=== PATIENT | male | born 1945 | race Caucasian/White ===

== ENCOUNTER 2023-03-27 09:05 | Outpatient (RCR) | payer MEDICARE, OTHER, SELFPAY | END 2023-03-27 23:59 | disposition home or self-care (01) | LOC: RPT 09:05 | PROVIDERS: ATTENDING PHYSICIAN Internal Medicine Geriatric Medicine | DX: R26.89 Other abnormalities of gait and mobility (principal); Z73.6 Limitation of activities due to disability; R26.2 Difficulty in walking, not elsewhere classified; C61 Malignant neoplasm of prostate; M62.81 Muscle weakness (generalized) | CPT/HCPCS: 97163 ==

== ENCOUNTER → 2023-04-06 15:56 | Outpatient (REF) | payer MEDICARE, OTHER, SELFPAY ==
[2023-04-07 14:40] LABS: NT-proBNP 839 pg/ml
== END ==
LOC: RAD 15:56
PROVIDERS: ATTENDING PHYSICIAN Internal Medicine Hematology & Oncology; FAMILY PHYSICIAN Internal Medicine Geriatric Medicine
DX: C61 Malignant neoplasm of prostate (principal)
CPT/HCPCS: 36415; 71046; 83880

== ENCOUNTER → 2023-04-07 10:18 | Outpatient (REF) | payer MEDICARE, OTHER, SELFPAY ==
[2023-04-07 10:47] LABS: % Basophils 0.3 % (0-2); % Eosinophils 0.1 % (0-6); % Immature Granulocytes 1.5 % (0-0.5); % Lymphocytes 5.7 % (20.5-51.1); % Monocytes 4.3 % (1.7-9.3); % Neutrophils 88.1 % (42.2-75.2); Absolute Basophils 0.1 10^3/uL (0-0.2); Absolute Immature Granulocytes 0.5 10^3/uL (0-0.05); Absolute Lymphocytes 1.7 10^3/uL (1.2-3.4); Absolute Monocytes 1.3 10^3/uL (0.1-0.6); Absolute Neutrophils 26.7 10^3/uL (1.4-6.5); Hematocrit 39.7 % (39.0-52.0); Mean Corp Hgb Conc. 32.7 g/dL (33.0-37.0); Mean Corpuscular Hgb 29.4 pg (27.0-31.0); Mean Corpuscular Volume 89.8 fL (80.0-94.0); Mean Platelet Volume 10.3 fL (7.4-10.4); Nucleated Red Blood Cells % 0 % (-); Platelet Count 123 10^3/uL (130-400); Red Blood Cell Count 4.42 10^6/uL (4.70-6.10); Red Cell Dist. Width 15.2 % (11.5-14.5); White Blood Cell Count 30.3 10^3/uL (4.8-10.8)
[2023-04-07 11:11] LABS: ALT (SGPT) 26 U/L (0-50); AST (SGOT) 24 U/L (17-59); Albumin 3.1 g/dl (3.5-5.0); Alkaline Phosphatase 140 U/L (38-126); Blood Urea Nitrogen 18 mg/dl (9-20); Calcium 8.6 mg/dl (8.4-10.2); Carbon Dioxide 29 mmol/L (22-30); Chloride 100 mmol/L (98-107); Direct Bilirubin 0.4 mg/dl (0.0-0.4); Glucose 172 mg/dl (70-99); Potassium 3.8 mmol/L (3.5-5.1); Sodium 138 mmol/L (135-145); Total Protein 5.8 g/dl (6.3-8.2); eGFR > 60.00
[2023-04-07 11:41] LABS: PSA, Total - Diagnostic 2.65 ng/ml (0.0-4.0)
== END ==
LOC: REG 10:18
PROVIDERS: ATTENDING PHYSICIAN Internal Medicine Hematology & Oncology
DX: C61 Malignant neoplasm of prostate (principal)
CPT/HCPCS: 36415; 80053; 82248; 84153; 85025

== ENCOUNTER 2023-04-08 22:05 | Inpatient (IN) | payer MEDICARE, OTHER, SELFPAY ==
[2023-04-08] VITALS (9 sets, daily range): BP systolic 105–129; BP diastolic 58–66; BMI 26.5
--- NOTE | 2023-04-08 16:55 | ED.GENMED ---
History of Present Illness
<Jessica Robertson NP - Last Filed: 04/08/23 22:40>
General
Chief Complaint: Breathing Problem
Source: patient
Exam Limitations: none
Time Seen by Provider: 04/08/23 16:45
Nursing documentation reviewed up to this point in time: agreed with
Travel History
Have you had any contact with someone who has COVID-19?: No
Do you have any symptoms of coronavirus? Fever > 100 degrees, chills, cough, shortness of breath, sore throat, loss of taste or smell, muscle aches, or headache?: Yes
Symptoms:: cough,SOB
History of Present Illness
History of Present Illness:
Patient to ED with complaint of suddent onset of SOB. Lasted approx 15 minutes. Denies any CP/pressure. He was seen by provider on . 13lb weight gain noted. He reported increased swelling to his legs and feet. He was ordered Lasix but
has not picked it from pharmacy yet. States he had outpatient labwork and CXR without any concerning findings. Brought to ED by spouse for eval. Denies fever/chills, recent illness. +nonproductive cough. Last CHemo and lupron injection Mar 23
Past History
<Jessica Robertson NP - Last Filed: 04/08/23 22:40>
Past History
ED Past Medical History: Cancer (prostate), HTN, Hypercholesterolemia and NIDDM
ED Past Surgical History: Appendectomy, Cardiac (TAVR, loop recorder.), Orthopedic (Left total knee replacement 02/16), Tonsilectomy and Other (Left-sided CEA)
Social History
Alcohol: None
Drug: None
Personal:
Living: with family
Review of Systems
<Jessica Robertson NP - Last Filed: 04/08/23 22:40>
Review of Systems
Allergies reviewed?: Yes
All Other Systems: ROS reviewed and negative except as documented in HPI and ROS
Constitutional: Reports no symptoms
EENT: Reports no symptoms
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
Cardiac: Reports no symptoms
ABD/GI: Reports no symptoms
: Reports no symptoms
Musculoskeletal: Reports edema (+3BLE)
Skin: Reports no symptoms
Neurological: Reports no symptoms
Psychiatric: Reports no symptoms
Phy Exam
<Jessica Robertson FABRICATION SUPERVISOR - Last Filed: 04/08/23 22:40>
General Physical Exam
General Presentation: mild distress
General age: appears stated age
General Skin: warm and dry
General Habitus: normal
General Mental: alert
General Hydration: appears well hydrated
Cardiovascular Exam
Cardiovascular Exam: regular rate/rhythm
Pulmonary Exam
Pulmonary Exam: chest non tender
Cough: non productive cough
Breath Sounds: Crackles: left lower and right lower
Gastrointestinal Exam
Gastrointestinal Exam: normal bowel sounds and non tender
Musculoskeletal Exam
Musculoskeletal Exam: full ROM, edema (+3 edema BLE) and neuro vasc intact
Skin Exam
Skin Exam: normal color, warm/dry and no rash
Psychiatric Exam
Psychiatric Exam: normal mood/affect
Scores
<Jessica Robertson FABRICATION SUPERVISOR - Last Filed: 04/08/23 22:40>
Heart Failure Risk
Heart Failure Risk Score: Yes
History of Stroke or TIA: No
History of intubation for respiratory distress: No
Heart rate on ED arrival >/= 110: No
SaO2 <90% on arrival on room air: No
HR >/=110 during 3min walk test (or too ill to perform test): Yes
ECG has acute ischemic changes: No
Urea >/=12mmol/L (BUN 33.6mg/dL): No
Serum CO2>/=35mmol/L: No
Troponin I or T elevated to UT Level (0.4mg/dL): Yes
NT-proBNP >/=5,000ng/L (5,000pg/ml): No
HF Risk Score: 4
Admission Status: HIGH RISK 26.1% Consider SNF treatment or admission to hospital
Course
<Jessica Robertson NP - Last Filed: 04/08/23 22:40>
Orders/Labs/Results
Orders:
Orders
04/08/23 16:56
Electrocardiogram (*1) Urgent
Reason for Study: Shortness of Breath
EKG- Treatment ONCE
04/08/23 17:03
Complete Blood Count/With Diff Urgent
Comprehensive Metabolic Panel Urgent
NT-proBNP Urgent
Troponin I Urgent
04/08/23 17:07
CR Chest - 2 Views Urgent
Comment:
Reason For Exam: SOB, cough
04/08/23 17:45
Furosemide [Lasix] 60 mg IV NOW STA
04/08/23 17:46
CT Chest Pe Study Urgent
Comment:
Reason For Exam: SOB
Nitroglycerin Ointment [Nitro-Bid] 1 inch TOPICAL NOW STA
04/08/23 19:02
Urinalysis Reflex To Culture Urgent
Date Specimen was Collected: 04/08/23
Time Specimen was Collected: 19:01
04/08/23 21:48
Admit/Transfer Patient As Directed
Co-Sign Provider:
Level of Care: Inpatient admission
Assign to:: Telemetry
Physician / Group: Luke/Hospitalist
Diagnosis: Acute CHF exacerbation, SOB, hypoxia
Reason for Telemetry: Acute Heart Failure
Date to Stop Telemetry: 04/11/23
Time to Stop Telemetry: 11:00
Reason for Hospitalization: CHF, SOB, hypoxia
Expected length of stay greater than two midnights?: Yes
ELOS- Estimated Length of Stay in days: 3
I certify the patient meets the requirements for IP care: Yes
04/08/23 21:51
Code Status As Directed
Resuscitation Status: Full Code
04/08/23 22:00
Flush (0.9% Sodium Chloride) [Flush (Nss)] See Dose Instructions IV PER PROTOCOL
04/08/23 22:20
COVID-19 Antigen Stat
Source: Nasal Swab
04/11/23 11:00
DC Protocol for Telemetry ONCE
Abnormal Lab Results
04/08/23
17:03
WBC 31.4 H 10^3/uL
(4.8-10.8)
RBC 4.20 L 10^6/uL
(4.70-6.10)
Hgb 12.5 L g/dL
(13.0-18.0)
Hct 38.1 L %
(39.0-52.0)
MCHC 32.8 L g/dL
(33.0-37.0)
RDW 15.1 H %
(11.5-14.5)
Abs Immat Gran (auto) 0.2 H 10^3/uL
(0-0.05)
Absolute Neuts (auto) 27.9 H 10^3/uL
(1.4-6.5)
Absolute Monos (auto) 1.2 H 10^3/uL
(0.1-0.6)
Immature Gran % 0.7 H %
(0-0.5)
Neutrophils % 88.9 H %
(42.2-75.2)
Lymphocytes % 5.9 L %
(20.5-51.1)
Sodium 134 L mmol/L
(135-145)
BUN 21 H mg/dl
(9-20)
Glucose 139 H mg/dl
(70-99)
Calcium 7.9 L mg/dl
(8.4-10.2)
Alkaline Phosphatase 133 H U/L
(38-126)
Troponin I 0.218 H* ng/ml
Total Protein 6.1 L g/dl
(6.3-8.2)
Albumin 3.3 L g/dl
(3.5-5.0)
04/08/23 17:03
04/08/23 17:03
Vital Signs
Initial and Last Documented VS:
Initial Vital Signs
Temp Pulse Resp BP Pulse Ox
98.3 F 71 18 121/62 92
04/08/23 16:34 04/08/23 16:34 04/08/23 16:34 04/08/23 16:34 04/08/23 16:34
Last Documented Vital Signs
Temp Pulse Resp BP Pulse Ox
98.3 F 94 22 110/59 90
04/08/23 16:34 04/08/23 21:00 04/08/23 21:00 04/08/23 21:00 04/08/23 21:00
Mattlt;Jesus Soto, DO - Last Filed: 04/08/23 17:39>
Orders/Labs/Results
Orders:
Orders
04/08/23 16:56
Electrocardiogram (*1) Urgent
Reason for Study: Shortness of Breath
EKG- Treatment ONCE
04/08/23 17:03
Complete Blood Count/With Diff Urgent
Comprehensive Metabolic Panel Urgent
NT-proBNP Urgent
Troponin I Urgent
04/08/23 17:07
CR Chest - 2 Views Urgent
Comment:
Reason For Exam: SOB, cough
04/08/23 17:45
Furosemide [Lasix] 60 mg IV NOW STA
04/08/23 17:46
CT Chest Pe Study Urgent
Comment:
Reason For Exam: SOB
Nitroglycerin Ointment [Nitro-Bid] 1 inch TOPICAL NOW STA
04/08/23 19:02
Urinalysis Reflex To Culture Urgent
Date Specimen was Collected: 04/08/23
Time Specimen was Collected: 19:01
04/08/23 21:48
Admit/Transfer Patient As Directed
Co-Sign Provider:
Level of Care: Inpatient admission
Assign to:: Telemetry
Physician / Group: Luke/Hospitalist
Diagnosis: Acute CHF exacerbation, SOB, hypoxia
Reason for Telemetry: Acute Heart Failure
Date to Stop Telemetry: 04/11/23
Time to Stop Telemetry: 11:00
Reason for Hospitalization: CHF, SOB, hypoxia
Expected length of stay greater than two midnights?: Yes
ELOS- Estimated Length of Stay in days: 3
I certify the patient meets the requirements for IP care: Yes
04/08/23 21:51
Code Status As Directed
Resuscitation Status: Full Code
04/08/23 22:00
Flush (0.9% Sodium Chloride) [Flush (Nss)] See Dose Instructions IV PER PROTOCOL
04/08/23 22:20
COVID-19 Antigen Stat
Source: Nasal Swab
04/11/23 11:00
DC Protocol for Telemetry ONCE
Abnormal Lab Results
04/08/23
17:03
WBC 31.4 H 10^3/uL
(4.8-10.8)
RBC 4.20 L 10^6/uL
(4.70-6.10)
Hgb 12.5 L g/dL
(13.0-18.0)
Hct 38.1 L %
(39.0-52.0)
MCHC 32.8 L g/dL
(33.0-37.0)
RDW 15.1 H %
(11.5-14.5)
Abs Immat Gran (auto) 0.2 H 10^3/uL
(0-0.05)
Absolute Neuts (auto) 27.9 H 10^3/uL
(1.4-6.5)
Absolute Monos (auto) 1.2 H 10^3/uL
(0.1-0.6)
Immature Gran % 0.7 H %
(0-0.5)
Neutrophils % 88.9 H %
(42.2-75.2)
Lymphocytes % 5.9 L %
(20.5-51.1)
Sodium 134 L mmol/L
(135-145)
BUN 21 H mg/dl
(9-20)
Glucose 139 H mg/dl
(70-99)
Calcium 7.9 L mg/dl
(8.4-10.2)
Alkaline Phosphatase 133 H U/L
(38-126)
Troponin I 0.218 H* ng/ml
Total Protein 6.1 L g/dl
(6.3-8.2)
Albumin 3.3 L g/dl
(3.5-5.0)
04/08/23 17:03
04/08/23 17:03
Vital Signs
Initial and Last Documented VS:
Initial Vital Signs
Temp Pulse Resp BP Pulse Ox
98.3 F 71 18 121/62 92
04/08/23 16:34 04/08/23 16:34 04/08/23 16:34 04/08/23 16:34 04/08/23 16:34
Last Documented Vital Signs
Temp Pulse Resp BP Pulse Ox
98.3 F 94 22 110/59 90
04/08/23 16:34 04/08/23 21:00 04/08/23 21:00 04/08/23 21:00 04/08/23 21:00
<Jessica Robertson NP - Last Filed: 04/08/23 22:40>
*Radiology
Radiology exam reviewed: radiology read reviewed
*Pulse Oximetry
Patient hypoxic: yes
*Critical Care Note
Total Time (30-74mins, 75-104mins- exclusive of procedures): Not Applicable
ED Attending Note
<Jessica Robertson NP - Last Filed: 04/08/23 22:40>
-
Portions of this chart may have been created with voice recognition software.� Occasional wrong word or��sound alike� substitutions may have occurred due to the inherent limitations of voice recognition software.
<Jesus Soto DO - Last Filed: 04/08/23 17:39>
ED Attending Note
Patient seen and examined by attending physician: Yes
I performed the substantive portion of visit, reviewed & personally made and approve the management plan that is documented in note by myself or GENNY.: Yes
ED Attending Note:
Patient is a 77-year-old male undergoing chemotherapy for prostate cancer and receives Neupogen shots who presents with increasing lower extremity edema, exertional dyspnea and unknown orthopnea that is progressing over the past week or so. Patient
denies any chest pain, fever or chills. Patient is feeling somewhat weaker. Patient did have chest x-ray and BMP done earlier in the week which were unremarkable. However the patient's weight has gone up and continues to have difficulty
breathing. On physical exam patient appears pale but not in any acute distress. There is mild neck vein distention. Patient's heart is regular with questionable S4. Lungs have Rales at least usp up. Abdomen soft nontender. Patient has
pitting edema from the knees distally bilaterally. Patient's chest x-ray does appear to be pulmonary edema now as opposed to the 1 to 2 days ago. Patient will be given IV Lasix. Anticipate the BNP being higher. Patient will be admitted for CHF.
Patient's white count is expected to be high given the Neupogen shot.
Discharge Plan
Departure
Patient Disposition: Admit
Date of Disposition: 04/08/23
Time of Disposition: 19:12
Presentation/result/management discussed w/ accepting MD/DO: Hospitalist
Patient with high blood pressure during this ER visit?: No
Condition: Fair
Covid-19: Not Applicable
Discharge Problem:
CHF (congestive heart failure)
Interventions
Interventions:
*Risk Screen - Suicide Last Done: 04/08/23 16:34
*General Assessment Last Done: 04/08/23 16:34
*Neglect/Abuse Screening Last Done: 04/08/23 16:34
ED- Cardiac Assessment Last Done: 04/08/23 17:19
ED- Pulmonary Assessment Last Done: 04/08/23 17:19
[2023-04-08 17:17] LABS: % Basophils 0.8 % (0-2); % Immature Granulocytes 0.7 % (0-0.5); % Lymphocytes 5.9 % (20.5-51.1); % Monocytes 3.7 % (1.7-9.3); % Neutrophils 88.9 % (42.2-75.2); Absolute Basophils 0.2 10^3/uL (0-0.2); Absolute Immature Granulocytes 0.2 10^3/uL (0-0.05); Absolute Lymphocytes 1.8 10^3/uL (1.2-3.4); Absolute Monocytes 1.2 10^3/uL (0.1-0.6); Absolute Neutrophils 27.9 10^3/uL (1.4-6.5); Hematocrit 38.1 % (39.0-52.0); Hemoglobin 12.5 g/dL (13.0-18.0); Mean Corp Hgb Conc. 32.8 g/dL (33.0-37.0); Mean Corpuscular Hgb 29.8 pg (27.0-31.0); Mean Corpuscular Volume 90.7 fL (80.0-94.0); Mean Platelet Volume 10.1 fL (7.4-10.4); Nucleated Red Blood Cells % 0 % (-); Platelet Count 139 10^3/uL (130-400); Red Cell Dist. Width 15.1 % (11.5-14.5); White Blood Cell Count 31.4 10^3/uL (4.8-10.8)
[2023-04-08 17:31] LABS: ALT (SGPT) 25 U/L (0-50); AST (SGOT) 26 U/L (17-59); Albumin 3.3 g/dl (3.5-5.0); Alkaline Phosphatase 133 U/L (38-126); Blood Urea Nitrogen 21 mg/dl (9-20); Calcium 7.9 mg/dl (8.4-10.2); Carbon Dioxide 27 mmol/L (22-30); Chloride 104 mmol/L (98-107); Estimated Creatinine Clearance 112 ml/min; Glucose 139 mg/dl (70-99); Potassium 3.7 mmol/L (3.5-5.1); Sodium 134 mmol/L (135-145); Total Bilirubin 0.8 mg/dl (0.2-1.3); Total Protein 6.1 g/dl (6.3-8.2); eGFR > 60.00
[2023-04-08 17:37] LABS: NT-proBNP 3260 pg/ml; Troponin I 0.218 ng/ml
[2023-04-08] MEDS: LASIX 60 MG IV (18:35)
[2023-04-08] MEDS: NITRO-BID 1 INCH TOPICAL (18:35)
[2023-04-08 19:10] LABS: Urine Albumin Trace (Neg - Trace); Urine Bilirubin Negative (Negative); Urine Character Clear (Clear); Urine Color Straw; Urine Glucose Negative (Negative); Urine Ketone Negative (Negative); Urine Leukocyte Negative (Negative); Urine Nitrite Negative (Negative); Urine Occult Blood Negative (Negative); Urine Urobilinogen Negative (Neg - 1+)
--- NOTE | 2023-04-08 20:02 | HPS.HSE ---
Family Physician
-
Family Physician: Neville Gómez
Chief Complaint
-
sudden onset SOB
History of Present Illness
The patient is a 77 yo male with PMH significant for prostate cancer, HTN, HLD, NIDDM, ILD, aortic stenosis s/p TAVR, presenting to the ED due to sudden onset SOB lasting 15 minutes, not associated with CP. He's had 13 lb weight gain and swelling of
legs and feet. Seen by doctor and ordered Lasix and took first dose of Lasix yesterday and today (40 mg daily). At that time, per pt, outpatient CXR and lab work was unrevealing. He has non-productive cough. Of note, last chemotherapy and
Lupron injection Mar 23. he has had significant b/l LE edema/swelling over the past 2 days. He sleeps upright due to SOB, congestion, and back pain. No CP, no palpitation, no n/v/d, no fevers, no chills, no dysuria, no abdominal pain.
Medical History
Past Medical History
Past Medical History: Reports Cancer (prostate s/p Lupron and chemo Mar 23, mets to ), HTN, Hypercholesterolemia, NIDDM and Other (cerebrovascular disease, TIA, YOUSIF)
Past Surgical History: Reports Appendectomy, Cardiac (TAVR, loop recorder), Orthopedic (left total knee replacement 02/16), Tonsilectomy and Other (left-sided CEA 11/24/22)
Social History
Tobacco: Former Smoker
Alcohol: Daily
Drug: None
Personal:
Living: With Family
Family History
Family History: Not pertinent (reviewed)
Allergies / Home Medications
Allergies reflects when Allergies were last updated in [employer].
Home Medications with original date entered in [employer]
Allergy/Medication List:
Allergies
Allergy/AdvReac Type Severity Reaction Status Date / Time
Penicillins Allergy Rash Verified 04/08/23 16:34
pollen extracts Allergy watery Verified 04/08/23 16:34
eyes,
nasal
congestion
Home Medications
coenzyme Q10 100 mg capsule (Co Q-10) 100 mg PO DAILY Supplement 02/22/19
empagliflozin 10 mg tablet (Jardiance) 10 mg PO DAILY Diabetes 02/22/19
simvastatin 20 mg tablet 20 mg PO HS High cholesterol 02/22/19
vit C 250 mg-vit E 90 mg-zinc 40 mg-copper 1 [id number] capsule (PreserVision AREDS-2) 1 ea PO BID Supplement 02/22/19
cholecalciferol (vitamin D3) 25 mcg (1,000 unit) capsule (Vitamin D3) 50 mcg PO DAILY Supplement 01/25/22
ipratropium bromide 42 mcg (0.06 %) nasal spray 2 spray intranasal DAILY Congestion 01/25/22
metoprolol succinate 25 mg tablet,extended release 24 hr 12.5 mg PO HS Blood pressure 01/25/22
tamsulosin 0.4 mg capsule 0.4 mg PO HS Urinary Issue 11/18/22
metformin 1,000 mg tablet 1,000 mg PO BID Diabetes 11/24/22
clopidogrel 75 mg tablet (Plavix) 75 mg PO QPM 02/24/23
escitalopram oxalate 5 mg tablet 5 mg PO DAILY 04/08/23
furosemide 40 mg tablet 40 mg PO DAILY 04/08/23
gabapentin 100 mg capsule 300 mg PO HS 04/08/23
prednisone 5 mg tablet 5 mg PO BID 04/08/23
Review of Systems
-
A 12 point ROS was completed and negative except as noted: Yes
Physical Exam
Vital Signs
Vital Signs
Temp Pulse Resp BP Pulse Ox
98.3 F 83 18 125/58 93
04/08/23 16:34 04/08/23 19:00 04/08/23 18:30 04/08/23 19:00 04/08/23 18:30
Physical Exam
General: No Apparent Distress, Comfortable, Conversant and Appears Chronically Ill
HEENT: NormoCephalic, Anicteric and Moist mucous membranes
Respiratory: Crackles (bibasilar)
Cardiac: S1/S2 and Regular Rhythm
GI: Soft, Non Tender and Non Distended
Musculoskeletal: Edema, Left Lower Extremity (3+) and Edema, Right Lower Extremity (3+)
Skin: Warm and Dry
Neuro: AO x 3, No Motor Deficits and Nonfocal/grossly intact
Psych: Calm
Laboratory Results
-
04/08/23 17:03
04/08/23 17:03
Laboratory Results
Total Bilirubin 0.8 mg/dl (0.2-1.3) 04/08/23 17:
AST 26 U/L (17-59) 04/08/23 17:03
ALT 25 U/L (0-50) 04/08/23 17:03
Alkaline Phosphatase 133 U/L (38-126) H 04/08/23 17:03
Troponin I 0.218 ng/ml H* 04/08/23 17:03
Data Reviewed
-
CT Scan: Report Reviewed by me (CT chest no PE, small b/l effusions, chronic ILD)
Medical Tests (Nuc Med, Echo, EKG etc): Report Reviewed by me (Sinus rhythm 1st degree AV block premature supraventricular complexes, CO interval increased from comparison 11/26/22 )
Impression/Plan
-
IMPRESSION:The patient is a 77 yo male with PMH significant for prostate cancer, HTN, HLD, NIDDM, ILD, aortic stenosis s/p TAVR, presenting to the ED due to sudden onset SOB lasting 15 minutes, not associated with CP. He's had 13 lb weight gain and
swelling of legs and feet. Seen by doctor and ordered Lasix and took first dose of Lasix yesterday and today (40 mg daily). At that time, per pt, outpatient CXR and lab work was unrevealing. He has non-productive cough. Of note, last
chemotherapy and Lupron injection Dario 18th. he has had significant b/l LE edema/swelling over the past 2 days. He sleeps upright due to SOB, congestion, and back pain. No CP, no palpitation, no n/v/d, no fevers, no chills, no dysuria, no abdominal
pain.
ED txt: IV Lasix 40 mg
#SOB, concern is for acute CHF exacerbation versus multifactorial related to CHF, ILD, ACS, and status post recent chemotherapy for metastatic prostate cancer. CT chest negative for PE
-admit to tele
-Cards consulted
-IV Lasix 40 BID, monitor lytes, intake and output, daily weight
-check COVID antigen
#s/p TAVR, performed at [facility]
Findings on recent Echocardiogram 03/30/23:
Normal left ventricular size, wall thickness and systolic function. No regional wall motion abnormalities are seen. LV ejection fraction is 55-60% Normal diastolic function. Upper normal right ventricular size. Normal right ventricular systolic
function.�S/P TAVR Normally functioning [place] #29mm bioprosthetic valve. Peak/mean gradients across the aortic valve are 16mmHg and 10mmHg.�Trace tricuspid regurgitation. Estimated pulmonary artery pressure of 25-30
mmHg. Assuming a right atrial pressure of 3 mmHg. �Mild mitral regurgitation.�Compared to previous echo 02/06/2019, a transcatheter aortic valve is now in place and functioning well.
-discuss with Cardiology
#Prostate cancer s/p chemo and Lupron, Neupogen (per patient) Mar 23
-leukocytosis-monitor, repeat in am
#HTN
-stable, monitor
-metoprolol
#HLD
#NIDDM
-Jardiance
-SSI
-hold metformin
#s/p CEA
�-cont Plavix
DVT proph-Lovenox
Full Code confirmed
[2023-04-08 22:47] LABS: COVID-19 Antigen Negative (Negative)
[2023-04-09] VITALS (8 sets, daily range): BP systolic 100–119; BP diastolic 49–63; PULSE 72; O2SAT 92; BMI 25.5; BMI 25.4
[2023-04-09] MEDS: NEURONTIN 300 MG PO ×2 (01:13→21:00)
[2023-04-09] MEDS: FLOMAX 0.400000000000000022 MG PO ×2 (01:13→21:00)
[2023-04-09] MEDS: TOPROL XL 12.5 MG PO ×2 (01:13→21:00)
[2023-04-09] MEDS: LIPITOR 10 MG PO ×2 (01:13→21:00)
[2023-04-09 01:24] LABS: Troponin I 0.124 ng/ml
[2023-04-09 07:21] LABS: Hematocrit 31.9 % (39.0-52.0); Hemoglobin 10.4 g/dL (13.0-18.0); Mean Corp Hgb Conc. 32.6 g/dL (33.0-37.0); Mean Corpuscular Hgb 29.6 pg (27.0-31.0); Mean Corpuscular Volume 90.9 fL (80.0-94.0); Mean Platelet Volume 10.3 fL (7.4-10.4); Platelet Count 135 10^3/uL (130-400); Red Blood Cell Count 3.51 10^6/uL (4.70-6.10); Red Cell Dist. Width 14.9 % (11.5-14.5); White Blood Cell Count 25.9 10^3/uL (4.8-10.8)
[2023-04-09 07:22] LABS: INR 1.15; PT 14.5 Sec (11.4-14.6)
[2023-04-09 07:37] LABS: Troponin I 0.091 ng/ml
[2023-04-09 07:58] LABS: Blood Urea Nitrogen 24 mg/dl (9-20); Calcium 8.1 mg/dl (8.4-10.2); Carbon Dioxide 29 mmol/L (22-30); Chloride 99 mmol/L (98-107); Estimated Creatinine Clearance > 125 ml/min; Glucose 134 mg/dl (70-99); HDL Cholesterol 40 mg/dl; LDL Cholesterol, Calculated 52 mg/dl; Magnesium 2.2 mg/dl (1.6-2.3); Potassium 3.3 mmol/L (3.5-5.1); Sodium 134 mmol/L (135-145); Total Cholesterol 107 mg/dl (50-199); Triglyceride 76 mg/dl (10-149); Very Low Density Lipoprotein 15 mg/dl (0-30); eGFR > 60.00
[2023-04-09 08:14] LABS: Glucose - Point of Care 130 mg/dl (70-99)
[2023-04-09] MEDS: DELTASONE 5 MG PO ×2 (08:20→20:55)
[2023-04-09] MEDS: LASIX 40 MG IV ×2 (08:20→16:01)
[2023-04-09] MEDS: JARDIANCE 10 MG PO (08:20)
[2023-04-09] MEDS: LEXAPRO 5 MG PO (08:21)
[2023-04-09] MEDS: OCUVITE SOFTGEL 1 CAP PO ×2 (08:21→20:55)
[2023-04-09] MEDS: VITAMIN D3 (cholecalciferol) 50 MCG PO (08:21)
[2023-04-09 08:25] LABS: TSH Reflex To Free T4 1.79 uIU/ml (0.47-4.68)
--- NOTE | 2023-04-09 08:29 | CON.CAR ---
Consultation
Consultation Request
Date/Time Consultation Requested: April 08, 2023
Date/Time Consultation Performed: April 09, 2023
Requesting Provider: Hospitalist
Performing Provider: Lana
Reason for Consultation: Congestive heart failure
Medical History
-
Chief Complaint: Congestive heart failure
History of Present Illness:
77-year-old male who gets his daytime cardiology care at [facility] and presents to [facility] last evening with symptoms and signs of congestive heart failure with dyspnea on exertion and mild orthopnea. He has recently been
undergoing care for prostate cancer and is due for his third round of chemotherapy in the coming weeks. He just received Neupogen as evidenced by his elevated white count. He did diurese overnight and is feeling better this morning. He follows
with Dr. Mitch Mcfadden at length and all although has presented here in after hours back in November and this weekend at [place] as he lives locally.
Primary Caul Dresser: Dr. Mitch Mcfadden of [facility]
Past medical history:
Prostate cancer
Recent Neupogen use
Leukocytosis
Elevated troponin
L carotid stenosis s/p L CEA 11/24/22
Post operative bradycardia
severe s/p TAVR at [facility]
s/p Medtronic loop recorder for 'tachycardia'
HTN
HLD
DM2
History of knee surgery
Past Medical History
Past Medical History: Cancer and Valvular Disease
Past Surgical History: Cardiac
Social History
Tobacco: Non-Smoker
Alcohol: None
Drug: None
Personal: Other
Living: With Family
Employment: Retired
Family History
Family History: Reviewed & Not Pertinent
Allergies / Home Medications
Allergy/AdvReac Type Severity Reaction Status Date / Time
Penicillins Allergy Rash Verified 04/08/23 16:34
pollen extracts Allergy watery Verified 04/08/23 16:34
eyes,
nasal
congestion
Medication Instructions Recorded Confirmed Type
coenzyme Q10 100 mg capsule (Co 100 mg PO DAILY Supplement 02/22/19 04/08/23 History
Q-10)
empagliflozin 10 mg tablet 10 mg PO DAILY Diabetes 02/22/19 04/08/23 History
(Jardiance)
simvastatin 20 mg tablet 20 mg PO HS High cholesterol 02/22/19 04/08/23 History
vit C 250 mg-vit E 90 mg-zinc 40 1 ea PO BID Supplement 02/22/19 04/08/23 History
mg-copper 1 [id number]
capsule (PreserVision AREDS-2)
cholecalciferol (vitamin D3) 25 50 mcg PO DAILY Supplement 01/25/22 04/08/23 History
mcg (1,000 unit) capsule (Vitamin
D3)
ipratropium bromide 42 mcg (0.06 2 spray intranasal DAILY Congestion 01/25/22 04/08/23 History
%) nasal spray
metoprolol succinate 25 mg 12.5 mg PO HS Blood pressure 01/25/22 04/08/23 History
tablet,extended release 24 hr
tamsulosin 0.4 mg capsule 0.4 mg PO HS Urinary Issue 11/18/22 04/08/23 History
metformin 1,000 mg tablet 1,000 mg PO BID Diabetes 11/24/22 04/08/23 History
clopidogrel 75 mg tablet (Plavix) 75 mg PO QPM 02/24/23 04/08/23 History
escitalopram oxalate 5 mg tablet 5 mg PO DAILY 04/08/23 04/08/23 History
furosemide 40 mg tablet 40 mg PO DAILY 04/08/23 04/08/23 History
gabapentin 100 mg capsule 300 mg PO HS 04/08/23 04/08/23 History
prednisone 5 mg tablet 5 mg PO BID 04/08/23 04/08/23 History
Review of Systems
-
All other systems: Negative unless noted
Respiratory: Trouble Breathing
Cardiac: No Symptoms
Physical Exam
Vital Signs
Temp Pulse Resp BP Pulse Ox
98.3 F 83 20 119/56 93
04/09/23 07:00 04/09/23 07:00 04/09/23 07:00 04/09/23 07:00 04/09/23 07:00
Lab Results
04/09/23 05:57
04/09/23 05:57
Troponin I 0.091 ng/ml H* D 04/09/23 05:57
Hli-F-Iipgackxvfk Pept 3260 pg/ml 04/08/23 17:03
Physical Exam
General: Well Developed and Well Nourished
HEENT: Normocephalic
Respiratory: Clear
Cardiac: S1/S2 and Regular Rhythm
Breast: Deferred by me
GI: Soft, Non Tender and Non Distended
Rectal: Deferred by Provider
Musculoskeletal: No Clubbing and No Cyanosis
Skin: Warm and Dry
Neuro: Awake, Alert and Oriented
Hematologic/Lymphatic: No Lymphadenopathy
Psych: Calm
Impression / Plan
-
Primary Caul Dresser: Dr. Mitch Mcfadden of [facility]
Assessment:
Acute congestive heart failure likely diastolic
Recent echocardiogram at [facility]
Prostate cancer
Recent Neupogen use
Mildly elevated troponin
L carotid stenosis s/p L CEA 11/24/22
Post operative bradycardia
severe s/p TAVR at [facility]
s/p Medtronic loop recorder for 'tachycardia'
HTN
HLD
DM2
History of knee surgery
Recommendations:
IV diuresis and potentially could switch to p.o. Lasix on April 11Monday
Can obtain his outpatient primary monorail charger operator echocardiogram which happened in the last few weeks for details of his aortic valve and LV function
Trend troponin although medical management of CHF is planned
He is on Plavix
Obtain records from his primary monorail charger operator and communication with primary monorail charger operator Yoshi
We will follow with you
Data Reviewed
-
EKG: Tracing Personally Visualized and interpreted
Radiology: Image Personally Visualized and interpreted
Medical Tests (Nuc Med, Echo etc): Image Personally Visualized and interpreted
Labs: Labs Reviewed by me
Old Records: Requested and Reviewed
--- NOTE | 2023-04-09 08:49 | W.PN.HOSP.TC ---
Today's Communication/Plan
-
Continue IV diuresis
Updated patient's
Possible discharge tomorrow
Assessment / Plan
Assessment / Plan
Physical Exam
General: No Apparent Distress
HEENT: Normocephalic, Anicteric and Moist mucous membranes
Respiratory: Faint Crackles (bibasilar)
Cardiac: S1/S2 and Regular Rhythm
GI: Soft, Non Tender and Non Distended
Musculoskeletal: Edema, Left Lower Extremity (3+) and Edema, Right Lower Extremity (3+)
Skin: Warm and Dry
Neuro: AO x 3, No Motor Deficits and Nonfocal/grossly intact
Psych: Calm

Assessment/Plan
IMPRESSION: The patient is a 77 yo male with past medical history significant for prostate cancer, HTN, HLD, NIDDM, ILD, aortic stenosis s/p TAVR, presented to the ED due to sudden onset SOB lasting 15 minutes, not associated with CP. He's had 13 lb
weight gain and swelling of legs and feet. He was seen by doctor 2 days prior to presentation - Lasix was ordered and he took his first dose of Lasix the day before presentation as well as on the day of presentation (40 mg daily). At that time, per
patient, outpatient chest x-ray and lab work was unrevealing. He had non-productive cough. Of note, last chemotherapy and Lupron injection was on Mar 23 2023. he has had significant b/l LE edema/swelling over the 2 days prior to presentation. He
sleeps upright due to SOB, congestion, and back pain. No CP, no palpitation, no n/v/d, no fevers, no chills, no dysuria, no abdominal pain.
ED txt: IV Lasix 40 mg
#SOB, concern is for acute CHF exacerbation versus multifactorial related to CHF, ILD, ACS, and status post recent chemotherapy for metastatic prostate cancer. CT chest negative for PE
#Suspected Exacerbation of Heart Failure with Preserved Ejection Fraction
-Continue telemetry monitoring
-Cards consulted, recommendations appreciated
-IV Lasix 40 BID, monitor lytes, intake and output, daily weight
-COVID test negative
#Small left and trace right pleural effusions on Chest CT imaging.
#Findings suggesting chronic interstitial lung disease changes such as usual interstitial pneumonitis on Chest CT imaging
-Follow-up outpatient
#Severe Aortic Stenosis s/p TAVR, performed at [facility]
Findings on recent Echocardiogram 03/30/23:
Normal left ventricular size, wall thickness and systolic function. No regional wall motion abnormalities are seen. LV ejection fraction is 55-60% Normal diastolic function. Upper normal right ventricular size. Normal right ventricular systolic
function.�S/P TAVR Normally functioning Saravia #29mm bioprosthetic valve. Peak/mean gradients across the aortic valve are 16mmHg and 10mmHg.�Trace tricuspid regurgitation. Estimated pulmonary artery pressure of 25-30
mmHg. Assuming a right atrial pressure of 3 mmHg. �Mild mitral regurgitation.�Compared to previous echo 02/06/2019, a transcatheter aortic valve is now in place and functioning well.
-Cardiology consulted, recommendations appreciated
#Hypokalemia
-Replaced
-Magnesium is normal
-Recheck in the morning
#Hyponatremia
-Suspected secondary hypervolemic due to CHF
#Prostate cancer s/p chemo and Lupron, Neupogen (per patient) Mar 23, 2023
-leukocytosis-monitor, repeat in am
#HTN
-stable, monitor
-metoprolol
#HLD
-Continue home Simvastatin or appropriate equivalent while hospitalized
#NIDDM
-Jardiance
-SSI
-hold metformin
#s/p CEA
�-cont Plavix
Mildly elevated troponin
L carotid stenosis s/p L CEA 11/24/22
History of Post operative bradycardia
s/p Medtronic loop recorder for 'tachycardia'
History of knee surgery
DVT Prophylaxis: Lovenox
Full Code confirmed
I spoke to patient's Petar over the phone today; all questions and concerns were answered to satisfaction.
Total time spent today on reviewing patient's chart, seeing and examining patient, documentation, review of orders, and speaking with patient's over the phone was 55 minutes.
Anticipated Discharge: 24 - 48 hours
Subjective/Interval History
-
Date of Service: April 09, 2023
Patient was seen and examined. He reported feeling okay, he denied any active significant chest pain or shortness of breath.
Objective Data
-
Labs:
Laboratory Results
04/09/23
05:57
WBC 25.9 H
Hgb 10.4 L
Hct 31.9 L
Plt Count 135
PT 14.5
INR 1.15
Sodium 134 L
Potassium 3.3 L
Chloride 99
Carbon Dioxide 29
BUN 24 H
Creatinine 0.6 L
Glucose 134 H
Calcium 8.1 L
Vital Signs:
Vital Signs
Temp Pulse Resp BP Pulse Ox
98.3 F 83 20 119/56 93
04/09/23 07:00 04/09/23 07:00 04/09/23 07:00 04/09/23 07:00 04/09/23 07:00
I&O
04/08/23 04/09/23 04/10/23
06:59 06:59 06:59
Intake Total 480 / 480
Output Total 1850 / 1850
Balance -1370 / -1370
[2023-04-09] MEDS: KCL 40 MEQ PO (10:07)
[2023-04-09 13:00] LABS: Troponin I 0.061 ng/ml
--- NOTE | 2023-04-09 16:23 | CM ---
Chart reviewed. Spoke with pt and family members at bedside
Pt lives with his in a 2 story home
Independent, drives
No DME. Denies past snf/HH
Will have ride at d/c
PCP - Dr Dawson Gómez
Pharm - [facility]
Plan - d/c to home - no needs
[2023-04-09] MEDS: PLAVIX 75 MG PO (18:19)
[2023-04-09] MEDS: LOVENOX 40 MG SC (18:19)
[2023-04-10] VITALS (7 sets, daily range): BP systolic 99–122; BP diastolic 54–68; PULSE 86; O2SAT 93; BMI 24.6
[2023-04-10 05:31] LABS: Hematocrit 35.5 % (39.0-52.0); Hemoglobin 12.1 g/dL (13.0-18.0); Mean Corp Hgb Conc. 34.1 g/dL (33.0-37.0); Mean Corpuscular Hgb 29.9 pg (27.0-31.0); Mean Corpuscular Volume 87.7 fL (80.0-94.0); Mean Platelet Volume 9.5 fL (7.4-10.4); Platelet Count 193 10^3/uL (130-400); Red Blood Cell Count 4.05 10^6/uL (4.70-6.10); Red Cell Dist. Width 14.8 % (11.5-14.5); White Blood Cell Count 25.9 10^3/uL (4.8-10.8)
[2023-04-10 05:49] LABS: INR 1.12; PT 14.3 Sec (11.4-14.6)
[2023-04-10 05:56] LABS: Blood Urea Nitrogen 23 mg/dl (9-20); Calcium 8.4 mg/dl (8.4-10.2); Carbon Dioxide 30 mmol/L (22-30); Chloride 101 mmol/L (98-107); Estimated Creatinine Clearance 112 ml/min; Glucose 152 mg/dl (70-99); Potassium 4.1 mmol/L (3.5-5.1); Sodium 135 mmol/L (135-145); eGFR > 60.00
[2023-04-10] MEDS: DELTASONE 5 MG PO ×2 (08:20→20:38)
[2023-04-10] MEDS: JARDIANCE 10 MG PO (08:20)
[2023-04-10] MEDS: OCUVITE SOFTGEL 1 CAP PO ×2 (08:20→20:38)
[2023-04-10] MEDS: LASIX 40 MG IV ×2 (08:20→16:22)
[2023-04-10] MEDS: VITAMIN D3 (cholecalciferol) 50 MCG PO (08:20)
[2023-04-10] MEDS: LEXAPRO 5 MG PO (08:20)
--- NOTE | 2023-04-10 10:00 | W.PN.CARDCBS ---
Addendum entered and electronically signed by Denise Shaver DO 04/10/23 12:19:
I saw and examined the patient.
The General Manager [employer]'s note was reviewed and I agree with the note.
Comment: Seen and examined. Feels better today and reprots imporved SOB and edema. Still with right LE edema.
GEN: NNAD, AAOx3
HEENT: mmm
LUNGS: CTA, no wheezes/rales
CV: Reg, S1/S2, no murmur
ABD: soft, BS+, NT/ND
EXT: +1 RLE edema. Trace LLE edema
Echo 03/30/2023: EF 55 to 60%. Mild MR.� Status post TAVR Saravia number 29 mm valve.� Peak/mean gradient 16/10 mmHg.� PAP 25 to 30 mmHg
Recommendations:
Presented� 04/08/2023 with SOB, weight gain, edema
Acute heart failure with preserved ejection fraction, proBNP 3260
-Weight is down at least 8 pounds if not greater since admission. Notes improvement of symptoms.
-Switch to p.o. Lasix 40 mg daily, likely tomorrow. Of note pt was not on Lasix as outpt (it was ordered but he never started it)
-Renal function stable, creatinine 0.7
-Stable electrolytes potassium 4.1
-BMP as outp in 1 week
-Continue Toprol, Jardiance
-Blood pressure well-controlled on current regimen.
Aortic stenosis status post TAVR at [facility].
-Recent echocardiogram from 03/30/2023 with preserved ejection fraction and well-seated TAVR with stable gradients and no paravalvular leak
Elevated troponin, peaked 0.218
-suspect non-ischemic myocardial injury from acute HF
-Patient denies chest pain.� EKG sinus rhythm without ischemic changes
-Prior catheterization requested from primary campus ambassador.� Patient denies history of CAD
-Continue Plavix for L carotid stenosis s/p L CEA 11/24/22]
-s/p Medtronic loop recorder- will try to interrogate.
Prostate cancer on chemo
-Recent Neupogen use
Called and requested records from his primary campus ambassador
Original Note:
Today's Communication / Plan
-
Continue IV diuresis today and transition to oral Lasix in a.m.
Discharge on Lasix 20 mg daily as patient denies taking Lasix prior to this admission
Outpatient BMP in 1 week
Will arrange follow-up with outpatient campus ambassador Dr. Mcfadden
Impression / Plan
-
Primary Aircraft Fueler: Dr. Mitch Mcfadden of [facility]
Assessment:
Presented 04/08/2023 with SOB, weight gain, edema
Acute heart failure preserved EF, proBNP 3260
Elevated troponin, suspect non-ischemic myocardial injury from acute HF
Recent echocardiogram at [facility]
Prostate cancer
Recent Neupogen use
L carotid stenosis s/p L CEA 11/24/22
Post operative bradycardia
severe s/p TAVR at [facility] 2019
s/p Medtronic loop recorder for 'tachycardia'
HTN
HLD
DM2
History of knee surgery
Echo 03/30/2023: EF 55 to 60%. Mild MR. Status post TAVR Saravia number 29 mm valve. Peak/mean gradient 16/10 mmHg. PAP 25 to 30 mmHg
Recommendations:
Presented 04/08/2023 with SOB, weight gain, edema
Acute heart failure with preserved ejection fraction, proBNP 3260
-Weight is down at least 8 pounds if not greater since admission. Notes improvement of symptoms.
-Switch to p.o. Lasix 20 mg upon d/c. Of note pt was not on Lasix as outpt (it was ordered but he never started it)
-Renal function stable, creatinine 0.7
-Stable electrolytes potassium 4.1
-BMP as outp in 1 week
-Continue Toprol, Jardiance
-Blood pressure well-controlled on current regimen.
Aortic stenosis status post TAVR at [facility].
-Recent echocardiogram from 03/30/2023 with preserved ejection fraction and well-seated TAVR with stable gradients and no paravalvular leak
Elevated troponin, peaked 0.218
-suspect non-ischemic myocardial injury from acute HF
-Patient denies chest pain. EKG sinus rhythm without ischemic changes
-Prior catheterization requested from primary campus ambassador. Patient denies history of CAD
-Continue Plavix
Called and requested records from his primary campus ambassador
Progress Note - Aircraft Fueler
Subjective
Date of Service: April 10, 2023
Patient seen and examined. Patient reports that he is feeling considerably better. He has made good urination since admission.
He reports he was prescribed Lasix prior to admission but never started it.
Objective
Labs:
04/10/23 05:11
04/10/23 05:11
Labs
Hgb 12.1 g/dL (13.0-18.0) L 04/10/23 05:11
Hct 35.5 % (39.0-52.0) L 04/10/23 05:11
Plt Count 193 10^3/uL (130-400) D 04/10/23 05:11
PT 14.3 Sec (11.4-14.6) 04/10/23 05:11
INR 1.12 04/10/23 05:11
Sodium 135 mmol/L (135-145) 04/10/23 05:11
Potassium 4.1 mmol/L (3.5-5.1) 04/10/23 05:11
BUN 23 mg/dl (9-20) H 04/10/23 05:11
Creatinine 0.7 mg/dL (0.7-1.3) 04/10/23 05:11
Glucose 152 mg/dl (70-99) H 04/10/23 05:11
Troponins
04/08/23 04/09/23 04/09/23
17:03 00:53 05:57
Troponin I 0.218 H* 0.124 H* D 0.091 H* D
04/09/23
12:12
Troponin I 0.061 H* D
Vital Signs and I&O:
Vital Signs
Temp Pulse Resp BP Pulse Ox
98.1 F 81 18 115/68 92
04/10/23 07:00 04/10/23 07:00 04/10/23 07:00 04/10/23 07:00 04/10/23 07:00
Vital Signs
Temp Pulse Resp BP Pulse Ox
98.1 F 81 18 115/68 92
04/10/23 07:00 04/10/23 07:00 04/10/23 07:00 04/10/23 07:00 04/10/23 07:00
Intake & Output
04/08/23 04/09/23 04/10/23 04/11/23
06:59 06:59 06:59 06:59
Intake Total 480 / 480 2040 / 2040
Output Total 1850 / 1850 2600 / 2600
Balance -1370 / -1370 -560 / -560
Physical Exam
Physical Exam
GEN: No distress, awake, Ox3
HEENT: supple, anicteric, mmm
LUNGS: CTA, no wheezes/rales
CV: Reg, S1/S2, no murmur, rub or gallop
ABD: soft, BS+, NT/ND
EXT: No edema, clubbing or cyanosis
NEURO: Gross non-focal
SKIN: No rash, warm, dry, pink
--- NOTE | 2023-04-10 11:52 | CON.ONC ---
Documented by User: Reinaldo Brown MD, Resident 04/10/23 12:16
Impression
Impression
* Suspected Exacerbation of Heart Failure with Preserved Ejection Fraction
* Leukocytosis
Plan
Plan
Suspected Exacerbation of Heart Failure with Preserved Ejection Fraction
- He has noted significant weight gain over the past few weeks, along with peripheral edema.
- He was prescribed Lasix last week.
- Presented to the emergency soon after with dyspnea and orthopnea.
- Acute congestive heart failure likely diastolic was suspected and he was received IV diuresis.
- Dyspnea and other symptoms improved, and he is feeling better overall.
- Acute CHF exacerbation vs. multifactorial from CHF, ILD, ACS and recent chemotherapy for metastatic prostate cancer.
- Recommended to get a scale at home for regular monitoring.
- Plans for discharge on Lasix 20 mg daily, and outpatient cardiology follow-up.
- Has chemo scheduled for next week, and he is okay to proceed for that.
* Leukocytosis
- Likely from Neupogen.
- Stable, and does not require further intervention/investigations.
Patient History
History of Present Illness
Junior Crocker, 77 year old male, came to the emergency on 04-08-23 with dyspnea on exertion and mild orthopnea, and diagnosed with acute congestive heart failure exacerbation. He is on chemotherapy for his known prostate cancer, and his last
infusion was on 03-29-23. He also receives Neupogen, likely responsible for the current leukocytosis. He was noted to have significant weight gain and peripheral edema; he was prescribed Lasix last week. Outpatient CXR and lab work was unrevealing.
Past-Medical/Surgical History
PMH: prostate s/p Lupron and last chemo Mar 23,, HTN, Hypercholesterolemia, NIDDM, cerebrovascular disease, TIA, YOUSIF
PSH: Appendectomy, Cardiac (TAVR, loop recorder), Orthopedic (left total knee replacement 02/16), Tonsilectomy and Other (left-sided CEA 11/24/22)
SH: former smoker; EtOH daily
Patient Medication
Medication Instructions Recorded Confirmed Last Taken Type
coenzyme Q10 100 mg capsule (Co 100 mg PO DAILY Supplement 02/22/19 04/08/23 04/08/23 History
Q-10)
empagliflozin 10 mg tablet 10 mg PO DAILY Diabetes 02/22/19 04/08/23 04/08/23 History
(Jardiance)
simvastatin 20 mg tablet 20 mg PO HS High cholesterol 02/22/19 04/08/23 04/07/23 History
vit C 250 mg-vit E 90 mg-zinc 40 1 ea PO BID Supplement 02/22/19 04/08/23 04/08/23 History
mg-copper 1 [id number]
capsule (PreserVision AREDS-2)
cholecalciferol (vitamin D3) 25 50 mcg PO DAILY Supplement 01/25/22 04/08/23 04/08/23 History
mcg (1,000 unit) capsule (Vitamin
D3)
ipratropium bromide 42 mcg (0.06 2 spray intranasal DAILY Congestion 01/25/22 04/08/23 04/08/23 History
%) nasal spray
metoprolol succinate 25 mg 12.5 mg PO HS Blood pressure 01/25/22 04/08/23 04/07/23 History
tablet,extended release 24 hr
tamsulosin 0.4 mg capsule 0.4 mg PO HS Urinary Issue 11/18/22 04/08/23 04/07/23 History
metformin 1,000 mg tablet 1,000 mg PO BID Diabetes 11/24/22 04/08/23 04/08/23 History
clopidogrel 75 mg tablet (Plavix) 75 mg PO QPM Blood Clot 02/24/23 04/08/23 04/07/23 History
Prevention/Tx
escitalopram oxalate 5 mg tablet 5 mg PO DAILY Mental Health/Anxiety 04/08/23 04/08/23 04/08/23 History
furosemide 40 mg tablet 40 mg PO DAILY Fluid 04/08/23 04/08/23 04/08/23 History
Retention/Swelling
gabapentin 100 mg capsule 300 mg PO HS Pain 04/08/23 04/08/23 04/07/23 History
prednisone 5 mg tablet 5 mg PO BID Anti-Inflammatory 04/08/23 04/08/23 04/08/23 History
Active Medications
Generic Name Dose Route Start Last Admin
Trade Name Octavio PRN Reason Stop Dose Admin
Atorvastatin Calcium 10 mg 04/09/23 00:16 04/09/23 21:00
Atorvastatin (Lipitor) 10 Mg Tablet PO 05/07/23 00:15 10 mg
HS APOLLO Administration
Cholecalciferol 50 mcg 04/09/23 08:00 04/10/23 08:20
Cholecalciferol (Vitamin D3) 50 Mcg Tablet (2,000 Units) PO 05/07/23 07:59 50 mcg
DAILY APOLLO Administration
Clopidogrel Bisulfate 75 mg 04/09/23 18:00 04/09/23 18:19
Clopidogrel 75 Mg Tablet PO 05/07/23 17:59 75 mg
QPM APOLLO Administration
Empagliflozin 10 mg 04/09/23 08:00 04/10/23 08:20
Empagliflozin (Jardiance) 10 Mg Tablet PO 05/07/23 07:59 10 mg
DAILY APOLLO Administration
Enoxaparin Sodium 40 mg 04/09/23 18:00 04/09/23 18:19
Enoxaparin Sodium 40 Mg/0.4 Ml Syringe SC 05/07/23 17:59 40 mg
QPM APOLLO Administration
Escitalopram Oxalate 5 mg 04/09/23 08:00 04/10/23 08:20
Escitalopram 5 Mg Tablet PO 05/07/23 07:59 5 mg
DAILY APOLLO Administration
Furosemide 40 mg 04/09/23 08:00 04/10/23 08:20
Furosemide 40 Mg (10 Mg/Ml) 4 Ml Vial IV 05/07/23 07:59 40 mg
BID AT 0800,1600 APOLLO Administration
Gabapentin 300 mg 04/09/23 00:16 04/09/23 21:00
Gabapentin 300 Mg Capsule PO 05/07/23 00:15 300 mg
HS APOLLO Administration
Metoprolol Succinate 12.5 mg 04/09/23 00:16 04/09/23 21:00
Metoprolol 12.5 Mg Extended Release Dose (1/2 Of 25 Mg Xl Tablet) PO 05/07/23 00:15 12.5 mg
HS APOLLO Administration
Prednisone 5 mg 04/09/23 08:00 04/10/23 08:20
Prednisone 5 Mg Tablet PO 05/07/23 07:59 5 mg
BID APOLLO Administration
Sodium Chloride 0 flush 04/08/23 22:00
Sodium Chloride 0.9% (Flush) Syringe IV 05/06/23 21:59
PER PROTOCOL APOLLO
Tamsulosin HCl 0.4 mg 04/09/23 00:16 04/09/23 21:00
Tamsulosin 0.4 Mg Capsule PO 05/07/23 00:15 0.4 mg
HS APOLLO Administration
Vitamin C/Vitamin E 1 cap 04/09/23 08:00 04/10/23 08:20
Vit C/Vit E/Lutein/Min/[place]-3 (Ocuvite) Capsule PO 05/07/23 07:59 1 cap
BID APOLLO Administration
Review of Systems
-
History Source: Patient, Physician and Records
Constitutional: Reports No Symptoms
Respiratory: Reports No Symptoms
Cardiac: Reports No Symptoms
GI: Reports No Symptoms
Skin: Reports No Symptoms
Neuro: Reports No Symptoms
Endocrine: Reports No Symptoms
Hematologic/Lymphatic: Reports No Symptoms
Allergy / Immunology: Reports No Symptoms
Psych: Reports No Symptoms
Physical Exam
-
General: No Apparent Distress and Comfortable
HEENT: Moist Mucous Membranes
Cardiology: Normal Sinus Rhythm, S1, S2 and No Murmur
Pulmonary: Clear
GI: Soft and Normal Bowel Sounds
Musculoskeletal: No Clubbing, No Cyanosis and No Edema
Neurology: Non Focal
Skin: IV Access / Catheter Site and No Ecchymosis
Hematologic / Lymphatic: No Lymphadenopathy
Psych: Calm
Labs
Lab Results
WBC 25.9 10^3/uL (4.8-10.8) H 04/10/23 05:11
RBC 4.05 10^6/uL (4.70-6.10) L 04/10/23 05:11
Hgb 12.1 g/dL (13.0-18.0) L 04/10/23 05:11
Hct 35.5 % (39.0-52.0) L 04/10/23 05:11
MCV 87.7 fL (80.0-94.0) 04/10/23 05:11
MCH 29.9 pg (27.0-31.0) 04/10/23 05:11
MCHC 34.1 g/dL (33.0-37.0) 04/10/23 05:11
RDW 14.8 % (11.5-14.5) H 04/10/23 05:11
Plt Count 193 10^3/uL (130-400) D 04/10/23 05:11
MPV 9.5 fL (7.4-10.4) 04/10/23 05:11
Abs Immat Gran (auto) 0.2 10^3/uL (0-0.05) H 04/08/23 17:03
Absolute Neuts (auto) 27.9 10^3/uL (1.4-6.5) H 04/08/23 17:03
Absolute Lymphs (auto) 1.8 10^3/uL (1.2-3.4) 04/08/23 17:03
Absolute Monos (auto) 1.2 10^3/uL (0.1-0.6) H 04/08/23 17:03
Absolute Eos (auto) 0.0 10^3/uL (0-0.7) 04/08/23 17:03
Absolute Basos (auto) 0.2 10^3/uL (0-0.2) 04/08/23 17:03
Immature Gran % 0.7 % (0-0.5) H 04/08/23 17:03
Neutrophils % 88.9 % (42.2-75.2) H 04/08/23 17:03
Lymphocytes % 5.9 % (20.5-51.1) L 04/08/23 17:03
Monocytes % 3.7 % (1.7-9.3) 04/08/23 17:03
Eosinophils % 0.0 % (0-6) 04/08/23 17:03
Basophils % 0.8 % (0-2) 04/08/23 17:03
Creatinine 0.7 mg/dL (0.7-1.3) 04/10/23 05:11
Vital Signs
Vital Signs
Temp Pulse Resp BP Pulse Ox
97.6 F 85 18 122/60 92
04/10/23 11:00 04/10/23 11:00 04/10/23 11:00 04/10/23 11:00 04/10/23 11:00

Documented by User: Yamila Correa MD 04/10/23 12:55
Impression
Impression
* Suspected Exacerbation of Heart Failure with Preserved Ejection Fraction
* Leukocytosis
* Prostate cancer met to r/p nodes
* Hx aortic stenosis s/p TAVR
* Cerebrovascular disease c/b stroke, now s/p CEA
* Type 2 DM
* Chronic interstitial lung disease
Plan
Plan
Attending supplement:
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
He has been undergoing treatment with Taxotere/prednisone, most recently 03/22/2023, followed by long-acting G-CSF on 118. Patient tolerating treatment well with improving PSA.
Seen in the office on 04/06 at which time weight gain was noted along with complaint of cough and shortness of breath differential diagnosis for the symptoms with CHF, versus taxane lung toxicity. versus infection. Outpatient chest x-ray and pro NT
BNP were performed with checks her x-ray showing only chronic interstitial changes and BNP modestly elevated at 893.
Patient came to ED when SOB worsened.
Clinical presentation is not consistent with taxane lung toxicity or infection. He has improved markedly on diuretics.
Patient is cleared for discharge from the hematology/oncology standpoint.
He will come in for treatment on 04/12 as scheduled.
Thank you for consult!
Resident A/P:
Suspected Exacerbation of Heart Failure with Preserved Ejection Fraction
- He has noted significant weight gain over the past few weeks, along with peripheral edema.
- He was prescribed Lasix last week.
- Presented to the emergency soon after with dyspnea and orthopnea.
- Acute congestive heart failure likely diastolic was suspected and he was received IV diuresis.
- Dyspnea and other symptoms improved, and he is feeling better overall.
- Acute CHF exacerbation vs. multifactorial from CHF, ILD, ACS and recent chemotherapy for metastatic prostate cancer.
- Recommended to get a scale at home for regular monitoring.
- Plans for discharge on Lasix 20 mg daily, and outpatient cardiology follow-up.
- Has chemo scheduled for next week, and he is okay to proceed for that.
* Leukocytosis
- Likely from Neupogen.
- Stable, and does not require further intervention/investigations.
SEE BELOW FOR ATTENDING A/P
Patient History
History of Present Illness
Junior Crocker, 77 year old male, came to the emergency on 04-08-23 with dyspnea on exertion and mild orthopnea, and diagnosed with acute congestive heart failure exacerbation. He is on chemotherapy for his known prostate cancer, and his last
infusion was on 03-29-23. He also receives Neupogen, likely responsible for the current leukocytosis. He was noted to have significant weight gain and peripheral edema; he was prescribed Lasix last week. Outpatient CXR and lab work was unrevealing.
He came to the ED when SOB worsened.
--- NOTE | 2023-04-10 13:05 | W.PN.HOSP.TC ---
Today's Communication/Plan
-
potential dc tomorrow once cleared by Cardio
Assessment / Plan
Assessment / Plan

Assessment/Plan
IMPRESSION: The patient is a 77 yo male with past medical history significant for prostate cancer, HTN, HLD, NIDDM, ILD, aortic stenosis s/p TAVR, presented to the ED due to sudden onset SOB lasting 15 minutes, not associated with CP. He's had 13 lb
weight gain and swelling of legs and feet. He was seen by doctor 2 days prior to presentation - Lasix was ordered and he took his first dose of Lasix the day before presentation as well as on the day of presentation (40 mg daily). At that time, per
patient, outpatient chest x-ray and lab work was unrevealing. He had non-productive cough. Of note, last chemotherapy and Lupron injection was on Mar 23 2023. he has had significant b/l LE edema/swelling over the 2 days prior to presentation. He
sleeps upright due to SOB, congestion, and back pain. No CP, no palpitation, no n/v/d, no fevers, no chills, no dysuria, no abdominal pain.
remains on IV Lasix 40 mg, with cardiology plan to convert to oral tomorrow
recorded wt:104-->100-->96.5 kg
#SOB, concern is for acute CHF exacerbation versus multifactorial related to CHF, ILD, ACS, and status post recent chemotherapy for metastatic prostate cancer.
CT chest: 1. No evidence of pulmonary embolism.
2. Small left and trace right pleural effusions.
3. Findings suggesting chronic interstitial lung disease changes such as usual interstitial pneumonitis.
#Suspected Exacerbation of Heart Failure with Preserved Ejection Fraction
-Continue telemetry monitoring
-Cards consulted, recommendations appreciated
-IV Lasix 40 BID, monitor lytes, intake and output, daily weight
-COVID test negative
Leukocytosis:
WBC 25.9
pt does get neupogen, appreciate Heme opinion, discussed
no fever, pt does not appear infected, no further investigation felt necessary as per Heme
#Small left and trace right pleural effusions on Chest CT imaging.
#Findings suggesting chronic interstitial lung disease changes such as usual interstitial pneumonitis on Chest CT imaging
-Follow-up outpatient
#Severe Aortic Stenosis s/p TAVR, performed at [facility]
Findings on recent Echocardiogram 03/30/23:
Normal left ventricular size, wall thickness and systolic function. No regional wall motion abnormalities are seen. LV ejection fraction is 55-60% Normal diastolic function. Upper normal right ventricular size. Normal right ventricular systolic
function.�S/P TAVR Normally functioning Saravia #29mm bioprosthetic valve. Peak/mean gradients across the aortic valve are 16mmHg and 10mmHg.�Trace tricuspid regurgitation. Estimated pulmonary artery pressure of 25-30
mmHg. Assuming a right atrial pressure of 3 mmHg. �Mild mitral regurgitation.�Compared to previous echo 02/06/2019, a transcatheter aortic valve is now in place and functioning well.
-Cardiology consulted, recommendations appreciated
#Hypokalemia
resolved 3.5-->4.1
-Replaced
-Magnesium is normal
-Recheck in the morning
#Hyponatremia
better 135
-Suspected secondary hypervolemic due to CHF
#Prostate cancer s/p chemo and Lupron, Neupogen (per patient) Mar 23, 2023
-leukocytosis-monitor, repeat in am
#HTN
-stable, monitor
-metoprolol
#HLD
-Continue home Simvastatin or appropriate equivalent while hospitalized
#NIDDM
-Jardiance
-SSI
-hold metformin
#s/p CEA
�-cont Plavix
Mildly elevated troponin
L carotid stenosis s/p L CEA 11/24/22
History of Post operative bradycardia
s/p Medtronic loop recorder for 'tachycardia'
History of knee surgery
DVT Prophylaxis: Lovenox
Full Code
Anticipated Discharge: 24 - 48 hours
Subjective/Interval History
-
Date of Service: April 10, 2023
Definitely feels better
Objective Data
-
Labs:
Laboratory Results
04/10/23
05:11
WBC 25.9 H
Hgb 12.1 L
Hct 35.5 L
Plt Count 193 D
PT 14.3
INR 1.12
Sodium 135
Potassium 4.1
Chloride 101
Carbon Dioxide 30
BUN 23 H
Creatinine 0.7
Glucose 152 H
Calcium 8.4
Vital Signs:
Vital Signs
Temp Pulse Resp BP Pulse Ox
97.6 F 85 18 122/60 92
04/10/23 11:00 04/10/23 11:00 04/10/23 11:00 04/10/23 11:00 04/10/23 11:00
I&O
04/09/23 04/10/23 04/11/23
06:59 06:59 06:59
Intake Total 480 / 480 2039 / 2039
Output Total 1850 / 1850 2600 / 2600
Balance -1370 / -1370 -560 / -560
Review of Systems
-
History Source: Patient and Coordinated Provider
Constitutional: Denies Fever
EENT: Reports No Symptoms Reported
Respiratory: Reports No Symptoms; Denies Trouble Breathing
Cardiac: Reports No Symptoms; Denies Chest Pain
Abdomen/GI: Reports No Symptoms
Musculoskeletal: Reports No Symptoms
Skin: Reports No Symptoms
Physical Exam
-
General: Well Developed, Well Nourished and No Apparent Distress
HEENT: Normocephalic, Atraumatic and Moist Mucous Membranes
Respiratory: Clear to Auscultation; Negative Wheezes, Rales or Rhonchi
Cardiac: Regular Rhythm and S1/S2; Negative Murmur
GI: Soft, Nontender and Nondistended
Musculoskeletal: No Clubbing, No Cyanosis, Edema, Right Lower Extrem (1+) and Edema, Left Lower Extrem (trace)
Neuro: Awake, Alert and Oriented
[2023-04-10] MEDS: LOVENOX 40 MG SC (17:06)
[2023-04-10] MEDS: PLAVIX 75 MG PO (17:07)
[2023-04-10] MEDS: NEURONTIN 300 MG PO (20:37)
[2023-04-10] MEDS: LIPITOR 10 MG PO (20:38)
[2023-04-10] MEDS: FLOMAX 0.400000000000000022 MG PO (20:38)
[2023-04-10] MEDS: TOPROL XL 12.5 MG PO (20:38)
[2023-04-11 05:30] LABS: Hematocrit 35.2 % (39.0-52.0); Hemoglobin 11.9 g/dL (13.0-18.0); Mean Corp Hgb Conc. 33.8 g/dL (33.0-37.0); Mean Corpuscular Hgb 30.1 pg (27.0-31.0); Mean Corpuscular Volume 88.9 fL (80.0-94.0); Mean Platelet Volume 9.8 fL (7.4-10.4); Platelet Count 217 10^3/uL (130-400); Red Blood Cell Count 3.96 10^6/uL (4.70-6.10); Red Cell Dist. Width 14.6 % (11.5-14.5); White Blood Cell Count 21.6 10^3/uL (4.8-10.8)
[2023-04-11 05:39] VITALS: BMI 24.0
[2023-04-11 05:53] LABS: Blood Urea Nitrogen 26 mg/dl (9-20); Calcium 8.3 mg/dl (8.4-10.2); Carbon Dioxide 34 mmol/L (22-30); Chloride 101 mmol/L (98-107); Estimated Creatinine Clearance 112 ml/min; Glucose 151 mg/dl (70-99); Sodium 133 mmol/L (135-145); eGFR > 60.00
[2023-04-11 08:08] VITALS: BP 109/57
[2023-04-11] MEDS: LASIX 40 MG IV (08:19)
[2023-04-11] MEDS: JARDIANCE 10 MG PO (08:19)
[2023-04-11] MEDS: DELTASONE 5 MG PO (08:19)
[2023-04-11] MEDS: LEXAPRO 5 MG PO (08:20)
[2023-04-11] MEDS: VITAMIN D3 (cholecalciferol) 50 MCG PO (08:21)
[2023-04-11] MEDS: OCUVITE SOFTGEL 1 CAP PO (08:21)
--- NOTE | 2023-04-11 08:52 | W.PN.HOSP.TC ---
Addendum entered and electronically signed by Jesus Agustin MD 04/11/23 09:14:
Pt is HFpEF
elevated Troponin is felt to be non-ischemic myocardial injury from acute HF as per cardio
Original Note:
Today's Communication/Plan
-
dc to home
reviewed with Dr. Felipe
Assessment / Plan
Assessment / Plan

Assessment/Plan
IMPRESSION: The patient is a 77 yo male with past medical history significant for prostate cancer, HTN, HLD, NIDDM, ILD, aortic stenosis s/p TAVR, presented to the ED due to sudden onset SOB lasting 15 minutes, not associated with CP. He's had 13 lb
weight gain and swelling of legs and feet. He was seen by doctor 2 days prior to presentation - Lasix was ordered and he took his first dose of Lasix the day before presentation as well as on the day of presentation (40 mg daily). At that time, per
patient, outpatient chest x-ray and lab work was unrevealing. He had non-productive cough. Of note, last chemotherapy and Lupron injection was on Mar 23 2023. he has had significant b/l LE edema/swelling over the 2 days prior to presentation. He
sleeps upright due to SOB, congestion, and back pain. No CP, no palpitation, no n/v/d, no fevers, no chills, no dysuria, no abdominal pain.
remains on IV Lasix 40 mg, with cardiology plan to convert to oral tomorrow
recorded wt:104-->100-->96.5-->94.1 kg
#SOB, concern is for acute CHF exacerbation versus multifactorial related to CHF, ILD, ACS, and status post recent chemotherapy for metastatic prostate cancer.
CT chest: 1. No evidence of pulmonary embolism.
2. Small left and trace right pleural effusions.
3. Findings suggesting chronic interstitial lung disease changes such as usual interstitial pneumonitis.
#Suspected Exacerbation of Heart Failure with Preserved Ejection Fraction
-Continue telemetry monitoring
-Cards consulted, recommendations appreciated
-IV Lasix 40 BID, monitor lytes, intake and output, daily weight
-COVID test negative
Leukocytosis:
WBC 25.9-->21.6
pt does get neupogen, appreciate Heme opinion, discussed
no fever, pt does not appear infected, no further investigation felt necessary as per Heme
#Small left and trace right pleural effusions on Chest CT imaging.
#Findings suggesting chronic interstitial lung disease changes such as usual interstitial pneumonitis on Chest CT imaging
-Follow-up outpatient
#Severe Aortic Stenosis s/p TAVR, performed at [facility]
Findings on recent Echocardiogram 03/30/23:
Normal left ventricular size, wall thickness and systolic function. No regional wall motion abnormalities are seen. LV ejection fraction is 55-60% Normal diastolic function. Upper normal right ventricular size. Normal right ventricular systolic
function.�S/P TAVR Normally functioning Saravia #29mm bioprosthetic valve. Peak/mean gradients across the aortic valve are 16mmHg and 10mmHg.�Trace tricuspid regurgitation. Estimated pulmonary artery pressure of 25-30
mmHg. Assuming a right atrial pressure of 3 mmHg. �Mild mitral regurgitation.�Compared to previous echo 02/06/2019, a transcatheter aortic valve is now in place and functioning well.
-Cardiology consulted, recommendations appreciated
#Hypokalemia
resolved 3.5-->4.1
-Replaced
-Magnesium is normal
-Recheck in the morning
#Hyponatremia
better 135
-Suspected secondary hypervolemic due to CHF
#Prostate cancer s/p chemo and Lupron, Neupogen (per patient) Mar 23, 2023
-leukocytosis-monitor, repeat in am
#HTN
-stable, monitor
-metoprolol
#HLD
-Continue home Simvastatin or appropriate equivalent while hospitalized
#NIDDM
-Jardiance
-resume preadmit meds
#s/p CEA
�-cont Plavix
Mildly elevated troponin
L carotid stenosis s/p L CEA 11/24/22
History of Post operative bradycardia
s/p Medtronic loop recorder for 'tachycardia'
History of knee surgery
DVT Prophylaxis: Lovenox
Full Code
More than 30 minutes spent in discharge including
Final examination of the patient
Summarizing hospital stay
Instructions for continuing care to all relevant caregivers
Preparation of discharge records, prescriptions, and referral forms
Total time spent (in minutes): 45
Anticipated Discharge: Today
Subjective/Interval History
-
Date of Service: April 11, 2023
Feels well and would live to be discharged, has appt with Oncology tomorrow
Objective Data
-
Labs:
Laboratory Results
04/11/23
05:09
WBC 21.6 H
Hgb 11.9 L
Hct 35.2 L
Plt Count 217
Sodium 133 L
Potassium 4.0
Chloride 101
Carbon Dioxide 34 H
BUN 26 H
Creatinine 0.7
Glucose 151 H
Calcium 8.3 L
Vital Signs:
Vital Signs
Temp Pulse Resp BP Pulse Ox
97.7 F 76 18 109/57 91
04/11/23 08:08 04/11/23 08:19 04/11/23 08:08 04/11/23 08:19 04/11/23 08:08
I&O
04/10/23 04/11/23 04/12/23
06:59 06:59 06:59
Intake Total 2040 / 2040 480 / 480
Output Total 2600 / 2600 1550 / 1550
Balance -560 / -560 -1070 / -1070
Review of Systems
-
History Source: Patient and Coordinated Provider
Constitutional: Denies Fever
EENT: Reports No Symptoms Reported
Respiratory: Reports No Symptoms; Denies Trouble Breathing
Cardiac: Reports No Symptoms; Denies Chest Pain
Abdomen/GI: Reports No Symptoms
Musculoskeletal: Reports No Symptoms
Skin: Reports No Symptoms
Physical Exam
-
General: Well Developed, Well Nourished and No Apparent Distress
HEENT: Normocephalic, Atraumatic and Moist Mucous Membranes
Respiratory: Clear to Auscultation; Negative Wheezes, Rales or Rhonchi
Cardiac: Regular Rhythm and S1/S2; Negative Murmur
GI: Soft, Nontender and Nondistended
Musculoskeletal: No Clubbing, No Cyanosis and No Edema
Neuro: Awake, Alert and Oriented
--- NOTE | 2023-04-11 09:56 | W.PN.CARDCBS ---
Today's Communication / Plan
-
Switch to PO lasix 40mg daily
Stable for discharge from cardiac perspective
Planned to follow up with his primary six sigma black trainer at [facility]
Impression / Plan
-
Primary Soap Drier Tender: Dr. Mitch Mcfadden of [facility]
Assessment:
Presented 04/08/2023 with SOB, weight gain, edema
Acute heart failure preserved EF, proBNP 3260
Elevated troponin, suspect non-ischemic myocardial injury from acute HF
Recent echocardiogram at [facility]
Prostate cancer
Recent Neupogen use
L carotid stenosis s/p L CEA 11/24/22
Post operative bradycardia
severe s/p TAVR at [facility] 2019
s/p Medtronic loop recorder for 'tachycardia'
HTN
HLD
DM2
History of knee surgery
Echo 03/30/2023: EF 55 to 60%. Mild MR. Status post TAVR Saravia number 29 mm valve. Peak/mean gradient 16/10 mmHg. PAP 25 to 30 mmHg
Recommendations:
Presented 04/08/2023 with SOB, weight gain, edema - Acute heart failure with preserved ejection fraction, proBNP 3260
Weight is down and improvement of symptoms with IV diuresis
Plan to switch to PO lasix 40mg daily
Continue Jardiance
Aortic stenosis status post TAVR at [facility].
-Recent echocardiogram from 03/30/2023 with preserved ejection fraction and well-seated TAVR with stable gradients and no paravalvular leak
Elevated troponin, peaked 0.218
-suspect non-ischemic myocardial injury from acute HF
-Patient denies chest pain. EKG sinus rhythm without ischemic changes
-Prior catheterization requested from primary six sigma black trainer. Patient denies history of CAD
-Continue Plavix
Stable for discharge from cardiac perspective
Planned to follow up with his primary six sigma black trainer at [facility]
Progress Note - Soap Drier Tender
Subjective
Date of Service: April 11, 2023
NAOE. Feels well this AM. Tells me edema has resolved and breathing is comfortable.
Objective
Labs:
04/11/23 05:09
04/11/23 05:09
Labs
Hgb 11.9 g/dL (13.0-18.0) L 04/11/23 05:09
Hct 35.2 % (39.0-52.0) L 04/11/23 05:09
Plt Count 217 10^3/uL (130-400) 04/11/23 05:09
PT 14.3 Sec (11.4-14.6) 04/10/23 05:11
INR 1.12 04/10/23 05:11
Sodium 133 mmol/L (135-145) L 04/11/23 05:09
Potassium 4.0 mmol/L (3.5-5.1) 04/11/23 05:09
BUN 26 mg/dl (9-20) H 04/11/23 05:09
Creatinine 0.7 mg/dL (0.7-1.3) 04/11/23 05:09
Glucose 151 mg/dl (70-99) H 04/11/23 05:09
Troponins
04/08/23 04/09/23 04/09/23
17:03 00:53 05:57
Troponin I 0.218 H* 0.124 H* D 0.091 H* D
04/09/23
12:12
Troponin I 0.061 H* D
Vital Signs and I&O:
Vital Signs
Temp Pulse Resp BP Pulse Ox
97.7 F 76 18 109/57 91
04/11/23 08:08 04/11/23 08:19 04/11/23 08:08 04/11/23 08:19 04/11/23 08:08
Vital Signs
Temp Pulse Resp BP Pulse Ox
97.7 F 76 18 109/57 91
04/11/23 08:08 04/11/23 08:19 04/11/23 08:08 04/11/23 08:19 04/11/23 08:08
Intake & Output
04/09/23 04/10/23 04/11/23 04/12/23
06:59 06:59 06:59 06:59
Intake Total 480 / 480 2040 / 2040 480 / 480
Output Total 1850 / 1850 2600 / 2600 1550 / 1550
Balance -1370 / -1370 -560 / -560 -1070 / -1070
Physical Exam
Physical Exam
Gen: NAD, AAOx3
HEENT: NC/AT, sclera anicteric
Neck: No JVD
CV: RRR, NL s1/s2, no M/R/G
Lungs: CTAB
Abd: S/ND
Ext: No LE edema
Skin: Warm, dry
Neuro: Non-focal
--- NOTE | 2023-04-11 11:05 | W.PN.ONC ---
Today's Communication / Plan
-
d/c planning
leukocytosis is from GCSF, trending down -
f/u for next chemo on 04/13/23, t/c holding GCSF with next chemo in light of persistent leukocytosis
Impression
Impression
* Suspected Exacerbation of Heart Failure with Preserved Ejection Fraction
* Leukocytosis for GCSF
* Prostate cancer met to r/p nodes
* Hx aortic stenosis s/p TAVR
* Cerebrovascular disease c/b stroke, now s/p CEA
* Type 2 DM
* Chronic interstitial lung disease
Plan
Plan
d/c planning
leukocytosis is from GCSF, trending down -
f/u for next chemo on 04/13/23, t/c holding GCSF with next chemo in light of persistent leukocytosis
Subjective/Objective
Subjective/Objective
feeling well, eager to go home
Vital Signs:
Vital Signs
Temp Pulse Resp BP Pulse Ox
97.7 F 76 18 109/57 91
04/11/23 08:08 04/11/23 08:19 04/11/23 08:08 04/11/23 08:19 04/11/23 08:08
Lab Results:
Laboratory Data
WBC 21.6 10^3/uL (4.8-10.8) H 04/11/23 05:09
Hgb 11.9 g/dL (13.0-18.0) L 04/11/23 05:09
Plt Count 217 10^3/uL (130-400) 04/11/23 05:09
PT 14.3 Sec (11.4-14.6) 04/10/23 05:11
INR 1.12 04/10/23 05:11
eGFR > 60.00 04/11/23 05:09
--- NOTE | 2023-04-11 11:24 | CM ---
Consulted for d/c planning/VN
Spoke with pt regarding VN - requested [facility]
TT sent to Liaison for home needs
IMM discussed with pt
Plan - discharge to home with [facility]
[2023-04-11 11:29] VITALS: BP 110/63
--- NOTE | 2023-04-11 12:35 | VNURNOTE ---
Home Health Liaison met with patient at 1145 to discuss [facility] nurse/therapy, visits, schedule and homebound status. Patient is agreeable and understands that visits at home will be 2-3 x per week to assess and teach medical management. Patient stated
that he has ordered a scale and will be able to log a daily weight.
[facility] brochure provided with contact information. Patient is aware that [facility] will contact him for start of care in 1-2 days after discharge from .
[facility] referral completed in [facility].
--- NOTE | 2023-04-11 16:49 | W.DS.TRANS ---
DC Summary - Getter Operator
-
Discharge Instructions:
Discharge Diagnosis/Procedures acute HFpEF
Diet No added salt
Activity No strenuous activity
Driving Restrictions As prior to admission
Bathing Restrictions None
Blood Work CBC, BMP, Mag in 1 week
Other Services VN
Instructions:
Stand-Alone Forms:
Changes to Home Medications: Yes
Discharge Medications:
DC Medications w/original date entered in [employer]
coenzyme Q10 100 mg capsule (Co Q-10) 100 mg PO DAILY Supplement 02/22/19
empagliflozin 10 mg tablet (Jardiance) 10 mg PO DAILY Diabetes 02/22/19
simvastatin 20 mg tablet 20 mg PO HS High cholesterol 02/22/19
vit C 250 mg-vit E 90 mg-zinc 40 mg-copper 1 ti-[id number] capsule (PreserVision AREDS-2) 1 ea PO BID Supplement 02/22/19
cholecalciferol (vitamin D3) 25 mcg (1,000 unit) capsule (Vitamin D3) 50 mcg PO DAILY Supplement 01/25/22
ipratropium bromide 42 mcg (0.06 %) nasal spray 2 spray intranasal DAILY Congestion 01/25/22
metoprolol succinate 25 mg tablet,extended release 24 hr 12.5 mg PO HS Blood pressure 01/25/22
tamsulosin 0.4 mg capsule 0.4 mg PO HS Urinary Issue 11/18/22
metformin 1,000 mg tablet 1,000 mg PO BID Diabetes 11/24/22
clopidogrel 75 mg tablet (Plavix) 75 mg PO QPM Blood Clot Prevention/Tx 02/24/23
escitalopram oxalate 5 mg tablet 5 mg PO DAILY Mental Health/Anxiety 04/08/23
furosemide 40 mg tablet 40 mg PO DAILY Fluid Retention/Swelling 04/08/23
gabapentin 100 mg capsule 300 mg PO HS Pain 04/08/23
prednisone 5 mg tablet 5 mg PO BID Anti-Inflammatory 04/08/23
Home Medication Changes
Pt will need to take Lasix 40 mg regularly
Pending Results: No
== END 2023-04-11 13:48 | disposition home health service (06) | DRG 291 ==
LOC: 3 WEST ACU 22:05
PROVIDERS: Hospitalist; Nurse Practitioner; ADMITTING PHYSICIAN Internal Medicine; ATTENDING PHYSICIAN Internal Medicine; CONSULT PHYSICIAN Internal Medicine Cardiovascular Disease; CONSULT PHYSICIAN Internal Medicine Hematology & Oncology; EMERGENCY PHYSICIAN Emergency Medicine; FAMILY PHYSICIAN Internal Medicine Geriatric Medicine
DX: I11.0 Hypertensive heart disease with heart failure (principal); I50.33 Acute on chronic diastolic (congestive) heart failure; J84.9 Interstitial pulmonary disease, unspecified; E78.00 Pure hypercholesterolemia, unspecified; E11.9 Type 2 diabetes mellitus without complications; Z95.2 Presence of prosthetic heart valve; Z87.891 Personal history of nicotine dependence; R63.5 Abnormal weight gain; C61 Malignant neoplasm of prostate; Z92.21 Personal history of antineoplastic chemotherapy; D72.829 Elevated white blood cell count, unspecified; I5A Non-ischemic myocardial injury (non-traumatic); I35.0 Nonrheumatic aortic (valve) stenosis
CPT/HCPCS: 36415; 71046; 71275; 80048; 80053; 80061; 81003; 82248; 82962; 83735; 83880; 84153; 84443; 84484; 85025; 85027; 85610; 87811; 93005; 96374; 97116; 97162; 99285; Q9967

== ENCOUNTER → 2023-04-12 15:28 | Outpatient (REF) | payer MEDICARE, OTHER, SELFPAY ==
[2023-04-12 16:17] LABS: % Basophils 0.5 % (0-2); % Immature Granulocytes 0.8 % (0-0.5); % Lymphocytes 4.8 % (20.5-51.1); % Monocytes 3.8 % (1.7-9.3); % Neutrophils 90.1 % (42.2-75.2); Absolute Basophils 0.2 10^3/uL (0-0.2); Absolute Immature Granulocytes 0.2 10^3/uL (0-0.05); Absolute Lymphocytes 1.5 10^3/uL (1.2-3.4); Absolute Monocytes 1.2 10^3/uL (0.1-0.6); Absolute Neutrophils 27.2 10^3/uL (1.4-6.5); Hematocrit 42.2 % (39.0-52.0); Hemoglobin 13.6 g/dL (13.0-18.0); Mean Corp Hgb Conc. 32.2 g/dL (33.0-37.0); Mean Corpuscular Hgb 29.7 pg (27.0-31.0); Mean Corpuscular Volume 92.1 fL (80.0-94.0); Mean Platelet Volume 9.9 fL (7.4-10.4); Nucleated Red Blood Cells % 0 % (-); Platelet Count 338 10^3/uL (130-400); Red Blood Cell Count 4.58 10^6/uL (4.70-6.10); Red Cell Dist. Width 14.8 % (11.5-14.5); White Blood Cell Count 30.2 10^3/uL (4.8-10.8)
[2023-04-12 16:40] LABS: Albumin 3.7 g/dl (3.5-5.0); Blood Urea Nitrogen 40 mg/dl (9-20); Calcium 9.3 mg/dl (8.4-10.2); Carbon Dioxide 29 mmol/L (22-30); Chloride 93 mmol/L (98-107); Glucose 325 mg/dl (70-99); NT-proBNP 371 pg/ml; Phosphorus 4.9 mg/dl (2.5-4.5); Potassium 4.6 mmol/L (3.5-5.1); Sodium 136 mmol/L (135-145); eGFR > 60.00
--- NOTE | 2023-04-26 16:17 | OIDSOC ---
SW received a call from patient's Petar Hopkins [phone] re: support services. She has previously worked with Renaldo You of [facility] to get financial support from [facility]. She is looking for counseling resources for herself. She has
Medicare insurance. SW provided referrals to local therapists who provide counseling (she wants female therapist, very local or ability to do telehealth, must take Medicare). Referrals provided - Charity Velasquez [phone] and Nalini Galindo
[phone] and REJI kahn [phone]. DAWSON also discussed support services of the [facility]. She has accessed assistance from it solutions architect [employer] [place]. Pt. currently has [facility] coming into the home. DAWSON contact information
provided and encouraged her to call with questions or concerns.
== END ==
LOC: REG 15:28
PROVIDERS: ATTENDING PHYSICIAN Internal Medicine Geriatric Medicine
DX: Z09 Encounter for follow-up examination after completed treatment for conditions other than malignant neoplasm (principal); E11.9 Type 2 diabetes mellitus without complications; I10 Essential (primary) hypertension; E78.2 Mixed hyperlipidemia; G47.30 Sleep apnea, unspecified; E03.8 Other specified hypothyroidism; R97.20 Elevated prostate specific antigen [PSA]; M17.0 Bilateral primary osteoarthritis of knee; I11.9 Hypertensive heart disease without heart failure; Q80.9 Congenital ichthyosis, unspecified; J84.9 Interstitial pulmonary disease, unspecified; C61 Malignant neoplasm of prostate; G45.9 Transient cerebral ischemic attack, unspecified
CPT/HCPCS: 36415; 80069; 83880; 85025

== ENCOUNTER → 2023-04-19 12:12 | Outpatient (REF) | payer MEDICARE, OTHER, SELFPAY ==
[2023-04-19 13:17] LABS: Hematocrit 36.7 % (39.0-52.0); Hemoglobin 11.9 g/dL (13.0-18.0); Mean Corp Hgb Conc. 32.4 g/dL (33.0-37.0); Mean Corpuscular Hgb 29.8 pg (27.0-31.0); Mean Corpuscular Volume 91.8 fL (80.0-94.0); Nucleated Red Blood Cells % 0 % (-); White Blood Cell Count 10.7 10^3/uL (4.8-10.8)
[2023-04-19 13:56] LABS: Mean Platelet Volume 10.3 fL (7.4-10.4); Platelet Count 205 10^3/uL (130-400)
[2023-04-19 13:57] LABS: Absolute Neutrophils -Man Diff 8.5 10^3/uL (1.4-6.5); Band Neutrophils 6 % (0-3); Lymphocytes 11 % (20-51); Metamyelocytes 8 % (-); Monocytes 1 % (2-9); Platelets Checked Yes; Segmented Neutrophils 74 % (42-75)
[2023-04-19 13:59] LABS: Normal RBC Morphology Yes
[2023-04-19 14:00] LABS: ALT (SGPT) 27 U/L (0-50); AST (SGOT) 27 U/L (17-59); Albumin 3.8 g/dl (3.5-5.0); Alkaline Phosphatase 133 U/L (38-126); Blood Urea Nitrogen 31 mg/dl (9-20); Calcium 9.3 mg/dl (8.4-10.2); Carbon Dioxide 28 mmol/L (22-30); Chloride 102 mmol/L (98-107); Glucose 168 mg/dl (70-99); Potassium 4.4 mmol/L (3.5-5.1); Sodium 136 mmol/L (135-145); Total Bilirubin 0.8 mg/dl (0.2-1.3); Total Cells Counted 100; Total Protein 6.5 g/dl (6.3-8.2); eGFR > 60.00
== END ==
LOC: REG 12:12
PROVIDERS: ATTENDING PHYSICIAN Internal Medicine Geriatric Medicine
DX: E11.9 Type 2 diabetes mellitus without complications (principal); I10 Essential (primary) hypertension; E78.2 Mixed hyperlipidemia; G47.30 Sleep apnea, unspecified; E03.8 Other specified hypothyroidism; R97.20 Elevated prostate specific antigen [PSA]; M17.0 Bilateral primary osteoarthritis of knee; I11.9 Hypertensive heart disease without heart failure; Q80.9 Congenital ichthyosis, unspecified; J84.9 Interstitial pulmonary disease, unspecified; Z13.89 Encounter for screening for other disorder; C61 Malignant neoplasm of prostate; G45.9 Transient cerebral ischemic attack, unspecified
CPT/HCPCS: 36415; 80053; 83036; 85025

== ENCOUNTER → 2023-05-01 10:27 | Outpatient (REF) | payer MEDICARE, OTHER, SELFPAY ==
[2023-05-01 12:18] LABS: % Basophils 0.6 % (0-2); % Immature Granulocytes 1.1 % (0-0.5); % Lymphocytes 4.4 % (20.5-51.1); % Monocytes 4.8 % (1.7-9.3); % Neutrophils 89.1 % (42.2-75.2); Absolute Basophils 0.2 10^3/uL (0-0.2); Absolute Immature Granulocytes 0.4 10^3/uL (0-0.05); Absolute Lymphocytes 1.4 10^3/uL (1.2-3.4); Absolute Monocytes 1.5 10^3/uL (0.1-0.6); Absolute Neutrophils 27.8 10^3/uL (1.4-6.5); Hematocrit 41.7 % (39.0-52.0); Hemoglobin 13.3 g/dL (13.0-18.0); Mean Corp Hgb Conc. 31.9 g/dL (33.0-37.0); Mean Corpuscular Hgb 29.1 pg (27.0-31.0); Mean Corpuscular Volume 91.2 fL (80.0-94.0); Mean Platelet Volume 10.3 fL (7.4-10.4); Nucleated Red Blood Cells % 0 % (-); Platelet Count 145 10^3/uL (130-400); Red Blood Cell Count 4.57 10^6/uL (4.70-6.10); Red Cell Dist. Width 17.1 % (11.5-14.5); White Blood Cell Count 31.2 10^3/uL (4.8-10.8)
[2023-05-01 12:44] LABS: ALT (SGPT) 19 U/L (0-50); AST (SGOT) 23 U/L (17-59); Alkaline Phosphatase 155 U/L (38-126); Blood Urea Nitrogen 38 mg/dl (9-20); Calcium 8.9 mg/dl (8.4-10.2); Carbon Dioxide 34 mmol/L (22-30); Chloride 99 mmol/L (98-107); Glucose 152 mg/dl (70-99); Magnesium 2.7 mg/dl (1.6-2.3); Potassium 4.4 mmol/L (3.5-5.1); Sodium 137 mmol/L (135-145); Total Bilirubin 0.6 mg/dl (0.2-1.3); Total Protein 6.9 g/dl (6.3-8.2); eGFR > 60.00
[2023-05-01 12:48] LABS: NT-proBNP 214 pg/ml
[2023-05-01 13:10] LABS: PSA, Total - Diagnostic 1.42 ng/ml (0.0-4.0)
== END ==
LOC: REG 10:27
PROVIDERS: ATTENDING PHYSICIAN Internal Medicine Interventional Cardiology; FAMILY PHYSICIAN Internal Medicine Geriatric Medicine; REFERRING PHYSICIAN Internal Medicine Hematology & Oncology
DX: I10 Essential (primary) hypertension (principal); Z95.2 Presence of prosthetic heart valve; I50.32 Chronic diastolic (congestive) heart failure; C61 Malignant neoplasm of prostate
CPT/HCPCS: 36415; 80053; 83735; 83880; 84153; 85025

== ENCOUNTER → 2023-05-18 11:51 | Outpatient (REF) | payer MEDICARE, OTHER, SELFPAY ==
[2023-05-18 11:44] LABS: % Basophils 0.2 % (0-2); % Immature Granulocytes 0.6 % (0-0.5); % Lymphocytes 4.4 % (20.5-51.1); % Monocytes 3.4 % (1.7-9.3); % Neutrophils 91.4 % (42.2-75.2); Absolute Basophils 0.1 10^3/uL (0-0.2); Absolute Immature Granulocytes 0.2 10^3/uL (0-0.05); Absolute Lymphocytes 1.5 10^3/uL (1.2-3.4); Absolute Monocytes 1.1 10^3/uL (0.1-0.6); Absolute Neutrophils 30.3 10^3/uL (1.4-6.5); Hematocrit 38.3 % (39.0-52.0); Hemoglobin 12.4 g/dL (13.0-18.0); Mean Corp Hgb Conc. 32.4 g/dL (33.0-37.0); Mean Corpuscular Hgb 29.8 pg (27.0-31.0); Mean Corpuscular Volume 92.1 fL (80.0-94.0); Mean Platelet Volume 9.6 fL (7.4-10.4); Platelet Count 142 10^3/uL (130-400); Red Blood Cell Count 4.16 10^6/uL (4.70-6.10); Red Cell Dist. Width 16.9 % (11.5-14.5); White Blood Cell Count 33.2 10^3/uL (4.8-10.8)
[2023-05-18 13:04] LABS: Iron 91 ug/dl (49-181)
[2023-05-18 13:13] LABS: Percent Saturation 38 % (20-50); Total Iron Binding Capacity 234 ug/dl (261-462)
== END ==
LOC: OIDL 11:51
PROVIDERS: ATTENDING PHYSICIAN Internal Medicine Hematology & Oncology
DX: C61 Malignant neoplasm of prostate (principal)
CPT/HCPCS: 82728; 83540; 83550; 85025

== ENCOUNTER → 2023-05-22 10:17 | Outpatient (REF) | payer MEDICARE, OTHER, SELFPAY ==
[2023-05-22 11:30] LABS: % Basophils 0.4 % (0-2); % Immature Granulocytes 0.7 % (0-0.5); % Lymphocytes 9.3 % (20.5-51.1); % Monocytes 4.6 % (1.7-9.3); Absolute Basophils 0.1 10^3/uL (0-0.2); Absolute Immature Granulocytes 0.2 10^3/uL (0-0.05); Absolute Lymphocytes 2.1 10^3/uL (1.2-3.4); Absolute Monocytes 1.1 10^3/uL (0.1-0.6); Absolute Neutrophils 19.4 10^3/uL (1.4-6.5); Hematocrit 39.3 % (39.0-52.0); Hemoglobin 12.9 g/dL (13.0-18.0); Mean Corp Hgb Conc. 32.8 g/dL (33.0-37.0); Mean Corpuscular Hgb 29.8 pg (27.0-31.0); Mean Corpuscular Volume 90.8 fL (80.0-94.0); Mean Platelet Volume 9.3 fL (7.4-10.4); Nucleated Red Blood Cells % 0 % (-); Platelet Count 141 10^3/uL (130-400); Red Blood Cell Count 4.33 10^6/uL (4.70-6.10); Red Cell Dist. Width 17.6 % (11.5-14.5); White Blood Cell Count 22.8 10^3/uL (4.8-10.8)
[2023-05-22 13:27] LABS: ALT (SGPT) 17 U/L (0-50); AST (SGOT) 20 U/L (17-59); Albumin 3.8 g/dl (3.5-5.0); Alkaline Phosphatase 128 U/L (38-126); Blood Urea Nitrogen 31 mg/dl (9-20); Calcium 9.3 mg/dl (8.4-10.2); Carbon Dioxide 32 mmol/L (22-30); Chloride 98 mmol/L (98-107); Glucose 139 mg/dl (70-99); Potassium 3.9 mmol/L (3.5-5.1); Sodium 138 mmol/L (135-145); Total Bilirubin 0.5 mg/dl (0.2-1.3); Total Protein 6.6 g/dl (6.3-8.2); eGFR > 60.00
[2023-05-22 13:52] LABS: PSA, Total - Diagnostic 0.76 ng/ml (0.0-4.0)
== END ==
LOC: REG 10:17
PROVIDERS: ATTENDING PHYSICIAN Internal Medicine Hematology & Oncology; FAMILY PHYSICIAN Internal Medicine Geriatric Medicine
DX: C61 Malignant neoplasm of prostate (principal)
CPT/HCPCS: 36415; 80053; 84153; 85025

== ENCOUNTER 2023-06-02 11:40 | Emergency (ER) | payer MEDICARE, OTHER, SELFPAY ==
[2023-06-02 11:40] VITALS: BMI 23.4
[2023-06-02 11:44] VITALS: BP 99/56
[2023-06-02 12:12] LABS: Hematocrit 37.9 % (39.0-52.0); Hemoglobin 12.2 g/dL (13.0-18.0); Mean Corp Hgb Conc. 32.2 g/dL (33.0-37.0); Mean Corpuscular Hgb 30.2 pg (27.0-31.0); Mean Corpuscular Volume 93.8 fL (80.0-94.0); Platelet Count 147 10^3/uL (130-400); Red Blood Cell Count 4.04 10^6/uL (4.70-6.10); Red Cell Dist. Width 17.1 % (11.5-14.5); White Blood Cell Count 13.8 10^3/uL (4.8-10.8)
[2023-06-02 12:25] LABS: ALT (SGPT) 16 U/L (0-50); AST (SGOT) 21 U/L (17-59); Albumin 3.8 g/dl (3.5-5.0); Alkaline Phosphatase 95 U/L (38-126); Blood Urea Nitrogen 30 mg/dl (9-20); Calcium 9.2 mg/dl (8.4-10.2); Carbon Dioxide 32 mmol/L (22-30); Chloride 98 mmol/L (98-107); Glucose 178 mg/dl (70-99); Potassium 3.5 mmol/L (3.5-5.1); Sodium 134 mmol/L (135-145); Total Bilirubin 0.6 mg/dl (0.2-1.3); Total Protein 6.6 g/dl (6.3-8.2); eGFR > 60.00
[2023-06-02 12:36] LABS: Troponin I < 0.012 ng/ml
[2023-06-02 12:53] LABS: Absolute Neutrophils -Man Diff 10.3 10^3/uL (1.4-6.5); Atypical Lymphocytes 2 %; Band Neutrophils 17 % (0-3); Lymphocytes 16 % (20-51); Metamyelocytes 2 % (-); Monocytes 5 % (2-9); Normal RBC Morphology Yes; Platelets Checked Yes; Segmented Neutrophils 58 % (42-75); Total Cells Counted 100
--- NOTE | 2023-06-02 13:06 | ED.GENMED ---
History of Present Illness
General
Chief Complaint: Breathing Problem
Time Seen by Provider: 06/02/23 12:53
Travel History
Have you had any contact with someone who has COVID-19?: No
Do you have any symptoms of coronavirus? Fever > 100 degrees, chills, cough, shortness of breath, sore throat, loss of taste or smell, muscle aches, or headache?: No
History of Present Illness
History of Present Illness:
77-year-old male with history of metastatic prostate cancer, undergoing chemotherapy, pulmonary fibrosis, CHF, hypertension, hyperlipidemia, and aortic stenosis status post TAVR presents to the emergency department for evaluation of shortness of
breath ongoing for the past 3 to 4 days. He notes that his Lasix dose was increased recently, currently on 40 mg twice daily. He states he has been losing weight and feels as though he is making good urine. Shortness of breath developed 3 to 4
days ago. He notes that this current round of chemotherapy has been particularly 'harsh' on him. No vomiting or diarrhea. No fevers, night sweats, or chills. No hemoptysis
Past History
Past History
ED Past Medical History: Cancer (prostate), HTN, Hypercholesterolemia and NIDDM
ED Past Surgical History: Appendectomy, Cardiac (TAVR, loop recorder.), Orthopedic (Left total knee replacement 02/16), Tonsilectomy and Other (Left-sided CEA)
Social History
Alcohol: None
Drug: None
Personal:
Living: with family
Review of Systems
Review of Systems
Allergies reviewed?: Yes
All Other Systems: ROS reviewed and negative except as documented in HPI and ROS
Phy Exam
Physical Exam
Physical Exam:
GEN: Well appearing, NAD, WDWN
Eyes: PERRLA, EOMs intact, no scleral icterus
HENT: NCAT, oral mucosa moist, no JVD
Lungs: Dry bibasilar interstitial crackles, no wheezes or rales, normal respiratory effort
Cardiac: RRR, no M/R/G, no peripheral edema. Radial pulses 2+ bilat
Neuro: AO x 3
MSK: No gross deformity or ecchymosis. No edema. No digital clubbing
Skin: No rashes, petechiae. Normal color, no pallor or jaundice.
Psych: Calm, cooperative, proper hygiene
Scores
Heart Failure Risk
Heart Failure Risk Score: Not Applicable
Course
Orders/Labs/Results
Orders:
Orders
06/02/23 11:48
Electrocardiogram (*1) Urgent
Reason for Study: Shortness of Breath
EKG- Treatment ONCE
06/02/23 11:59
CMP [Comprehensive Metabolic Panel] Urgent
Complete Blood Count/With Diff Urgent
Manual Differential Urgent
Pro-BNP [NT-proBNP] Urgent
Troponin I Urgent
06/02/23 13:06
CR Chest - 2 Views Urgent
Comment:
Reason For Exam: SOB
06/02/23 14:21
CT Chest Pe Study Urgent
Comment:
Reason For Exam: SOB, active chemo
Abnormal Lab Results
06/02/23
11:59
WBC 13.8 H 10^3/uL
(4.8-10.8)
RBC 4.04 L 10^6/uL
(4.70-6.10)
Hgb 12.2 L g/dL
(13.0-18.0)
Hct 37.9 L %
(39.0-52.0)
MCHC 32.2 L g/dL
(33.0-37.0)
RDW 17.1 H %
(11.5-14.5)
Abs Neuts (Manual) 10.3 H 10^3/uL
(1.4-6.5)
Band Neutrophils 17 H %
(0-3)
Lymphocytes (Manual) 16 L %
(20-51)
Sodium 134 L mmol/L
(135-145)
Carbon Dioxide 32 H mmol/L
(22-30)
BUN 30 H mg/dl
(9-20)
Glucose 178 H mg/dl
(70-99)
06/02/23 11:59
06/02/23 11:59
Vital Signs
Initial and Last Documented VS:
Initial Vital Signs
Temp Pulse Resp BP Pulse Ox
98.2 F 87 16 99/56 95
06/02/23 11:44 06/02/23 11:44 06/02/23 11:44 06/02/23 11:44 06/02/23 11:44
Last Documented Vital Signs
Temp Pulse Resp BP Pulse Ox
98.2 F 68 18 107/61 95
06/02/23 11:44 06/02/23 16:00 06/02/23 16:00 06/02/23 16:00 06/02/23 13:30
MDM/Problems Addressed
MDM/Problems Addressed:
Pt appears stable with lung sounds compatible with chronic fibrosis. Recommended CTA chest to r/o PE, however pt was not willing to wait in the ED for the time needed to obtain this test. Advised him that a missed PE could result in cardiac arrest
or . Pt's spouse informs me that they have 'a prior engagement' and will 'come back this weekend for the ct scan'.
Comment
Comment:
EKG independently interpreted by me shows normal sinus rhythm at a rate of [address] changes, QTc of 425
*Critical Care Note
Total Time (30-74mins, 75-104mins- exclusive of procedures): Not Applicable
ED Attending Note
-
Portions of this chart may have been created with voice recognition software.� Occasional wrong word or��sound alike� substitutions may have occurred due to the inherent limitations of voice recognition software.
Discharge Plan
Departure
Patient Disposition: Against Medical Advice
Date of Disposition: 06/02/23
Time of Disposition: 16:07
Discharge Problem:
Shortness of breath
Instructions: Shortness of Breath (Dyspnea) (DC)
Prescriptions:
No Action
coenzyme Q10 [Co Q-10] 100 MG capsule
100 mg PO DAILY
Hold Instructions: Resume on 02/23/22.
PreserVision AREDS-2 1 EACH capsule
1 ea PO BID
Jardiance 10 MG tablet
10 mg PO DAILY
simvastatin 20 MG tablet
20 mg PO HS
metoprolol succinate 25 mg Tablet Extended Release 24 Hr
12.5 mg PO HS
cholecalciferol (vitamin D3) [Vitamin D3] 25 mcg (1,000 unit) Capsule
50 mcg PO DAILY
ipratropium bromide 42 mcg (0.06 %) [place],Non-Aerosol
2 spray INTRANASAL DAILY
tamsulosin 0.4 mg Capsule
0.4 mg PO HS
metformin 1,000 MG tablet
1,000 mg PO BID
clopidogrel [Plavix] 75 mg Tablet
75 mg PO QPM
furosemide 40 mg tablet
40 mg PO DAILY
prednisone 5 mg tablet
5 mg PO BID
gabapentin 100 mg capsule
300 mg PO HS
escitalopram oxalate 5 mg tablet
5 mg PO DAILY
Referrals:
Neville Gómez MD [Family Provider] -
Activity Restrictions/Additional Instructions:
We recommended a CT scan of the chest to rule out a blood clot in the lung, however you declined and opted to sign out of the ER. Please advise that an undiagnosed blood clot would result in worsening lung function, heart failure, cardiac arrest, or
I recommend you decrease your lasix to 40mg in the AM and 20mg in the PM as recommended by your herb counselor
Do not hesitate to return if symptoms worsen
Interventions
Interventions:
*Risk Screen - Suicide Last Done: 06/02/23 13:21
*General Assessment Last Done: 06/02/23 13:14
*Neglect/Abuse Screening Last Done: 06/02/23 13:21
ED- Fall Risk Assessment Last Done: 06/02/23 13:19
*ED COVID-19 Vaccine History Last Done: 06/02/23 11:44
*Nursing Disposition Last Done: 06/02/23 16:13
ED- Cardiac Assessment Last Done: 06/02/23 13:18
ED- Pulmonary Assessment Last Done: 06/02/23 13:18
Discharge Date and Time
Print Language: BURUNDIAN
[2023-06-02 13:19] LABS: NT-proBNP 307 pg/ml
[2023-06-02 13:24] VITALS: BP 119/65
[2023-06-02 14:28] VITALS: BP 110/56
[2023-06-02 15:00] VITALS: BP 112/68
[2023-06-02 16:00] VITALS: BP 107/61
== END 2023-06-02 16:55 | disposition left against medical advice (07) ==
LOC: EMR 11:40
PROVIDERS: Emergency Medicine; EMERGENCY PHYSICIAN Emergency Medicine; FAMILY PHYSICIAN Internal Medicine Geriatric Medicine
DX: R06.02 Shortness of breath (principal); Z53.29 Procedure and treatment not carried out because of patient's decision for other reasons; I11.0 Hypertensive heart disease with heart failure; I50.9 Heart failure, unspecified; E78.00 Pure hypercholesterolemia, unspecified; I35.0 Nonrheumatic aortic (valve) stenosis; Z95.2 Presence of prosthetic heart valve
CPT/HCPCS: 99285; 71046; 80053; 83880; 84484; 85025; 93005

== ENCOUNTER → 2023-06-08 10:51 | Outpatient (REF) | payer MEDICARE, OTHER, SELFPAY ==
[2023-06-08 11:23] LABS: % Basophils 0.1 % (0-2); % Eosinophils 0.1 % (0-6); % Immature Granulocytes 2.2 % (0-0.5); % Lymphocytes 3.4 % (20.5-51.1); % Monocytes 2.8 % (1.7-9.3); % Neutrophils 91.4 % (42.2-75.2); Absolute Immature Granulocytes 0.9 10^3/uL (0-0.05); Absolute Lymphocytes 1.4 10^3/uL (1.2-3.4); Absolute Monocytes 1.2 10^3/uL (0.1-0.6); Hematocrit 39.4 % (39.0-52.0); Hemoglobin 12.8 g/dL (13.0-18.0); Mean Corp Hgb Conc. 32.5 g/dL (33.0-37.0); Mean Corpuscular Hgb 30.5 pg (27.0-31.0); Mean Platelet Volume 9.7 fL (7.4-10.4); Nucleated Red Blood Cells % 0 % (-); Platelet Count 143 10^3/uL (130-400); Red Blood Cell Count 4.19 10^6/uL (4.70-6.10); Red Cell Dist. Width 17.6 % (11.5-14.5); White Blood Cell Count 41.5 10^3/uL (4.8-10.8)
[2023-06-08 12:13] LABS: ALT (SGPT) 17 U/L (0-50); AST (SGOT) 20 U/L (17-59); Albumin 4.1 g/dl (3.5-5.0); Alkaline Phosphatase 152 U/L (38-126); Blood Urea Nitrogen 21 mg/dl (9-20); Calcium 9.4 mg/dl (8.4-10.2); Carbon Dioxide 32 mmol/L (22-30); Chloride 97 mmol/L (98-107); Glucose 142 mg/dl (70-99); Potassium 4.2 mmol/L (3.5-5.1); Sodium 139 mmol/L (135-145); Total Bilirubin 0.5 mg/dl (0.2-1.3); Total Protein 6.8 g/dl (6.3-8.2); eGFR > 60.00
== END ==
LOC: REG 10:51
PROVIDERS: ATTENDING PHYSICIAN Nurse Practitioner Family; FAMILY PHYSICIAN Internal Medicine Geriatric Medicine
DX: R06.02 Shortness of breath (principal); I10 Essential (primary) hypertension
CPT/HCPCS: 36415; 80053; 85025

== ENCOUNTER → 2023-06-14 16:36 | Outpatient (REF) | payer MEDICARE, OTHER, SELFPAY ==
[2023-06-14 11:54] LABS: % Basophils 0.2 % (0-2); % Immature Granulocytes 0.3 % (0-0.5); % Lymphocytes 4.3 % (20.5-51.1); % Monocytes 5.2 % (1.7-9.3); Absolute Basophils 0.1 10^3/uL (0-0.2); Absolute Immature Granulocytes 0.1 10^3/uL (0-0.05); Absolute Lymphocytes 1.1 10^3/uL (1.2-3.4); Absolute Monocytes 1.4 10^3/uL (0.1-0.6); Absolute Neutrophils 23.6 10^3/uL (1.4-6.5); Hematocrit 38.9 % (39.0-52.0); Hemoglobin 12.6 g/dL (13.0-18.0); Mean Corp Hgb Conc. 32.4 g/dL (33.0-37.0); Mean Corpuscular Hgb 30.4 pg (27.0-31.0); Platelet Count 166 10^3/uL (130-400); Red Blood Cell Count 4.14 10^6/uL (4.70-6.10); Red Cell Dist. Width 17.1 % (11.5-14.5); White Blood Cell Count 26.3 10^3/uL (4.8-10.8)
[2023-06-14 12:46] LABS: ALT (SGPT) 16 U/L (0-50); AST (SGOT) 17 U/L (17-59); Albumin 3.8 g/dl (3.5-5.0); Alkaline Phosphatase 121 U/L (38-126); Blood Urea Nitrogen 20 mg/dl (9-20); Carbon Dioxide 28 mmol/L (22-30); Chloride 101 mmol/L (98-107); Glucose 163 mg/dl (70-99); Potassium 3.8 mmol/L (3.5-5.1); Sodium 135 mmol/L (135-145); Total Bilirubin 0.4 mg/dl (0.2-1.3); Total Protein 6.5 g/dl (6.3-8.2); eGFR > 60.00
[2023-06-14 13:12] LABS: PSA, Total - Diagnostic 0.54 ng/ml (0.0-4.0)
== END ==
LOC: OIDL 16:36
PROVIDERS: ATTENDING PHYSICIAN Internal Medicine Hematology & Oncology
DX: C61 Malignant neoplasm of prostate (principal)
CPT/HCPCS: 80053; 84153; 85025

== ENCOUNTER 2023-06-21 13:49 | Emergency (ER) | payer MEDICARE, OTHER, SELFPAY ==
[2023-06-21 13:54] VITALS: BP 110/61
[2023-06-21 14:28] LABS: Hematocrit 37.5 % (39.0-52.0); Mean Corpuscular Hgb 30.4 pg (27.0-31.0); Mean Corpuscular Volume 94.9 fL (80.0-94.0); Mean Platelet Volume 10.5 fL (7.4-10.4); Nucleated Red Blood Cells % 0 % (-); Platelet Count 101 10^3/uL (130-400); Red Blood Cell Count 3.95 10^6/uL (4.70-6.10); Red Cell Dist. Width 16.6 % (11.5-14.5); White Blood Cell Count 5.1 10^3/uL (4.8-10.8)
[2023-06-21 14:41] LABS: ALT (SGPT) 15 U/L (0-50); AST (SGOT) 20 U/L (17-59); Albumin 3.8 g/dl (3.5-5.0); Alkaline Phosphatase 112 U/L (38-126); Blood Urea Nitrogen 18 mg/dl (9-20); Calcium 9.3 mg/dl (8.4-10.2); Carbon Dioxide 28 mmol/L (22-30); Chloride 100 mmol/L (98-107); Glucose 170 mg/dl (70-99); Sodium 137 mmol/L (135-145); Total Bilirubin 0.8 mg/dl (0.2-1.3); Total Protein 6.4 g/dl (6.3-8.2); eGFR > 60.00
[2023-06-21 14:52] LABS: NT-proBNP 404 pg/ml; Troponin I < 0.012 ng/ml
[2023-06-21 15:00] VITALS: BP 109/74
--- NOTE | 2023-06-21 15:11 | ED.GENMED ---
History of Present Illness
General
Chief Complaint: Breathing Problem
Source: patient and significant other
Exam Limitations: none
Time Seen by Provider: 06/21/23 14:29
Travel History
Have you had any contact with someone who has COVID-19?: No
Do you have any symptoms of coronavirus? Fever > 100 degrees, chills, cough, shortness of breath, sore throat, loss of taste or smell, muscle aches, or headache?: No
History of Present Illness
History of Present Illness:
Patient presents to the emergency department with shortness of breath and cough. Symptoms have been ongoing intermittently for the past few months. He was seen in the emergency department 3 weeks ago for this but left prior to CTA to rule out a
PE. 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 He has pulmonary fibrosis and has some chronic dyspnea from this.
However he states his dyspnea on exertion is becoming more severe. Has no chest pain. No fevers. Does note mild cough.
Past History
Past History
ED Past Medical History: Cancer (prostate), HTN, Hypercholesterolemia and NIDDM
ED Past Surgical History: Appendectomy, Cardiac (TAVR, loop recorder.), Orthopedic (Left total knee replacement 02/16), Tonsilectomy and Other (Left-sided CEA)
Social History
Alcohol: None
Drug: None
Personal:
Living: with family
Phy Exam
Physical Exam
Physical Exam:
GENERAL APPEARANCE: NAD, well developed/ well nourished, thin elderly man
EYES lids/conjunctiva normal
EARS/NOSE/THROAT Mucous membranes moist, uvula midline without oral pharyngeal erythema, exudate or swelling
HEAD/NECK normocephalic atraumatic, neck is supple.
RESPIRATORY respiratory effort normal, speaks in full sentences, no accessory muscle use. fine crackles worse in R base
CARDIAC Regular rate and rhythm, trace edema to bilateral lower extremities
ABDOMINAL Soft, ND/NT. No pulsatile masses on exam, rebound tenderness, Carrera sign or pain over Mcburney's point.
MUSCLES/EXTREMITIES No abnormal range of motion, no swelling.
SKIN Warm, pink and dry. No rashes
NEUROLOGICAL Speech is clear and appropriate. Normal level of consciousness. 5/5 strength in all extremities.
PSYCH Normal mood and affect. Judgement/competence is appropriate
Scores
Heart Failure Risk
Heart Failure Risk Score: Not Applicable
Course
Orders/Labs/Results
Orders:
Orders
06/21/23 13:57
Electrocardiogram (*1) Urgent
Reason for Study: Other
Other Reason for Exam: Respiratory Distress
EKG- Treatment ONCE
06/21/23 14:04
Complete Blood Count/With Diff Urgent
Comprehensive Metabolic Panel Urgent
Manual Differential Urgent
NT-proBNP Urgent
Troponin I Urgent
06/21/23 15:37
D-Dimer Urgent
06/21/23 15:52
CR Chest - 2 Views Urgent
Comment:
Reason For Exam: dyspnea
06/21/23 16:11
CT Chest Pe Study Urgent
Comment:
Reason For Exam: positive ddimer
Abnormal Lab Results
06/21/23 06/21/23
14:04 15:37
RBC 3.95 L 10^6/uL
(4.70-6.10)
Hgb 12.0 L g/dL
(13.0-18.0)
Hct 37.5 L %
(39.0-52.0)
MCV 94.9 H fL
(80.0-94.0)
MCHC 32.0 L g/dL
(33.0-37.0)
RDW 16.6 H %
(11.5-14.5)
Plt Count 101 L 10^3/uL
(130-400)
MPV 10.5 H fL
(7.4-10.4)
Band Neutrophils 21 H %
(0-3)
Lymphocytes (Manual) 12 L %
(20-51)
D-Dimer 1.70 H ug/mlFEU
(0.00-0.50)
Creatinine 0.5 L mg/dL
(0.7-1.3)
Glucose 170 H mg/dl
(70-99)
06/21/23 14:04
06/21/23 14:04
Vital Signs
Initial and Last Documented VS:
Initial Vital Signs
Temp Pulse Resp BP Pulse Ox
97.5 F 96 20 110/61 97
06/21/23 13:54 06/21/23 13:54 06/21/23 13:54 06/21/23 13:54 06/21/23 13:54
Last Documented Vital Signs
Temp Pulse Resp BP Pulse Ox
97.5 F 79 29 107/57 96
06/21/23 13:54 06/21/23 20:00 06/21/23 20:00 06/21/23 20:00 06/21/23 19:30
*Critical Care Note
Total Time (30-74mins, 75-104mins- exclusive of procedures): Not Applicable
ED Attending Note
ED Attending Note
ED Attending Note:
Patient workup notable for chronic interstitial lung disease without any change from imaging 2 months ago. Patient is saturating well on room air and is in no respiratory distress. CTA without PE. Patient resting comfortably. felt to be stable at
this time for close outpatient follow up
-
Portions of this chart may have been created with voice recognition software.� Occasional wrong word or��sound alike� substitutions may have occurred due to the inherent limitations of voice recognition software.
Discharge Plan
Departure
Patient Disposition: Home (Routine Discharge)
Date of Disposition: 06/21/23
Time of Disposition: 19:08
Patient with high blood pressure during this ER visit?: No
Condition: Good
Discharge Problem:
Interstitial lung disease
Instructions: Shortness of Breath (Dyspnea) (DC)
Prescriptions:
No Action
coenzyme Q10 [Co Q-10] 100 MG capsule
100 mg PO DAILY
Hold Instructions: Resume on 02/23/22.
PreserVision AREDS-2 1 EACH capsule
1 ea PO BID
Jardiance 10 MG tablet
10 mg PO DAILY
simvastatin 20 MG tablet
20 mg PO HS
metoprolol succinate 25 mg Tablet Extended Release 24 Hr
12.5 mg PO HS
cholecalciferol (vitamin D3) [Vitamin D3] 25 mcg (1,000 unit) Capsule
50 mcg PO DAILY
ipratropium bromide 42 mcg (0.06 %) [place],Non-Aerosol
2 spray INTRANASAL DAILY
tamsulosin 0.4 mg Capsule
0.4 mg PO HS
metformin 1,000 MG tablet
1,000 mg PO BID
clopidogrel [Plavix] 75 mg Tablet
75 mg PO QPM
furosemide 40 mg tablet
40 mg PO DAILY
prednisone 5 mg tablet
5 mg PO BID
gabapentin 100 mg capsule
300 mg PO HS
escitalopram oxalate 5 mg tablet
5 mg PO DAILY
Referrals:
Neville Gómez MD [Family Provider] -
Activity Restrictions/Additional Instructions:
please follow up closely with your lung doctor in the next few days
return to ER if worse
Interventions
Interventions:
*Risk Screen - Suicide Last Done: 06/21/23 18:20
*General Assessment Last Done: 06/21/23 18:20
*Neglect/Abuse Screening Last Done: 06/21/23 18:20
*ED COVID-19 Vaccine History Last Done: 06/21/23 13:54
*Nursing Disposition Last Done: 06/21/23 20:22
ED- Cardiac Assessment Last Done: 06/21/23 18:20
ED- Pulmonary Assessment Last Done: 06/21/23 18:20
Discharge Date and Time
Discharge Date/Time: 06/21/23 20:22
Print Language: JAPANESE
[2023-06-21 15:27] LABS: Absolute Neutrophils -Man Diff 3.7 10^3/uL (1.4-6.5); Band Neutrophils 21 % (0-3); Eosinophils 1 % (0-6); Lymphocytes 12 % (20-51); Metamyelocytes 3 % (-); Monocytes 8 % (2-9); Myelocytes 1 % (-); Segmented Neutrophils 52 % (42-75)
[2023-06-21 15:28] LABS: Platelets Checked YES
[2023-06-21 15:29] LABS: Anisocytosis Slight; Hypochromasia Slight; Macrocytosis FEW; Normal RBC Morphology No
[2023-06-21 15:30] LABS: Ovalocytes FEW; Tear Drop Red Blood Cells FEW; Total Cells Counted 100
[2023-06-21 17:45] VITALS: BP 100/64
[2023-06-21 18:10] VITALS: BP 115/64
[2023-06-21 19:00] VITALS: BP 114/54
[2023-06-21 20:00] VITALS: BP 107/57
== END 2023-06-21 20:22 | disposition home or self-care (01) ==
LOC: EMR 13:49
PROVIDERS: Emergency Medicine; EMERGENCY PHYSICIAN Emergency Medicine; FAMILY PHYSICIAN Internal Medicine Geriatric Medicine
DX: J84.10 Pulmonary fibrosis, unspecified (principal); I11.9 Hypertensive heart disease without heart failure; E78.00 Pure hypercholesterolemia, unspecified; E11.9 Type 2 diabetes mellitus without complications; Z90.49 Acquired absence of other specified parts of digestive tract; Z92.21 Personal history of antineoplastic chemotherapy; Z95.2 Presence of prosthetic heart valve; C61 Malignant neoplasm of prostate
CPT/HCPCS: 99284; 71046; 71275; 80053; 83880; 84484; 85025; 85379; 93005; Q9967

== ENCOUNTER → 2023-06-22 11:31 | Outpatient (REF) | payer MEDICARE, OTHER, SELFPAY ==
[2023-06-22 12:54] LABS: Hematocrit 38.2 % (39.0-52.0); Hemoglobin 12.2 g/dL (13.0-18.0); Mean Corp Hgb Conc. 31.9 g/dL (33.0-37.0); Mean Corpuscular Hgb 30.6 pg (27.0-31.0); Mean Corpuscular Volume 95.7 fL (80.0-94.0); Mean Platelet Volume 10.9 fL (7.4-10.4); Nucleated Red Blood Cells % 0 % (-); Platelet Count 121 10^3/uL (130-400); Red Blood Cell Count 3.99 10^6/uL (4.70-6.10); Red Cell Dist. Width 16.4 % (11.5-14.5); White Blood Cell Count 6.1 10^3/uL (4.8-10.8)
[2023-06-22 13:17] LABS: NT-proBNP 439 pg/ml
[2023-06-22 13:36] LABS: Urine Albumin Trace (Neg - Trace); Urine Bilirubin Negative (Negative); Urine Character Clear (Clear); Urine Color Yellow; Urine Glucose 3+ (Negative); Urine Ketone Trace (Negative); Urine Leukocyte Negative (Negative); Urine Nitrite Negative (Negative); Urine Occult Blood Negative (Negative); Urine Urobilinogen Negative (Neg - 1+)
[2023-06-22 14:00] LABS: Absolute Neutrophils -Man Diff 3.9 10^3/uL (1.4-6.5); Band Neutrophils 14 % (0-3); Eosinophils 1 % (0-6); Lymphocytes 27 % (20-51); Monocytes 8 % (2-9); Segmented Neutrophils 50 % (42-75)
[2023-06-22 14:01] LABS: ALT (SGPT) 18 U/L (0-50); AST (SGOT) 19 U/L (17-59); Albumin 3.8 g/dl (3.5-5.0); Alkaline Phosphatase 115 U/L (38-126); Blood Urea Nitrogen 18 mg/dl (9-20); Calcium 9.3 mg/dl (8.4-10.2); Carbon Dioxide 29 mmol/L (22-30); Chloride 104 mmol/L (98-107); Glucose 125 mg/dl (70-99); Normal RBC Morphology Yes; Platelets Checked Yes; Potassium 3.8 mmol/L (3.5-5.1); Sodium 137 mmol/L (135-145); Total Bilirubin 0.6 mg/dl (0.2-1.3); Total Cells Counted 100; Total Protein 6.5 g/dl (6.3-8.2); eGFR > 60.00
[2023-06-22 14:47] LABS: PSA, Total - Diagnostic 0.39 ng/ml (0.0-4.0)
[2023-06-22 15:15] LABS: Protein/creatinine Ratio 0.8; Urine Protein 55 mg/dl
== END ==
LOC: REG 11:31
PROVIDERS: ATTENDING PHYSICIAN Internal Medicine Geriatric Medicine
DX: E78.2 Mixed hyperlipidemia (principal); E11.9 Type 2 diabetes mellitus without complications; I10 Essential (primary) hypertension; G57.30 Lesion of lateral popliteal nerve, unspecified lower limb; E03.8 Other specified hypothyroidism; I49.2 Junctional premature depolarization; R97.20 Elevated prostate specific antigen [PSA]; M17.0 Bilateral primary osteoarthritis of knee; I11.9 Hypertensive heart disease without heart failure; Q80.9 Congenital ichthyosis, unspecified; J84.9 Interstitial pulmonary disease, unspecified; Z13.89 Encounter for screening for other disorder; C61 Malignant neoplasm of prostate; G54.9 Nerve root and plexus disorder, unspecified; R53.1 Weakness; Z91.81 History of falling; Z85.46 Personal history of malignant neoplasm of prostate
CPT/HCPCS: 36415; 80053; 81003; 82570; 83880; 84153; 84156; 85025

== ENCOUNTER → 2023-07-05 10:07 | Outpatient (REF) | payer MEDICARE, OTHER, SELFPAY | LOC: RAD 10:07 | PROVIDERS: ATTENDING PHYSICIAN Surgery Vascular Surgery; FAMILY PHYSICIAN Internal Medicine Geriatric Medicine | DX: I65.23 Occlusion and stenosis of bilateral carotid arteries (principal) | CPT/HCPCS: 93880 ==

== ENCOUNTER → 2023-07-05 17:05 | Outpatient (REF) | payer MEDICARE, OTHER, SELFPAY ==
[2023-07-05 17:45] LABS: % Basophils 0.6 % (0-2); % Immature Granulocytes 0.5 % (0-0.5); % Lymphocytes 7.7 % (20.5-51.1); % Monocytes 6.2 % (1.7-9.3); Absolute Basophils 0.1 10^3/uL (0-0.2); Absolute Immature Granulocytes 0.1 10^3/uL (0-0.05); Absolute Lymphocytes 1.6 10^3/uL (1.2-3.4); Absolute Monocytes 1.3 10^3/uL (0.1-0.6); Absolute Neutrophils 17.1 10^3/uL (1.4-6.5); Hematocrit 38.9 % (39.0-52.0); Hemoglobin 12.8 g/dL (13.0-18.0); Mean Corp Hgb Conc. 32.9 g/dL (33.0-37.0); Mean Corpuscular Hgb 30.5 pg (27.0-31.0); Mean Corpuscular Volume 92.8 fL (80.0-94.0); Mean Platelet Volume 9.8 fL (7.4-10.4); Nucleated Red Blood Cells % 0 % (-); Platelet Count 187 10^3/uL (130-400); Red Blood Cell Count 4.19 10^6/uL (4.70-6.10); Red Cell Dist. Width 16.5 % (11.5-14.5); White Blood Cell Count 20.2 10^3/uL (4.8-10.8)
[2023-07-05 18:12] LABS: Albumin 3.7 g/dl (3.5-5.0); Blood Urea Nitrogen 15 mg/dl (9-20); Calcium 8.9 mg/dl (8.4-10.2); Carbon Dioxide 32 mmol/L (22-30); Chloride 99 mmol/L (98-107); Glucose 123 mg/dl (70-99); Phosphorus 3.9 mg/dl (2.5-4.5); Sodium 135 mmol/L (135-145); eGFR > 60.00
[2023-07-05 18:21] LABS: NT-proBNP 351 pg/ml
== END ==
LOC: REG 17:05
PROVIDERS: ATTENDING PHYSICIAN Internal Medicine Geriatric Medicine
DX: E78.2 Mixed hyperlipidemia (principal); E11.9 Type 2 diabetes mellitus without complications; I10 Essential (primary) hypertension; G47.30 Sleep apnea, unspecified; E03.8 Other specified hypothyroidism; I49.2 Junctional premature depolarization; R97.20 Elevated prostate specific antigen [PSA]; M17.0 Bilateral primary osteoarthritis of knee; I11.9 Hypertensive heart disease without heart failure; Q80.9 Congenital ichthyosis, unspecified; J84.9 Interstitial pulmonary disease, unspecified; Z13.89 Encounter for screening for other disorder; C61 Malignant neoplasm of prostate; G45.9 Transient cerebral ischemic attack, unspecified; R53.1 Weakness; Z91.81 History of falling; Z85.46 Personal history of malignant neoplasm of prostate
CPT/HCPCS: 36415; 80069; 83880; 85025

== ENCOUNTER → 2023-07-10 16:36 | Outpatient (REF) | payer MEDICARE, OTHER, SELFPAY ==
[2023-07-10 18:51] LABS: Protein/creatinine Ratio 0.5; Urine Protein 31 mg/dl
== END ==
LOC: REG 16:36
PROVIDERS: ATTENDING PHYSICIAN Internal Medicine Geriatric Medicine
DX: E11.9 Type 2 diabetes mellitus without complications (principal)
CPT/HCPCS: 82570; 84156

== ENCOUNTER → 2023-07-13 16:57 | Outpatient (REF) | payer MEDICARE, OTHER, SELFPAY ==
[2023-07-13 18:05] LABS: % Basophils 0.6 % (0-2); % Eosinophils 2.6 % (0-6); % Immature Granulocytes 0.3 % (0-0.5); % Lymphocytes 9.7 % (20.5-51.1); % Monocytes 4.7 % (1.7-9.3); % Neutrophils 82.1 % (42.2-75.2); Absolute Basophils 0.1 10^3/uL (0-0.2); Absolute Eosinophils 0.4 10^3/uL (0-0.7); Absolute Lymphocytes 1.5 10^3/uL (1.2-3.4); Absolute Monocytes 0.7 10^3/uL (0.1-0.6); Absolute Neutrophils 12.6 10^3/uL (1.4-6.5); Hematocrit 36.5 % (39.0-52.0); Hemoglobin 12.3 g/dL (13.0-18.0); Mean Corp Hgb Conc. 33.7 g/dL (33.0-37.0); Mean Corpuscular Hgb 30.4 pg (27.0-31.0); Mean Corpuscular Volume 90.1 fL (80.0-94.0); Mean Platelet Volume 9.6 fL (7.4-10.4); Nucleated Red Blood Cells % 0 % (-); Platelet Count 232 10^3/uL (130-400); Red Blood Cell Count 4.05 10^6/uL (4.70-6.10); Red Cell Dist. Width 15.7 % (11.5-14.5); White Blood Cell Count 15.4 10^3/uL (4.8-10.8)
[2023-07-13 18:15] LABS: ALT (SGPT) < 10 U/L (0-50); AST (SGOT) 17 U/L (17-59); Albumin 3.7 g/dl (3.5-5.0); Alkaline Phosphatase 86 U/L (38-126); Blood Urea Nitrogen 17 mg/dl (9-20); Calcium 9.2 mg/dl (8.4-10.2); Carbon Dioxide 34 mmol/L (22-30); Chloride 99 mmol/L (98-107); Glucose 140 mg/dl (70-99); Potassium 3.9 mmol/L (3.5-5.1); Sodium 135 mmol/L (135-145); Total Bilirubin 0.2 mg/dl (0.2-1.3); Total Protein 6.6 g/dl (6.3-8.2); eGFR > 60.00
[2023-07-13 18:46] LABS: PSA, Total - Diagnostic 0.44 ng/ml (0.0-4.0)
== END ==
LOC: REG 16:57
PROVIDERS: ATTENDING PHYSICIAN Internal Medicine Hematology & Oncology; FAMILY PHYSICIAN Internal Medicine Geriatric Medicine
DX: C61 Malignant neoplasm of prostate (principal)
CPT/HCPCS: 36415; 80053; 84153; 85025

== ENCOUNTER → 2023-07-20 11:51 | Outpatient (REF) | payer MEDICARE, OTHER, SELFPAY | LOC: DHCBC/DCA 11:51 | PROVIDERS: ATTENDING PHYSICIAN Internal Medicine Interventional Cardiology; FAMILY PHYSICIAN Internal Medicine Geriatric Medicine | DX: R06.09 Other forms of dyspnea (principal) | CPT/HCPCS: 78452; 93017; A9500; J2785 ==

== ENCOUNTER → 2023-07-22 07:11 | Outpatient (REF) | payer MEDICARE, OTHER, SELFPAY | LOC: RCS 07:11 | PROVIDERS: ATTENDING PHYSICIAN Internal Medicine Interventional Cardiology; FAMILY PHYSICIAN Internal Medicine Geriatric Medicine; REFERRING PHYSICIAN Internal Medicine Interventional Cardiology | DX: R06.09 Other forms of dyspnea (principal); Z95.2 Presence of prosthetic heart valve | CPT/HCPCS: 93306; 93356 ==

== ENCOUNTER 2023-07-28 06:34 | Day surgery (SDC) | payer MEDICARE, OTHER, SELFPAY ==
[2023-07-28] VITALS (7 sets, daily range): BP systolic 125–134; BP diastolic 54–67; BMI 24.1
[2023-07-28 07:12] LABS: Glucose - Point of Care 120 mg/dl (70-99)
[2023-07-28] MEDS: LOW STRENGTH ASPIRIN 324 MG PO (07:22)
[2023-07-28] MEDS: NSS 276 ML IV (07:25)
--- NOTE | 2023-07-28 08:29 | ITS.CL.CATH ---
Airport Operations Duty Manager - Catheterization
Cardiac Catheterization
Procedure Report:
RIGHT HEART CATHETERIZATION
Date of Procedure: July 28, 2023
Referring: Loyda Diehl MD, FACSonny, [facility]
INDICATION: Assess invasive hemodynamics in the setting of progressive dyspnea on exertion
Hemodynamics (mmHg):
RA (m) : 6
RV (s/d,m) : 47/3, 11
PA (s/d, m) : 48/, 25
PCWP (m) : 12
PA saturation: 67.7% on room air
AO saturation: 97% noninvasively by pulse ox on room air
RA saturation: 70.6% on room air
Heart rate: 50 bpm
Blood pressure is 142/65, mean of 93
Cardiac Output : 5.29 L/min
Cardiac Index : 2.35 L/min/m-2
Systemic vascular resistance: 1316 dsc^(-5)
Pulmonary vascular resistance: 2.46 magana unit
RADIATION SUMMARY: Fluoro Time (min): 2, Dose (mGy): 20.4, DAP (Gy.cm2) : 2.8
CONCLUSION:
1. Normal left and right-sided filling pressures with pulmonary hypertension noted and normal cardiac output.
Loyda Diehl MD, FACC, [facility]
== END 2023-07-28 10:40 | disposition home or self-care (01) ==
LOC: CATH 06:34
PROVIDERS: ATTENDING PHYSICIAN Internal Medicine Interventional Cardiology; FAMILY PHYSICIAN Internal Medicine Geriatric Medicine
DX: R06.09 Other forms of dyspnea (principal); I27.20 Pulmonary hypertension, unspecified; I47.10 Supraventricular tachycardia, unspecified; Z95.2 Presence of prosthetic heart valve; I11.0 Hypertensive heart disease with heart failure; I50.9 Heart failure, unspecified; E78.5 Hyperlipidemia, unspecified; E11.9 Type 2 diabetes mellitus without complications; Z85.828 Personal history of other malignant neoplasm of skin; Z85.46 Personal history of malignant neoplasm of prostate; Z79.84 Long term (current) use of oral hypoglycemic drugs
CPT/HCPCS: 82962; 93451; C1894

== ENCOUNTER → 2023-08-01 06:22 | Day surgery (SDC) | payer MEDICARE, OTHER, SELFPAY ==
[2023-08-01 07:25] LABS: Glucose - Point of Care 110 mg/dl (70-99)
== END ==
LOC: GI 06:22
PROVIDERS: ATTENDING PHYSICIAN Specialist
DX: Z12.11 Encounter for screening for malignant neoplasm of colon (principal); D12.3 Benign neoplasm of transverse colon; K57.30 Diverticulosis of large intestine without perforation or abscess without bleeding; Z86.010 Personal history of colon polyps
CPT/HCPCS: 45385; 88305; 82962

== ENCOUNTER → 2023-08-07 13:15 | Outpatient (REF) | payer MEDICARE, OTHER, SELFPAY ==
[2023-08-07 14:44] LABS: % Basophils 0.4 % (0-2); % Eosinophils 2.3 % (0-6); % Immature Granulocytes 0.1 % (0-0.5); % Lymphocytes 31.3 % (20.5-51.1); % Monocytes 5.6 % (1.7-9.3); % Neutrophils 60.3 % (42.2-75.2); Absolute Eosinophils 0.2 10^3/uL (0-0.7); Absolute Lymphocytes 2.5 10^3/uL (1.2-3.4); Absolute Monocytes 0.5 10^3/uL (0.1-0.6); Absolute Neutrophils 4.8 10^3/uL (1.4-6.5); Hematocrit 44.1 % (39.0-52.0); Hemoglobin 13.4 g/dL (13.0-18.0); Mean Corp Hgb Conc. 30.4 g/dL (33.0-37.0); Mean Corpuscular Hgb 28.3 pg (27.0-31.0); Mean Platelet Volume 9.6 fL (7.4-10.4); Nucleated Red Blood Cells % 0 % (-); Platelet Count 148 10^3/uL (130-400); Red Blood Cell Count 4.74 10^6/uL (4.70-6.10); Red Cell Dist. Width 15.2 % (11.5-14.5)
[2023-08-07 14:57] LABS: ALT (SGPT) 17 U/L (0-50); AST (SGOT) 18 U/L (17-59); Albumin 3.8 g/dl (3.5-5.0); Alkaline Phosphatase 60 U/L (38-126); Blood Urea Nitrogen 27 mg/dl (9-20); Calcium 9.6 mg/dl (8.4-10.2); Carbon Dioxide 34 mmol/L (22-30); Chloride 99 mmol/L (98-107); Glucose 136 mg/dl (70-99); Potassium 4.1 mmol/L (3.5-5.1); Sodium 140 mmol/L (135-145); Total Bilirubin 0.7 mg/dl (0.2-1.3); Total Protein 6.7 g/dl (6.3-8.2); eGFR > 60.00
[2023-08-07 15:26] LABS: PSA, Total - Diagnostic 0.46 ng/ml (0.0-4.0)
== END ==
LOC: REG 13:15
PROVIDERS: ATTENDING PHYSICIAN Internal Medicine Hematology & Oncology; FAMILY PHYSICIAN Internal Medicine Geriatric Medicine
DX: C61 Malignant neoplasm of prostate (principal)
CPT/HCPCS: 36415; 80053; 84153; 85025

== ENCOUNTER → 2023-09-05 09:00 | Outpatient (REF) | payer MEDICARE, OTHER, SELFPAY | LOC: DHSLP 09:00 | PROVIDERS: ATTENDING PHYSICIAN Internal Medicine Critical Care Medicine; FAMILY PHYSICIAN Internal Medicine Geriatric Medicine | DX: G47.33 Obstructive sleep apnea (adult) (pediatric) (principal) | CPT/HCPCS: 95800 ==

== ENCOUNTER → 2023-09-05 10:03 | Outpatient (REF) | payer MEDICARE, OTHER, SELFPAY ==
[2023-09-05 11:06] LABS: % Basophils 0.2 % (0-2); % Eosinophils 2.3 % (0-6); % Immature Granulocytes 0.2 % (0-0.5); % Lymphocytes 19.5 % (20.5-51.1); % Monocytes 5.9 % (1.7-9.3); % Neutrophils 71.9 % (42.2-75.2); Absolute Eosinophils 0.2 10^3/uL (0-0.7); Absolute Lymphocytes 1.3 10^3/uL (1.2-3.4); Absolute Monocytes 0.4 10^3/uL (0.1-0.6); Absolute Neutrophils 4.7 10^3/uL (1.4-6.5); Hematocrit 42.6 % (39.0-52.0); Hemoglobin 13.5 g/dL (13.0-18.0); Mean Corp Hgb Conc. 31.7 g/dL (33.0-37.0); Mean Corpuscular Hgb 28.5 pg (27.0-31.0); Mean Corpuscular Volume 89.9 fL (80.0-94.0); Mean Platelet Volume 9.1 fL (7.4-10.4); Nucleated Red Blood Cells % 0 % (-); Platelet Count 142 10^3/uL (130-400); Red Blood Cell Count 4.74 10^6/uL (4.70-6.10); Red Cell Dist. Width 15.1 % (11.5-14.5); White Blood Cell Count 6.5 10^3/uL (4.8-10.8)
[2023-09-05 12:24] LABS: PSA, Total - Diagnostic 0.46 ng/ml (0.0-4.0)
[2023-09-05 13:56] LABS: ALT (SGPT) 12 U/L (0-50); AST (SGOT) 17 U/L (17-59); Albumin 3.5 g/dl (3.5-5.0); Alkaline Phosphatase 66 U/L (38-126); Blood Urea Nitrogen 16 mg/dl (9-20); Calcium 9.1 mg/dl (8.4-10.2); Carbon Dioxide 33 mmol/L (22-30); Chloride 101 mmol/L (98-107); Glucose 146 mg/dl (70-99); HDL Cholesterol 77 mg/dl; LDL Cholesterol, Calculated 64 mg/dl; Potassium 4.6 mmol/L (3.5-5.1); Sodium 137 mmol/L (135-145); Total Bilirubin 0.7 mg/dl (0.2-1.3); Total Cholesterol 160 mg/dl (50-199); Total Protein 6.1 g/dl (6.3-8.2); Triglyceride 96 mg/dl (10-149); Very Low Density Lipoprotein 19 mg/dl (0-30); eGFR > 60.00
== END ==
LOC: REG 10:03
PROVIDERS: ATTENDING PHYSICIAN Internal Medicine Hematology & Oncology; FAMILY PHYSICIAN Internal Medicine Geriatric Medicine
DX: C61 Malignant neoplasm of prostate (principal); J84.9 Interstitial pulmonary disease, unspecified; E11.9 Type 2 diabetes mellitus without complications; E78.2 Mixed hyperlipidemia; I10 Essential (primary) hypertension; G47.30 Sleep apnea, unspecified; E03.8 Other specified hypothyroidism; I49.2 Junctional premature depolarization; R97.20 Elevated prostate specific antigen [PSA]; M17.0 Bilateral primary osteoarthritis of knee; I11.9 Hypertensive heart disease without heart failure; Q80.9 Congenital ichthyosis, unspecified; Z13.89 Encounter for screening for other disorder; G45.9 Transient cerebral ischemic attack, unspecified; R53.1 Weakness; Z91.81 History of falling
CPT/HCPCS: 36415; 80053; 80061; 84153; 85025

== ENCOUNTER → 2023-10-12 14:30 | Outpatient (REF) | payer MEDICARE, OTHER, SELFPAY ==
[2023-10-12 14:48] LABS: % Basophils 0.7 % (0-2); % Eosinophils 4.9 % (0-6); % Immature Granulocytes 0.1 % (0-0.5); % Lymphocytes 21.2 % (20.5-51.1); % Neutrophils 67.1 % (42.2-75.2); Absolute Basophils 0.1 10^3/uL (0-0.2); Absolute Eosinophils 0.4 10^3/uL (0-0.7); Absolute Lymphocytes 1.5 10^3/uL (1.2-3.4); Absolute Monocytes 0.4 10^3/uL (0.1-0.6); Absolute Neutrophils 4.8 10^3/uL (1.4-6.5); Hematocrit 41.1 % (39.0-52.0); Hemoglobin 13.3 g/dL (13.0-18.0); Mean Corp Hgb Conc. 32.4 g/dL (33.0-37.0); Mean Corpuscular Hgb 27.9 pg (27.0-31.0); Mean Corpuscular Volume 86.2 fL (80.0-94.0); Mean Platelet Volume 9.4 fL (7.4-10.4); Platelet Count 165 10^3/uL (130-400); Red Blood Cell Count 4.77 10^6/uL (4.70-6.10); Red Cell Dist. Width 14.7 % (11.5-14.5); White Blood Cell Count 7.1 10^3/uL (4.8-10.8)
[2023-10-12 16:14] LABS: ALT (SGPT) 10 U/L (0-50); AST (SGOT) 20 U/L (17-59); Albumin 3.7 g/dl (3.5-5.0); Alkaline Phosphatase 77 U/L (38-126); Blood Urea Nitrogen 15 mg/dl (9-20); Calcium 9.5 mg/dl (8.4-10.2); Carbon Dioxide 30 mmol/L (22-30); Chloride 101 mmol/L (98-107); Glucose 200 mg/dl (70-99); Potassium 3.9 mmol/L (3.5-5.1); Sodium 136 mmol/L (135-145); Total Bilirubin 0.7 mg/dl (0.2-1.3); Total Protein 6.5 g/dl (6.3-8.2); eGFR > 60.00
[2023-10-12 16:43] LABS: PSA, Total - Diagnostic 0.38 ng/ml (0.0-4.0)
== END ==
LOC: OIDL 14:30
PROVIDERS: ATTENDING PHYSICIAN Internal Medicine Hematology & Oncology
DX: C61 Malignant neoplasm of prostate (principal)
CPT/HCPCS: 80053; 84153; 85025

== ENCOUNTER 2023-10-13 06:25 | Day surgery (SDC) | payer MEDICARE, OTHER, SELFPAY ==
[2023-10-13] VITALS (8 sets, daily range): BP systolic 115–142; BP diastolic 55–63; BMI 23.2
[2023-10-13 11:55] LABS: Glucose - Point of Care 126 mg/dl (70-99)
[2023-10-13] MEDS: NORMOSOL-R/PLASMALYTE-A 1000 IV (12:05)
[2023-10-13] MEDS: DETROL LA 4 MG PO (16:13)
[2023-10-13] MEDS: Pyridium 200 MG PO (16:13)
== END 2023-10-13 16:20 | disposition home or self-care (01) ==
LOC: SDS 06:25
PROVIDERS: ATTENDING PHYSICIAN Surgery
DX: N40.1 Benign prostatic hyperplasia with lower urinary tract symptoms (principal); N32.0 Bladder-neck obstruction; C61 Malignant neoplasm of prostate
CPT/HCPCS: C9740; 82962; J1610; L8699

== ENCOUNTER 2023-11-03 22:58 | Inpatient (IN) | payer MEDICARE, OTHER, SELFPAY ==
[2023-11-03 17:16] VITALS: BP 118/51
[2023-11-03 17:40] LABS: % Basophils 0.7 % (0-2); % Eosinophils 2.6 % (0-6); % Immature Granulocytes 0.1 % (0-0.5); % Lymphocytes 25.1 % (20.5-51.1); % Monocytes 7.1 % (1.7-9.3); % Neutrophils 64.4 % (42.2-75.2); Absolute Basophils 0.1 10^3/uL (0-0.2); Absolute Eosinophils 0.2 10^3/uL (0-0.7); Absolute Lymphocytes 1.8 10^3/uL (1.2-3.4); Absolute Monocytes 0.5 10^3/uL (0.1-0.6); Absolute Neutrophils 4.6 10^3/uL (1.4-6.5); Hematocrit 41.3 % (39.0-52.0); Hemoglobin 13.4 g/dL (13.0-18.0); Mean Corp Hgb Conc. 32.4 g/dL (33.0-37.0); Mean Corpuscular Hgb 27.9 pg (27.0-31.0); Mean Corpuscular Volume 85.9 fL (80.0-94.0); Mean Platelet Volume 9.5 fL (7.4-10.4); Nucleated Red Blood Cells % 0 % (-); Platelet Count 155 10^3/uL (130-400); Red Blood Cell Count 4.81 10^6/uL (4.70-6.10); Red Cell Dist. Width 15.3 % (11.5-14.5); White Blood Cell Count 7.2 10^3/uL (4.8-10.8)
[2023-11-03 17:46] LABS: ALT (SGPT) 10 U/L (0-50); AST (SGOT) 21 U/L (17-59); Alkaline Phosphatase 62 U/L (38-126); Blood Urea Nitrogen 18 mg/dl (9-20); Calcium 9.5 mg/dl (8.4-10.2); Carbon Dioxide 33 mmol/L (22-30); Chloride 98 mmol/L (98-107); Glucose 214 mg/dl (70-99); Potassium 4.3 mmol/L (3.5-5.1); Sodium 140 mmol/L (135-145); Total Bilirubin 0.6 mg/dl (0.2-1.3); Total Protein 6.9 g/dl (6.3-8.2); eGFR > 60.00
[2023-11-03 20:05] VITALS: BP 107/49
--- NOTE | 2023-11-03 20:23 | ED.GENMED ---
History of Present Illness
General
Chief Complaint: Breathing Problem
Source: patient
Exam Limitations: none
Time Seen by Provider: 11/03/23 20:11
History of Present Illness
History of Present Illness:
See MDM
Past History
Past History
ED Past Medical History: Cancer (prostate), HTN, Hypercholesterolemia and NIDDM
ED Past Surgical History: Appendectomy, Cardiac (TAVR, loop recorder.), Orthopedic (Left total knee replacement 02/16), Tonsilectomy and Other (Left-sided CEA)
Social History
Alcohol: None
Drug: None
Personal:
Living: with family
Phy Exam
Physical Exam
Physical Exam:
See MDM
Scores
Heart Failure Risk
Heart Failure Risk Score: Not Applicable
Course
Orders/Labs/Results
Orders:
Orders
11/03/23 17:19
Electrocardiogram (*1) Urgent
Reason for Study: Shortness of Breath
EKG- Treatment ONCE
Chest [CR Chest - 2 Views ] Urgent
Comment:
Reason For Exam: sob
11/03/23 17:24
Complete Blood Count/With Diff Urgent
Comprehensive Metabolic Panel Urgent
11/03/23 20:23
Dexamethasone Sod Phosphate [Decadron] 10 mg IV NOW STA
Abnormal Lab Results
11/03/23
17:24
MCHC 32.4 L g/dL
(33.0-37.0)
RDW 15.3 H %
(11.5-14.5)
Carbon Dioxide 33 H mmol/L
(22-30)
Glucose 214 H mg/dl
(70-99)
11/03/23 17:24
11/03/23 17:24
Vital Signs
Initial and Last Documented VS:
Initial Vital Signs
Temp Pulse Resp BP Pulse Ox
98.6 F 95 20 118/51 98
11/03/23 17:16 11/03/23 17:16 11/03/23 17:16 11/03/23 17:16 11/03/23 17:16
Last Documented Vital Signs
Temp Pulse Resp BP Pulse Ox
98.6 F 95 20 118/51 98
11/03/23 17:16 11/03/23 17:16 11/03/23 17:16 11/03/23 17:16 11/03/23 17:16
MDM/Problems Addressed
Differential Diagnosis Includes:
HPI and MDM Narrative:
78-year-old male presenting with worsening shortness of breath. This has been ongoing for the past several months. Patient was seen in the emergency department 4 months ago with similar complaints. He was sent home with a negative workup. He was
told he has a history of pulmonary fibrosis. Patient follow-up with his primary care doctor who referred him to his machinist helper. Patient states his machinist helper indicated that his pulmonary fibrosis is stable prior oxygen. He was then referred
to cardiology where he had a cardiac which was clear. Patient states he is starting get frustrated because he continues to hear from other specialist that he is 'okay'.
On exam, patient appears somewhat short of breath with conversation. He states he becomes short of breath with walking only a few feet at home. His blood work shows no clinical abnormalities to explain his shortness of breath but chest x-ray shows
what appears to be worsening pulmonary fibrosis. Will ambulate to assess for hypoxia and will start steroids
Physical exam
General: mild sob with conversation
HEENT: protecting airway
Neck: appears supple
CV: No evidence of cyanosis
Resp: No accessory muscle use. Scattered rhonchi throughout
Abd: Non-distended
Extremities: No deformities. No leg pitting edema
Neuro: alert
Psych: Normal affect
Skin: Intact
Problems Addressed including Acute and Chronic Conditions affecting care:
1. Dyspnea secondary to pulmonary fibrosis
Acuity: acute on chronic
Prognosis: unstable
Details: Given dyspnea with minimal exertion, will start steroids
Updates
We attempted to ambulate the patient. His oxygen went down to 90% but his respiratory rate went up to 45. Patient indicating he is significantly short of breath. Will place on 2 L nasal cannula and admit for further workup
Differential Diagnosis (but not limited to): Pulmonary edema, pulmonary fibrosis, coronary artery disease
Testing considered: Troponin but patient had a recent cardiac catheterization showing no significant stenosis
Drug therapy (if applicable): OTC meds, please see d/c instruction regarding Rx drugs
Amount and/or Complexity of Data Reviewed
Clinical info obtained from: Patient
External data reviewed: N/A
Labs I independently reviewed (but not limited to): White blood cell count normal
Radiology: X-ray independently reviewed: Significant pulmonary fibrosis
Pulse Ox: hypoxic
EKG independently reviewed: Sinus rhythm and bigeminy, normal axis, no STEMI
Endband Cutter Hand: Sinus rhythm with frequent PVCs
Critical Care: N/A
Risk of Complication:
Social Determinants of health: Good social support
Discussed with other providers: Hospitalist
Escalation of Care includes Admit/Obs: Given the significant shortness of breath with exertion, will start oxygen and steroids and admit
Occasional wrong word or 'sound a like' substitutions may have occurred due to the inherent limitations of voice recognition software. Read the chart carefully and recognize, using context, where substitutions have occurred.
*Critical Care Note
Total Time (30-74mins, 75-104mins- exclusive of procedures): Not Applicable
ED Attending Note
-
Portions of this chart may have been created with voice recognition software.� Occasional wrong word or��sound alike� substitutions may have occurred due to the inherent limitations of voice recognition software.
Discharge Plan
Departure
Patient Disposition: Admit
Date of Disposition: 11/03/23
Time of Disposition: 20:39
Admit to: Med/Surg
Presentation/result/management discussed w/ accepting MD/DO: Hospitalist
Discharge Problem:
MENENDEZ (dyspnea on exertion), Pulmonary fibrosis
Prescriptions:
No Action
coenzyme Q10 [Co Q-10] 100 MG capsule
100 mg PO DAILY
PreserVision AREDS-2 1 EACH capsule
1 ea PO BID
Jardiance 10 MG tablet
10 mg PO DAILY
simvastatin 20 MG tablet
20 mg PO HS
metoprolol succinate 25 mg Tablet Extended Release 24 Hr
12.5 mg PO HS
cholecalciferol (vitamin D3) [Vitamin D3] 25 mcg (1,000 unit) Capsule
100 mcg PO DAILY
ipratropium bromide 42 mcg (0.06 %) [place],Non-Aerosol
2 spray INTRANASAL DAILY
tamsulosin 0.4 mg Capsule
0.4 mg PO HS
metformin 1,000 MG tablet
1,000 mg PO BID
furosemide 40 mg tablet
40 mg PO .EVERY OTHER DAY
escitalopram oxalate 5 mg tablet
10 mg PO DAILY
cetirizine [Zyrtec] 10 mg Tablet
10 mg PO HS
midodrine 2.5 mg Tablet
2.5 mg PO BID
fluticasone propionate 50 mcg/actuation [place],Suspension
1 spray INTRANASAL DAILY
furosemide 20 mg Tablet
20 mg PO .EVERY OTHER DAY
Eliquis 5 mg Tablet
5 mg PO BID
aspirin 81 mg Capsule
81 mg PO DAILY
Referrals:
NONE,* [Active] -
Interventions
Interventions:
*Risk Screen - Suicide Last Done: 11/03/23 17:16
*General Assessment Last Done: 11/03/23 17:16
*Neglect/Abuse Screening Last Done: 11/03/23 17:16
ED- Fall Risk Assessment Last Done: 11/03/23 20:35
*ED COVID-19 Vaccine History Last Done: 11/03/23 17:16
ED- Cardiac Assessment Last Done: 11/03/23 20:35
ED- Pulmonary Assessment Last Done: 11/03/23 20:39
Discharge Date and Time
Print Language: PORTUGUESE
[2023-11-03 20:35] VITALS: BMI 22.9
--- NOTE | 2023-11-03 20:39 | EDRN ---
ANN Peraza ambulated patient, his o2 sats dropped some and increased work of breathing, Dr. Mcrae aware
[2023-11-03] MEDS: DECADRON 10 MG IV (20:59)
[2023-11-03 21:00] VITALS: BP 119/55
--- NOTE | 2023-11-03 21:01 | VATNOTE ---
VAT paged to access patient's right port. Upon access this VAT RN noticed red skin a few inches above port that patient reports is chronic and has a expeller worker appointment scheduled. No redness around port access area. Dressing placed below red
area to avoid skin irritation. Will continue to monitor.
[2023-11-03 22:00] VITALS: BP 117/58
--- NOTE | 2023-11-03 22:01 | HPS.HSE ---
Addendum entered and electronically signed by Prasad Irwin MD 11/03/23 23:35:
Correction:
HPI-:
78M <del>Home</del> <del>O2</del> <del>dependent</del> Chronic interstitial lung disease, no longer on home O2 per patient
Original Note:
Family Physician
-
Family Physician: Neville Gómez
Chief Complaint
-
worsening sob
History of Present Illness
78M Home O2 depedent Chronic interstitial lung disease/ pulm fibrosis on home Neb Albuterol . HX chr HFpEF
T2DM seen at ER for worsening Luna requiring increased O2 supplelemtn. Not helped nu Home Albuterol Nebs
POx 90 5 with exertion but RR went up to 40s
Known to Pul here.
Recent neg cardiac cath
Medical History
Past Medical History
Past Medical History: Reports Cancer (prostate s/p Lupron and chemo Mar 23, mets to ), HTN, Hypercholesterolemia, NIDDM and Other (cerebrovascular disease, TIA, YOUSIF)
Past Surgical History: Reports Appendectomy, Cardiac (TAVR, loop recorder), Orthopedic (left total knee replacement 02/16), Tonsilectomy and Other (left-sided CEA 11/24/22)
Social History
Tobacco: Former Smoker
Alcohol: Daily
Drug: None
Personal:
Living: With Family
Family History
Family History: Not pertinent (reviewed)
Allergies / Home Medications
Allergies reflects when Allergies were last updated in [facility].
Home Medications with original date entered in [facility]
Allergy/Medication List:
Allergies
Allergy/AdvReac Type Severity Reaction Status Date / Time
Penicillins Allergy Rash Verified 04/08/23 16:34
pollen extracts Allergy watery Verified 04/08/23 16:34
eyes,
nasal
congestion
Home Medications
coenzyme Q10 100 mg capsule (Co Q-10) 100 mg PO DAILY Supplement 02/22/19
empagliflozin 10 mg tablet (Jardiance) 10 mg PO DAILY Diabetes 02/22/19
simvastatin 20 mg tablet 20 mg PO HS High cholesterol 02/22/19
vit C 250 mg-vit E 90 mg-zinc 40 mg-copper 1 mu-[id number] capsule (PreserVision AREDS-2) 1 ea PO BID Supplement 02/22/19
cholecalciferol (vitamin D3) 25 mcg (1,000 unit) capsule (Vitamin D3) 50 mcg PO DAILY Supplement 01/25/22
ipratropium bromide 42 mcg (0.06 %) nasal spray 2 spray intranasal DAILY Congestion 01/25/22
metoprolol succinate 25 mg tablet,extended release 24 hr 12.5 mg PO HS Blood pressure 01/25/22
tamsulosin 0.4 mg capsule 0.4 mg PO HS Urinary Issue 11/18/22
metformin 1,000 mg tablet 1,000 mg PO BID Diabetes 11/24/22
clopidogrel 75 mg tablet (Plavix) 75 mg PO QPM 02/24/23
escitalopram oxalate 5 mg tablet 5 mg PO DAILY 04/08/23
furosemide 40 mg tablet 40 mg PO DAILY 04/08/23
gabapentin 100 mg capsule 300 mg PO HS 04/08/23
prednisone 5 mg tablet 5 mg PO BID 04/08/23
Review of Systems
-
A 12 point ROS was completed and negative except as noted: Yes
Constitutional: Reports No Symptoms
EENT: Reports No Symptoms
Respiratory: Reports See HPI
Cardiac: Reports No Symptoms
Abdomen/GI: Reports No Symptoms
: Reports No Symptoms
Musculoskeletal: Reports No Symptoms
Skin: Reports No Symptoms
Neurological: Reports No Symptoms
Endocrine: Reports No Symptoms
Hematologic/Lymphatic: Reports No Symptoms
Psych: Reports No Symptoms
Physical Exam
Vital Signs
Vital Signs
Temp Pulse Resp BP Pulse Ox
98.6 F 102 37 107/49 96
11/03/23 17:16 11/03/23 20:30 11/03/23 20:30 11/03/23 20:05 11/03/23 20:41
Physical Exam
General: No Apparent Distress, Comfortable, Conversant and Appears Chronically Ill
HEENT: NormoCephalic, Anicteric and Moist mucous membranes
Respiratory: Crackles (bibasilar)
Cardiac: S1/S2 and Regular Rhythm
GI: Soft, Non Tender and Non Distended
Musculoskeletal: No No Edema
Skin: Warm and Dry
Neuro: AO x 3, No Motor Deficits and Nonfocal/grossly intact
Psych: Calm
Laboratory Results
-
11/03/23 17:24
11/03/23 17:24
Laboratory Results
Total Bilirubin 0.6 mg/dl (0.2-1.3) 11/03/23 17:24
AST 21 U/L (17-59) 11/03/23 17:24
ALT 10 U/L (0-50) 11/03/23 17:24
Alkaline Phosphatase 62 U/L (38-126) 11/03/23 17:24
Data Reviewed
-
Diagnostic Radiology: Discussed with Physician
Medical Tests (Nuc Med, Echo, EKG etc): Report Reviewed by me
Lab Data: Labs Reviewed by me
Old Records: Reviewed
Impression/Plan
-
Vital Signs
Temp Pulse Resp BP Pulse Ox
98.6 F 102 37 107/49 96
11/03/23 17:16 11/03/23 20:30 11/03/23 20:30 11/03/23 20:05 11/03/23 20:41
Data
Unremarkable CBC
Unremarkable CMP
Pending proBNP (Prior pro BNP 351 on 07/05/23)
Pending Covid
11/03/23 CXR: pending final report
06/21/23 CXR
1. 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
2. Previous TAVR.
3. Right IJ chemotherapy Mediport in place.
04/08/23 CT Chest PE Study
1. No evidence of pulmonary embolism.
2. Small left and trace right pleural effusions.
3. Findings suggesting chronic interstitial lung disease changes such as usual interstitial pneumonitis.
03/30/23 TTE
Normal left ventricular size, wall thickness and systolic function. No regional wall motion abnormalities are seen.
LV ejection fraction is 55-60%
Normal diastolic function. Upper normal right ventricular size.
Normal right ventricular systolic function.
S/P TAVR Normally functioning Saravia #29mm bioprosthetic valve. Peak/mean gradients across the aortic valve are 16mmHg and 10mmHg. Trace tricuspid regurgitation.
Estimated pulmonary artery pressure of 25-30 mmHg. Assuming a right atrial pressure of 3 mmHg.
Mild mitral regurgitation.
Compared to previous echo 02/06/2019, a transcatheter aortic valve is now in place and functioning well.
Last hospitalist admission:
04/08/2023 - 04/11/2023 FINAL DIAGNOSES:
1. Acute on chronic heart failure with preserved ejection fraction.
2. Elevated troponin due to nonischemic myocardial injury from
acute heart failure.
3. Metastatic prostate cancer.
4. History of aortic stenosis status post transcatheter aortic
valve replacement.
5. History of cerebral vascular disease status post carotid
endarterectomy.
6. Type 2 non-insulin dependent diabetes mellitus.
7. Chronic interstitial lung disease.
ASSESSMENT & PLAN
Progressive Dyspnea on exertion with minimal exertion / Class III Dyspnea
DDX: Falre up of severe chr interstila lung dz , acute on chr HFpEF
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
HX metastatic prostate cancer.
- f/u final CXR read
- check pro BNP, Covid Ag
- agree with empiric IV Decadron
- Nebs qid and PRN
- Pul consult
- DCA acrd consult
S/p TAVR, performed at [facility] for HX Severe Aortic Stenosis
Findings on recent Echocardiogram 03/30/23 as above
HX Prostate cancer s/p chemo and Lupron, Neupogen (per patient) Mar 23, 2023
Benign HTN
-stable
- on metoprolol
HLD
- Continue home Simvastatin
NIDDM
- on Jardiance
- add ISS low
HX CVA or TIA on Eliquis per patient
HX S/p CEA for L carotid stenosis 11/24/22
HX s/p Medtronic loop recorder for 'tachycardia'
- cont Eliquis
HX Post operative bradycardia
HX knee surgery
DVT Px: on Eliquis
Code: Full
IP TLM
--- NOTE | 2023-11-03 22:17 | EDRN ---
Dr. Irwin at bedside working on admission
[2023-11-03 22:54] LABS: COVID-19 Antigen Negative (Negative)
[2023-11-03 23:00] VITALS: BP 118/57
[2023-11-03 23:00] LABS: NT-proBNP 1310 pg/ml
--- NOTE | 2023-11-03 23:12 | EDRN ---
No delay sent to the floor
[2023-11-04] VITALS (8 sets, daily range): BP systolic 114–136; BP diastolic 57–69; BMI 22.6
--- NOTE | 2023-11-04 00:35 | PTCARENOTE ---
Patient received from the ED via stretcher. Patient ambulated into the room. AAOx3, VSS. Afebrile. Patient O2 sat of 97% on 2L O2. Shortness of breath on exertion. No complaints of pain. Patient oriented to the room. Call mathews is within reach.
[2023-11-04] MEDS: TYLENOL PO ×2 (00:53→01:11)
[2023-11-04 07:23] LABS: Glucose - Point of Care 177 mg/dl (70-99)
[2023-11-04] MEDS: XOPENEX 0.63 MG INHALANT SOLUTION INH ×3 (08:12→20:15)
[2023-11-04 08:40] LABS: Hematocrit 39.3 % (39.0-52.0); Hemoglobin 12.7 g/dL (13.0-18.0); Mean Corp Hgb Conc. 32.3 g/dL (33.0-37.0); Mean Corpuscular Hgb 27.4 pg (27.0-31.0); Mean Corpuscular Volume 84.9 fL (80.0-94.0); Mean Platelet Volume 9.7 fL (7.4-10.4); Platelet Count 160 10^3/uL (130-400); Red Blood Cell Count 4.63 10^6/uL (4.70-6.10); Red Cell Dist. Width 15.2 % (11.5-14.5); White Blood Cell Count 2.2 10^3/uL (4.8-10.8)
[2023-11-04] MEDS: DECADRON 6 MG IV (08:53)
[2023-11-04] MEDS: ProAmatine 2.5 MG PO ×2 (08:55→20:04)
[2023-11-04] MEDS: ELIQUIS 5 MG PO ×2 (08:55→20:04)
[2023-11-04] MEDS: ASPIR LOW (ENTERIC COATED) 81 MG PO (08:55)
[2023-11-04] MEDS: JARDIANCE 10 MG PO (08:56)
[2023-11-04] MEDS: LASIX 40 MG IV (08:56)
[2023-11-04] MEDS: LEXAPRO 10 MG PO (08:57)
[2023-11-04] MEDS: NOVOLOG FLEXPEN-LOW RESISTANCE 1 UNITS SC ×3 (08:58→16:57)
[2023-11-04] MEDS: TYLENOL 650 MG PO (08:59)
--- NOTE | 2023-11-04 10:41 | W.PN.HOSP.TC ---
Today's Communication/Plan
-
can cont steroids for now
iv diuretics today, transition to PO soon
wean o2
Pulm, Cards consulted
Assessment / Plan
Assessment / Plan
Physical Exam
General: No Apparent Distress, Comfortable, Conversant and Appears Chronically Ill
HEENT: NormoCephalic, Anicteric and Moist mucous membranes
Respiratory: Crackles (bibasilar)
Cardiac: S1/S2 and Regular Rhythm
GI: Soft, Non Tender and Non Distended
Musculoskeletal: No No Edema
Skin: Warm and Dry
Neuro: AO x 3, No Motor Deficits and Nonfocal/grossly intact
Psych: Calm
#Progressive Dyspnea on exertion with minimal exertion
#ILD ?flare +/- acute on chronic HFpEF
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
#Hypoxia
-not on home o2
-can cont decadron for now
-IV lasix today, and possibly tomorrow prior to switching back to PO regimen
-wean o2
-duonebs
-incentive leslie
-Pulm and Cards consulted
#S/p TAVR, performed at [facility] for HX Severe Aortic Stenosis
ECHO in 07/2023 - EF 50-55%; HFpEF
-on BB, Jardiance, Diuretics
-IV lasix for today and possibly tomorrow, then back to PO regimen
HX Prostate cancer s/p chemo and Lupron, Neupogen (per patient) Mar 23, 2023
#Hypotension
-on midodrine
HLD
- Continue home Simvastatin
NIDDM
- on Jardiance
- add ISS low
HX CVA or TIA on Eliquis per patient
HX S/p CEA for L carotid stenosis 11/24/22
HX s/p Medtronic loop recorder for 'tachycardia'
- cont Eliquis
DVT Px: on Eliquis
Anticipated Discharge: 24 - 48 hours
Subjective/Interval History
-
Date of Service: November 04, 2023
Objective Data
-
Labs:
Laboratory Results
11/04/23
06:33
WBC 2.2 L*
Hgb 12.7 L
Hct 39.3
Plt Count 160
Sodium Pending
Potassium Pending
Chloride Pending
Carbon Dioxide Pending
BUN Pending
Creatinine Pending
Glucose Pending
Calcium Pending
Vital Signs:
Vital Signs
Temp Pulse Resp BP Pulse Ox
98.2 F 51 16 136/61 97
11/04/23 07:00 11/04/23 08:16 11/04/23 08:16 11/04/23 07:00 11/04/23 08:16
I&O
11/03/23 11/04/23 11/05/23
06:59 06:59 06:59
Output Total 600 / 600
Balance -600 / -600
Review of Systems
-
History Source: Patient
All other systems: Not reviewed unless documented
Data Reviewed
-
Diagnostic Radiology: Image personally visualized and interpreted and Report Reviewed by me
Labs: Labs Reviewed by me
--- NOTE | 2023-11-04 11:17 | CON.CAR ---
Addendum entered and electronically signed by Lillie Henderson MD 11/04/23 13:25:
He is a patient of mine with multiple medical problems. He is undergoing cancer treatment with continued Lupron. He has history of TAVR, heart failure with preserved ejection fraction, coronary artery disease, paroxysmal atrial fibrillation and
interstitial lung disease. It appears by imaging interstitial lung disease is severe and has been worsening. He presented with weakness, fatigue and worsening shortness of breath which has been progressive. Prior stress testing (07/20/2023)
without significant ischemia. Recent echo 07/2023 with normal LV function, RV function and stable TAVR. proBNP suggest he may be mildly volume overloaded given it is more elevated than his usual baseline. EKG sinus rhythm with PVCs. No atrial
fibrillation seen on telemetry which was a relatively new diagnosis. White blood count is decreased and being reassessed.
Plan at this time:
-Pulmonary consult for which appears to be worsening interstitial lung disease. Will defer to pulmonary/primary service may benefit for repeat CT scan.
-Will gently diurese. Of note his weight is lower than prior baseline.
-Consider repeat echocardiogram if patient remains in the hospital until 11/07/23, ordered. Most recent echo 07/2023 stable.
-Recent RHC 07/28/2023 noted with PCW 12 and PA pressure 48/12 mean of 25 mmHg and PVR 2.46 Wood units consistent with underlying lung disease.
-Follow telemetry. ECG without acute ischemic changes. PVCs in bigeminy and a couplet/triplet. Follow.
-Patient has a Linq in place and he had 5 hours of Afib on 09/01/23. No atrial arrhythmia seen this admission.
-Patient is chronically on Eliquis 5 mg BID for relatively new A-fib. Follow. Continue anticoagulation
-WBC count on admission was normal at 7.2, but is down to 2.2 on 11/04/23. Added differential to labs. Patient has previously been on Neupogen. Defer to primary service.
Original Note:
Consultation
Consultation Request
Date/Time Consultation Requested: 11/04/23
Date/Time Consultation Performed: 11/04/23
Requesting Provider: Dr. De Leon
Performing Provider: Dr. Lillie Henderson
Reason for Consultation: Acute HF, s/p TAVR, ventricular bigeminy
Medical History
-
Chief Complaint: Congestive heart failure
History of Present Illness:
Patient came to [facility] last night with acute on chronic SOB and MENENDEZ and was admitted with hypoxia and cardiology has been consulted for acute HF. Patient has been feeling more SOB for months prompting echo and RHC 07/2023. Right heart cath 07/28/2023
showed PCWP 12 and normal cardiac output. His echo as noted above showed preserved EF and normal TAVR function. He also had a Lexiscan nuclear stress test 07/20/23. At last office visit 09/26/2023 his usual dose of Lasix 40 mg every other day was
continued along with PRN dosing guidelines. Patient reports he also saw his external grinder tender in that time and was started on Xopenex PRN without much improvement. His CT was felt to be stable with known ILD that is rated severe. He also has severe YOUSIF
and he started PAP therapy also without much improvement. He was recommended pulmonary rehab, but was finishing PT before he could advance. Patient feels that SOB is getting worse and worse and he was frustrated that outpatient testing has been
unrevealing so he came to the ER last evening.
PMH:
ILD
Chronic HFpEF
Paroxysmal Afib
5 hours of Afib on Linq 09/01/23
h/o prostate cancer
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
h/o left lacunar infarct by MRI 12/2022
s/p TAVR for severe at [facility] 2019
s/p Medtronic loop recorder for 'tachycardia'
HTN
HLD
DM2
History of knee surgery
Past Medical History
Past Medical History: Other (in HPI)
Past Surgical History: Appendectomy, Cardiac (TAVR 2019), Orthopedic, Tonsilectomy and Other (EA)
Social History
Tobacco: Non-Smoker
Alcohol: None
Drug: None
Personal: Other
Living: With Family
Employment: Retired
Family History
Family History: CAD
Allergies / Home Medications
Allergy/AdvReac Type Severity Reaction Status Date / Time
Penicillins Allergy Rash Verified 10/13/23 11:45
pollen extracts Allergy watery Verified 10/13/23 11:45
eyes,
nasal
congestion
�Medication �Instructions �Recorded �Confirmed �Type
coenzyme Q10 100 mg capsule (Co 100 mg PO DAILY Supplement 02/22/19 11/03/23 History
Q-10)
empagliflozin 10 mg tablet 10 mg PO DAILY Diabetes 02/22/19 11/03/23 History
(Jardiance)
simvastatin 20 mg tablet 20 mg PO HS High cholesterol 02/22/19 11/03/23 History
vit C 250 mg-vit E 90 mg-zinc 40 1 ea PO BID Supplement 02/22/19 11/03/23 History
mg-copper 1 cm-[id number]-rjohov
capsule (PreserVision AREDS-2)
cholecalciferol (vitamin D3) 25 100 mcg PO DAILY Supplement 01/25/22 11/03/23 History
mcg (1,000 unit) capsule (Vitamin
D3)
ipratropium bromide 42 mcg (0.06 2 spray intranasal DAILY Congestion 01/25/22 11/03/23 History
%) nasal spray
metoprolol succinate 25 mg 12.5 mg PO HS Blood pressure 01/25/22 11/03/23 History
tablet,extended release 24 hr
tamsulosin 0.4 mg capsule 0.4 mg PO HS Urinary Issue 11/18/22 11/03/23 History
metformin 1,000 mg tablet 1,000 mg PO BID Diabetes 11/24/22 11/03/23 History
escitalopram oxalate 5 mg tablet 10 mg PO DAILY Mental 04/08/23 11/03/23 History
Health/Anxiety
furosemide 40 mg tablet 40 mg PO Q48H Fluid 04/08/23 11/03/23 History
Retention/Swelling
cetirizine 10 mg tablet (Zyrtec) 10 mg PO HS 07/28/23 11/03/23 History
fluticasone propionate 50 1 spray intranasal DAILY 07/28/23 11/03/23 History
mcg/actuation nasal
spray,suspension
midodrine 2.5 mg tablet 2.5 mg PO BID 07/28/23 11/03/23 History
apixaban 5 mg tablet (Eliquis) 5 mg PO BID 09/14/23 11/03/23 History
aspirin 81 mg capsule 81 mg PO DAILY 09/14/23 11/03/23 History
furosemide 20 mg tablet 20 mg PO Q48H 09/14/23 11/03/23 History
Review of Systems
-
History Source: Patient
All other systems: Negative unless noted
Physical Exam
Vital Signs
Temp Pulse Resp BP Pulse Ox
98.2 F 51 16 136/61 97
11/04/23 07:00 11/04/23 08:16 11/04/23 08:16 11/04/23 07:00 11/04/23 08:16
GEN: NAD. AAOx3
HEENT: EOMI, MMM, wearing glasses
LUNGS: Wearing oxygen at 1 L NC. B/L rales without wheeze
CV: Reg with ectopy, S1/S2, no murmur
ABD: soft, BS+, NT, ND
EXT: No clubbing, cyanosis, lesions or edema B/L
NEURO: Gross non-focal
SKIN: Warm, dry and pink. No rash
Lab Results
11/04/23 06:33
Dbk-D-Jamwazejkdr Pept 1310 pg/ml 11/03/23 22:27
Impression / Plan
-
PCP: Dr. Gómez
Cardiology: Dr. Lilile Henderson
Assessment:
Admitted with MENENDEZ 11/03/23
Acute hypoxic respiratory insufficiency
ILD
Acute HFpEF
Ventricular bigeminy
Paroxysmal Afib
5 hours of Afib on Linq 09/01/23
Leukopenia, WBC 7.2 on 11/03/23 then down to 2.2 on 11/04/23
previously on Neupogen
h/o prostate cancer
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
h/o left lacunar infarct by MRI 12/2022
s/p TAVR for severe at [facility] 2019
s/p Medtronic loop recorder for 'tachycardia'
HTN
HLD
DM2
History of knee surgery
Lexiscan nuclear stress test 07/20/2023: Small area of mildly decreased perfusion predominantly reversible in the apical lateral segment and apical segment that improves with prone imaging EF 56%
Echo 03/30/2023: EF 55 to 60%. Mild MR. Status post TAVR Saravia number 29 mm valve. Peak/mean gradient 16/10 mmHg. PAP 25 to 30 mmHg
Echo 07/22/2023: EF 50 to 55%, GLS -19.1%, mild MR, mild TR, well-seated TAVR peak/mean 14/8 mmHg
Recommendations:
-Patient came to [facility] last night with acute on chronic SOB and MENENDEZ and was admitted with hypoxia and cardiology has been consulted for acute HF. Patient has been feeling more SOB for months prompting echo and RHC 07/2023. Right heart cath 07/28/2023
showed PCWP 12 and normal cardiac output. His echo as noted above showed preserved EF and normal TAVR function. He also had a Lexiscan nuclear stress test 07/20/23. At last office visit 09/26/2023 his usual dose of Lasix 40 mg every other day was
continued along with PRN dosing guidelines. Patient reports he also saw his external grinder tender in that time and was started on Xopenex PRN without much improvement. His CT was felt to be stable with known ILD that is rated severe. He also has severe YOUSIF
and he started PAP therapy also without much improvement. He was recommended pulmonary rehab, but was finishing PT before he could advance. Patient feels that SOB is getting worse and worse and he was frustrated that outpatient testing has been
unrevealing so he came to the ER last evening.
-pro-BNP 1310 which is elevated for him, agree with Lasix 40 mg IV daily diuresis. Patient was taking Lasix 40 mg PO every other day alternating with 20 mg prior to admission.
-Echo with stable EF 07/22/23, will repeat if patient remains in the hospital until 11/07/23, ordered by me
-Overall weight is lower than previous. Recorded weight on day of RHC 07/28/2023 was 202 lbs correlating with a PCWP of 12 mmHg and he weighs 195 lbs today.
-Tele and ECG reviewed by me and patient with PVCs in bigeminy and a couplet/triplet. Potassium normal at 4.3. Check magnesium, ordered by me
-Patient has a Linq in place and he had 5 hours of Afib on 09/01/23. No atrial arrhythmia seen this admission.
-Patient is chronically on Eliquis 5 mg BID (age 78, Cre 0.7, wt 88.6 kg) and this has been continued
-Pulmonology to see patient as well. Decadron 6 mg IV daily has been ordered.
-WBC count on admission was normal at 7.2, but is down to 2.2 on 11/04/23. Added differential to labs. Patient has previously been on Neupogen.
-TAVR was stable at last echo in July
[2023-11-04 11:18] LABS: Glucose - Point of Care 191 mg/dl (70-99)
[2023-11-04 12:23] LABS: Blood Urea Nitrogen 15 mg/dl (9-20); Calcium 9.5 mg/dl (8.4-10.2); Carbon Dioxide 35 mmol/L (22-30); Chloride 100 mmol/L (98-107); Estimated Creatinine Clearance 107 ml/min; Glucose 193 mg/dl (70-99); Potassium 4.3 mmol/L (3.5-5.1); Sodium 143 mmol/L (135-145); eGFR > 60.00
[2023-11-04 12:29] LABS: Magnesium 2.2 mg/dl (1.6-2.3)
[2023-11-04 12:47] LABS: % Basophils 0.5 % (0-2); % Monocytes 1.9 % (1.7-9.3); % Neutrophils 68.6 % (42.2-75.2); Absolute Lymphocytes 0.6 10^3/uL (1.2-3.4); Absolute Neutrophils 1.5 10^3/uL (1.4-6.5); Nucleated Red Blood Cells % 0 % (-)
--- NOTE | 2023-11-04 14:35 | CON.PUL ---
Consultation
Consultation Request
Date/Time Consultation Requested: 11/04/2023
Date/Time Consultation Performed: 11/04/2023
Requesting Provider: Dr. Irwin
Performing Provider: Dr. Geo Mills
Reason for Consultation: Acute on chronic hypoxemic respiratory failure-shortness of breath
Medical History
-
History of Present Illness:
Patient is a 78-year-old male with previous history of diabetes, hypertension, seasonal allergies, interstitial lung disease undifferentiated, history of TAVR in 2019, follows up in our office by Dr. Odom for interstitial lung disease and sleep
apnea-on CPAP therapy. Currently on Lupron for cancer therapy.
Patient comes to the hospital complaining of shortness of breath and fatigue.
proBNP slightly elevated signaling possibility of some degree of volume overload.
Chest x-ray 11/03/2023: Showed moderately extensive pulmonary interstitial fibrosis.
Past Medical History
Past Medical History: Other (See assessment and plan)
Social History
Tobacco: Non-smoker
Alcohol: None
Drug: None
Family History
Family History: Reviewed & Not Pertinent
Allergies / Home Medications
Allergies
Allergy/AdvReac Type Severity Reaction Status Date / Time
Penicillins Allergy Rash Verified 10/13/23 11:45
pollen extracts Allergy watery Verified 10/13/23 11:45
eyes,
nasal
congestion
Home Medications
�Medication �Instructions �Recorded �Confirmed �Last Taken �Type
coenzyme Q10 100 mg capsule (Co 100 mg PO DAILY Supplement 02/22/19 11/03/23 11/03/23 History
Q-10)
empagliflozin 10 mg tablet 10 mg PO DAILY Diabetes 02/22/19 11/03/23 11/03/23 History
(Jardiance)
simvastatin 20 mg tablet 20 mg PO HS High cholesterol 02/22/19 11/03/23 11/02/23 History
vit C 250 mg-vit E 90 mg-zinc 40 1 ea PO BID Supplement 02/22/19 11/03/23 11/03/23 History
mg-copper 1 [id number]
capsule (PreserVision AREDS-2)
cholecalciferol (vitamin D3) 25 100 mcg PO DAILY Supplement 01/25/22 11/03/23 11/03/23 History
mcg (1,000 unit) capsule (Vitamin
D3)
ipratropium bromide 42 mcg (0.06 2 spray intranasal DAILY Congestion 01/25/22 11/03/23 11/03/23 History
%) nasal spray
metoprolol succinate 25 mg 12.5 mg PO HS Blood pressure 01/25/22 11/03/23 11/02/23 History
tablet,extended release 24 hr
tamsulosin 0.4 mg capsule 0.4 mg PO HS Urinary Issue 11/18/22 11/03/23 11/02/23 History
metformin 1,000 mg tablet 1,000 mg PO BID Diabetes 11/24/22 11/03/23 11/03/23 History
escitalopram oxalate 5 mg tablet 10 mg PO DAILY Mental 04/08/23 11/03/23 11/03/23 History
Health/Anxiety
furosemide 40 mg tablet 40 mg PO Q48H Fluid 04/08/23 11/03/23 11/02/23 History
Retention/Swelling
cetirizine 10 mg tablet (Zyrtec) 10 mg PO HS 07/28/23 11/03/23 11/02/23 History
fluticasone propionate 50 1 spray intranasal DAILY 07/28/23 11/03/23 11/03/23 History
mcg/actuation nasal
spray,suspension
midodrine 2.5 mg tablet 2.5 mg PO BID 07/28/23 11/03/23 11/03/23 History
apixaban 5 mg tablet (Eliquis) 5 mg PO BID 09/14/23 11/03/23 11/03/23 History
aspirin 81 mg capsule 81 mg PO DAILY 09/14/23 11/03/23 11/03/23 History
furosemide 20 mg tablet 20 mg PO Q48H 07/01/2711/03/23 11/03/23 History
Review of Systems
-
History Source: Patient
All other systems: Negative unless noted
Vitals / Labs / Diagnostic Testing
Vital Signs
Temp Pulse Resp BP Pulse Ox
98.1 F 55 16 119/61 96
11/04/23 11:21 11/04/23 12:53 11/04/23 12:53 11/04/23 11:21 11/04/23 12:53
Lab Data
11/04/23 06:33
11/04/23 06:33
Diagnostic Testing:
Physical Exam
-
HEENT: Normocephalic
Cardiovascular: S1/S2 and Regular Rhythm
Respiratory: Rales and Non-Labored Respirations
GI: Soft and Non Distended
Neurology: Awake, Oriented, AO x 3 and No Motor Deficits
Skin: Warm
General: Comfortable
Assessment
-
Shortness of breath: Multifactorial possibly worsening interstitial lung disease versus some degree of pulmonary edema.
Chest x-ray: Showed bilateral increased reticular markings consistent with pulmonary fibrosis.
Conditions present prior to admission:
History of carotic endarterectomy 2022
Severe on ECHO s/p TAVR 2019
Cardiac catheterization 07/28/2023: Normal left and right sided filling pressures with pulmonary hypertension noted and normal cardiac output.
Echocardiogram 07/22/2023: Showed normal LVEF. Mild MR. Mild TR. Bioprosthetic valve working well.
Type 2 diabetes mellitus� �
Basal cell cancer� �
Sinus infection� �
Hypertension� �
Hyperlipidemia� �
Seasonal allergies� �
Appendectomy
Tonsillectomy�
Rt foot surgery� 08/2019� �
Cataracts� 09/2020� �
LTKA� 02/16/2022� �� �
Knee replacement� 02/2022� �
Cellulitis�11/2017� �
[facility] ER fall right knee injury� � 04/2019� �
Assessment and plan:
Exertional dyspnea/fatigue:Multifactorial.
Agree with short course of diuresis and assess response.
Last visit in our office 09/2023: There was no oxygen desaturation with ambulation. Possibility of antifibrotic therapy was discussed.
-
Reviewed most recent CAT scan/2023: History of peripheral increased additional markings some degree of groundglass opacities with bibasilar predominant.
Differential diagnosis includes NSIP-fibrotic pattern, connective tissue disease associated ILD, patient does not have any exposures and less likely hypersensitivity pneumonitis. I did not find any signs and symptoms suggestive of connective tissue
disease associated ILD but serology should be performed at some point.
-
At this point I will repeat a CAT scan of the chest without IV contrast to compare to June. If there is progression of interstitial lung disease including groundglass opacities despite diuresis, serology will be sent in the outpatient setting and
a course of steroids may be warranted.
Alternatively if CAT scan is stable compared to June continue with outpatient follow-up and consider evaluation regarding connective tissue disease etc. and antifibrotic therapy depending on outpatient discussion.
-
Home oxygen assessment prior to discharge.
-
Will follow
--- NOTE | 2023-11-04 16:01 | CM ---
Patient reports that he lives with his (who is wheel chair bound) in a multi story home. There are two steps to enter and a flight of steps to the second floor. There is a powder room on the first level. Junior advised that he functions
independently. He has no DME of his own; has never had VN services. He has gone to outpatient therapy at .
Junior came to ED due to shortness of breath and fatigue. Pt has pulmonary fibrosis. He is on 2L O2 currently; no O2 at home; has a CPAP (sleep apnea).
Pt would like to go home at discharge; watch for O2 needs
PCP: Neville Gómez
Pharmacy: [facility]
[2023-11-04 16:24] LABS: Glucose - Point of Care 161 mg/dl (70-99)
[2023-11-04] MEDS: ZYRTEC 10 MG PO (21:34)
[2023-11-04] MEDS: LIPITOR 10 MG PO (21:34)
[2023-11-04] MEDS: FLOMAX 0.4 MG PO (21:34)
[2023-11-04] MEDS: TOPROL XL 12.5 MG PO (21:34)
[2023-11-04 22:09] LABS: Glucose - Point of Care 168 mg/dl (70-99)
[2023-11-05 03:39] VITALS: BP 124/54
[2023-11-05 06:00] VITALS: BMI 22.2
[2023-11-05 07:34] LABS: Glucose - Point of Care 132 mg/dl (70-99)
[2023-11-05 08:00] VITALS: BP 126/60
[2023-11-05] MEDS: NOVOLOG FLEXPEN-LOW RESISTANCE SC (08:04)
[2023-11-05] MEDS: LASIX 40 MG IV (08:04)
[2023-11-05] MEDS: LEXAPRO 10 MG PO (08:05)
[2023-11-05] MEDS: JARDIANCE 10 MG PO (08:05)
[2023-11-05] MEDS: DECADRON 6 MG IV (08:05)
[2023-11-05] MEDS: ProAmatine 2.5 MG PO (08:05)
[2023-11-05] MEDS: ASPIR LOW (ENTERIC COATED) 81 MG PO (08:05)
[2023-11-05] MEDS: ELIQUIS 5 MG PO (08:06)
[2023-11-05] MEDS: XOPENEX 0.63 MG INHALANT SOLUTION INH (08:21)
[2023-11-05 10:43] LABS: Hematocrit 38.2 % (39.0-52.0); Hemoglobin 12.6 g/dL (13.0-18.0); Mean Corpuscular Hgb 27.3 pg (27.0-31.0); Mean Corpuscular Volume 82.9 fL (80.0-94.0); Mean Platelet Volume 9.5 fL (7.4-10.4); Platelet Count 185 10^3/uL (130-400); Red Blood Cell Count 4.61 10^6/uL (4.70-6.10); Red Cell Dist. Width 15.7 % (11.5-14.5); White Blood Cell Count 10.2 10^3/uL (4.8-10.8)
[2023-11-05 10:50] LABS: ALT (SGPT) 11 U/L (0-50); AST (SGOT) 19 U/L (17-59); Albumin 3.9 g/dl (3.5-5.0); Alkaline Phosphatase 59 U/L (38-126); Blood Urea Nitrogen 20 mg/dl (9-20); Calcium 9.5 mg/dl (8.4-10.2); Carbon Dioxide 34 mmol/L (22-30); Chloride 96 mmol/L (98-107); Estimated Creatinine Clearance 105 ml/min; Glucose 255 mg/dl (70-99); Potassium 4.5 mmol/L (3.5-5.1); Sodium 141 mmol/L (135-145); Total Bilirubin 0.5 mg/dl (0.2-1.3); Total Protein 6.6 g/dl (6.3-8.2); eGFR > 60.00
--- NOTE | 2023-11-05 10:50 | W.PN.HOSP.TC ---
Addendum entered and electronically signed by Srikanth De Leon MD 11/05/23 13:39:
[id number]
Original Note:
Today's Communication/Plan
-
change to lasix 40mg daily
heart failure, diuretic protocol as outpatient.
Follow-up cardiology, pulmonary outpatient
Assessment / Plan
Assessment / Plan
Physical Exam
General: No Apparent Distress, Comfortable, Conversant and Appears Chronically Ill
HEENT: NormoCephalic, Anicteric and Moist mucous membranes
Respiratory: Crackles (bibasilar)
Cardiac: S1/S2 and Regular Rhythm
GI: Soft, Non Tender and Non Distended
Musculoskeletal: No No Edema
Skin: Warm and Dry
Neuro: AO x 3, No Motor Deficits and Nonfocal/grossly intact
Psych: Calm
#Progressive Dyspnea on exertion with minimal exertion
#acute on chronic HFpEF
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
#Hypoxia, resolved
� No groundglass opacities, no evidence of acute flare�I suspect more so slight volume overload
-not on home o2, tolerating ambulation without oxygen
-Discontinue steroids
-IV lasix can be transitioned over to p.o. Lasix, changed to 40 mg Lasix daily
� Cardiology will place on heart failure, diuretic protocol as outpatient.
�Follow-up cardiology, pulmonary outpatient
#S/p TAVR, performed at [facility] for HX Severe Aortic Stenosis
ECHO in 07/2023 - EF 50-55%; HFpEF
-on BB, Jardiance, Diuretics
-po lasix
HX Prostate cancer s/p chemo and Lupron, Neupogen (per patient) Mar 23, 2023
#Hypotension
-on midodrine
HLD
- Continue home Simvastatin
NIDDM
- on Jardiance
- add ISS low
HX CVA or TIA on Eliquis per patient
HX S/p CEA for L carotid stenosis 11/24/22
HX s/p [employer] loop recorder for 'tachycardia'
- cont Eliquis
DVT Px: on Eliquis
More than 30 minutes spent in discharge including
Final examination of the patient
Summarizing hospital stay
Instructions for continuing care to all relevant caregivers
Preparation of discharge records, prescriptions, and referral forms
Total time spent (35 in minutes):
Anticipated Discharge: Today
Subjective/Interval History
-
Date of Service: November 05, 2023
Off oxygen, no requirement of O2 by ambulation
Objective Data
-
Labs:
Laboratory Results
11/05/23
10:20
WBC 10.2
Hgb 12.6 L
Hct 38.2 L
Plt Count 185
Sodium Pending
Potassium Pending
Chloride Pending
Carbon Dioxide Pending
BUN Pending
Creatinine Pending
Glucose Pending
Calcium Pending
Total Bilirubin Pending
AST Pending
ALT Pending
Alkaline Phosphatase Pending
Vital Signs:
Vital Signs
Temp Pulse Resp BP Pulse Ox
97.8 F 50 16 126/60 97
11/05/23 08:00 11/05/23 08:24 11/05/23 08:24 11/05/23 08:00 11/05/23 08:24
I&O
11/04/23 11/05/23 11/06/23
06:59 06:59 06:59
Intake Total 660 / 660
Output Total 600 / 600 675 / 675
Balance -600 / -600 -15 / -15
Review of Systems
-
History Source: Patient
All other systems: Not reviewed unless documented
Data Reviewed
-
Diagnostic Radiology: Image personally visualized and interpreted and Report Reviewed by me
Labs: Labs Reviewed by me
[2023-11-05 11:06] VITALS: BP 104/55
[2023-11-05 11:54] LABS: Glucose - Point of Care 222 mg/dl (70-99)
--- NOTE | 2023-11-05 11:58 | CM ---
ASHOK met with Junior at bedside to discuss discharge plans and VN services. Pt offered VN for CHF management; he has declined, stating there is nothing new to him that would need home care services. CM provided education re: fluids and salt intake,
monitoring services available...He is still not interested in VN. notified of same.
Junior is aware that he can contact his PCP if he decides to pursue VN after discharge.
Plan: Discharge to home with no needs.
[2023-11-05] MEDS: NOVOLOG FLEXPEN-LOW RESISTANCE 2 UNITS SC (12:01)
== END 2023-11-05 13:53 | disposition home or self-care (01) | DRG 291 ==
LOC: 4 EAST ACU 22:58
PROVIDERS: Physician Assistant; ADMITTING PHYSICIAN Internal Medicine; ATTENDING PHYSICIAN Internal Medicine; CONSULT PHYSICIAN Internal Medicine Critical Care Medicine; EMERGENCY PHYSICIAN Student in an Organized Health Care Education/Training Program; FAMILY PHYSICIAN Internal Medicine Geriatric Medicine; OTHER PHYSICIAN Internal Medicine Cardiovascular Disease
DX: I11.0 Hypertensive heart disease with heart failure (principal); I50.33 Acute on chronic diastolic (congestive) heart failure; C79.9 Secondary malignant neoplasm of unspecified site; J84.9 Interstitial pulmonary disease, unspecified; B17.9 Acute viral hepatitis, unspecified; I27.20 Pulmonary hypertension, unspecified; Z95.2 Presence of prosthetic heart valve; E11.9 Type 2 diabetes mellitus without complications; I35.0 Nonrheumatic aortic (valve) stenosis; I5A Non-ischemic myocardial injury (non-traumatic); C61 Malignant neoplasm of prostate; J84.10 Pulmonary fibrosis, unspecified; Z79.01 Long term (current) use of anticoagulants; D72.819 Decreased white blood cell count, unspecified; E78.00 Pure hypercholesterolemia, unspecified; F41.9 Anxiety disorder, unspecified; I25.10 Atherosclerotic heart disease of native coronary artery without angina pectoris; G47.33 Obstructive sleep apnea (adult) (pediatric); I48.0 Paroxysmal atrial fibrillation; J30.2 Other seasonal allergic rhinitis; R09.02 Hypoxemia; R06.02 Shortness of breath; Z79.82 Long term (current) use of aspirin; Z79.84 Long term (current) use of oral hypoglycemic drugs; Z79.899 Other long term (current) drug therapy; Z87.891 Personal history of nicotine dependence; Z90.49 Acquired absence of other specified parts of digestive tract; Z92.21 Personal history of antineoplastic chemotherapy; Z86.73 Personal history of transient ischemic attack (TIA), and cerebral infarction without residual deficits; Z85.828 Personal history of other malignant neoplasm of skin; Z91.81 History of falling; Z96.652 Presence of left artificial knee joint; Z88.0 Allergy status to penicillin
CPT/HCPCS: 71046; 71250; 80048; 80053; 82962; 83036; 83735; 83880; 85025; 85027; 87811; 93005; 94640; 96374; 99285

== ENCOUNTER → 2023-11-07 12:20 | Outpatient (REF) | payer MEDICARE, OTHER, SELFPAY ==
[2023-11-07 13:28] LABS: % Basophils 0.7 % (0-2); % Eosinophils 4.2 % (0-6); % Immature Granulocytes 0.3 % (0-0.5); % Monocytes 5.6 % (1.7-9.3); % Neutrophils 63.2 % (42.2-75.2); Absolute Basophils 0.1 10^3/uL (0-0.2); Absolute Eosinophils 0.4 10^3/uL (0-0.7); Absolute Lymphocytes 2.4 10^3/uL (1.2-3.4); Absolute Monocytes 0.5 10^3/uL (0.1-0.6); Absolute Neutrophils 5.8 10^3/uL (1.4-6.5); Hemoglobin 14.1 g/dL (13.0-18.0); Mean Corp Hgb Conc. 31.3 g/dL (33.0-37.0); Mean Corpuscular Hgb 27.2 pg (27.0-31.0); Mean Corpuscular Volume 86.7 fL (80.0-94.0); Mean Platelet Volume 9.5 fL (7.4-10.4); Nucleated Red Blood Cells % 0 % (-); Platelet Count 205 10^3/uL (130-400); Red Blood Cell Count 5.19 10^6/uL (4.70-6.10); Red Cell Dist. Width 15.6 % (11.5-14.5); White Blood Cell Count 9.2 10^3/uL (4.8-10.8)
[2023-11-07 14:23] LABS: ALT (SGPT) 19 U/L (0-50); AST (SGOT) 27 U/L (17-59); Albumin 4.4 g/dl (3.5-5.0); Alkaline Phosphatase 81 U/L (38-126); Blood Urea Nitrogen 29 mg/dl (9-20); Carbon Dioxide 37 mmol/L (22-30); Chloride 93 mmol/L (98-107); Glucose 139 mg/dl (70-99); Potassium 4.2 mmol/L (3.5-5.1); Sodium 141 mmol/L (135-145); Total Protein 7.5 g/dl (6.3-8.2); eGFR > 60.00
[2023-11-07 14:50] LABS: PSA, Total - Diagnostic 0.44 ng/ml (0.0-4.0)
== END ==
LOC: REG 12:20
PROVIDERS: ATTENDING PHYSICIAN Internal Medicine Hematology & Oncology; FAMILY PHYSICIAN Internal Medicine Geriatric Medicine
DX: C61 Malignant neoplasm of prostate (principal)
CPT/HCPCS: 36415; 80053; 84153; 85025

== ENCOUNTER → 2023-11-21 12:58 | Outpatient (REF) | payer MEDICARE, OTHER, SELFPAY | LOC: PAVMRI 12:58 | PROVIDERS: ATTENDING PHYSICIAN Internal Medicine Geriatric Medicine | DX: G45.9 Transient cerebral ischemic attack, unspecified (principal); R41.89 Other symptoms and signs involving cognitive functions and awareness | CPT/HCPCS: 70551 ==

== ENCOUNTER 2023-11-24 19:53 | Emergency (ER) | payer MEDICARE, OTHER, SELFPAY ==
[2023-11-24 20:04] VITALS: BP 113/51
[2023-11-24 20:36] LABS: % Basophils 0.6 % (0-2); % Eosinophils 5.9 % (0-6); % Immature Granulocytes 0.2 % (0-0.5); % Lymphocytes 24.7 % (20.5-51.1); % Monocytes 6.5 % (1.7-9.3); % Neutrophils 62.1 % (42.2-75.2); Absolute Eosinophils 0.4 10^3/uL (0-0.7); Absolute Lymphocytes 1.6 10^3/uL (1.2-3.4); Absolute Monocytes 0.4 10^3/uL (0.1-0.6); Absolute Neutrophils 4.1 10^3/uL (1.4-6.5); Hematocrit 37.1 % (39.0-52.0); Hemoglobin 11.9 g/dL (13.0-18.0); Mean Corp Hgb Conc. 32.1 g/dL (33.0-37.0); Mean Corpuscular Hgb 27.5 pg (27.0-31.0); Mean Corpuscular Volume 85.9 fL (80.0-94.0); Mean Platelet Volume 9.1 fL (7.4-10.4); Nucleated Red Blood Cells % 0 % (-); Platelet Count 158 10^3/uL (130-400); Red Blood Cell Count 4.32 10^6/uL (4.70-6.10); Red Cell Dist. Width 15.4 % (11.5-14.5); White Blood Cell Count 6.6 10^3/uL (4.8-10.8)
[2023-11-24 20:42] LABS: COVID-19 Antigen Negative (Negative)
[2023-11-24 20:54] LABS: NT-proBNP 1000 pg/ml; Troponin I < 0.012 ng/ml
[2023-11-24 21:07] LABS: ALT (SGPT) 11 U/L (0-50); AST (SGOT) 17 U/L (17-59); Albumin 3.7 g/dl (3.5-5.0); Alkaline Phosphatase 64 U/L (38-126); Blood Urea Nitrogen 26 mg/dl (9-20); Calcium 9.1 mg/dl (8.4-10.2); Carbon Dioxide 30 mmol/L (22-30); Chloride 98 mmol/L (98-107); Glucose 179 mg/dl (70-99); Sodium 141 mmol/L (135-145); Total Bilirubin 0.3 mg/dl (0.2-1.3); Total Protein 6.4 g/dl (6.3-8.2); eGFR > 60.00
[2023-11-24 23:10] VITALS: BMI 23.0
--- NOTE | 2023-11-24 23:38 | ED.GENMED ---
History of Present Illness
General
Chief Complaint: Breathing Problem
Source: patient
Exam Limitations: none
Time Seen by Provider: 11/24/23 23:08
History of Present Illness
History of Present Illness:
This is a 78 year old male that comes in with c/o SOB and coughing. Staes that he has been SOB since he finished his Chemo in June. States that the SOB has continued to get worse and the past few days he felt it was getting worse. States that
sometimes he had right sided chest discomfort and with any activity he is SOB. States that he has had diarrhea. Denies any fever, chills, abd pain, nausea, vomiting, headache, dizziness, urinary burning.
Past History
Past History
ED Past Medical History: Arrthythmia (Atrial fib), Cancer (prostate Ca, Skin cancer basal and squamous cell), CHF, HTN, Hypercholesterolemia, NIDDM, Psychiatric (Anxiety, ) and Other (Back pain, Neuropathy, Numbness arms and legs, Sciatic pain, TIA,
Sleep apnea, Pulmonary fiborosis, aortic stenosis, Urinary retention, Macular degeneration, )
ED Past Surgical History: Appendectomy, Cardiac (TAVR, loop recorder., Left carotid endarterectomy, aortic valve replaced), Orthopedic (Left total knee replacement 02/16, Right foot surgery. ), Tonsilectomy (and adenioids) and Other (Left-sided CEA,
Cataracts, )
Social History
Tobacco: Non-smoker
Alcohol: None
Drug: None
Personal:
Living: with family
Review of Systems
Review of Systems
All Other Systems: ROS reviewed and negative except as documented in HPI and ROS
Constitutional: Reports no symptoms; Denies fever or chills
EENT: Reports no symptoms
Respiratory: Reports cough and trouble breathing
Cardiac: Reports chest pain (Right sided)
ABD/GI: Reports diarrhea; Denies abdominal pain, nausea or vomiting
: Reports no symptoms; Denies dysuria, frequency or urgency
Musculoskeletal: Reports no symptoms
Skin: Reports no symptoms
Neurological: Reports no symptoms; Denies dizzy or headache
Psychiatric: Reports no symptoms
Phy Exam
General Physical Exam
General Presentation: no apparent distress (when in bed)
General age: appears stated age
General Skin: warm and dry
General Habitus: elderly
General Mental: alert
General Hydration: appears well hydrated
ENT Exam
ENT Exam: TM's normal, pharynx normal and neck supple
Eye Exam
Eye Exam: EOMI
Cardiovascular Exam
Cardiovascular Exam: no edema, normal peripheral pulses and bradycardia
Pulmonary Exam
Pulmonary Exam: no respiratory distress, chest non tender, no rhonchi and other (crackling throughout, dry cough noted)
Gastrointestinal Exam
Gastrointestinal Exam: normal bowel sounds, non tender, soft, no organomegaly, no pulsatile mass and non distended
Musculoskeletal Exam
Musculoskeletal Exam: full ROM and edema (Slight nonpitting lower leg edema )
Skin Exam
Skin Exam: normal color, warm/dry, no rash and no petechia
Psychiatric Exam
Psychiatric Exam: normal mood/affect
Scores
Heart Failure Risk
Heart Failure Risk Score: Yes
History of Stroke or TIA: Yes
History of intubation for respiratory distress: No
Heart rate on ED arrival >/= 110: No
SaO2 <90% on arrival on room air: No
HR >/=110 during 3min walk test (or too ill to perform test): No
ECG has acute ischemic changes: No
Urea >/=12mmol/L (BUN 33.6mg/dL): No
Serum CO2>/=35mmol/L: No
Troponin I or T elevated to IA Level (0.4mg/dL): No
NT-proBNP >/=5,000ng/L (5,000pg/ml): No
HF Risk Score: 1
Admission Status: MEDIUM RISK 5.1% Consider observation or discharge to home with homecare & f/u visit to PCP/[facility], or SNF for treatment
Course
Orders/Labs/Results
Orders:
Orders
11/24/23 20:07
ECG [Electrocardiogram (*1)] Urgent
Reason for Study: Shortness of Breath
EKG- Treatment ONCE
CR Chest - 2 Views Urgent
Comment:
Reason For Exam: SOB
11/24/23 20:17
Complete Blood Count/With Diff Urgent
Comprehensive Metabolic Panel Urgent
NT-proBNP Urgent
Troponin I Urgent
11/24/23 20:21
COVID-19 Antigen Urgent
Source: Nasal Swab
11/25/23 00:03
CT Chest Pe Study Urgent
Reason For Exam: SOB, cough
Abnormal Lab Results
11/24/23
20:17
RBC 4.32 L 10^6/uL
(4.70-6.10)
Hgb 11.9 L g/dL
(13.0-18.0)
Hct 37.1 L %
(39.0-52.0)
MCHC 32.1 L g/dL
(33.0-37.0)
RDW 15.4 H %
(11.5-14.5)
BUN 26 H mg/dl
(9-20)
Glucose 179 H mg/dl
(70-99)
11/24/23 20:17
11/24/23 20:17
H/H slightly low. Dehydration. Hyperglycemia, Troponin <0.012, Pro-BNP 1000, COVID negative.
Vital Signs
Initial and Last Documented VS:
Initial Vital Signs
Temp Pulse Resp BP Pulse Ox
98.2 F 63 20 113/51 96
11/24/23 20:04 11/24/23 20:04 11/24/23 20:04 11/24/23 20:04 11/24/23 20:04
Last Documented Vital Signs
Temp Pulse Resp BP Pulse Ox
98.2 F 60 20 108/72 98
11/24/23 20:04 11/25/23 00:51 11/25/23 00:51 11/25/23 00:51 11/25/23 00:51
MDM/Problems Addressed
Differential Diagnosis Includes:
Pulmonary fibrosis, PE,
MDM/Problems Addressed:
This is a 78 year old male that comes in with c/o SOB. States that this started after his Chemo in June and has continued to get worse. States that he can hardly walk across the room as he is very SOB.
Will get labs. chest X-ray. COVID. Got patient OOB and attempted to walk in the cardozo. Patient became very SOB and pulse ox dropped to 91% with elevation of his heart rate to 100's. Will get CT of chest.
Back into see patient. Explained that his blood work shows that hir Pro-BNP is elevated. HIs CT of the chest is negative for any PE but it does shows his pulmonary fibrosis. Will place patient on the CHF cardiology hot line. Patient to return with
any concerns.
Chronic conditions affecting care:
Pulmonary fibrosis,
Acute Exacerbation and/or Progression of Chronic Illness:
Pulmonary fibrosis
*Radiology
Radiology exam reviewed: radiology read reviewed (Chest-Severe chronic pulmonary fibrosis. NO new acute process by radiograph CT chest- Technically adequate exam. Mild motion artifact. TAhere is no pulmonary embolism. Enlarged main pulmonary
artery can be seen with pulmonary hypertension. There is no thoracic aortic aneurysm or dissection. ) and all reviewed NAD by ED Provider (CT cont-Atherosclerotic and valvular calcifications are present. right subclavian port-a cath. Fibrotic
changes again seen compatible with interstitial lung disease. Emphysema. Bilateral pleural effusion. )
*Pulse Oximetry
Patient hypoxic: no
*EKG
Interpreted by ED Provider?: Yes
Heart Rate: 56
Rate: bradycardiac
Rhythm: sinus
Fleming: left axis deviation
Interval: normal interval
QRS Pattern: normal QRS
Ischemia: no ischemia
*Customer Success Intern Interpretation
Rate: bradycardiac
Heart Rate: 58
Rhythm: sinus
*Critical Care Note
Total Time (30-74mins, 75-104mins- exclusive of procedures): Not Applicable
ED Attending Note
-
Portions of this chart may have been created with voice recognition software.� Occasional wrong word or��sound alike� substitutions may have occurred due to the inherent limitations of voice recognition software.
Discharge Plan
Departure
Patient Disposition: Home (Routine Discharge)
Date of Disposition: 11/25/23
Time of Disposition: 02:16
Patient with high blood pressure during this ER visit?: No
Condition: Good
Covid-19: Negative COVID-19
Discharge Problem:
SOB (shortness of breath)
Instructions: Shortness of Breath (Dyspnea) (DC), *DCA Heart Failure Instructions
Prescriptions:
No Action
coenzyme Q10 [Co Q-10] 100 MG capsule
100 mg PO DAILY
PreserVision AREDS-2 1 EACH capsule
1 ea PO BID
simvastatin 20 MG tablet
20 mg PO HS
metoprolol succinate 25 mg Tablet Extended Release 24 Hr
12.5 mg PO HS
cholecalciferol (vitamin D3) [Vitamin D3] 25 mcg (1,000 unit) Capsule
100 mcg PO DAILY
ipratropium bromide 42 mcg (0.06 %) Dixon,Non-Aerosol
2 spray INTRANASAL DAILY
tamsulosin 0.4 mg Capsule
0.4 mg PO HS
metformin 1,000 MG tablet
1,000 mg PO BID
escitalopram oxalate 5 mg tablet
20 mg PO DAILY
cetirizine [Zyrtec] 10 mg Tablet
10 mg PO HS
midodrine 2.5 mg Tablet
2.5 mg PO BID
fluticasone propionate 50 mcg/actuation Dixon,Suspension
1 spray INTRANASAL DAILY
Eliquis 5 mg Tablet
5 mg PO BID
aspirin 81 mg Capsule
81 mg PO DAILY
albuterol sulfate 90 mcg/actuation HFA aerosol inhaler
2 puff inhalation Q6H PRN (Reason: shortness of breath or wheezing) Qty: 8.5 0RF
furosemide 40 mg tablet
40 mg PO Q24H 30 Days Qty: 30 0RF
Farxiga
10 mg PO DAILY
Referrals:
Neville Gómez MD [Family Provider] - Follow up in 2-3 days
Lillie Henderson MD [Active] - Follow up in 2-3 days
Activity Restrictions/Additional Instructions:
As discussed, you chest x-ray and the CT scan shows your pulmonary fibrosis. There are no pulmonary embolism. You are negative for COVID. Your Pro-BNP is slightly elevated from your prior labs. You have been place on the cardiology heart failure
line. This means that they will call you the next business day and get you in for further evaluation. You have been given IV Lasix here tonight and continue with your oral Lasix as directed. Please just rest over the weekend. IF YOU HAVE ANY CHEST
PAIN, OR YOU HAVE ANY OTHER CONCERNS PLEASE RETURN TO THE EMERGENCY ROOM.
Interventions
Interventions:
*Risk Screen - Suicide Last Done: 11/24/23 23:03
*General Assessment Last Done: 11/24/23 20:04
*Neglect/Abuse Screening Last Done: 11/24/23 23:03
ED- Fall Risk Assessment Last Done: 11/24/23 23:03
*ED COVID-19 Vaccine History Last Done: 11/24/23 23:03
ED- Cardiac Assessment Last Done: 11/24/23 23:03
ED- Pulmonary Assessment Last Done: 11/24/23 23:03
Discharge Date and Time
Print Language: FINNISH
[2023-11-25 00:51] VITALS: BP 108/72
[2023-11-25] MEDS: LASIX 40 MG IV (02:15)
[2023-11-25 02:19] VITALS: BP 116/53
[2023-11-25 02:45] VITALS: BP 118/55
[2023-11-25 03:00] VITALS: BP 118/55
== END 2023-11-25 03:05 | disposition home or self-care (01) ==
LOC: EMR 19:53
PROVIDERS: Student in an Organized Health Care Education/Training Program; EMERGENCY PHYSICIAN Emergency Medicine; FAMILY PHYSICIAN Internal Medicine Geriatric Medicine
DX: R06.02 Shortness of breath (principal); R07.89 Other chest pain; R05.9 Cough, unspecified; J84.10 Pulmonary fibrosis, unspecified; J90 Pleural effusion, not elsewhere classified; E86.0 Dehydration; Z11.52 Encounter for screening for COVID-19; I48.91 Unspecified atrial fibrillation; I11.0 Hypertensive heart disease with heart failure; I50.9 Heart failure, unspecified; E78.00 Pure hypercholesterolemia, unspecified; E11.36 Type 2 diabetes mellitus with diabetic cataract; E11.65 Type 2 diabetes mellitus with hyperglycemia; I35.0 Nonrheumatic aortic (valve) stenosis; H35.30 Unspecified macular degeneration; F41.9 Anxiety disorder, unspecified; G47.30 Sleep apnea, unspecified; Z79.01 Long term (current) use of anticoagulants; Z95.2 Presence of prosthetic heart valve; Z96.652 Presence of left artificial knee joint; Z85.46 Personal history of malignant neoplasm of prostate; Z85.828 Personal history of other malignant neoplasm of skin; Z92.21 Personal history of antineoplastic chemotherapy; Z86.73 Personal history of transient ischemic attack (TIA), and cerebral infarction without residual deficits; Z88.0 Allergy status to penicillin; Z91.048 Other nonmedicinal substance allergy status
CPT/HCPCS: 99285; 96374; 71046; 71275; 80053; 83880; 84484; 85025; 87811; 93005; Q9967

== ENCOUNTER → 2023-12-02 11:21 | Outpatient (REF) | payer MEDICARE, OTHER, SELFPAY | LOC: RCS 11:21 | PROVIDERS: ATTENDING PHYSICIAN Internal Medicine Interventional Cardiology; FAMILY PHYSICIAN Internal Medicine Geriatric Medicine | DX: R06.09 Other forms of dyspnea (principal); Z95.2 Presence of prosthetic heart valve | CPT/HCPCS: 93306 ==

== ENCOUNTER → 2023-12-04 13:35 | Outpatient (REF) | payer MEDICARE, OTHER, SELFPAY ==
[2023-12-04 15:18] LABS: % Basophils 0.9 % (0-2); % Eosinophils 4.7 % (0-6); % Immature Granulocytes 0.1 % (0-0.5); % Lymphocytes 23.8 % (20.5-51.1); % Monocytes 6.6 % (1.7-9.3); % Neutrophils 63.9 % (42.2-75.2); Absolute Basophils 0.1 10^3/uL (0-0.2); Absolute Eosinophils 0.4 10^3/uL (0-0.7); Absolute Lymphocytes 1.9 10^3/uL (1.2-3.4); Absolute Monocytes 0.5 10^3/uL (0.1-0.6); Absolute Neutrophils 5.1 10^3/uL (1.4-6.5); Hematocrit 42.1 % (39.0-52.0); Hemoglobin 13.4 g/dL (13.0-18.0); Mean Corp Hgb Conc. 31.8 g/dL (33.0-37.0); Mean Corpuscular Hgb 28.2 pg (27.0-31.0); Mean Corpuscular Volume 88.4 fL (80.0-94.0); Mean Platelet Volume 9.6 fL (7.4-10.4); Nucleated Red Blood Cells % 0 % (-); Platelet Count 194 10^3/uL (130-400); Red Blood Cell Count 4.76 10^6/uL (4.70-6.10); Red Cell Dist. Width 15.2 % (11.5-14.5)
[2023-12-04 15:39] LABS: NT-proBNP 945 pg/ml
[2023-12-04 15:58] LABS: ALT (SGPT) 16 U/L (0-50); AST (SGOT) 25 U/L (17-59); Albumin 4.1 g/dl (3.5-5.0); Alkaline Phosphatase 66 U/L (38-126); Blood Urea Nitrogen 20 mg/dl (9-20); Calcium 9.4 mg/dl (8.4-10.2); Carbon Dioxide 33 mmol/L (22-30); Chloride 95 mmol/L (98-107); Glucose 132 mg/dl (70-99); Sodium 141 mmol/L (135-145); Total Bilirubin 0.7 mg/dl (0.2-1.3); eGFR > 60.00
[2023-12-04 16:25] LABS: PSA, Total - Diagnostic 0.38 ng/ml (0.0-4.0)
== END ==
LOC: REG 13:35
PROVIDERS: ATTENDING PHYSICIAN Internal Medicine Hematology & Oncology; FAMILY PHYSICIAN Internal Medicine Geriatric Medicine
DX: C61 Malignant neoplasm of prostate (principal); E11.9 Type 2 diabetes mellitus without complications; J84.9 Interstitial pulmonary disease, unspecified; E78.2 Mixed hyperlipidemia; I10 Essential (primary) hypertension; G47.30 Sleep apnea, unspecified; E03.8 Other specified hypothyroidism; I49.2 Junctional premature depolarization; R97.20 Elevated prostate specific antigen [PSA]; M17.0 Bilateral primary osteoarthritis of knee; I11.9 Hypertensive heart disease without heart failure; Q80.9 Congenital ichthyosis, unspecified; G54.9 Nerve root and plexus disorder, unspecified; R53.1 Weakness; Z91.81 History of falling; I50.32 Chronic diastolic (congestive) heart failure
CPT/HCPCS: 36415; 80053; 83880; 84100; 84153; 85025

== ENCOUNTER → 2023-12-29 10:37 | Outpatient (REF) | payer MEDICARE, OTHER, SELFPAY ==
[2023-12-29 11:43] LABS: % Basophils 0.5 % (0-2); % Eosinophils 4.1 % (0-6); % Immature Granulocytes 0.4 % (0-0.5); % Lymphocytes 20.8 % (20.5-51.1); % Monocytes 4.2 % (1.7-9.3); Absolute Basophils 0.1 10^3/uL (0-0.2); Absolute Eosinophils 0.4 10^3/uL (0-0.7); Absolute Lymphocytes 2.1 10^3/uL (1.2-3.4); Absolute Monocytes 0.4 10^3/uL (0.1-0.6); Hematocrit 44.9 % (39.0-52.0); Mean Corp Hgb Conc. 31.2 g/dL (33.0-37.0); Mean Corpuscular Hgb 27.8 pg (27.0-31.0); Mean Corpuscular Volume 89.1 fL (80.0-94.0); Mean Platelet Volume 9.4 fL (7.4-10.4); Nucleated Red Blood Cells % 0 % (-); Platelet Count 180 10^3/uL (130-400); Red Blood Cell Count 5.04 10^6/uL (4.70-6.10); Red Cell Dist. Width 16.1 % (11.5-14.5); White Blood Cell Count 10.1 10^3/uL (4.8-10.8)
[2023-12-29 12:36] LABS: ALT (SGPT) 38 U/L (0-50); AST (SGOT) 38 U/L (17-59); Albumin 4.3 g/dl (3.5-5.0); Alkaline Phosphatase 66 U/L (38-126); Blood Urea Nitrogen 26 mg/dl (9-20); Calcium 9.4 mg/dl (8.4-10.2); Carbon Dioxide 36 mmol/L (22-30); Chloride 95 mmol/L (98-107); Glucose 162 mg/dl (70-99); Potassium 4.3 mmol/L (3.5-5.1); Sodium 142 mmol/L (135-145); Total Bilirubin 0.7 mg/dl (0.2-1.3); Total Protein 7.3 g/dl (6.3-8.2); eGFR > 60.00
[2023-12-29 12:38] LABS: NT-proBNP 1370 pg/ml
[2023-12-29 13:58] LABS: Glycohemoglobin (HgbA1c) 6.8 % (4.0-5.6)
== END ==
LOC: REG 10:37
PROVIDERS: ATTENDING PHYSICIAN Internal Medicine Hematology & Oncology; FAMILY PHYSICIAN Internal Medicine Geriatric Medicine; OTHER PHYSICIAN Internal Medicine Cardiovascular Disease
DX: C61 Malignant neoplasm of prostate (principal); E11.9 Type 2 diabetes mellitus without complications; J84.9 Interstitial pulmonary disease, unspecified; E78.2 Mixed hyperlipidemia; I10 Essential (primary) hypertension; G47.30 Sleep apnea, unspecified; E03.8 Other specified hypothyroidism; I49.2 Junctional premature depolarization; R97.20 Elevated prostate specific antigen [PSA]; M17.0 Bilateral primary osteoarthritis of knee; I11.9 Hypertensive heart disease without heart failure; Z13.89 Encounter for screening for other disorder; G45.9 Transient cerebral ischemic attack, unspecified; R53.1 Weakness; Z91.81 History of falling; I50.32 Chronic diastolic (congestive) heart failure
CPT/HCPCS: 36415; 80053; 83036; 83880; 84153; 85025

== ENCOUNTER 2024-01-16 09:00 | Outpatient (RCR) | payer MEDICARE, OTHER, SELFPAY | END 2024-01-16 23:59 | disposition home or self-care (01) | LOC: PURB 09:00 | PROVIDERS: ATTENDING PHYSICIAN Internal Medicine; FAMILY PHYSICIAN Internal Medicine Geriatric Medicine | DX: J84.9 Interstitial pulmonary disease, unspecified (principal) | CPT/HCPCS: G0237 ==

== ENCOUNTER → 2024-01-18 13:13 | Outpatient (REF) | payer MEDICARE, OTHER, SELFPAY | LOC: DHVS 13:13 | PROVIDERS: ATTENDING PHYSICIAN Surgery Vascular Surgery; FAMILY PHYSICIAN Internal Medicine Geriatric Medicine; REFERRING PHYSICIAN Internal Medicine Cardiovascular Disease | DX: I65.23 Occlusion and stenosis of bilateral carotid arteries (principal) | CPT/HCPCS: 93880 ==

== ENCOUNTER → 2024-02-05 12:57 | Outpatient (REF) | payer MEDICARE, OTHER, SELFPAY ==
[2024-02-05 15:53] LABS: % Basophils 0.4 % (0-2); % Eosinophils 1.9 % (0-6); % Immature Granulocytes 0.4 % (0-0.5); % Lymphocytes 14.6 % (20.5-51.1); % Monocytes 3.9 % (1.7-9.3); % Neutrophils 78.8 % (42.2-75.2); Absolute Basophils 0.1 10^3/uL (0-0.2); Absolute Eosinophils 0.2 10^3/uL (0-0.7); Absolute Immature Granulocytes 0.1 10^3/uL (0-0.05); Absolute Lymphocytes 1.9 10^3/uL (1.2-3.4); Absolute Monocytes 0.5 10^3/uL (0.1-0.6); Hematocrit 48.7 % (39.0-52.0); Hemoglobin 15.2 g/dL (13.0-18.0); Mean Corp Hgb Conc. 31.2 g/dL (33.0-37.0); Mean Corpuscular Hgb 28.3 pg (27.0-31.0); Mean Corpuscular Volume 90.7 fL (80.0-94.0); Mean Platelet Volume 10.7 fL (7.4-10.4); Nucleated Red Blood Cells % 0 % (-); Platelet Count 155 10^3/uL (130-400); Red Blood Cell Count 5.37 10^6/uL (4.70-6.10); Red Cell Dist. Width 15.4 % (11.5-14.5); White Blood Cell Count 12.7 10^3/uL (4.8-10.8)
[2024-02-05 16:05] LABS: ALT (SGPT) 25 U/L (0-50); AST (SGOT) 30 U/L (17-59); Albumin 4.3 g/dl (3.5-5.0); Alkaline Phosphatase 44 U/L (38-126); Blood Urea Nitrogen 29 mg/dl (9-20); Calcium 9.4 mg/dl (8.4-10.2); Carbon Dioxide 35 mmol/L (22-30); Chloride 95 mmol/L (98-107); Glucose 159 mg/dl (70-99); Potassium 4.7 mmol/L (3.5-5.1); Sodium 140 mmol/L (135-145); Total Bilirubin 0.8 mg/dl (0.2-1.3); Total Protein 7.2 g/dl (6.3-8.2); eGFR > 60.00
[2024-02-05 16:26] LABS: PSA, Total - Diagnostic 0.37 ng/ml (0.0-4.0)
== END ==
LOC: REG 12:57
PROVIDERS: ATTENDING PHYSICIAN Internal Medicine Hematology & Oncology; FAMILY PHYSICIAN Internal Medicine Geriatric Medicine
DX: C61 Malignant neoplasm of prostate (principal)
CPT/HCPCS: 36415; 80053; 84153; 85025

== ENCOUNTER → 2024-02-07 15:26 | Outpatient (REF) | payer MEDICARE, OTHER, SELFPAY | LOC: RAD 15:26 | PROVIDERS: ATTENDING PHYSICIAN Internal Medicine Critical Care Medicine; FAMILY PHYSICIAN Internal Medicine Geriatric Medicine; REFERRING PHYSICIAN Internal Medicine Cardiovascular Disease | DX: J84.9 Interstitial pulmonary disease, unspecified (principal) | CPT/HCPCS: 71250 ==

== ENCOUNTER 2024-02-20 10:45 | Outpatient (RCR) | payer MEDICARE, OTHER, SELFPAY | END 2024-02-20 23:59 | disposition home or self-care (01) | LOC: PURB 10:45 | PROVIDERS: ATTENDING PHYSICIAN Internal Medicine; FAMILY PHYSICIAN Internal Medicine Geriatric Medicine | DX: J84.9 Interstitial pulmonary disease, unspecified (principal); R06.09 Other forms of dyspnea | CPT/HCPCS: G0239 ==

== ENCOUNTER → 2024-02-26 15:09 | Outpatient (REF) | payer MEDICARE, OTHER, SELFPAY ==
[2024-02-26 16:13] LABS: % Basophils 0.3 % (0-2); % Eosinophils 0.3 % (0-6); % Immature Granulocytes 0.4 % (0-0.5); % Monocytes 3.7 % (1.7-9.3); % Neutrophils 89.3 % (42.2-75.2); Absolute Lymphocytes 0.7 10^3/uL (1.2-3.4); Absolute Monocytes 0.4 10^3/uL (0.1-0.6); Absolute Neutrophils 9.7 10^3/uL (1.4-6.5); Hematocrit 47.5 % (39.0-52.0); Mean Corp Hgb Conc. 31.6 g/dL (33.0-37.0); Mean Corpuscular Hgb 28.7 pg (27.0-31.0); Mean Corpuscular Volume 90.8 fL (80.0-94.0); Mean Platelet Volume 9.7 fL (7.4-10.4); Nucleated Red Blood Cells % 0 % (-); Platelet Count 170 10^3/uL (130-400); Red Blood Cell Count 5.23 10^6/uL (4.70-6.10); White Blood Cell Count 10.9 10^3/uL (4.8-10.8)
[2024-02-26 16:19] LABS: ALT (SGPT) 23 U/L (0-50); AST (SGOT) 33 U/L (17-59); Albumin 4.1 g/dl (3.5-5.0); Alkaline Phosphatase 55 U/L (38-126); Blood Urea Nitrogen 22 mg/dl (9-20); Calcium 9.2 mg/dl (8.4-10.2); Carbon Dioxide 33 mmol/L (22-30); Chloride 93 mmol/L (98-107); Glucose 236 mg/dl (70-99); Potassium 5.3 mmol/L (3.5-5.1); Sodium 133 mmol/L (135-145); Total Bilirubin 1.1 mg/dl (0.2-1.3); Total Protein 7.2 g/dl (6.3-8.2); eGFR > 60.00
[2024-02-26 16:27] LABS: NT-proBNP 1080 pg/ml
== END ==
LOC: REG 15:09
PROVIDERS: ATTENDING PHYSICIAN Internal Medicine Geriatric Medicine
DX: R04.2 Hemoptysis (principal); R07.1 Chest pain on breathing
CPT/HCPCS: 36415; 71046; 80053; 83880; 85025

== ENCOUNTER → 2024-02-29 09:00 | Outpatient (REF) | payer MEDICARE, OTHER, SELFPAY | LOC: RSP 09:00 | PROVIDERS: ATTENDING PHYSICIAN Nurse Practitioner Family; OTHER PHYSICIAN Internal Medicine Cardiovascular Disease; REFERRING PHYSICIAN Internal Medicine Critical Care Medicine | DX: R06.02 Shortness of breath (principal) | CPT/HCPCS: 94010 ==

== ENCOUNTER → 2024-03-04 11:29 | Outpatient (REF) | payer MEDICARE, OTHER, SELFPAY ==
[2024-03-04 13:16] LABS: % Basophils 0.4 % (0-2); % Eosinophils 1.2 % (0-6); % Immature Granulocytes 0.9 % (0-0.5); % Lymphocytes 10.7 % (20.5-51.1); % Monocytes 4.3 % (1.7-9.3); % Neutrophils 82.5 % (42.2-75.2); Absolute Basophils 0.1 10^3/uL (0-0.2); Absolute Eosinophils 0.2 10^3/uL (0-0.7); Absolute Immature Granulocytes 0.1 10^3/uL (0-0.05); Absolute Lymphocytes 1.5 10^3/uL (1.2-3.4); Absolute Monocytes 0.6 10^3/uL (0.1-0.6); Absolute Neutrophils 11.2 10^3/uL (1.4-6.5); Hematocrit 45.6 % (39.0-52.0); Hemoglobin 14.3 g/dL (13.0-18.0); Mean Corp Hgb Conc. 31.4 g/dL (33.0-37.0); Mean Corpuscular Hgb 28.4 pg (27.0-31.0); Mean Corpuscular Volume 90.5 fL (80.0-94.0); Mean Platelet Volume 9.3 fL (7.4-10.4); Nucleated Red Blood Cells % 0 % (-); Platelet Count 232 10^3/uL (130-400); Red Blood Cell Count 5.04 10^6/uL (4.70-6.10); Red Cell Dist. Width 14.4 % (11.5-14.5); White Blood Cell Count 13.6 10^3/uL (4.8-10.8)
[2024-03-04 13:30] LABS: ALT (SGPT) 17 U/L (0-50); AST (SGOT) 19 U/L (17-59); Albumin 3.8 g/dl (3.5-5.0); Alkaline Phosphatase 69 U/L (38-126); Blood Urea Nitrogen 23 mg/dl (9-20); Calcium 9.5 mg/dl (8.4-10.2); Carbon Dioxide 36 mmol/L (22-30); Chloride 92 mmol/L (98-107); Glucose 200 mg/dl (70-99); Potassium 4.7 mmol/L (3.5-5.1); Sodium 136 mmol/L (135-145); Total Bilirubin 0.6 mg/dl (0.2-1.3); Total Protein 6.9 g/dl (6.3-8.2); eGFR > 60.00
[2024-03-04 14:02] LABS: PSA, Total - Diagnostic 0.37 ng/ml (0.0-4.0)
== END ==
LOC: REG 11:29
PROVIDERS: ATTENDING PHYSICIAN Internal Medicine Hematology & Oncology; FAMILY PHYSICIAN Internal Medicine Geriatric Medicine
DX: C61 Malignant neoplasm of prostate (principal)
CPT/HCPCS: 36415; 80053; 84153; 85025

== ENCOUNTER → 2024-03-21 09:54 | Outpatient (REF) | payer MEDICARE, OTHER, SELFPAY | LOC: RST 09:54 | PROVIDERS: ATTENDING PHYSICIAN Internal Medicine Critical Care Medicine; FAMILY PHYSICIAN Internal Medicine Geriatric Medicine; REFERRING PHYSICIAN Internal Medicine Cardiovascular Disease | DX: R59.1 Generalized enlarged lymph nodes (principal); R53.1 Weakness; J84.9 Interstitial pulmonary disease, unspecified; J84.10 Pulmonary fibrosis, unspecified; R13.10 Dysphagia, unspecified | CPT/HCPCS: 74230; 92611 ==

== ENCOUNTER → 2024-03-29 11:28 | Outpatient (REF) | payer MEDICARE, OTHER, SELFPAY ==
[2024-03-29 12:18] LABS: % Basophils 0.3 % (0-2); % Eosinophils 2.1 % (0-6); % Immature Granulocytes 0.3 % (0-0.5); % Lymphocytes 26.4 % (20.5-51.1); % Monocytes 5.3 % (1.7-9.3); % Neutrophils 65.6 % (42.2-75.2); Absolute Eosinophils 0.2 10^3/uL (0-0.7); Absolute Lymphocytes 2.5 10^3/uL (1.2-3.4); Absolute Monocytes 0.5 10^3/uL (0.1-0.6); Absolute Neutrophils 6.2 10^3/uL (1.4-6.5); Hematocrit 45.5 % (39.0-52.0); Hemoglobin 14.3 g/dL (13.0-18.0); Mean Corp Hgb Conc. 31.4 g/dL (33.0-37.0); Mean Corpuscular Hgb 28.4 pg (27.0-31.0); Mean Corpuscular Volume 90.3 fL (80.0-94.0); Mean Platelet Volume 9.1 fL (7.4-10.4); Nucleated Red Blood Cells % 0 % (-); Platelet Count 155 10^3/uL (130-400); Red Blood Cell Count 5.04 10^6/uL (4.70-6.10); White Blood Cell Count 9.4 10^3/uL (4.8-10.8)
[2024-03-29 13:06] LABS: ALT (SGPT) 15 U/L (0-50); AST (SGOT) 18 U/L (17-59); Albumin 4.1 g/dl (3.5-5.0); Alkaline Phosphatase 58 U/L (38-126); Blood Urea Nitrogen 25 mg/dl (9-20); Calcium 9.5 mg/dl (8.4-10.2); Carbon Dioxide 35 mmol/L (22-30); Chloride 94 mmol/L (98-107); Glucose 159 mg/dl (70-99); Potassium 4.2 mmol/L (3.5-5.1); Sodium 137 mmol/L (135-145); Total Bilirubin 0.6 mg/dl (0.2-1.3); eGFR > 60.00
== END ==
LOC: REG 11:28
PROVIDERS: ATTENDING PHYSICIAN Internal Medicine Hematology & Oncology; FAMILY PHYSICIAN Internal Medicine Geriatric Medicine
DX: C61 Malignant neoplasm of prostate (principal)
CPT/HCPCS: 36415; 80053; 84153; 85025

== ENCOUNTER 2024-04-04 10:45 | Outpatient (RCR) | payer MEDICARE, OTHER, SELFPAY | END 2024-04-05 11:31 | disposition home or self-care (01) | LOC: PURB 10:45 | PROVIDERS: ATTENDING PHYSICIAN Internal Medicine; FAMILY PHYSICIAN Internal Medicine Geriatric Medicine | DX: J84.9 Interstitial pulmonary disease, unspecified (principal); G47.33 Obstructive sleep apnea (adult) (pediatric) | CPT/HCPCS: G0239 ==

== ENCOUNTER → 2024-04-10 11:01 | Outpatient (REF) | payer MEDICARE, OTHER, SELFPAY ==
[2024-04-10 11:51] LABS: % Basophils 0.7 % (0-2); % Eosinophils 1.9 % (0-6); % Immature Granulocytes 0.4 % (0-0.5); % Lymphocytes 27.4 % (20.5-51.1); % Monocytes 6.2 % (1.7-9.3); % Neutrophils 63.4 % (42.2-75.2); Absolute Basophils 0.1 10^3/uL (0-0.2); Absolute Eosinophils 0.2 10^3/uL (0-0.7); Absolute Lymphocytes 2.7 10^3/uL (1.2-3.4); Absolute Monocytes 0.6 10^3/uL (0.1-0.6); Absolute Neutrophils 6.3 10^3/uL (1.4-6.5); Hematocrit 45.2 % (39.0-52.0); Hemoglobin 14.1 g/dL (13.0-18.0); Mean Corp Hgb Conc. 31.2 g/dL (33.0-37.0); Mean Corpuscular Hgb 28.2 pg (27.0-31.0); Mean Corpuscular Volume 90.4 fL (80.0-94.0); Mean Platelet Volume 9.1 fL (7.4-10.4); Nucleated Red Blood Cells % 0 % (-); Platelet Count 158 10^3/uL (130-400); Red Cell Dist. Width 15.1 % (11.5-14.5)
[2024-04-10 12:23] LABS: NT-proBNP 463 pg/ml
[2024-04-10 14:59] LABS: ALT (SGPT) 13 U/L (0-50); AST (SGOT) 17 U/L (17-59); Alkaline Phosphatase 61 U/L (38-126); Blood Urea Nitrogen 24 mg/dl (9-20); Calcium 9.5 mg/dl (8.4-10.2); Carbon Dioxide 33 mmol/L (22-30); Chloride 97 mmol/L (98-107); Glucose 156 mg/dl (70-99); Potassium 4.2 mmol/L (3.5-5.1); Sodium 137 mmol/L (135-145); Total Bilirubin 0.8 mg/dl (0.2-1.3); Total Protein 6.5 g/dl (6.3-8.2); eGFR > 60.00
== END ==
LOC: REG 11:01
PROVIDERS: ATTENDING PHYSICIAN Internal Medicine Geriatric Medicine
DX: E11.9 Type 2 diabetes mellitus without complications (principal); E78.2 Mixed hyperlipidemia; G47.30 Sleep apnea, unspecified; E03.8 Other specified hypothyroidism; R97.20 Elevated prostate specific antigen [PSA]; M17.0 Bilateral primary osteoarthritis of knee; I11.9 Hypertensive heart disease without heart failure; Z13.89 Encounter for screening for other disorder; C61 Malignant neoplasm of prostate; G45.9 Transient cerebral ischemic attack, unspecified; R53.1 Weakness; Z91.81 History of falling; I50.32 Chronic diastolic (congestive) heart failure; R41.3 Other amnesia
CPT/HCPCS: 36415; 80053; 83880; 85025

== ENCOUNTER → 2024-04-29 14:54 | Outpatient (REF) | payer MEDICARE, OTHER, SELFPAY ==
[2024-04-29 16:03] LABS: % Basophils 0.5 % (0-2); % Eosinophils 0.3 % (0-6); % Immature Granulocytes 0.3 % (0-0.5); % Lymphocytes 11.6 % (20.5-51.1); % Monocytes 3.5 % (1.7-9.3); % Neutrophils 83.8 % (42.2-75.2); Absolute Lymphocytes 0.9 10^3/uL (1.2-3.4); Absolute Monocytes 0.3 10^3/uL (0.1-0.6); Absolute Neutrophils 6.5 10^3/uL (1.4-6.5); Hematocrit 42.5 % (39.0-52.0); Hemoglobin 13.7 g/dL (13.0-18.0); Mean Corp Hgb Conc. 32.2 g/dL (33.0-37.0); Mean Platelet Volume 9.8 fL (7.4-10.4); Nucleated Red Blood Cells % 0 % (-); Platelet Count 177 10^3/uL (130-400); Red Blood Cell Count 4.72 10^6/uL (4.70-6.10); Red Cell Dist. Width 14.6 % (11.5-14.5); White Blood Cell Count 7.7 10^3/uL (4.8-10.8)
[2024-04-29 16:24] LABS: ALT (SGPT) 13 U/L (0-50); AST (SGOT) 18 U/L (17-59); Alkaline Phosphatase 71 U/L (38-126); Blood Urea Nitrogen 22 mg/dl (9-20); Calcium 9.7 mg/dl (8.4-10.2); Carbon Dioxide 35 mmol/L (22-30); Chloride 95 mmol/L (98-107); Glucose 221 mg/dl (70-99); Potassium 4.5 mmol/L (3.5-5.1); Sodium 137 mmol/L (135-145); Total Bilirubin 0.5 mg/dl (0.2-1.3); Total Protein 6.9 g/dl (6.3-8.2); eGFR > 60.00
[2024-04-29 16:55] LABS: PSA, Total - Diagnostic 0.56 ng/ml (0.0-4.0)
== END ==
LOC: REG 14:54
PROVIDERS: ATTENDING PHYSICIAN Internal Medicine Hematology & Oncology; FAMILY PHYSICIAN Internal Medicine Geriatric Medicine
DX: C61 Malignant neoplasm of prostate (principal)
CPT/HCPCS: 36415; 80053; 84153; 85025

== ENCOUNTER 2024-05-02 10:45 | Outpatient (RCR) | payer MEDICARE, OTHER, SELFPAY | END 2024-05-03 10:16 | disposition home or self-care (01) | LOC: PURB 10:45 | PROVIDERS: ATTENDING PHYSICIAN Internal Medicine; FAMILY PHYSICIAN Internal Medicine Geriatric Medicine | DX: J84.9 Interstitial pulmonary disease, unspecified (principal); R06.09 Other forms of dyspnea | CPT/HCPCS: G0239 ==

== ENCOUNTER 2024-05-07 10:45 | Outpatient (RCR) | payer MEDICARE, OTHER, SELFPAY | END 2024-05-08 09:33 | disposition home or self-care (01) | LOC: PURB 10:45 | PROVIDERS: ATTENDING PHYSICIAN Internal Medicine; FAMILY PHYSICIAN Internal Medicine Geriatric Medicine | DX: J84.9 Interstitial pulmonary disease, unspecified (principal); R06.09 Other forms of dyspnea | CPT/HCPCS: G0239 ==

== ENCOUNTER → 2024-05-11 11:12 | Outpatient (REF) | payer MEDICARE, OTHER, SELFPAY ==
[2024-05-11 13:09] LABS: Albumin 4.3 g/dl (3.5-5.0); Blood Urea Nitrogen 24 mg/dl (9-20); Calcium 9.6 mg/dl (8.4-10.2); Carbon Dioxide 34 mmol/L (22-30); Chloride 98 mmol/L (98-107); Glucose 139 mg/dl (70-99); Magnesium 2.6 mg/dl (1.6-2.3); Phosphorus 3.7 mg/dl (2.5-4.5); Potassium 4.4 mmol/L (3.5-5.1); Sodium 140 mmol/L (135-145); eGFR > 60.00
[2024-05-11 13:14] LABS: NT-proBNP 581 pg/ml
[2024-05-11 13:24] LABS: Microalbumin, Random Urine 5.4 mg/dl (0.6-1.7); Microalbumin/creatinine Ratio 135.7 mg/g
== END ==
LOC: REG 11:12
PROVIDERS: ATTENDING PHYSICIAN Internal Medicine Cardiovascular Disease; FAMILY PHYSICIAN Internal Medicine Geriatric Medicine
DX: E11.9 Type 2 diabetes mellitus without complications (principal); E78.2 Mixed hyperlipidemia; I10 Essential (primary) hypertension; G47.30 Sleep apnea, unspecified; R97.20 Elevated prostate specific antigen [PSA]; M17.0 Bilateral primary osteoarthritis of knee; Z13.89 Encounter for screening for other disorder; G45.9 Transient cerebral ischemic attack, unspecified; R53.1 Weakness; I50.32 Chronic diastolic (congestive) heart failure; R41.3 Other amnesia; I48.0 Paroxysmal atrial fibrillation
CPT/HCPCS: 36415; 80069; 82043; 82570; 83735; 83880

== ENCOUNTER → 2024-05-25 11:26 | Outpatient (REF) | payer MEDICARE, OTHER, SELFPAY ==
[2024-05-25 12:17] LABS: Urine Albumin 1+ (Neg - Trace); Urine Bilirubin Negative (Negative); Urine Character Clear (Clear); Urine Color Yellow; Urine Glucose 4+ (Negative); Urine Ketone Negative (Negative); Urine Leukocyte Negative (Negative); Urine Nitrite Negative (Negative); Urine Occult Blood Negative (Negative); Urine Urobilinogen Negative (Neg - 1+)
[2024-05-25 12:20] LABS: % Basophils 0.5 % (0-2); % Eosinophils 2.2 % (0-6); % Immature Granulocytes 0.3 % (0-0.5); % Lymphocytes 22.7 % (20.5-51.1); % Monocytes 4.8 % (1.7-9.3); % Neutrophils 69.5 % (42.2-75.2); Absolute Basophils 0.1 10^3/uL (0-0.2); Absolute Eosinophils 0.3 10^3/uL (0-0.7); Absolute Lymphocytes 2.5 10^3/uL (1.2-3.4); Absolute Monocytes 0.5 10^3/uL (0.1-0.6); Absolute Neutrophils 7.8 10^3/uL (1.4-6.5); Hemoglobin 14.3 g/dL (13.0-18.0); Mean Corp Hgb Conc. 31.1 g/dL (33.0-37.0); Mean Corpuscular Hgb 28.9 pg (27.0-31.0); Mean Corpuscular Volume 93.1 fL (80.0-94.0); Mean Platelet Volume 9.3 fL (7.4-10.4); Nucleated Red Blood Cells % 0 % (-); Platelet Count 142 10^3/uL (130-400); Red Blood Cell Count 4.94 10^6/uL (4.70-6.10); Red Cell Dist. Width 14.6 % (11.5-14.5); White Blood Cell Count 11.2 10^3/uL (4.8-10.8)
[2024-05-25 13:09] LABS: Urine Red Blood Cell 0-2 /HPF (0-2); Urine Squamous Cell 0-2 /LPF (Few); Urine White Cell 0-2 /HPF (0-5)
[2024-05-25 13:41] LABS: ALT (SGPT) 15 U/L (0-50); AST (SGOT) 22 U/L (17-59); Albumin 4.5 g/dl (3.5-5.0); Alkaline Phosphatase 76 U/L (38-126); Blood Urea Nitrogen 30 mg/dl (9-20); Carbon Dioxide 36 mmol/L (22-30); Chloride 93 mmol/L (98-107); Glucose 171 mg/dl (70-99); HDL Cholesterol 89 mg/dl; LDL Cholesterol, Calculated 62 mg/dl; Potassium 3.8 mmol/L (3.5-5.1); Sodium 138 mmol/L (135-145); Total Bilirubin 0.8 mg/dl (0.2-1.3); Total Cholesterol 173 mg/dl (50-199); Total Protein 7.4 g/dl (6.3-8.2); Triglyceride 114 mg/dl (10-149); Very Low Density Lipoprotein 22 mg/dl (0-30); eGFR > 60.00
[2024-05-25 13:49] LABS: Calcium 9.9 mg/dl (8.4-10.2)
[2024-05-25 13:52] LABS: Vitamin D, 25-OH*** 40.5 ng/mL (30-80)
[2024-05-25 14:03] LABS: PSA, Total - Diagnostic 0.39 ng/ml (0.0-4.0)
[2024-05-25 14:06] LABS: TSH 2.09 uIU/ml (0.47-4.68)
[2024-05-25 14:41] LABS: Folate 8.8 ng/ml (2.76-20); Vitamin B12 187 pg/ml (239-931)
[2024-05-26 20:43] LABS: ANA, IgG Reflex to HEp-2 None Detected (None Detected)
[2024-05-27 13:31] LABS: Lyme Antibody Screen, EIA Negative (Negative)
== END ==
LOC: REG 11:26
PROVIDERS: ATTENDING PHYSICIAN Psychiatry & Neurology Vascular Neurology; FAMILY PHYSICIAN Internal Medicine Geriatric Medicine; REFERRING PHYSICIAN Internal Medicine Hematology & Oncology
DX: C61 Malignant neoplasm of prostate (principal); E11.9 Type 2 diabetes mellitus without complications; I50.32 Chronic diastolic (congestive) heart failure; E78.2 Mixed hyperlipidemia; I10 Essential (primary) hypertension; G47.30 Sleep apnea, unspecified; E03.8 Other specified hypothyroidism; R97.20 Elevated prostate specific antigen [PSA]; M17.0 Bilateral primary osteoarthritis of knee; I11.9 Hypertensive heart disease without heart failure; Z13.89 Encounter for screening for other disorder; G45.9 Transient cerebral ischemic attack, unspecified; R53.1 Weakness; Z91.81 History of falling; G31.84 Mild cognitive impairment of uncertain or unknown etiology; D51.9 Vitamin B12 deficiency anemia, unspecified; E55.9 Vitamin D deficiency, unspecified
CPT/HCPCS: 36415; 80053; 80061; 81003; 81015; 82306; 82607; 82746; 83036; 84153; 84443; 85025; 86038; 86618

== ENCOUNTER → 2024-06-26 09:18 | Outpatient (REF) | payer MEDICARE, OTHER, SELFPAY ==
[2024-06-26 10:00] LABS: % Basophils 0.6 % (0-2); % Eosinophils 2.7 % (0-6); % Immature Granulocytes 0.1 % (0-0.5); % Lymphocytes 28.2 % (20.5-51.1); % Monocytes 6.2 % (1.7-9.3); % Neutrophils 62.2 % (42.2-75.2); Absolute Basophils 0.1 10^3/uL (0-0.2); Absolute Eosinophils 0.2 10^3/uL (0-0.7); Absolute Lymphocytes 2.4 10^3/uL (1.2-3.4); Absolute Monocytes 0.5 10^3/uL (0.1-0.6); Absolute Neutrophils 5.3 10^3/uL (1.4-6.5); Hematocrit 44.2 % (39.0-52.0); Mean Corp Hgb Conc. 31.7 g/dL (33.0-37.0); Mean Corpuscular Hgb 28.5 pg (27.0-31.0); Mean Platelet Volume 9.1 fL (7.4-10.4); Nucleated Red Blood Cells % 0 % (-); Platelet Count 154 10^3/uL (130-400); Red Blood Cell Count 4.91 10^6/uL (4.70-6.10); Red Cell Dist. Width 14.6 % (11.5-14.5); White Blood Cell Count 8.5 10^3/uL (4.8-10.8)
[2024-06-26 11:31] LABS: PSA, Total - Diagnostic 0.25 ng/ml (0.0-4.0)
[2024-06-26 11:56] LABS: ALT (SGPT) 15 U/L (0-50); AST (SGOT) 18 U/L (17-59); Albumin 4.3 g/dl (3.5-5.0); Alkaline Phosphatase 71 U/L (38-126); Blood Urea Nitrogen 21 mg/dl (9-20); Calcium 9.5 mg/dl (8.4-10.2); Carbon Dioxide 35 mmol/L (22-30); Chloride 99 mmol/L (98-107); Glucose 176 mg/dl (70-99); Potassium 4.3 mmol/L (3.5-5.1); Sodium 142 mmol/L (135-145); Total Bilirubin 0.7 mg/dl (0.2-1.3); eGFR > 60.00
== END ==
LOC: REG 09:18
PROVIDERS: ATTENDING PHYSICIAN Internal Medicine Hematology & Oncology; FAMILY PHYSICIAN Internal Medicine Geriatric Medicine
DX: C61 Malignant neoplasm of prostate (principal)
CPT/HCPCS: 80053; 84153; 85025

== ENCOUNTER → 2024-07-23 13:28 | Outpatient (REF) | payer MEDICARE, OTHER, SELFPAY | LOC: RAD 13:28 | PROVIDERS: ATTENDING PHYSICIAN Registered Nurse; FAMILY PHYSICIAN Internal Medicine Geriatric Medicine | DX: I65.23 Occlusion and stenosis of bilateral carotid arteries (principal) | CPT/HCPCS: 93880 ==

== ENCOUNTER → 2024-07-24 12:47 | Outpatient (REF) | payer MEDICARE, OTHER, SELFPAY ==
[2024-07-24 14:27] LABS: % Basophils 0.4 % (0-2); % Eosinophils 1.3 % (0-6); % Immature Granulocytes 0.2 % (0-0.5); % Monocytes 4.8 % (1.7-9.3); % Neutrophils 78.3 % (42.2-75.2); Absolute Eosinophils 0.1 10^3/uL (0-0.7); Absolute Lymphocytes 1.4 10^3/uL (1.2-3.4); Absolute Monocytes 0.4 10^3/uL (0.1-0.6); Absolute Neutrophils 7.2 10^3/uL (1.4-6.5); Hematocrit 44.8 % (39.0-52.0); Hemoglobin 14.3 g/dL (13.0-18.0); Mean Corp Hgb Conc. 31.9 g/dL (33.0-37.0); Mean Corpuscular Hgb 28.5 pg (27.0-31.0); Mean Corpuscular Volume 89.2 fL (80.0-94.0); Mean Platelet Volume 9.8 fL (7.4-10.4); Nucleated Red Blood Cells % 0 % (-); Platelet Count 184 10^3/uL (130-400); Red Blood Cell Count 5.02 10^6/uL (4.70-6.10); Red Cell Dist. Width 14.7 % (11.5-14.5); White Blood Cell Count 9.3 10^3/uL (4.8-10.8)
[2024-07-24 15:03] LABS: ALT (SGPT) 14 U/L (0-50); AST (SGOT) 19 U/L (17-59); Albumin 4.4 g/dl (3.5-5.0); Alkaline Phosphatase 66 U/L (38-126); Blood Urea Nitrogen 24 mg/dl (9-20); Calcium 9.8 mg/dl (8.4-10.2); Carbon Dioxide 34 mmol/L (22-30); Chloride 101 mmol/L (98-107); Glucose 166 mg/dl (70-99); Sodium 141 mmol/L (135-145); Total Bilirubin 0.6 mg/dl (0.2-1.3); Total Protein 7.3 g/dl (6.3-8.2); eGFR > 60.00
[2024-07-24 15:46] LABS: PSA, Total - Diagnostic 0.23 ng/ml (0.0-4.0)
== END ==
LOC: REG 12:47
PROVIDERS: ATTENDING PHYSICIAN Internal Medicine Hematology & Oncology; FAMILY PHYSICIAN Internal Medicine Geriatric Medicine
DX: C61 Malignant neoplasm of prostate (principal)
CPT/HCPCS: 36415; 80053; 84153; 85025

== ENCOUNTER → 2024-08-19 10:17 | Outpatient (REF) | payer MEDICARE, OTHER, SELFPAY ==
[2024-08-19 11:19] LABS: % Basophils 0.5 % (0-2); % Eosinophils 3.5 % (0-6); % Immature Granulocytes 0.2 % (0-0.5); % Monocytes 5.7 % (1.7-9.3); % Neutrophils 69.1 % (42.2-75.2); Absolute Basophils 0.1 10^3/uL (0-0.2); Absolute Eosinophils 0.3 10^3/uL (0-0.7); Absolute Lymphocytes 1.9 10^3/uL (1.2-3.4); Absolute Monocytes 0.5 10^3/uL (0.1-0.6); Absolute Neutrophils 6.3 10^3/uL (1.4-6.5); Hematocrit 45.5 % (39.0-52.0); Hemoglobin 14.4 g/dL (13.0-18.0); Mean Corp Hgb Conc. 31.6 g/dL (33.0-37.0); Mean Corpuscular Volume 88.5 fL (80.0-94.0); Mean Platelet Volume 10.2 fL (7.4-10.4); Nucleated Red Blood Cells % 0 % (-); Platelet Count 175 10^3/uL (130-400); Red Blood Cell Count 5.14 10^6/uL (4.70-6.10); Red Cell Dist. Width 14.9 % (11.5-14.5); White Blood Cell Count 9.1 10^3/uL (4.8-10.8)
[2024-08-19 15:52] LABS: ALT (SGPT) 14 U/L (0-50); AST (SGOT) 19 U/L (17-59); Albumin 4.4 g/dl (3.5-5.0); Alkaline Phosphatase 75 U/L (38-126); Blood Urea Nitrogen 28 mg/dl (9-20); Calcium 9.7 mg/dl (8.4-10.2); Carbon Dioxide 36 mmol/L (22-30); Chloride 98 mmol/L (98-107); Glucose 152 mg/dl (70-99); Potassium 4.1 mmol/L (3.5-5.1); Sodium 141 mmol/L (135-145); Total Bilirubin 0.8 mg/dl (0.2-1.3); Total Protein 7.5 g/dl (6.3-8.2); eGFR > 60.00
[2024-08-19 16:20] LABS: PSA, Total - Diagnostic 0.22 ng/ml (0.0-4.0)
== END ==
LOC: REG 10:17
PROVIDERS: ATTENDING PHYSICIAN Internal Medicine Hematology & Oncology; FAMILY PHYSICIAN Internal Medicine Geriatric Medicine
DX: C61 Malignant neoplasm of prostate (principal)
CPT/HCPCS: 36415; 80053; 84153; 85025

== ENCOUNTER 2024-08-20 10:48 | Outpatient (RCR) | payer SELFPAY | END 2024-08-20 23:59 | disposition home or self-care (01) | LOC: PURBM 10:48 | PROVIDERS: ATTENDING PHYSICIAN Internal Medicine Critical Care Medicine | DX: J84.9 Interstitial pulmonary disease, unspecified (principal) ==

== ENCOUNTER 2024-09-11 05:29 | Observation (INO) | payer MEDICARE, OTHER, SELFPAY ==
[2024-09-10 22:19] VITALS: BP 117/61
[2024-09-10 22:49] LABS: Hematocrit 40.0 % (39.0-52.0); Hemoglobin 13.0 g/dL (13.0-18.0); Mean Corp Hgb Conc. 32.5 g/dL (33.0-37.0); Mean Corpuscular Volume 86.6 fL (80.0-94.0); Nucleated Red Blood Cells % 0 % (-); Platelet Count 194 10^3/uL (130-400); Red Cell Dist. Width 14.4 % (11.5-14.5)
[2024-09-10 22:59] LABS: INR 1.09; PT 14.4 Sec (11.4-14.6)
[2024-09-10 23:11] LABS: ALT (SGPT) 11 U/L (0-50); AST (SGOT) 16 U/L (17-59); Albumin 3.8 g/dl (3.5-5.0); Alkaline Phosphatase 60 U/L (38-126); Blood Urea Nitrogen 28 mg/dl (9-20); Calcium 9.2 mg/dl (8.4-10.2); Carbon Dioxide 36 mmol/L (22-30); Chloride 99 mmol/L (98-107); Glucose 187 mg/dl (70-99); Potassium 4.0 mmol/L (3.5-5.1); Sodium 137 mmol/L (135-145); Total Protein 6.8 g/dl (6.3-8.2); eGFR > 60.00
[2024-09-10 23:25] LABS: Troponin I < 0.012 ng/ml
[2024-09-10 23:28] VITALS: BP 117/55; BMI 25.2
[2024-09-11 00:54] VITALS: BP 120/58
--- NOTE | 2024-09-11 02:16 | ED.GENMED ---
History of Present Illness
General
Chief Complaint: Breathing Problem
Source: patient
Exam Limitations: none
Time Seen by Provider: 09/11/24 02:14
Nursing documentation reviewed up to this point in time: agreed with
History of Present Illness
History of Present Illness:
Note:
CHIEF COMPLAINT(S)
The patient presents with worsening shortness of breath.
HISTORY OF PRESENT ILLNESS
The patient is a 78-year-old male with a known history of pulmonary fibrosis, prostate cancer in remission, TIA, CHF, aortic stenosis who presents with increased shortness of breath over the past ten days. He reports significant fatigue and dyspnea
upon exertion, particularly while walking or engaging in high-energy activities, but does not experience these symptoms at rest. He notes that simple tasks like walking from the parking lot to the office are becoming increasingly difficult.
Previously, the patient utilized supplemental oxygen but is not currently on oxygen therapy. He expresses concern about whether his heart might be affected, but no typical angina symptoms are reported. He also denies chest pain, dizziness, or
syncope, though he does mention occasional lightheadedness. The patient reports a productive cough. He is aware that he has swelling, though he does not consider it severe. Medications include Apixaban. The patient denies any recent acute infections
or history of pulmonary embolism. A recent chest X-ray suggested progression of his pulmonary fibrosis but no evidence of heart failure or pneumonia. The patient denies any abdominal pain, nausea, vomiting.
PHYSICAL EXAM
General: Patient is well appearing and in no acute distress; non-toxic
Skin: Warm and dry, no rashes or lesions
Head: Normocephalic, atraumatic
Eyes: Sclera non-icteric. EOMs intact.
Cardiac: Regular rate and rhythm, no murmurs
Peripheral Vascular: No lower extremity swelling or edema no lower extremity swelling or edema
Pulm: Increased respiratory rate, lung sounds are clear bilaterally with no wheezes, rales, rhonchi however with ambulation, patient does not become hypoxic however he becomes significantly dyspneic and feels very lightheaded
Abdomen: No abdominal tenderness to palpation
Neuro: CN II-XII intact, no focal neurologic deficits.
Psychiatric: Appropriate mood and affect.
PROBLEM LIST
- Acute: Shortness of breath, fatigue, productive cough.
- Chronic: Pulmonary fibrosis.
DIFFERENTIAL DIAGNOSIS
The Differential Diagnosis includes, in no particular order and is not limited to:
- Progression of pulmonary fibrosis
- Congestive heart failure
- Chronic obstructive pulmonary disease exacerbation
- Pulmonary embolism
- Atrial fibrillation
- Lower respiratory tract infection
- Coronary artery disease
- Anemia
- Deconditioning
- Side effects of medication (e.g., Apixaban, daratumumab)
CHART REVIEW
- Reviewed discharge summary from 05/07/2024 patient was seen at pulmonary rehab he has been weaning steroids which has affected his breathing and his walking test
MDM/DISPOSITION
78-year-old male with a past medical history of pulmonary fibrosis, CHF presents emergency department today with concerns of shortness of breath and fatigue for the past 10 days. He denies any recent long distance travel. He denies any swelling in
his lower extremities. He denies any chest pain. On physical exam, he is well-appearing in no acute distress his lungs are clear he is not hypoxic at rest however with ambulation, he becomes very dyspneic and becomes lightheaded. Patient does not
feel stable when he takes a short walk. 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 He had blood work done which was unremarkable he also
had troponin Dr. Lopez is undetectable. His EKG shows normal sinus rhythm with no ischemic changes. Suspect patient's symptoms related to acute pneumonitis with progression of pulmonary fibrosis. Did consider PE however patient is on Eliquis so
less likely and the symptoms have been ongoing. Discussed case with ED attending. Will plan to admit for observation and potential transfer to pulmonary rehab. Patient referred for admission.
Past History
Past History
ED Past Medical History: Arrthythmia (Atrial fib), Cancer (prostate Ca, Skin cancer basal and squamous cell), CHF, HTN, Hypercholesterolemia, NIDDM, Psychiatric (Anxiety, ) and Other (Back pain, Neuropathy, Numbness arms and legs, Sciatic pain, TIA,
Sleep apnea, Pulmonary fiborosis, aortic stenosis, Urinary retention, Macular degeneration, )
ED Past Surgical History: Appendectomy, Cardiac (TAVR, loop recorder., Left carotid endarterectomy, aortic valve replaced), Orthopedic (Left total knee replacement 02/16, Right foot surgery. ), Tonsilectomy (and adenioids) and Other (Left-sided CEA,
Cataracts, )
Social History
Tobacco: Non-smoker
Alcohol: None
Drug: None
Personal:
Living: with family
Review of Systems
Review of Systems
All Other Systems: ROS reviewed and negative except as documented in HPI and ROS
Phy Exam
Physical Exam
Physical Exam:
see hpi
Scores
Heart Failure Risk
Heart Failure Risk Score: Not Applicable
Course
Orders/Labs/Results
Orders:
Orders
09/10/24 22:25
Electrocardiogram (*1) Urgent
Reason for Study: Other
Other Reason for Exam: Respiratory Distress
Cardiac Monitoring- Treatment ONCE
CR Chest - 2 Views Urgent
Comment:
Reason For Exam: respiratory distress
O2 Therapy [RESP] Urgent
Titrate/Wean O2 to maintain O2 sat greater than (%): 93
Special Instructions: TO MAINTAIN CONTINUOUS O2 SATS >/= 93%
Pulse Ox/cont/shift [RESP] Urgent
Quantity: 1
Special Instructions: continuous pulse ox
09/10/24 22:40
Complete Blood Count/With Diff Urgent
Comprehensive Metabolic Panel Urgent
Glycohemoglobin (HgbA1c) Urgent
NT-proBNP Urgent
Prothrombin Time Urgent
Troponin I Urgent
09/11/24 02:31
3 Minute Walk Test [3 Minute Walk Test- Treatment] ONCE
09/11/24 04:41
PULMONARY CONSULT Routine
Consulting Provider: Veronica Castillo
Was physician already notified: No
Reason for consult: SOB on excertion with interstitial pneumonia
09/11/24 04:42
Admit/Transfer Patient As Directed
Co-Sign Provider:
Level of Care: Observation services
Assign to:: Medical/Surgical
Physician / Group: Hospitalist
Diagnosis: Dyspnea
Reason for Hospitalization: Dyspnea
Consult Notification Routine
Specialty to Notify: Pulmonary
Date consulting provider notified: 09/11/24
Time consulting provider notified: :44
Notified:: Provider
Comment: VERONICA CASTILLO
09/11/24 04:43
PRN Pain Medication Management As Directed
May give lesser potent ordered pain med per pt: Yes
preference::
Protocol:: Medication orders for pain may be administered in a
manner that supports deferring to patient preference
when the pt is:
- Requesting an ordered lesser potent pain medication.
Least to most potent pain medications are defined
as: acetaminophen < NSAID < tramadol < opioids
(morphine, oxycodone, hydromorphone).
- Requesting a lesser dose of the same medication IF
ORDERED.
- Requesting a less intrusive route of administration
if both routes are prescribed by the provider (PO <
IV).
09/11/24 04:44
Code Status As Directed
Resuscitation Status: Do not resuscitate
Reached after discussion with pt or family/Healthcare POA: Yes
09/11/24 04:45
DNR Bracelet Application ONCE
09/11/24 04:46
Echo 2D MMode Color/Doppler Routine
Reason for Study: dyspnea
CARDIOLOGY CONSULT Routine
Consulting Provider: Ilsa Fair
Was physician already notified: No
Reason for consult: dyspnea
09/11/24 04:47
Consult Notification Routine
Specialty to Notify: Cardiology
Date consulting provider notified: 09/11/24
Time consulting provider notified: 07:45
Notified:: Provider
Comment: ILSA FAIR
09/11/24 05:57
Acetaminophen [Tylenol] 650 mg PO Q4HPRN PRN
Albuterol [ProAIR HFA INHALER] 2 puff INH R BIDPRN PRN
Bisacodyl [Dulcolax] 10 mg RECTAL [id number] PRN
Dextrose 50%-Water [Dextrose 50% Syringe] 12.5 grams IV [id number] PRN
Docusate W/Senna [Senokot-S] 1 tablet PO BIDPRN PRN
Glucagon [GlucaGen] 1 mg IM PRN PRN
Ipratropium/Albuterol Sulfate [Duoneb] 3 ml INH R Q4HPRN PRN
Lupron 1 dose SC Q4W
Midodrine [ProAmatine] 5 mg PO DAILYPRN PRN blood pressure
Ondansetron Injectable [Zofran] 4 mg IV Q8HPRN PRN
Polyethylene Glycol Powder [Miralax] 17 grams PO DAILYPRN PRN
09/11/24 05:57
Add On- LAB Routine
Tests Added?: HgbA1C to today's lab
Activity As Directed
Activity Level: Out of Bed-Early Mobility
Bedside Glucose Monitoring As Directed
Frequency: AC&HS
Additional Instructions:: Change to q6h if pt on TPN, tube feeding or not eating
Vital Signs As Directed
Frequency: Per unit guidelines
O2 Therapy [RESP] Routine
Titrate/Wean O2 to maintain O2 sat greater than (%): 90
09/11/24 Breakfast
2000 calorie (17 carb) Diabetic
At Your Request: Full Participation
09/11/24 07:30
Insulin Aspart Corrective Mod [Novolog Flexpen-Moderate Resistance] See Protocol SC AC
09/11/24 08:00
Apixaban [Eliquis] 5 mg PO BID
Dapagliflozin [Farxiga] 10 mg PO DAILY
Famotidine [Pepcid] 20 mg PO DAILY
Furosemide [Lasix] 80 mg PO DAILY
Midodrine [ProAmatine] 5 mg PO BID AT 0800,1700
Prednisone [Deltasone] 5 mg PO DAILY
fluticasone propionate 2 spray NASAL DAILY
ipratropium bromide 2 spray NASAL DAILY
09/11/24 22:00
Aspirin Low Dose EC [Aspir Low (Enteric Coated)] 81 mg PO HS
Atorvastatin [Lipitor] 10 mg PO HS
Cetirizine HCl [Zyrtec] 10 mg PO HS
Donepezil [Aricept] 5 mg PO HS
Metoprolol Xl [Toprol Xl] 12.5 mg PO HS
Sertraline HCl [Zoloft] 25 mg PO HS
Tamsulosin [Flomax] 0.4 mg PO HS
Tolterodine Extended Release [Detrol LA] 2 mg PO HS
Abnormal Lab Results
09/10/24
22:40
RBC 4.62 L 10^6/uL
(4.70-6.10)
MCHC 32.5 L g/dL
(33.0-37.0)
Eosinophils % 7.5 H %
(0-6)
Carbon Dioxide 36 H mmol/L
(22-30)
BUN 28 H mg/dl
(9-20)
Glucose 187 H mg/dl
(70-99)
AST 16 L U/L
(17-59)
09/10/24 22:40
09/10/24 22:40
Vital Signs
Initial and Last Documented VS:
Initial Vital Signs
Temp Pulse Resp BP Pulse Ox
97.9 F 85 20 117/61 92
09/10/24 22:19 07/08/25 22:19 09/10/24 22:19 09/10/24 22:19 09/10/24 22:19
Last Documented Vital Signs
Temp Pulse Resp BP Pulse Ox
97.8 F 54 16 122/53 99
09/11/24 06:07 09/11/24 06:07 09/11/24 06:07 09/11/24 06:07 09/11/24 06:07
*Pulse Oximetry
SaO2: 94
Oxygen Mode of Delivery: Room air
Patient hypoxic: no
*Critical Care Note
Total Time (30-74mins, 75-104mins- exclusive of procedures): Not Applicable
ED Attending Note
-
Portions of this chart may have been created with voice recognition software.� Occasional wrong word or��sound alike� substitutions may have occurred due to the inherent limitations of voice recognition software.
Discharge Plan
Departure
Patient Disposition: Admit
Date of Disposition: 09/11/24
Time of Disposition: 04:16
Admit to: Med/Surg
Presentation/result/management discussed w/ accepting MD/DO: Hospitalist
Condition: Fair
Discharge Problem:
Acute interstitial pneumonitis, Pulmonary fibrosis, Exertional dyspnea
Interventions
Interventions:
*Risk Screen - Suicide Last Done: 09/10/24 22:19
*General Assessment Last Done: 09/10/24 22:19
*Neglect/Abuse Screening Last Done: 09/10/24 22:19
*ED- Fall Risk Assessment Last Done: 09/10/24 22:19
*ED COVID-19 Vaccine History Last Done: 09/11/24 06:00
ED- Cardiac Assessment Last Done: 09/10/24 23:28
ED- Pulmonary Assessment Last Done: 09/10/24 23:28
[2024-09-11 02:45] VITALS: BP 119/56
[2024-09-11 04:11] VITALS: BP 110/61
--- NOTE | 2024-09-11 04:47 | HPS.HSE ---
Family Physician
-
Family Physician: Neville Gómez
Chief Complaint
-
dyspnea
History of Present Illness
78yo M with PMHx of DM, HTN, atopic d/o, interstitial lung disease developed after chemo for prostate CA, s/p TAVR @2019, [facility] came with 10 days of progressive dyspnea on exertion. Remained on RA saturating to >90% while at rest in ED, desat to
87% while slept. XR showed interstitial pneumonitis, apparently unchanged when compared with XR in 2023 (as per radiology reading). Patient is very concerned that now he is with tachycardia and significant dyspnea on minimal excertion.
Medical History
Past Medical History
Past Medical History: Reports Other
Additional Past Medical History:
see above
Past Surgical History: Reports Other
Additional Past Surgical History:
see above
Social History
Tobacco: Former Smoker
Alcohol: None
Drug: None
Family History
Family History: Not pertinent
Allergies / Home Medications
Allergies reflects when Allergies were last updated in [facility].
Home Medications with original date entered in [facility]
Allergy/Medication List:
Allergies
Allergy/AdvReac Type Severity Reaction Status Date / Time
Penicillins Allergy Rash Verified 09/10/24 22:19
pollen extracts Allergy watery Verified 09/10/24 22:19
eyes,
nasal
congestion
Home Medications
coenzyme Q10 100 mg capsule (Co Q-10) 100 mg PO DAILY Supplement 02/22/19
simvastatin 20 mg tablet 20 mg PO HS High cholesterol 02/22/19
metoprolol succinate 25 mg tablet,extended release 24 hr 12.5 mg PO HS Blood pressure 01/25/22
tamsulosin 0.4 mg capsule 0.4 mg PO HS Urinary Issue 11/18/22
metformin 1,000 mg tablet 1,000 mg PO BID Diabetes 11/24/22
cetirizine 10 mg tablet (Zyrtec) 10 mg PO HS 07/28/23
fluticasone propionate 50 mcg/actuation nasal spray,suspension 2 spray intranasal DAILY 07/28/23
apixaban 5 mg tablet (Eliquis) 5 mg PO BID 09/14/23
Lupron 1 dose SC Q4W 09/10/24
aspirin 81 mg tablet,delayed release 81 mg PO HS 09/10/24
cholecalciferol (vitamin D3) 100 mcg (4,000 unit) tablet 100 mcg PO DAILY 09/10/24
dapagliflozin propanediol 10 mg tablet (Farxiga) 10 mg PO DAILY 09/10/24
donepezil 5 mg tablet 5 mg PO HS 09/10/24
famotidine 20 mg tablet 20 mg PO DAILY 09/10/24
furosemide 80 mg tablet 80 mg PO DAILY 09/10/24
ipratropium bromide 21 mcg (0.03 %) nasal spray 2 spray intranasal DAILY 09/10/24
levalbuterol tartrate 45 mcg/actuation aerosol inhaler 2 puff inhalation R BIDPRN PRN sob 09/10/24
midodrine 5 mg tablet 5 mg PO BID 09/10/24
midodrine 5 mg tablet 5 mg PO DAILYPRN PRN blood pressure 09/10/24
polyethylene glycol 3350 17 gram oral powder packet (Miralax) 17 g PO DAILYPRN PRN constipation 09/10/24
prednisone 5 mg tablet 5 mg PO DAILY 09/10/24
sertraline 25 mg tablet 25 mg PO HS 09/10/24
solifenacin 5 mg tablet 5 mg PO HS 09/10/24
vit C 250 mg-vit E 90 mg-zinc 40 mg-copper 1 le-dngevu-eulsyp capsule (PreserVision AREDS-2) 1 cap PO BID 09/10/24
Review of Systems
-
History Source: Patient
A 12 point ROS was completed and negative except as noted: Yes
Respiratory: Reports See HPI
Cardiac: Reports No Symptoms
Physical Exam
Vital Signs
Vital Signs
Temp Pulse Resp BP Pulse Ox
98.1 F 52 18 110/61 88
09/11/24 04:11 09/11/24 04:11 09/11/24 04:11 09/11/24 04:11 09/11/24 04:28
Physical Exam
General: No Apparent Distress, Comfortable and Conversant
HEENT: NormoCephalic, Anicteric and Moist mucous membranes
Respiratory: Rales and Crackles
Cardiac: S1/S2 and Regular Rhythm; No Tachycardia
GI: Soft, Non Tender and Non Distended
Genito-urinary: No costovertebral tender
Musculoskeletal: No Clubbing, No Cyanosis and No Edema
Skin: Warm
Neuro: Awake, Alert, Oriented and AO x 3
Psych: Calm
Laboratory Results
-
09/10/24 22:40
09/10/24 22:40
Laboratory Results
PT 14.4 Sec (11.4-14.6) 09/10/24 22:40
INR 1.09 09/10/24 22:40
Total Bilirubin 0.5 mg/dl (0.2-1.3) 09/10/24 22:40
AST 16 U/L (17-59) L 09/10/24 22:40
ALT 11 U/L (0-50) 09/10/24 22:40
Alkaline Phosphatase 60 U/L (38-126) 09/10/24 22:40
Troponin I < 0.012 ng/ml 09/10/24 22:40
Data Reviewed
-
Diagnostic Radiology: Report Reviewed by me
Lab Data: Labs Reviewed by me
Impression/Plan
-
A/P:
#Worsening dyspnea, possible progression of interstitial pneumonitis
Pulm consult, since remains on RA -will defer decision if to increase steroids to pulm
O2 as needed
cont home Prednisone 5mg and inhalers
# s/p TAVR
Echo
Cardio consult as patient with complex combined cardiac and pulmonary pathology, however no overt volume overload on assessment
#DM type 2 with unspecified complications
Accuchecks, Insulin SS, DM diet
#Orthostatic hypotension
#Essential HTN
#Hx of prostate CA on Leupron
#PAroxysmal Afib
#s/p L CEA
#HX of CVA
cont home meds
DVT ppx cont ELiquis
DNR/DNI - discussed in details with patient
I have spent at least 77min admitting the patient
[2024-09-11 06:07] VITALS: BP 122/53; BMI 23.4
[2024-09-11 08:12] VITALS: BP 117/58
[2024-09-11 08:51] LABS: Glucose - Point of Care 170 mg/dl (70-99)
[2024-09-11] MEDS: NOVOLOG FLEXPEN-MODERATE RESISTANCE 1 UNITS SC (08:53)
[2024-09-11] MEDS: ELIQUIS 5 MG PO (08:56)
[2024-09-11] MEDS: PEPCID 20 MG PO (08:56)
[2024-09-11] MEDS: DELTASONE 5 MG PO (08:56)
[2024-09-11] MEDS: LASIX 80 MG PO (08:56)
[2024-09-11] MEDS: FARXIGA 10 MG PO (08:57)
[2024-09-11 09:06] LABS: Glycohemoglobin (HgbA1c) 7.5 % (4.0-5.6)
--- NOTE | 2024-09-11 09:37 | CON.PUL ---
Consultation
Consultation Request
Date/Time Consultation Requested: 09/11/2024440
Date/Time Consultation Performed: 09/11/2024927
Requesting Provider: Dr. Fuentes
Performing Provider: Dr. Chavez
Reason for Consultation: SOB
Medical History
-
Chief Complaint: Worsening SOB
History of Present Illness:
78-year-old male with a past medical history of ILD on chronic prednisone, YOUSIF on CPAP, prostate cancer s/p antiandrogen therapy currently on Lupron, basal cell carcinoma, history of pneumonia, CHF, seasonal allergic rhinitis, paroxysmal atrial
fibrillation on Eliquis, and history of severe aortic stenosis s/p TAVR who presents with worsening SOB over the last 10-14 days. He was concerned he may be in A-fib. CXR showed significant inflammatory interstitial pneumonitis. Patient was
admitted to the floor for further management, and pulmonary service consulted for additional recommendations.
When I saw the patient, he was resting in bed in no acute distress. He currently denies chest pain, lower extremity swelling, abdominal swelling, SOB at rest, nausea, vomiting, fevers or chills. He mainly says he came to the hospital as he felt
shortness of breath episodes and thought it was related to his heart. The SOB episodes were happening over the last 10 days or so, ongoing for about 3-4 minutes at a time and would improve with rest. Of note, his troponin was negative x 1 on 09/10.
He says that he needs to be sent home later today as his is disabled from chronic knee + back pain, and the commode bucket needs to be changed.
Of note, patient follows with us in the [facility] office with last visit 07/25/[address] Pemberton. He is on budesonide 0.25 mg BID. He does have ILD with interstitial changes that wax and wane. Antifibrotic therapy not given as he had radiographic
improvement of his interstitial changes and had been feeling well on prior visit; remains on prednisone 5 mg daily. He is continued on CPAP therapy as well. He was advised to follow-up with office again in September 2024.
PMHx: ILD, history of severe aortic stenosis s/p TAVR, hypertension, DM type II, history of SVT/atrial fibrillation on Eliquis, YOUSIF on CPAP, history of prostate cancer s/p antiandrogen therapy currently on Lupron, history of basal cell carcinoma,
history of pneumonia, history of CVA, CHF, and seasonal allergic rhinitis
PSHx: Appendectomy, tonsillectomy, right foot surgery, cataract surgery, left TKA, TAVR (2019), carotid endarterectomy (left � 11/2022), UroLift (10/13/2023
Past Medical History
Past Medical History: Other (Above as per HPI)
Past Surgical History: Other (Above as per HPI)
Social History
Tobacco: Former Smoker
Alcohol: None
Drug: None
Family History
Family History: CAD (Father + sibling) and Diabetes (Son)
Allergies / Home Medications
Allergies
Allergy/AdvReac Type Severity Reaction Status Date / Time
Penicillins Allergy Rash Verified 09/10/24 22:19
pollen extracts Allergy watery Verified 09/10/24 22:19
eyes,
nasal
congestion
Home Medications
�Medication �Instructions �Recorded �Confirmed �Last Taken �Type
coenzyme Q10 100 mg capsule (Co 100 mg PO DAILY Supplement 02/22/19 09/10/24 09/10/24 History
Q-10)
simvastatin 20 mg tablet 20 mg PO HS High cholesterol 02/22/19 09/10/24 09/10/24 History
metoprolol succinate 25 mg 12.5 mg PO HS Blood pressure 01/25/22 09/10/24 09/10/24 History
tablet,extended release 24 hr
tamsulosin 0.4 mg capsule 0.4 mg PO HS Urinary Issue 11/18/22 09/10/24 09/10/24 History
metformin 1,000 mg tablet 1,000 mg PO BID Diabetes 11/24/22 09/10/24 09/10/24 History
cetirizine 10 mg tablet (Zyrtec) 10 mg PO HS 07/28/23 09/10/24 09/10/24 History
fluticasone propionate 50 2 spray intranasal DAILY 07/28/23 09/10/24 09/10/24 History
mcg/actuation nasal
spray,suspension
apixaban 5 mg tablet (Eliquis) 5 mg PO BID 09/14/23 09/10/24 09/10/24 History
Lupron 1 dose SC Q4W 09/10/24 09/10/24 2 Weeks Ago History
~08/27/24
aspirin 81 mg tablet,delayed 81 mg PO HS 09/10/24 09/10/24 09/10/24 History
release
cholecalciferol (vitamin D3) 100 100 mcg PO DAILY 09/10/24 09/10/24 09/10/24 History
mcg (4,000 unit) tablet
dapagliflozin propanediol 10 mg 10 mg PO DAILY 09/10/24 09/10/24 09/10/24 History
tablet (Farxiga)
donepezil 5 mg tablet 5 mg PO HS 09/10/24 09/10/24 09/10/24 History
famotidine 20 mg tablet 20 mg PO DAILY 09/10/24 09/10/24 09/10/24 History
furosemide 80 mg tablet 80 mg PO DAILY 09/10/24 09/10/24 09/10/24 History
ipratropium bromide 21 mcg (0.03 2 spray intranasal DAILY 09/10/24 09/10/24 09/10/24 History
%) nasal spray
levalbuterol tartrate 45 2 puff inhalation R BIDPRN PRN sob 09/10/24 09/10/24 09/10/24 History
mcg/actuation aerosol inhaler
midodrine 5 mg tablet 5 mg PO BID 09/10/24 09/10/24 09/10/24 History
midodrine 5 mg tablet 5 mg PO DAILYPRN PRN blood pressure 09/10/24 09/10/24 09/09/24 History
polyethylene glycol 3350 17 gram 17 g PO DAILYPRN PRN constipation 09/10/24 09/10/24 3 Days Ago History
oral powder packet (Miralax) ~09/07/24
prednisone 5 mg tablet 5 mg PO DAILY 09/10/24 09/10/24 09/10/24 History
sertraline 25 mg tablet 25 mg PO HS 09/10/24 09/10/24 09/10/24 History
solifenacin 5 mg tablet 5 mg PO HS 09/10/24 09/10/24 09/10/24 History
vit C 250 mg-vit E 90 mg-zinc 40 1 cap PO BID 09/10/24 09/10/24 09/10/24 History
mg-copper 1 [id number]
capsule (PreserVision AREDS-2)
Review of Systems
-
History Source: Patient
All other systems: Negative unless noted
Vitals / Labs / Diagnostic Testing
Vital Signs
Temp Pulse Resp BP Pulse Ox
97.4 F 48 16 117/58 98
09/11/24 08:12 09/11/24 08:56 09/11/24 08:12 09/11/24 08:56 09/11/24 08:12
Lab Data
09/10/24 22:40
09/10/24 22:40
Laboratory Results
09/10/24
22:40
PT 14.4
INR 1.09
Diagnostic Testing:
Physical Exam
-
HEENT: Normocephalic and Anicteric
Cardiovascular: S1/S2 and Peripheral Edema (negative)
Respiratory: Wheeze (negative), Rales (Bilateral), Rhonchi (negative), Non-Labored Respirations and Other (During expiration, patient coughs)
GI: Soft, Non Distended, Non Tender and Normal Bowel Sounds
Neurology: AO x 3 and Tremors (negative)
Skin: Warm and Dry
General: Respiratory Distress (negative), Comfortable, Fever (negative) and Chills (negative)
Assessment
-
Assessment: 78-year-old male with a past medical history of ILD on chronic prednisone, YOUSIF on CPAP, prostate cancer s/p antiandrogen therapy currently on Lupron, basal cell carcinoma, history of pneumonia, CHF, seasonal allergic rhinitis,
paroxysmal atrial fibrillation on Eliquis, and history of severe aortic stenosis s/p TAVR who presents with worsening SOB over the last 10-14 days. He was concerned he may be in A-fib. CXR showed significant inflammatory interstitial pneumonitis.
Patient was admitted to the floor for further management, and pulmonary service consulted for additional recommendations.
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
cell carcinoma, history of pneumonia, history of CVA, CHF, and seasonal allergic rhinitis
Impression:
#ILD/UIP with suspected acute flare
#Acute respiratory failure with hypoxia due to above
#Pulmonary hypertension with last echo on 12/02/2023 showing severely elevated PASP at 60-65 mmHg with normal RV size/function and normal RA size
#History of severe aortic stenosis s/p TAVR
#DM type II
#Atrial fibrillation on Eliquis
#YOUSIF on CPAP
#History of prostate cancer s/p chemotherapy (taxotere - completed in June 2023) + antiandrogen therapy currently on Lupron
Plan:
- Patient has history of ILD, reportedly worsened after receiving chemotherapy from prostate cancer; he had evidence of interstitial changes on his PET/CT from February [address] TAVR from 02/2019
- His interstitial changes clearly worsened between his PET/CT in February 2023 to his CTA chest in April 2023, although there was GGO and small pleural effusions on CTA chest from Apr 2023; these bibasilar groundglass changes persisted on
subsequent PET/CT on 05/15/2023 and CTA chest from 06/21/2023.
- On most recent CT chest imaging from 02/07/2024, he has persistent subpleural reticular opacities with honeycombing, traction bronchiectasis within apical�basilar gradient, and no significant groundglass opacity
- On CXR from 09/10/2024, he has obvious interstitial/reticular changes, however there is a very similar distribution compared to prior CXR on 02/26/2024. Appears to be increased opacification in the right midlung region, and left midlung/left base,
hence given the increased opacification, it is fair to say that he is having an ILD flare
- He is on prednisone chronically, and it would be reasonable to increase steroids to treat a suspected flare
- I will first check inflammatory markers with ESR + CRP, and if significantly elevated then we will raise steroids at that time
- Once ready for discharge, would DC home with prednisone taper starting at 40mg daily and reduce by 10mg every 5th day until back to his home dose of 5mg daily
- He otherwise does not appear to be volume overloaded, and proBNP is 839 which is only minimally elevated compared to last time it was checked on 05/11/2024 when it was 581
- Hold off on antibiotics as he is nontoxic-appearing, afebrile and no leukocytosis; continue to trend WBC and monitor temperature curve
- Given that his last echo was in November 2023 which showed severely elevated PASP at 60 to 65 mmHg, recheck echo now to reassess pulmonary pressures
- He does not appear to be in acute right-sided heart failure
- Continue supplemental oxygen, maintaining SpO2 >90-94%
- Taper down supplemental O2 as tolerated
- Check home O2 assessment prior to discharge
- He is on budesonide at home and I will resume this
- prn nebulized bronchodilators - not currently bronchospastic
- Incentive spirometer encouraged q1hr while awake
- Replete electrolytes with K>4, Mg>2
- Trend H/H and transfuse if needed to keep Hb>7g/dL; keep plt>20k, unless there is concern for bleeding then keep plt>50k
- Maintain euglycemia with goal BG >100 and <180
- DVT ppx: Eliquis
Pulmonary service will continue to follow along. Following discharge, he needs to continue following closely with our office � last visit was 07/25/[address] Pemberton.
Data:
CXR 09/10/2024:
1. VERY SEVERE INFLAMMATORY INTERSTITIAL PNEUMONITIS in the lungs (probably usual interstitial pneumonitis - UIP or combined emphysema and interstitial pulmonary fibrosis) which appears unchanged.
2. Previous TAVR.
3. Right IJ Mediport catheter in place.
PFT 06/13/2024: No evidence of restriction or obstruction. FEV1/FVC: 92/128% predicted, FEV1: 4.04 L / 107%, FVC: 4.4 L / 84%, T%, VC: 84%, RV: 107%. Patient was unable to perform DLCO maneuver due to coughing despite multiple attempts, per
staking technician.
Transthoracic echocardiogram 12/02/2023:
Normal left ventricular size, wall thickness and systolic function. No regional
wall motion abnormalities are seen. LV ejection fraction is 55-60% by Michael's
method of discs. Global longitudinal strain values are within normal limits-
17.1%. Diastolic function indeterminate.
Normal right ventricular size and function.
Indexed LA volume is mildly abnormal (35-41 mL/m2).
Mild mitral regurgitation.
Saravia #29 TAVR is well seated. Mild paravalvular aortic regurgitation. Max
PG 12mmHg Mean PG 7mmHg.
Mild tricuspid regurgitation. Estimated pulmonary artery pressure of 60-65 mmHg
assuming a right atrial pressure of 8 mmHg.
Compared to previous echo 07/22/23, the LVEF and global longitudinal strain are
minimally different. Previous global longitudinal strain -19.1%. The PA
pressure though has increased from 25 to 55 mmHg.
Total time spent today was 58 minutes for this encounter. Time includes reviewing laboratory test/imaging results, reviewing pertinent medical records, obtaining and reviewing medical history, performing an appropriate exam, ordering medications,
tests and procedures. Time also includes documentation of this encounter, coordinating patient care and communicating with other healthcare professionals. Total time does not include separately billed tests performed on this date of service.
--- NOTE | 2024-09-11 09:50 | CM ---
Addendum entered by Dagmar Olguin 09/11/24 14:50:
Home 02 assessment completed. No oxygen needs
Addendum entered by Dagmar Olguin 09/11/24 12:44:
Home 02 assessment ordered
Original Note:
Patient seen at bedside
IA completed
CRUZ form explained & signed. In chart
Lives with in a multi-story home, 2 steps to enter, 1st floor set up
PLOF: Independent
DME: CPAP, Nebulizer
Denies insecurities
Denies VN/Has had outpatient pulmonary sang
PCP: Fabi Gómez
Pharmacy: [facility]
PLAN: Home, no needs anticipated, CM to continue to follow
[2024-09-11 11:32] LABS: C-Reactive Protein 16.10 mg/L (0.0-10.00)
[2024-09-11 12:12] LABS: Glucose - Point of Care 139 mg/dl (70-99)
[2024-09-11] MEDS: NOVOLOG FLEXPEN-MODERATE RESISTANCE SC (12:45)
[2024-09-11 12:48] VITALS: BMI 23.4
[2024-09-11] MEDS: SOLU-MEDROL PF 40 MG IV (13:15)
[2024-09-11] MEDS: FLUSH (NSS) 2 FLUSH IV (13:17)
--- NOTE | 2024-09-11 15:11 | CON.CAR ---
Addendum entered and electronically signed by Alverto Shaw MD 09/11/24 15:48:
I saw and examined the patient.
The CAPTAIN FISHING VESSEL or PA's note was reviewed and I agree with the note.
Comment: General: Well developed, well nourished in NAD.
Neck: Supple, no JVD, HJR, carotids +2 B/L, no bruits bilaterally.
Heart: Non displaced PMI, RRR, no murmurs, No S3, S4, no rubs.
Lungs: Scattered rhonchi at the bases
Extremities: No clubbing, cyanosis or edema bilaterally.
Neuro: Grossly nonfocal, awake, alert and oriented x3.
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
TAVR for severe aortic stenosis, hypertension, hyperlipidemia, diabetes, sleep apnea. He presents for evaluation of shortness of breath. Of note he had a right heart cath on July 28, 2023 which revealed a wedge pressure of 12 with normal cardiac
output. Cardiology was consulted for possible volume overload.
Of note he does not appear to be volume overloaded. Suggest symptoms are more likely pulmonary. Pulmonary has been consulted and has started steroids. He remains on oxygen. He could need home oxygen but will await response. He wishes to keep
his appointment tomorrow in our office. Discussed with primary service and pulmonary in detail. Stable cardiology status for discharge.
Addendum entered and electronically signed by Zahra Norris PA-C 09/11/24 15:42:
Patient now considering placing a new Linq monitor to monitor Afib burden. He wishes to discuss at his appt tomorrow.
Original Note:
Consultation
Consultation Request
Date/Time Consultation Requested: 09/11/2024 at 0446
Date/Time Consultation Performed: 09/11/2024 at 1130
Requesting Provider: Dr. Mccarthy
Performing Provider: Dr. Shaw
Reason for Consultation: SOB with possible acute HF
Medical History
-
History of Present Illness:
Patient came to [facility] last night with acute on chronic SOB and MENENDEZ and was admitted with hypoxia and cardiology has been consulted for possible acute HF. Patient has been feeling more SOB for almost 2 weeks and his called our office 09/10/24 to
make an appt, but last night was more SOB so he came to the ER. Patient has a history of ILD and PHTN, he had right heart cath 07/28/2023 that showed PCWP 12 and normal cardiac output. His echo 11/24/2023 as noted above showed preserved EF and
normal TAVR function.At last office visit 04/24/2024 patient appeared to be volume overloaded and was given a dose of Lasix 80 mg IV x 1 that day and then his usual dose of Lasix 80 mg daily was continued along with salt and fluid restriction
guidelines. 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 was felt to be stable with known ILD that is rated severe. He
also has severe YOUSIF and he started PAP therapy also without much improvement. Patient denies any weight gain or edema, his biggest symptoms are fatigue and MENENDEZ.
PMH:
ILD
PHTN
Chronic HFpEF
Paroxysmal Afib
Chronic Eliquis OAC
h/o leukopenia, previously on Neupogen
h/o prostate cancer
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
h/o left lacunar infarct by MRI 12/2022
s/p TAVR for severe at [facility] 2019
s/p Medtronic loop recorder for 'tachycardia'
at end of life
HTN
HLD
DM2
Past Medical History
Past Medical History: Other (in HPI)
Past Surgical History: Appendectomy, Cardiac (TAVR 2019), Orthopedic, Tonsilectomy and Other (EA)
Social History
Tobacco: Non-Smoker
Alcohol: None
Drug: None
Personal: Other
Living: With Family
Employment: Retired
Family History
Family History: CAD
Allergies / Home Medications
Allergy/AdvReac Type Severity Reaction Status Date / Time
Penicillins Allergy Rash Verified 09/10/24 22:19
pollen extracts Allergy watery Verified 09/10/24 22:19
eyes,
nasal
congestion
�Medication �Instructions �Recorded �Confirmed �Type
coenzyme Q10 100 mg capsule (Co 100 mg PO DAILY Supplement 02/22/19 09/10/24 History
Q-10)
simvastatin 20 mg tablet 20 mg PO HS High cholesterol 02/22/19 09/10/24 History
metoprolol succinate 25 mg 12.5 mg PO HS Blood pressure 01/25/22 09/10/24 History
tablet,extended release 24 hr
tamsulosin 0.4 mg capsule 0.4 mg PO HS Urinary Issue 11/18/22 09/10/24 History
metformin 1,000 mg tablet 1,000 mg PO BID Diabetes 11/24/22 09/10/24 History
cetirizine 10 mg tablet (Zyrtec) 10 mg PO HS 07/28/23 09/10/24 History
fluticasone propionate 50 2 spray intranasal DAILY 07/28/23 09/10/24 History
mcg/actuation nasal
spray,suspension
apixaban 5 mg tablet (Eliquis) 5 mg PO BID 09/14/23 09/10/24 History
Lupron 1 dose SC Q4W 09/10/24 09/10/24 History
aspirin 81 mg tablet,delayed 81 mg PO HS 09/10/24 09/10/24 History
release
cholecalciferol (vitamin D3) 100 100 mcg PO DAILY 09/10/24 09/10/24 History
mcg (4,000 unit) tablet
dapagliflozin propanediol 10 mg 10 mg PO DAILY 09/10/24 09/10/24 History
tablet (Farxiga)
donepezil 5 mg tablet 5 mg PO HS 09/10/24 09/10/24 History
famotidine 20 mg tablet 20 mg PO DAILY 09/10/24 09/10/24 History
furosemide 80 mg tablet 80 mg PO DAILY 09/10/24 09/10/24 History
ipratropium bromide 21 mcg (0.03 2 spray intranasal DAILY 09/10/24 09/10/24 History
%) nasal spray
levalbuterol tartrate 45 2 puff inhalation R BIDPRN PRN sob 09/10/24 09/10/24 History
mcg/actuation aerosol inhaler
midodrine 5 mg tablet 5 mg PO BID 09/10/24 09/10/24 History
midodrine 5 mg tablet 5 mg PO DAILYPRN PRN blood pressure 09/10/24 09/10/24 History
polyethylene glycol 3350 17 gram 17 g PO DAILYPRN PRN constipation 09/10/24 09/10/24 History
oral powder packet (Miralax)
prednisone 5 mg tablet 5 mg PO DAILY 09/10/24 09/10/24 History
sertraline 25 mg tablet 25 mg PO HS 09/10/24 09/10/24 History
solifenacin 5 mg tablet 5 mg PO HS 09/10/24 09/10/24 History
vit C 250 mg-vit E 90 mg-zinc 40 1 cap PO BID 09/10/24 09/10/24 History
mg-copper 1 [id number]
capsule (PreserVision AREDS-2)
Review of Systems
-
History Source: Patient
All other systems: Negative unless noted
Physical Exam
Vital Signs
Temp Pulse Resp BP Pulse Ox
97.4 F 48 16 117/58 95
09/11/24 08:12 09/11/24 08:56 09/11/24 08:12 09/11/24 08:56 09/11/24 13:24
GEN: NAD. AAOx3
HEENT: EOMI, MMM, wearing glasses
LUNGS: RA. B/L rales without wheeze
CV: Reg with ectopy, S1/S2, no murmur
ABD: soft, BS+, NT, ND
EXT: No clubbing, cyanosis, lesions or edema B/L
NEURO: Gross non-focal
SKIN: Warm, dry and pink. No rash
Lab Results
09/10/24 22:40
09/10/24 22:40
Troponin I < 0.012 ng/ml 09/10/24 22:40
[id number] Pept 839 pg/ml 09/10/24 22:40
Impression / Plan
-
PCP: Dr. Gómez
Cardiology: Dr. Lillie Henderson
Assessment:
Admitted with MENENDEZ 09/10/24
Acute hypoxic respiratory insufficiency
ILD
PHTN
Chronic HFpEF
Paroxysmal Afib
Chronic Eliquis OAC
h/o leukopenia, previously on Neupogen
h/o prostate cancer
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
h/o left lacunar infarct by MRI 12/2022
s/p TAVR for severe at [facility] 2019
s/p Medtronic loop recorder for 'tachycardia'
at end of life
HTN
HLD
DM2
History of knee surgery
Lexiscan nuclear stress test 07/20/2023: Small area of mildly decreased perfusion predominantly reversible in the apical lateral segment and apical segment that improves with prone imaging EF 56%
Echo 03/30/2023: EF 55 to 60%. Mild MR. Status post TAVR Saravia number 29 mm valve. Peak/mean gradient 16/10 mmHg. PAP 25 to 30 mmHg
Echo 07/22/2023: EF 50 to 55%, GLS -19.1%, mild MR, mild TR, well-seated TAVR peak/mean 14/8 mmHg
Echo 11/24/2023: EF 55 to 60%, GLS -17.1%, mild MR, #29 TAVR well-seated with mild perivalvular aortic regurgitation and mean gradient 7 mmHg, mild TR with PAP 60 to 65 mmHg
Recommendations:
-Patient came to [facility] last night with acute on chronic SOB and MENENDEZ and was admitted with hypoxia and cardiology has been consulted for possible acute HF. Patient has been feeling more SOB for almost 2 weeks and his called our office 09/10/24 to
make an appt, but last night was more SOB so he came to the ER. Patient has a history of ILD and PHTN, he had right heart cath 07/28/2023 that showed PCWP 12 and normal cardiac output. His echo 11/24/2023 as noted above showed preserved EF and
normal TAVR function.At last office visit 04/24/2024 patient appeared to be volume overloaded and was given a dose of Lasix 80 mg IV x 1 that day and then his usual dose of Lasix 80 mg daily was continued along with salt and fluid restriction
guidelines. 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 was felt to be stable with known ILD that is rated severe. He
also has severe YOUSIF and he started PAP therapy also without much improvement. Patient denies any weight gain or edema, his biggest symptoms are fatigue and MENENDEZ.
-ECG reviewed by me is SR with short TX and QTc 445 ms
-Pulmonology note reviewed by me and they believe he is having an ILD flare. Pending results of inflammatory markers, patient is going to be started on Solu-Medrol 40 mg IV every 12 hours. Patient was taking prednisone 5 mg daily prior to admission
-proBNP is 839 and CXR does not suggest acute HF. Patient also denying symptoms consistent with what he would usually experience with HF.
-Outpatient dose of Lasix 80 mg daily has been continued
-Repeat echo pending, most recent echo from 11/24/2023 summarized above by me. His EF has been preserved and his TAVR are with overall normal function.
-Patient with known paroxysmal atrial fibrillation and he previously had a Linq monitor in place that still remains in place, but has no battery left and unable to gather or transmit data. ECG and telemetry have been sinus rhythm
-Outpatient dose of Eliquis 5 mg BID (age 78, wt 89.4 kg) has been continued
-Patient insists that he has been discharged to home today and wants to keep his appointment to see his primary surg nurse in the office tomorrow at 8:40 AM.
--- NOTE | 2024-09-11 16:10 | W.DS.TRANS ---
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
-
Discharge Instructions:
Discharge Diagnosis/Procedures Acute hypoxic respiratory insufficiency
ILD
Chronic CHF preserved EF
Paroxysmal atrial fibrillation
Diet 2 Gram Sodium,Restrict fluids to 64 oz
Specialty Instructions Weigh Daily
Instructions:
Stand-Alone Forms:
Changes to Home Medications: Yes
Discharge Medications:
DC Medications w/original date entered in [employer] [facility]
coenzyme Q10 100 mg capsule (Co Q-10) 100 mg PO DAILY Supplement 02/22/19
simvastatin 20 mg tablet 20 mg PO HS High cholesterol 02/22/19
metoprolol succinate 25 mg tablet,extended release 24 hr 12.5 mg PO HS Blood pressure 01/25/22
tamsulosin 0.4 mg capsule 0.4 mg PO HS Urinary Issue 11/18/22
metformin 1,000 mg tablet 1,000 mg PO BID Diabetes 11/24/22
cetirizine 10 mg tablet (Zyrtec) 10 mg PO HS 07/28/23
fluticasone propionate 50 mcg/actuation nasal spray,suspension 2 spray intranasal DAILY 07/28/23
apixaban 5 mg tablet (Eliquis) 5 mg PO BID 09/14/23
Lupron 1 dose SC Q4W 09/10/24
aspirin 81 mg tablet,delayed release 81 mg PO HS 09/10/24
cholecalciferol (vitamin D3) 100 mcg (4,000 unit) tablet 100 mcg PO DAILY 09/10/24
dapagliflozin propanediol 10 mg tablet (Farxiga) 10 mg PO DAILY 09/10/24
donepezil 5 mg tablet 5 mg PO HS 09/10/24
famotidine 20 mg tablet 20 mg PO DAILY 09/10/24
furosemide 80 mg tablet 80 mg PO DAILY 09/10/24
ipratropium bromide 21 mcg (0.03 %) nasal spray 2 spray intranasal DAILY 09/10/24
levalbuterol tartrate 45 mcg/actuation aerosol inhaler 2 puff inhalation R BIDPRN PRN sob 09/10/24
midodrine 5 mg tablet 5 mg PO BID 09/10/24
midodrine 5 mg tablet 5 mg PO DAILYPRN PRN blood pressure 09/10/24
polyethylene glycol 3350 17 gram oral powder packet (Miralax) 17 g PO DAILYPRN PRN constipation 09/10/24
sertraline 25 mg tablet 25 mg PO HS 09/10/24
solifenacin 5 mg tablet 5 mg PO HS 09/10/24
vit C 250 mg-vit E 90 mg-zinc 40 mg-copper 1 [id number] capsule (PreserVision AREDS-2) 1 cap PO BID 09/10/24
prednisone 10 mg tablet 10 mg PO DIRECTED #40 tabs 09/11/24
Home Medication Changes
Prednisone taper
Pending Results: Yes
Additional Pending Results:
Repeated echocardiogram
[2024-09-11 16:39] VITALS: BP 112/51
[2024-09-11 17:27] LABS: Glucose - Point of Care 264 mg/dl (70-99)
[2024-09-11] MEDS: NOVOLOG FLEXPEN-MODERATE RESISTANCE 5 UNITS SC (17:27)
== END 2024-09-11 18:26 | disposition home or self-care (01) ==
LOC: 3 WEST ACU 05:29
PROVIDERS: Emergency Medicine; ADMITTING PHYSICIAN Internal Medicine; ATTENDING PHYSICIAN Internal Medicine; EMERGENCY PHYSICIAN Student in an Organized Health Care Education/Training Program; FAMILY PHYSICIAN Internal Medicine Geriatric Medicine; OTHER PHYSICIAN Internal Medicine Cardiovascular Disease; OTHER PHYSICIAN Internal Medicine Critical Care Medicine
DX: J84.9 Interstitial pulmonary disease, unspecified (principal); R06.89 Other abnormalities of breathing; R09.02 Hypoxemia; E11.9 Type 2 diabetes mellitus without complications; E78.00 Pure hypercholesterolemia, unspecified; I11.0 Hypertensive heart disease with heart failure; I48.0 Paroxysmal atrial fibrillation; I50.32 Chronic diastolic (congestive) heart failure; G47.33 Obstructive sleep apnea (adult) (pediatric); I27.20 Pulmonary hypertension, unspecified; I95.1 Orthostatic hypotension; Z66 Do not resuscitate; Z79.01 Long term (current) use of anticoagulants; Z79.52 Long term (current) use of systemic steroids; Z79.84 Long term (current) use of oral hypoglycemic drugs; Z79.899 Other long term (current) drug therapy; Z82.49 Family history of ischemic heart disease and other diseases of the circulatory system; Z85.46 Personal history of malignant neoplasm of prostate; Z86.73 Personal history of transient ischemic attack (TIA), and cerebral infarction without residual deficits; Z87.891 Personal history of nicotine dependence; Z95.3 Presence of xenogenic heart valve; Z99.81 Dependence on supplemental oxygen
CPT/HCPCS: 71046; 80053; 82962; 83036; 83880; 84484; 85025; 85610; 85652; 86140; 93005; 93306; 94760; 99285; G0378

== ENCOUNTER → 2024-09-14 10:42 | Outpatient (REF) | payer MEDICARE, OTHER, SELFPAY ==
[2024-09-14 11:36] LABS: Hematocrit 40.8 % (39.0-52.0); Hemoglobin 12.8 g/dL (13.0-18.0); Mean Corp Hgb Conc. 31.4 g/dL (33.0-37.0); Mean Corpuscular Volume 88.7 fL (80.0-94.0); Nucleated Red Blood Cells % 0 % (-); Platelet Count 226 10^3/uL (130-400); Red Cell Dist. Width 14.6 % (11.5-14.5)
[2024-09-14 11:44] LABS: Urine Character Clear (Clear)
[2024-09-14 12:03] LABS: ALT (SGPT) 18 U/L (0-50); AST (SGOT) 22 U/L (17-59); Albumin 4.3 g/dl (3.5-5.0); Alkaline Phosphatase 66 U/L (38-126); Blood Urea Nitrogen 28 mg/dl (9-20); Calcium 9.6 mg/dl (8.4-10.2); Carbon Dioxide 32 mmol/L (22-30); Chloride 100 mmol/L (98-107); Glucose 171 mg/dl (70-99); HDL Cholesterol 76 mg/dl; LDL Cholesterol, Calculated 79 mg/dl; Potassium 3.7 mmol/L (3.5-5.1); Sodium 140 mmol/L (135-145); Total Protein 7.4 g/dl (6.3-8.2); Very Low Density Lipoprotein 19 mg/dl (0-30); eGFR > 60.00
[2024-09-14 12:27] LABS: Vitamin D, 25-OH*** 43.2 ng/mL (30-80)
[2024-09-14 12:34] LABS: PSA, Total - Diagnostic 0.26 ng/ml (0.0-4.0)
== END ==
LOC: REG 10:42
PROVIDERS: ATTENDING PHYSICIAN Internal Medicine Hematology & Oncology; FAMILY PHYSICIAN Internal Medicine Geriatric Medicine
DX: E11.9 Type 2 diabetes mellitus without complications (principal); I50.32 Chronic diastolic (congestive) heart failure; E78.2 Mixed hyperlipidemia; I10 Essential (primary) hypertension; G47.30 Sleep apnea, unspecified; E03.8 Other specified hypothyroidism; R97.20 Elevated prostate specific antigen [PSA]; M17.0 Bilateral primary osteoarthritis of knee; I11.9 Hypertensive heart disease without heart failure; Z13.89 Encounter for screening for other disorder; C61 Malignant neoplasm of prostate; G45.9 Transient cerebral ischemic attack, unspecified; R53.1 Weakness; Z91.81 History of falling; R41.3 Other amnesia; Z79.3 Long term (current) use of hormonal contraceptives
CPT/HCPCS: 36415; 80053; 80061; 81003; 82306; 83880; 84153; 84681; 85025

== ENCOUNTER → 2024-09-28 10:16 | Outpatient (REF) | payer MEDICARE, OTHER, SELFPAY ==
[2024-09-28 11:18] LABS: Hematocrit 45.2 % (39.0-52.0); Hemoglobin 14.2 g/dL (13.0-18.0); Mean Corp Hgb Conc. 31.4 g/dL (33.0-37.0); Mean Corpuscular Volume 89.3 fL (80.0-94.0); Nucleated Red Blood Cells % 0 % (-); Platelet Count 154 10^3/uL (130-400); Red Cell Dist. Width 16.2 % (11.5-14.5)
[2024-09-28 12:37] LABS: ALT (SGPT) 16 U/L (0-50); AST (SGOT) 15 U/L (17-59); Albumin 4.3 g/dl (3.5-5.0); Alkaline Phosphatase 72 U/L (38-126); Blood Urea Nitrogen 30 mg/dl (9-20); Calcium 9.3 mg/dl (8.4-10.2); Carbon Dioxide 32 mmol/L (22-30); Chloride 98 mmol/L (98-107); Glucose 281 mg/dl (70-99); Potassium 4.1 mmol/L (3.5-5.1); Sodium 137 mmol/L (135-145); Total Protein 7.0 g/dl (6.3-8.2); eGFR > 60.00
[2024-09-28 13:04] LABS: PSA, Total - Diagnostic 0.30 ng/ml (0.0-4.0)
== END ==
LOC: REG 10:16
PROVIDERS: ATTENDING PHYSICIAN Internal Medicine Hematology & Oncology; FAMILY PHYSICIAN Internal Medicine Geriatric Medicine
DX: C61 Malignant neoplasm of prostate (principal)
CPT/HCPCS: 36415; 80053; 84153; 85025

== ENCOUNTER → 2024-10-05 10:18 | Outpatient (REF) | payer MEDICARE, OTHER, SELFPAY ==
[2024-10-05 12:33] LABS: Hematocrit 45.1 % (39.0-52.0); Hemoglobin 14.3 g/dL (13.0-18.0); Mean Corp Hgb Conc. 31.7 g/dL (33.0-37.0); Mean Corpuscular Volume 88.8 fL (80.0-94.0); Nucleated Red Blood Cells % 0 % (-); Platelet Count 150 10^3/uL (130-400); Red Cell Dist. Width 15.7 % (11.5-14.5); Reticulocyte Count 1.4 % (0.4-2.8)
[2024-10-05 12:51] LABS: Iron 88 ug/dl (49-181)
[2024-10-05 13:01] LABS: Total Iron Binding Capacity 259 ug/dl (261-462)
[2024-10-05 13:28] LABS: Ferritin 130.0 ng/ml (17.9-464.0)
== END ==
LOC: REG 10:18
PROVIDERS: ATTENDING PHYSICIAN Nurse Practitioner Adult Health; FAMILY PHYSICIAN Internal Medicine Geriatric Medicine
DX: C61 Malignant neoplasm of prostate (principal); R53.83 Other fatigue; E11.9 Type 2 diabetes mellitus without complications
CPT/HCPCS: 36415; 82728; 83540; 83550; 85025; 85045

== ENCOUNTER → 2024-10-14 09:05 | Outpatient (REF) | payer MEDICARE, OTHER, SELFPAY ==
[2024-10-14 10:40] LABS: Hematocrit 45.4 % (39.0-52.0); Hemoglobin 14.3 g/dL (13.0-18.0); Mean Corp Hgb Conc. 31.5 g/dL (33.0-37.0); Mean Corpuscular Volume 88.2 fL (80.0-94.0); Nucleated Red Blood Cells % 0 % (-); Platelet Count 191 10^3/uL (130-400); Red Cell Dist. Width 15.3 % (11.5-14.5); Urine Character Clear (Clear)
[2024-10-14 11:46] LABS: Vitamin D, 25-OH*** 33.1 ng/mL (30-80)
[2024-10-14 11:50] LABS: Microalb - Urine Creatinine 15.900 mg/dl
[2024-10-14 11:54] LABS: Microalbumin, Random Urine 1.7 mg/dl (0.6-1.7)
[2024-10-14 13:13] LABS: Glycohemoglobin (HgbA1c) 8.9 % (4.0-5.6)
[2024-10-14 13:26] LABS: ALT (SGPT) 15 U/L (0-50); AST (SGOT) 16 U/L (17-59); Albumin 4.1 g/dl (3.5-5.0); Alkaline Phosphatase 73 U/L (38-126); Blood Urea Nitrogen 25 mg/dl (9-20); Calcium 9.0 mg/dl (8.4-10.2); Carbon Dioxide 33 mmol/L (22-30); Chloride 97 mmol/L (98-107); Glucose 234 mg/dl (70-99); HDL Cholesterol 93 mg/dl; LDL Cholesterol, Calculated 78 mg/dl; Potassium 3.7 mmol/L (3.5-5.1); Sodium 137 mmol/L (135-145); Total Protein 6.9 g/dl (6.3-8.2); Very Low Density Lipoprotein 31 mg/dl (0-30); eGFR > 60.00
== END ==
LOC: REG 09:05
PROVIDERS: ATTENDING PHYSICIAN Internal Medicine Hematology & Oncology; FAMILY PHYSICIAN Internal Medicine Geriatric Medicine
DX: C61 Malignant neoplasm of prostate (principal); E11.9 Type 2 diabetes mellitus without complications; F33.1 Major depressive disorder, recurrent, moderate; I50.32 Chronic diastolic (congestive) heart failure; E78.2 Mixed hyperlipidemia; I10 Essential (primary) hypertension; G47.30 Sleep apnea, unspecified; E03.8 Other specified hypothyroidism; R97.20 Elevated prostate specific antigen [PSA]; M17.0 Bilateral primary osteoarthritis of knee; I11.9 Hypertensive heart disease without heart failure; Z13.89 Encounter for screening for other disorder; G45.9 Transient cerebral ischemic attack, unspecified; R53.1 Weakness; Z91.81 History of falling; R41.3 Other amnesia; Z79.899 Other long term (current) drug therapy
CPT/HCPCS: 36415; 80053; 80061; 81003; 82043; 82306; 82570; 83036; 83880; 85025

== ENCOUNTER → 2024-10-15 17:00 | Outpatient (REF) | payer MEDICARE, OTHER, SELFPAY | LOC: REG 17:00 | PROVIDERS: ATTENDING PHYSICIAN Nurse Practitioner Adult Health; FAMILY PHYSICIAN Internal Medicine Geriatric Medicine | DX: C61 Malignant neoplasm of prostate (principal); R53.83 Other fatigue | CPT/HCPCS: 82272 ==

== ENCOUNTER → 2024-10-17 15:41 | Outpatient (REF) | payer MEDICARE, OTHER, SELFPAY ==
[2024-10-17 17:13] LABS: PSA, Total - Diagnostic 0.30 ng/ml (0.0-4.0)
== END ==
LOC: REG 15:41
PROVIDERS: ATTENDING PHYSICIAN Internal Medicine Hematology & Oncology; FAMILY PHYSICIAN Internal Medicine Geriatric Medicine
DX: C61 Malignant neoplasm of prostate (principal); R53.83 Other fatigue
CPT/HCPCS: 36415; 84153

== ENCOUNTER → 2024-11-13 13:11 | Outpatient (REF) | payer MEDICARE, OTHER, SELFPAY ==
[2024-11-13 14:05] LABS: Hematocrit 44.9 % (39.0-52.0); Hemoglobin 14.4 g/dL (13.0-18.0); Mean Corp Hgb Conc. 32.1 g/dL (33.0-37.0); Mean Corpuscular Volume 88.7 fL (80.0-94.0); Nucleated Red Blood Cells % 0 % (-); Platelet Count 154 10^3/uL (130-400); Red Cell Dist. Width 15.9 % (11.5-14.5)
[2024-11-13 14:36] LABS: ALT (SGPT) 17 U/L (0-50); AST (SGOT) 18 U/L (17-59); Albumin 4.2 g/dl (3.5-5.0); Alkaline Phosphatase 69 U/L (38-126); Blood Urea Nitrogen 28 mg/dl (9-20); Calcium 9.5 mg/dl (8.4-10.2); Carbon Dioxide 34 mmol/L (22-30); Chloride 93 mmol/L (98-107); Glucose 444 mg/dl (70-99); Potassium 4.5 mmol/L (3.5-5.1); Sodium 136 mmol/L (135-145); Total Protein 6.8 g/dl (6.3-8.2); eGFR > 60.00
[2024-11-13 15:05] LABS: PSA, Total - Diagnostic 0.22 ng/ml (0.0-4.0)
== END ==
LOC: REG 13:11
PROVIDERS: ATTENDING PHYSICIAN Nurse Practitioner Primary Care; FAMILY PHYSICIAN Internal Medicine Geriatric Medicine
DX: R53.83 Other fatigue (principal); N40.0 Benign prostatic hyperplasia without lower urinary tract symptoms
CPT/HCPCS: 36415; 80053; 84153; 85025

== ENCOUNTER → 2024-11-18 13:41 | Outpatient (REF) | payer MEDICARE, OTHER, SELFPAY ==
[2024-11-18 19:04] LABS: Urine Character Clear (Clear)
== END ==
LOC: CLAB 13:41
PROVIDERS: ATTENDING PHYSICIAN Surgery
DX: R39.9 Unspecified symptoms and signs involving the genitourinary system (principal)
CPT/HCPCS: 81003; 87086

== ENCOUNTER → 2024-12-10 14:45 | Outpatient (REF) | payer MEDICARE, OTHER, SELFPAY ==
[2024-12-10 15:54] LABS: Hematocrit 44.1 % (39.0-52.0); Hemoglobin 14.1 g/dL (13.0-18.0); Mean Corp Hgb Conc. 32.0 g/dL (33.0-37.0); Mean Corpuscular Volume 86.8 fL (80.0-94.0); Nucleated Red Blood Cells % 0 % (-); Platelet Count 168 10^3/uL (130-400); Red Cell Dist. Width 15.7 % (11.5-14.5)
[2024-12-10 16:18] LABS: ALT (SGPT) 15 U/L (0-50); AST (SGOT) 16 U/L (17-59); Albumin 4.0 g/dl (3.5-5.0); Alkaline Phosphatase 57 U/L (38-126); Blood Urea Nitrogen 23 mg/dl (9-20); Calcium 9.3 mg/dl (8.4-10.2); Carbon Dioxide 35 mmol/L (22-30); Chloride 95 mmol/L (98-107); Glucose 318 mg/dl (70-99); Potassium 5.0 mmol/L (3.5-5.1); Sodium 136 mmol/L (135-145); Total Protein 6.6 g/dl (6.3-8.2); eGFR > 60.00
[2024-12-10 16:46] LABS: PSA, Total - Diagnostic 0.23 ng/ml (0.0-4.0)
== END ==
LOC: REG 14:45
PROVIDERS: ATTENDING PHYSICIAN Nurse Practitioner Primary Care; FAMILY PHYSICIAN Internal Medicine Geriatric Medicine
DX: C61 Malignant neoplasm of prostate (principal); R53.83 Other fatigue
CPT/HCPCS: 36415; 80053; 84153; 85025

== ENCOUNTER 2024-12-30 18:05 | Inpatient (IN) | payer MEDICARE, OTHER, SELFPAY ==
[2024-12-30 14:12] VITALS: BMI 25.3
[2024-12-30 14:32] VITALS: BP 120/62
[2024-12-30 14:35] VITALS: BP 120/62
[2024-12-30 15:00] VITALS: BP 107/58
--- NOTE | 2024-12-30 15:06 | ED.MUSCINJ ---
HPI-Injury
<Juan Blake PA-C - Last Filed: 12/30/24 16:48>
General
Chief Complaint: Fall
Source: patient
Exam Limitations: none
Time Seen by Provider: 12/30/24 14:57
History of Present Illness-Injury
Initial Injury comments:
79-year-old male on Eliquis for A-fib fell at grocery store today complains of right hip pain. He has been unable to walk since then. He did not hit his head he denies neck pain. He lives at home with his of who he takes care of as she is
wheelchair dependent
Past History
<Juan Blake PA-C - Last Filed: 12/30/24 16:48>
Past History
ED Past Medical History: Arrthythmia (Atrial fib), Cancer (prostate Ca, Skin cancer basal and squamous cell), CHF, HTN, Hypercholesterolemia, NIDDM, Psychiatric (Anxiety, ) and Other (Back pain, Neuropathy, Numbness arms and legs, Sciatic pain, TIA,
Sleep apnea, Pulmonary fiborosis, aortic stenosis, Urinary retention, Macular degeneration, )
ED Past Surgical History: Appendectomy, Cardiac (TAVR, loop recorder., Left carotid endarterectomy, aortic valve replaced), Orthopedic (Left total knee replacement 02/16, Right foot surgery. ), Tonsilectomy (and adenioids) and Other (Left-sided CEA,
Cataracts, )
Social History
Tobacco: Non-smoker
Alcohol: None
Drug: None
Personal:
Living: with family
Phy Exam
<Juan Blake PA-C - Last Filed: 12/30/24 16:48>
Physical Exam
Physical Exam:
General: Well-appearing male no acute distress
HEENT: Normal cephalic atraumatic
Heart: Regular rate and rhythm
Lungs: Clear no wheeze
ABd: soft, nontender
MSK: RLE shortened and externally rotated with increased pain upon internal rotation
Spine is nontender
Injury Course
<Juan Blake PA-C - Last Filed: 12/30/24 16:48>
Orders/Labs/Results
Orders:
Orders
12/30/24 15:04
CR Hip - RT w/wo Pel 2-3 Vw* Urgent
Reason For Exam: fall, deformity
Include a pelvis x-ray?: Yes
12/30/24 16:02
Type+Screen Urgent
Complete Blood Count/With Diff Urgent
Comprehensive Metabolic Panel Urgent
Abnormal Lab Results
12/30/24
16:02
MCHC 31.7 L g/dL
(33.0-37.0)
RDW 15.1 H %
(11.5-14.5)
Abs Immat Gran (auto) 0.1 H 10^3/uL
(0-0.05)
Immature Gran % 0.6 H %
(0-0.5)
Neutrophils % 77.3 H %
(42.2-75.2)
Lymphocytes % 16.0 L %
(20.5-51.1)
Carbon Dioxide 35 H mmol/L
(22-30)
Glucose 166 H mg/dl
(70-99)
12/30/24 16:02
12/30/24 16:02
<Karthik Mariano DO - Last Filed: 12/30/24 16:11>
Orders/Labs/Results
Orders:
Orders
12/30/24 15:04
CR Hip - RT w/wo Pel 2-3 Vw* Urgent
Reason For Exam: fall, deformity
Include a pelvis x-ray?: Yes
12/30/24 16:02
Type+Screen Urgent
Complete Blood Count/With Diff Urgent
Comprehensive Metabolic Panel Urgent
Abnormal Lab Results
12/30/24
16:02
MCHC 31.7 L g/dL
(33.0-37.0)
RDW 15.1 H %
(11.5-14.5)
Abs Immat Gran (auto) 0.1 H 10^3/uL
(0-0.05)
Immature Gran % 0.6 H %
(0-0.5)
Neutrophils % 77.3 H %
(42.2-75.2)
Lymphocytes % 16.0 L %
(20.5-51.1)
Carbon Dioxide 35 H mmol/L
(22-30)
Glucose 166 H mg/dl
(70-99)
12/30/24 16:02
12/30/24 16:02
<Juan Blake PA-C - Last Filed: 12/30/24 16:48>
MDM/Problems Addressed
Differential Diagnosis Includes:
Mechanical fall with right hip pain. Concern for possible fracture given the shortening and externally rotated leg. No head strike. On Eliquis last dose was this morning. Labs ordered x-ray pending
<Juan Blake PA-C - Last Filed: 12/30/24 16:48>
*Pulse Oximetry
SaO2: 93
Patient hypoxic: no
*Critical Care Note
Total Time (30-74mins, 75-104mins- exclusive of procedures): Not Applicable
<Juan Blake PA-C - Last Filed: 12/30/24 16:48>
Update Note
Update Note:
X-ray personally reviewed and demonstrates fracture of the femoral neck of the right femur. Will plan admitting to hospitalist with orthopedic consult. Discussed with emergency room attending
ED Attending Note
<Juan Blake PA-C - Last Filed: 12/30/24 16:48>
-
Portions of this chart may have been created with voice recognition software.� Occasional wrong word or��sound alike� substitutions may have occurred due to the inherent limitations of voice recognition software.
<Karthik Mariano DO - Last Filed: 12/30/24 16:11>
ED Attending Note
Patient seen and examined by attending physician: Yes
I performed the substantive portion of visit, reviewed & personally made and approve the management plan that is documented in note by myself or GENNY.: Yes
ED Attending Note:
Seen with PA examined independently 79-year-old male on Eliquis fall hip fracture normal mental status no overt signs of head or neck trauma, will require admission
Discharge Plan
Departure
Patient Disposition: Admit
Date of Disposition: 12/30/24
Time of Disposition: 16:48
Presentation/result/management discussed w/ accepting MD/DO: Hospitalist
Discharge Problem:
Closed fracture of neck of right femur
Prescriptions:
No Action
coenzyme Q10 [Co Q-10] 100 MG capsule
100 mg PO DAILY
simvastatin 20 MG tablet
20 mg PO HS
metoprolol succinate 25 mg Tablet Extended Release 24 Hr
12.5 mg PO HS
tamsulosin 0.4 mg Capsule
0.4 mg PO HS
metformin 1,000 MG tablet
1,000 mg PO BID
cetirizine [Zyrtec] 10 mg Tablet
10 mg PO HS
fluticasone propionate 50 mcg/actuation Lang[place],Suspension
2 spray INTRANASAL DAILY
Eliquis 5 mg Tablet
5 mg PO BID
donepezil 5 mg Tablet
5 mg PO HS
polyethylene glycol 3350 [Miralax] 17 gram Powder In Packet
17 g PO DAILYPRN PRN (Reason: constipation)
midodrine 5 mg Tablet
5 mg PO BID
midodrine 5 mg Tablet
5 mg PO DAILYPRN PRN (Reason: blood pressure)
Patient Comments:
09/10/2024, prescribed for pt. to take TID but pt. forgets to take 3rd dose often and treats as needed.
aspirin 81 mg Tablet,Delayed Release (Dr/Ec)
81 mg PO HS
famotidine 20 mg Tablet
20 mg PO DAILY
furosemide 80 mg Tablet
80 mg PO DAILY
sertraline 25 mg Tablet
25 mg PO HS
ipratropium bromide 21 mcg (0.03 %) spray,non-aerosol
2 spray INTRANASAL DAILY
solifenacin 5 mg Tablet
5 mg PO HS
levalbuterol tartrate 45 mcg/actuation HFA aerosol inhaler
2 puff INHALATION R BIDPRN PRN (Reason: sob)
cholecalciferol (vitamin D3) 100 mcg (4,000 unit) Tablet
100 mcg PO DAILY
PreserVision AREDS-2 250-90-40-1 mg Capsule
1 cap PO BID
dapagliflozin propanediol [Farxiga] 10 mg Tablet
10 mg PO DAILY
Lupron
1 dose SC Q4W
prednisone 10 mg tablet
10 mg PO DIRECTED Qty: 40 0RF
Rx Instructions:
Start with 40 mg daily and decrease dose by 10 mg every 5th day
Referrals:
Neville Gómez MD [Family Provider, Internal Medicine]
Interventions
Interventions:
*Risk Screen - Suicide Last Done: 12/30/24 14:11
*General Assessment Last Done: 12/30/24 14:13
*Neglect/Abuse Screening Last Done: 12/30/24 14:11
*ED- Fall Risk Assessment Last Done: 12/30/24 14:13
*ED COVID-19 Vaccine History Last Done: 12/30/24 14:34
*ED Influenza Vaccine History Last Done: 12/30/24 14:34
ED-Musculoskeletal Assessment Last Done: 12/30/24 14:14
ED- Neurological Assessment Last Done: 12/30/24 14:14
ED-Skin Assessment Last Done: 12/30/24 14:14
Discharge Date and Time
Print Language: FAROESE
--- NOTE | 2024-12-30 15:30 | EDCM ---
CM received verbal consult from ED nurse Dori, I met with pt bedside in ED, pt lives with his and is her caregiver. They live in a 2 story home, [address], has first floor set up.
Pt is independent in ADLs, personal care and ambulation. No assistive devices. 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
Pt states can care for herself, able to move around home and get her own food. He is planning to call his daughter who lives in [place] to ask her to come up and check on her mother.
No hx VN or SNF, has attended outpatient Pulmonary Rehab in the past.
I offered pt a list of private pay caregiver agencies but he declined, said he will speak to his and daughter and will let CM know if he needs assistance.
PCP: Neville Gómez
Pharmacy: [facility]
CM will continue to follow for all discharge planning needs.
[2024-12-30 16:25] LABS: Hematocrit 41.7 % (39.0-52.0); Hemoglobin 13.2 g/dL (13.0-18.0); Mean Corp Hgb Conc. 31.7 g/dL (33.0-37.0); Mean Corpuscular Volume 87.6 fL (80.0-94.0); Nucleated Red Blood Cells % 0 % (-); Platelet Count 173 10^3/uL (130-400); Red Cell Dist. Width 15.1 % (11.5-14.5)
[2024-12-30 16:41] LABS: ALT (SGPT) 18 U/L (0-50); AST (SGOT) 17 U/L (17-59); Albumin 3.6 g/dl (3.5-5.0); Alkaline Phosphatase 59 U/L (38-126); Blood Urea Nitrogen 20 mg/dl (9-20); Calcium 9.0 mg/dl (8.4-10.2); Carbon Dioxide 35 mmol/L (22-30); Chloride 98 mmol/L (98-107); Estimated Creatinine Clearance 106 ml/min; Glucose 166 mg/dl (70-99); Potassium 3.9 mmol/L (3.5-5.1); Sodium 135 mmol/L (135-145); Total Protein 6.4 g/dl (6.3-8.2); eGFR > 60.00
--- NOTE | 2024-12-30 17:38 | HPS.HSE ---
Family Physician
-
Family Physician: Neville Gómez
Chief Complaint
-
Mechanical fall leading to right hip fracture
History of Present Illness
Patient went up to shopping and when he got out of the car to walk to the department he had lost balance and fell to the ground. Denies any loss of consciousness, lightheadedness. He does not use any aids to walk. Independent with ADLs.
Denies any recent changes with his health.
Only medication change in the last 3 months was prednisone was cut down from 20 mg to 10 mg. He has a history of ILD which has been stable. He takes nebulizers at home but not on home oxygen. In fact he said he had a 6-minute walk test last week
and it was all good. Denies any exertional shortness of breath
He also has significant great cardiac history with A-fib but no recent palpitations. On Eliquis., History of TAVR with no recent issues, heart failure on Lasix and Farxiga without recent increased weight, leg swelling or shortness of breath.
Currently denies any lightheadedness, palpitations, shortness of breath or chest pain.
No nausea vomiting or diarrhea. No abdominal pain.
Denies any symptoms of frequency or dysuria. He has history of BPH.
Medical History
Past Medical History
Past Medical History: Reports Other
Additional Past Medical History:
see above
Past Surgical History: Reports Other
Additional Past Surgical History:
see above
Social History
Tobacco: Former Smoker
Alcohol: None
Drug: None
Family History
Family History: Not pertinent
Allergies / Home Medications
Allergies reflects when Allergies were last updated in [facility].
Home Medications with original date entered in [facility]
Allergy/Medication List:
Allergies
Allergy/AdvReac Type Severity Reaction Status Date / Time
Penicillins Allergy Rash Verified 09/10/24 22:19
pollen extracts Allergy watery Verified 09/10/24 22:19
eyes,
nasal
congestion
Home Medications
coenzyme Q10 100 mg capsule (Co Q-10) 100 mg PO DAILY Supplement 02/22/19
simvastatin 20 mg tablet 20 mg PO HS High cholesterol 02/22/19
metoprolol succinate 25 mg tablet,extended release 24 hr 12.5 mg PO HS Blood pressure 01/25/22
tamsulosin 0.4 mg capsule 0.4 mg PO HS Urinary Issue 11/18/22
metformin 1,000 mg tablet 1,000 mg PO BID Diabetes 11/24/22
cetirizine 10 mg tablet (Zyrtec) 10 mg PO HS 07/28/23
fluticasone propionate 50 mcg/actuation nasal spray,suspension 2 spray intranasal DAILY 07/28/23
apixaban 5 mg tablet (Eliquis) 5 mg PO BID 09/14/23
Lupron 1 dose SC Q4W 09/10/24
aspirin 81 mg tablet,delayed release 81 mg PO HS 09/10/24
cholecalciferol (vitamin D3) 100 mcg (4,000 unit) tablet 100 mcg PO DAILY 09/10/24
dapagliflozin propanediol 10 mg tablet (Farxiga) 10 mg PO DAILY 09/10/24
donepezil 5 mg tablet 5 mg PO HS 09/10/24
famotidine 20 mg tablet 20 mg PO DAILY 09/10/24
furosemide 80 mg tablet 80 mg PO DAILY 09/10/24
ipratropium bromide 21 mcg (0.03 %) nasal spray 2 spray intranasal DAILY 09/10/24
levalbuterol tartrate 45 mcg/actuation aerosol inhaler 2 puff inhalation R BIDPRN PRN sob 09/10/24
midodrine 5 mg tablet 5 mg PO BID 09/10/24
midodrine 5 mg tablet 5 mg PO DAILYPRN PRN blood pressure 09/10/24
polyethylene glycol 3350 17 gram oral powder packet (Miralax) 17 g PO DAILYPRN PRN constipation 09/10/24
prednisone 5 mg tablet 5 mg PO DAILY 09/10/24
sertraline 25 mg tablet 25 mg PO HS 09/10/24
solifenacin 5 mg tablet 5 mg PO HS 09/10/24
vit C 250 mg-vit E 90 mg-zinc 40 mg-copper 1 [id number] capsule (PreserVision AREDS-2) 1 cap PO BID 09/10/24
Review of Systems
-
A 12 point ROS was completed and negative except as noted: Yes
Physical Exam
Vital Signs
Vital Signs
Temp Pulse Resp BP Pulse Ox
97.6 F 59 14 120/62 93
12/30/24 14:11 12/30/24 14:12 12/30/24 14:12 12/30/24 14:35 12/30/24 15:08
Physical Exam
General: No Apparent Distress
HEENT: Moist mucous membranes
Respiratory: Crackles (Few crackles in right base otherwise clear) and Non Labored Respirations; No Wheezes or Accessory Resp Muscle Use
Cardiac: S1/S2 and Regular Rhythm; No Tachycardia or JVD
GI: Soft and Non Tender
Musculoskeletal: No Edema
Neuro: AO x 3 and No Motor Deficits (Did not check proximal strength of the right leg)
Psych: Calm
Laboratory Results
-
12/30/24 16:02
12/30/24 16:02
Laboratory Results
Total Bilirubin 0.6 mg/dl (0.2-1.3) 12/30/24 16:02
AST 17 U/L (17-59) 12/30/24 16:02
ALT 18 U/L (0-50) 12/30/24 16:02
Alkaline Phosphatase 59 U/L (38-126) 12/30/24 16:02
Data Reviewed
-
Diagnostic Radiology: Report Reviewed by me (X-ray of the right hip)
Medical Tests (Nuc Med, Echo, EKG etc): Report Reviewed by me (EKG)
Lab Data: Labs Reviewed by me
Impression/Plan
-
Mechanical fall leading to right hip fracture-patient on Eliquis, last dose was this morning. Plan for surgery tomorrow noted. N.p.o. past midnight. Ortho aware.
Preop cardiac eval-patient with significant cardiopulmonary disease in the form of paroxysmal A-fib on Eliquis. Today's EKG shows sinus rhythm with no acute ST-T changes. He also has history of heart failure with preserved EF and today he seems
clinically compensated. History of TAVR with mild AR. No recent chest pains or angina. Denies any history of CAD. In view of complicated cardiac history we will obtain cardiology consult for preop cardiac eval.
Favor holding Lasix for tomorrow preop and continue after surgery
Hold Farxiga presurgery.
Continue beta-willian.
Chronic interstitial lung disease-on low-dose maintenance steroids or prednisone at 10 mg. Uses inhalers and nebulizers. No home O2. Denies any recent changes with his respiratory function. Will obtain a chest x-ray for his baseline. Will start
on stress dose steroids.
GERD-continue with Pepcid
BPH-continue with home medication of solifenacin and tamsulosin
Orthostatic hypotension-continue with midodrine
Diabetes mellitus-hold metformin and follow on sliding scale insulin
Full code
[2024-12-30 18:17] VITALS: BP 126/70
--- NOTE | 2024-12-30 20:00 | PTCARENOTE ---
Pt arrived on 2S from ED at 19:34 after losing his footing and falling to the ground in the parking lot of a grocery store. History of TAVR with no recent issues, heart failure on Lasix and Farxiga. PMH Back pain, lightheadedness, neuropathy,
sciatica, stroke or TIA, dyspnea, ex-smoker, ILD, sleep apnea, aortic stenosis, a-fib, CHF, edema, A-fib, Heart murmur, HTN, HLD, Valve disorder, polyps, BPH, arthritis, fractures, TJR, Diabetes Oral agent, Macular degeneration, skin cancer,
anxiety. Pt AOx3, but forgetful at times, accessed pain and pt only wanted Tylenol, on a static overlay, with bed alarm, call light in reach.
[2024-12-30 20:37] VITALS: BP 124/50
[2024-12-30 20:47] VITALS: BMI 25.3
[2024-12-30] MEDS: SENOKOT 17.2 MG PO (20:52)
[2024-12-30] MEDS: COLACE 100 MG PO (20:52)
[2024-12-30] MEDS: TYLENOL 650 MG PO ×2 (20:52→23:08)
[2024-12-30] MEDS: DETROL LA 2 MG PO (21:50)
[2024-12-30] MEDS: LIPITOR 10 MG PO (21:50)
[2024-12-30] MEDS: ARICEPT 5 MG PO (21:52)
[2024-12-30] MEDS: ZYRTEC 10 MG PO (21:52)
[2024-12-30] MEDS: ASPIR LOW (ENTERIC COATED) 81 MG PO (21:53)
[2024-12-30] MEDS: TOPROL XL 12.5 MG PO (21:53)
[2024-12-30] MEDS: FLOMAX 0.4 MG PO (21:53)
[2024-12-30 23:00] VITALS: BP 99/53
[2024-12-30] MEDS: SOLU-CORTEF 50 MG IV (23:09)
[2024-12-31] VITALS (10 sets, daily range): BP systolic 100–130; BP diastolic 49–68; BMI 27.8
[2024-12-31] MEDS: TYLENOL 650 MG PO ×3 (03:19→21:51)
[2024-12-31 05:42] LABS: Glucose - Point of Care 183 mg/dl (70-99)
[2024-12-31] MEDS: NOVOLOG FLEXPEN-LOW RESISTANCE 1 UNITS SC ×2 (05:56→13:02)
[2024-12-31 06:34] LABS: Hematocrit 40.9 % (39.0-52.0); Hemoglobin 13.2 g/dL (13.0-18.0); Mean Corp Hgb Conc. 32.3 g/dL (33.0-37.0); Mean Corpuscular Volume 88.9 fL (80.0-94.0); Platelet Count 157 10^3/uL (130-400); Red Cell Dist. Width 15.4 % (11.5-14.5)
[2024-12-31 07:28] LABS: Glucose - Point of Care 218 mg/dl (70-99)
[2024-12-31] MEDS: OCUVITE SOFTGEL 1 CAP PO ×2 (08:12→22:26)
[2024-12-31] MEDS: COLACE 100 MG PO ×2 (08:12→21:49)
[2024-12-31] MEDS: VITAMIN D3 (cholecalciferol) 100 MCG PO (08:12)
[2024-12-31] MEDS: PEPCID 20 MG PO (08:12)
[2024-12-31] MEDS: SENOKOT 17.2 MG PO ×2 (08:12→21:49)
[2024-12-31] MEDS: SOLU-CORTEF 50 MG IV ×2 (08:13→16:25)
--- NOTE | 2024-12-31 08:41 | CON.CAR ---
Addendum entered and electronically signed by Christian Hopkins MD 12/31/24 12:08:
79-year-old man admitted with a right femoral neck fracture after mechanical fall. History of orthostatic hypotension
PMH: Interstitial lung disease, HFpEF, pulmonary hypertension, paroxysmal atrial fibrillation on Eliquis leukopenia, metastatic prostate cancer, history of Taxotere, now Lupron
Left CEA for carotid intimal dissection 2022, left lacunar infarct 2022, TAVR 2019, history of LINQ implant, now at end-of-life, hypertension hyperlipidemia, diabetes and knee surgery
Current meds: Colace, Senokot, donepezil Zyrtec, midodrine 5 mg daily, should be 3 times daily, tamsulosin, atorvastatin 10 mg a day, aspirin 81 mg a day, desvenlafaxine, famotidine, Atrovent, Detrol, hydrocortisone, insulin, as outpatient: Lupron
as outpatient, furosemide 80 mg a day, Eliquis 5 mg twice daily as outpatient, metformin 1000 mg twice daily, prednisone 10 mg a day, simvastatin, solifacin
130/68, 114/61, Pulse 62, respiratory rate 19 afebrile, weight is 93 kg, external rotation right leg, no acute distress, head neck exam unremarkable, fine crackles in lungs, mostly bases, occasional extrasystoles regular rate and rhythm soft
systolic murmur base to apex, abdomen benign, extremities with external rotation of leg no edema
Hemoglobin is 13.2, BUN and creatinine are 20 and 0.7, CO2 is 35, potassium 3.9
ECG: Sinus rhythm, occasional PVC, occasional PAC, ST and T changes, possible LVH
Chest x-ray: Vague interstitial infiltrate
Echo 09/2024: EF 55%, mild MR, mildly dilated left atrium, 29 mm Saravia transcatheter aortic valve with mild aortic regurgitation, peak/mean gradient 12/6 mmHg, moderate TR, pulmonary artery systolic pressure is 46 mmHg
Telemetry: Sinus rhythm
Impression:
Right femoral neck fracture
Interstitial lung disease
HFpEF, appears compensated
History of paroxysmal A-fib, in sinus rhythm Eliquis
Metastatic prostate cancer
Left carotid endarterectomy 2022
Left lacunar infarct TAVR 2022
Diabetes
Hypertension
Hyperlipidemia
Medtronic LINQ monitor, at end of service
Plan:
Despite his femoral neck fracture, he seems relatively stable from a cardiac standpoint and can proceed to right hip hemiarthroplasty at acceptable cardiac risk.
Okay to hold Eliquis and restart as outpatient. Eventually postop, resume metformin and dapagliflozin. Eventual restart of furosemide.
Continue low-dose metoprolol.
No need to repeat echo
He believes he fractured the leg before he fell send denies syncope. However, may need to uptitrate midodrine.
No need to repeat echo at this time.
We will continue to follow.
Original Note:
Consultation
Consultation Request
Date/Time Consultation Requested: 12/30/2024 at 1957
Date/Time Consultation Performed: 12/23/2024 at 0917
Requesting Provider: Dr. Fallon
Performing Provider: Dr. AMMON Hopkins
Reason for Consultation: Preop cardiovascular risk stratification with history of Afib and TAVR
Medical History
-
History of Present Illness:
Patient came to the ER yesterday after a witnessed fall and was admitted with right hip fracture and cardiology is consulted for preoperative cardiovascular risk stratification. Patient says he was in his usual state of health yesterday and had
driven to the grocery store, then as he stood up from his car and was a few steps away he suddenly lost his balance and fell landing on his right hip. Nurses were in the parking lot and ran to his aid and he was unable to stand up despite their
help and 911 was called. Patient was brought to the ER where x-rays revealed a right hip fracture prompting admission and orthopedic evaluation. Patient is recommended right hip ORIF today and cardiology was requested for preoperative
cardiovascular risk stratification. Patient denies any resting chest pain or SOB. He is able to lift his 's wheelchair in and out of the trunk of the car several times a day without chest pain. He also pushes his in the wheelchair
without chest pain or SOB. Patient had an admission 09/11/2024 for possible acute HF, but ultimately was ruled in ILD flare that was treated with increased prednisone dosing. When patient was last seen in the cardiology office on 09/12/2024 he was
thought to be euvolemic on his usual dose of Lasix 80 mg daily. Patient has chronic hypotension and takes midodrine 5 mg daily even though it is ordered TID and it was recommended that he increase to at least BID dosing at his last office visit on
09/12/2024, but he never followed through on this. Patient with history of paroxysmal A-fib, but is in SR on ECG reviewed by me. He is chronically on Eliquis 5 mg BID, last dose was 12/30/2024 AM.
PMH:
ILD
PHTN
Chronic HFpEF
Paroxysmal Afib
Chronic Eliquis OAC
h/o leukopenia, previously on Neupogen
h/o prostate cancer
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
h/o left lacunar infarct by MRI 12/2022
s/p TAVR for severe at [facility] 2019
s/p Medtronic loop recorder for 'tachycardia'
at end of life
HTN
HLD
DM2
History of knee surgery
Past Medical History
Past Medical History: Other (in HPI)
Past Surgical History: Appendectomy, Cardiac (TAVR 2019), Orthopedic, Tonsilectomy and Other (EA)
Social History
Tobacco: Non-Smoker
Alcohol: None
Drug: None
Personal:
Living: With Family
Employment: Retired
Family History
Family History: CAD
Allergies / Home Medications
Allergy/AdvReac Type Severity Reaction Status Date / Time
Penicillins Allergy Rash Verified 09/10/24 22:19
pollen extracts Allergy watery Verified 09/10/24 22:19
eyes,
nasal
congestion
�Medication �Instructions �Recorded �Confirmed �Type
coenzyme Q10 100 mg capsule (Co 100 mg PO DAILY Supplement 02/22/19 12/30/24 History
Q-10)
simvastatin 20 mg tablet 20 mg PO HS High cholesterol 02/22/19 12/30/24 History
metoprolol succinate 25 mg 12.5 mg PO HS Blood pressure 01/25/22 12/30/24 History
tablet,extended release 24 hr
tamsulosin 0.4 mg capsule 0.4 mg PO HS Urinary Issue 11/18/22 12/30/24 History
metformin 1,000 mg tablet 1,000 mg PO BID Diabetes 11/24/22 12/30/24 History
cetirizine 10 mg tablet (Zyrtec) 10 mg PO HS Allergies 07/28/23 12/30/24 History
fluticasone propionate 50 2 spray intranasal DAILY Allergies 07/28/23 12/30/24 History
mcg/actuation nasal
spray,suspension
apixaban 5 mg tablet (Eliquis) 5 mg PO BID Blood Clot 09/14/23 12/30/24 History
Prevention/Tx
aspirin 81 mg tablet,delayed 81 mg PO HS Blood Clot 09/10/24 12/30/24 History
release Prevention/Tx
cholecalciferol (vitamin D3) 100 100 mcg PO DAILY Supplement 09/10/24 12/30/24 History
mcg (4,000 unit) tablet
dapagliflozin propanediol 10 mg 10 mg PO DAILY Diabetes 09/10/24 12/30/24 History
tablet (Farxiga)
donepezil 5 mg tablet 5 mg PO HS Alzheimer's 09/10/24 12/30/24 History
famotidine 20 mg tablet 20 mg PO DAILY gerd 09/10/24 12/30/24 History
furosemide 80 mg tablet 80 mg PO DAILY Fluid 09/10/24 12/30/24 History
Retention/Swelling
ipratropium bromide 21 mcg (0.03 2 spray intranasal DAILY Allergies 09/10/24 12/30/24 History
%) nasal spray
leuprolide 7.5 mg intramuscular 0 mg IM Q4W Hormonal Agent ##0 09/10/24 12/30/24 History
syringe kit (Lupron Depot)
levalbuterol tartrate 45 2 puff inhalation R BIDPRN PRN sob 09/10/24 12/30/24 History
mcg/actuation aerosol inhaler
midodrine 5 mg tablet 5 mg PO DAILY Blood Pressure 09/10/24 12/30/24 History
polyethylene glycol 3350 17 gram 17 g PO DAILYPRN PRN constipation 09/10/24 12/30/24 History
oral powder packet (Miralax)
solifenacin 5 mg tablet 5 mg PO HS Urinary Issue 09/10/24 12/30/24 History
vit C 250 mg-vit E 90 mg-zinc 40 1 cap PO BID Supplement 09/10/24 12/30/24 History
mg-copper 1 [id number]
capsule (PreserVision AREDS-2)
desvenlafaxine succinate 25 mg 25 mg PO DAILY Mental 12/30/24 12/30/24 History
tablet,extended release 24 hr Health/Anxiety
prednisone 10 mg tablet 10 mg PO DAILY Autoimmune Disorder 12/30/24 12/30/24 History
Review of Systems
-
History Source: Patient and Family ( by phone helps with HPI)
All other systems: Negative unless noted
Physical Exam
Vital Signs
Temp Pulse Resp BP Pulse Ox
98.3 F 81 18 114/61 92
12/31/24 04:00 12/31/24 04:00 12/31/24 04:00 12/31/24 04:00 12/31/24 04:00
GEN: NAD. AAOx3
HEENT: EOMI, MMM, wearing glasses
LUNGS: RA. B/L rales without wheeze
CV: SR on telemetry. Reg with ectopy, S1/S2, no murmur
ABD: ND
EXT: No edema B/L
NEURO: Gross non-focal
SKIN: No rash
Lab Results
12/31/24 05:37
12/30/24 16:02
Impression / Plan
-
PCP: Dr. Gómez
Cardiology: Dr. Lillie Henderson
Assessment:
Admitted with fall and right hip fracture 12/30/2024
Recent admission for ILD flare 09/11/2024
ILD
PHTN
Chronic HFpEF
Paroxysmal Afib
Chronic Eliquis OAC
h/o leukopenia, previously on Neupogen
h/o prostate cancer
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
h/o left lacunar infarct by MRI 12/2022
s/p TAVR for severe at [facility] 2019
s/p Medtronic loop recorder for 'tachycardia'
at end of life
HTN
HLD
DM2
History of knee surgery
Lexiscan nuclear stress test 07/20/2023: Small area of mildly decreased perfusion predominantly reversible in the apical lateral segment and apical segment that improves with prone imaging EF 56%
Echo 03/30/2023: EF 55 to 60%. Mild MR. Status post TAVR Saravia number 29 mm valve. Peak/mean gradient 16/10 mmHg. PAP 25 to 30 mmHg
Echo 07/22/2023: EF 50 to 55%, GLS -19.1%, mild MR, mild TR, well-seated TAVR peak/mean 14/8 mmHg
Echo 11/24/2023: EF 55 to 60%, GLS -17.1%, mild MR, #29 TAVR well-seated with mild perivalvular aortic regurgitation and mean gradient 7 mmHg, mild TR with PAP 60 to 65 mmHg
Echo 09/11/2024: EF 55%, normal diastolic function, mild MR, well-seated #29 TAVR with mild paravalvular aortic regurgitation, peak/mean 12/6 mmHg, thickened TV leaflets with moderate TR and PAP 46 mmHg
Plan:
-Patient came to the ER yesterday after a witnessed fall and was admitted with right hip fracture and cardiology is consulted for preoperative cardiovascular risk stratification. Patient says he was in his usual state of health yesterday and had
driven to the grocery store, then as he stood up from his car and was a few steps away he suddenly lost his balance and fell landing on his right hip. Nurses were in the parking lot and ran to his aid and he was unable to stand up despite their
help and 911 was called. Patient was brought to the ER where x-rays revealed a right hip fracture prompting admission and orthopedic evaluation. Patient is recommended right hip ORIF today and cardiology was requested for preoperative
cardiovascular risk stratification. Patient denies any resting chest pain or SOB. He is able to lift his 's wheelchair in and out of the trunk of the car several times a day without chest pain. He also pushes his in the wheelchair
without chest pain or SOB. Patient had an admission 09/11/2024 for possible acute HF, but ultimately was ruled in ILD flare that was treated with increased prednisone dosing. When patient was last seen in the cardiology office on 09/12/2024 he was
thought to be euvolemic on his usual dose of Lasix 80 mg daily. Patient has chronic hypotension and takes midodrine 5 mg daily even though it is ordered TID and it was recommended that he increase to at least BID dosing at his last office visit on
09/12/2024, but he never followed through on this. Patient with history of paroxysmal A-fib, but is in SR on ECG reviewed by me. He is chronically on Eliquis 5 mg BID, last dose was 12/30/2024 AM.
-ECG reviewed by me is SR without acute ST changes
-Patient is able to complete more than 4 METS of activity without chest pain or SOB, he is able to lift his 's wheelchair in and out of the trunk of their car and then push his for long periods in the wheelchair without any chest pain or
SOB.
-Patient also appears well compensated from a heart failure standpoint even though weight is up 8 lbs from last discharge on 09/11/2024. No evidence of acute HF changes on CXR.
-Outpatient dose of Lasix 80 mg PO daily is on hold, but recommend that this be restarted as soon as possible.
-Last echo was 09/11/2024 and EF was preserved to 55% with normal function of his TAVR and mild paravalvular aortic regurgitation that was stable compared to echo from 11/24/2023
-Patient with known severe ILD and severe YOUSIF. He just saw pulmonology in the office on 12/26/2024 and was recommended to continue with his usual dose of prednisone 20 mg daily and his 6-minute walk test was stable and actually improved compared to
05/2024.
-Patient with known paroxysmal A-fib, but currently NSR on my review of telemetry 12/23/2024. Outpatient dose of Toprol-XL 12.5 mg daily has been continued.
-Outpatient dose of Eliquis 5 mg BID (age 79, wt 92.98 kg, Cre 0.7)is on hold for upcoming orthopedic surgery, last dose was 12/30/2024 AM
- It is possible that his 'loss of balance' was actually an episode of orthostasis. Patient has a history of orthostasis and is ordered midodrine 5 mg TID, but he only takes daily despite being encouraged to at least increase dosing to BID at his
last cardiology visit on 09/12/2024.
--- NOTE | 2024-12-31 08:47 | W.PN.UPDATE ---
Update Note
Progress Note Update
Full consult to be dictated.
79 year old male with right hip femoral neck fracture.
-Plan for surgery, right hip cecilia, under the direction of Dr. Jose if medically stable.
-Consent for surgery and blood transfusion obtained and placed in patient's chart. Right hip marked as correct surgical site.
-Cardiology to see patient this morning for risk stratification.
-NPO and hold Eliquis.
-Bed rest until surgery.
-IV abx and irrigation corrections unit supervisor to OR>
--- NOTE | 2024-12-31 12:41 | CON.ORTHO ---
Addendum entered and electronically signed by Louis Jose MD 12/31/24 17:37:
I saw and evaluated the patient at bedside. 79-year-old male who sustained a fall getting out of a parking lot at [facility]. He reports that he did not trip but that the leg gave way. He fell onto the right side and was brought to the
[place] emergency department and noted to have a displaced femoral neck fracture. He has a history of prostate cancer that is being treated. He lives with his . No prior right hip pain. On exam, the patient is comfortable lying in bed.
No open wounds on the right lower extremity about the hip. Motor and sensation intact distally. Pelvis and right hip x-rays show signs of displaced right femoral neck fracture. I discussed treatment options with the patient including nonoperative
and operative treatment. We discussed hemiarthroplasty given the displaced nature of his femoral neck fracture to help improve early mobility. Shared decision was to proceed with right hip hemiarthroplasty. All questions were answered.
Original Note:
Consultation
-
Date/Time Consultation Requested: 12/30/2024
Date/Time Consultation Performed: 12/31/2024 7:15 am
Requesting Provider: Dr. Fallon
Performing Provider: Maya Neil PA-C, for Dr. Louis Jose
Reason for Consultation: Right hip femoral neck fracture
Consultation - Orthopedics
History
HPI: Mr. Crocker is an 79-year-old male who sustained a fall onto his right hip when [facility]. He was unable to stand after the fall secondary to pain. Fortunately, there were some
nurses around to are able to help him until EMS arrived. He was taken to [facility] emergency department where x-rays were taken and demonstrated a femoral neck fracture with greater trochanter extension. He does have an extensive cardiac
history and is on Eliquis for atrial fibrillation, the last dose of which was yesterday morning. He reports pain is well-controlled at rest. He denies any radiation of pain or numbness/tingling of his right lower extremity. He is the primary
caregiver for his , who is wheelchair-bound. Our orthopedic team was consulted and to discuss definitive management of his fracture forward.
PMH: ILD, A-fib, HF, CAD, HLD, HTN, BPH, DM.
Past surgical history: TAVR.
Social history: denies tobacco or alcohol use. Lives at home with .
Family history: non contributory.
Review of systems: all systems reviewed and negative except for those mentioned in HPI.
Allergies / Home Medications
Allergy/AdvReac Type Severity Reaction Status Date / Time
Penicillins Allergy Rash Verified 09/10/24 22:19
pollen extracts Allergy watery Verified 09/10/24 22:19
eyes,
nasal
congestion
�Medication �Instructions �Recorded
coenzyme Q10 100 mg capsule (Co 100 mg PO DAILY Supplement 02/22/19
Q-10)
simvastatin 20 mg tablet 20 mg PO HS High cholesterol 02/22/19
metoprolol succinate 25 mg 12.5 mg PO HS Blood pressure 01/25/22
tablet,extended release 24 hr
tamsulosin 0.4 mg capsule 0.4 mg PO HS Urinary Issue 11/18/22
metformin 1,000 mg tablet 1,000 mg PO BID Diabetes 11/24/22
cetirizine 10 mg tablet (Zyrtec) 10 mg PO HS Allergies 07/28/23
fluticasone propionate 50 2 spray intranasal DAILY Allergies 07/28/23
mcg/actuation nasal
spray,suspension
apixaban 5 mg tablet (Eliquis) 5 mg PO BID Blood Clot 09/14/23
Prevention/Tx
aspirin 81 mg tablet,delayed 81 mg PO HS Blood Clot 09/10/24
release Prevention/Tx
cholecalciferol (vitamin D3) 100 100 mcg PO DAILY Supplement 09/10/24
mcg (4,000 unit) tablet
dapagliflozin propanediol 10 mg 10 mg PO DAILY Diabetes 09/10/24
tablet (Farxiga)
donepezil 5 mg tablet 5 mg PO HS Alzheimer's 09/10/24
famotidine 20 mg tablet 20 mg PO DAILY gerd 09/10/24
furosemide 80 mg tablet 80 mg PO DAILY Fluid 09/10/24
Retention/Swelling
ipratropium bromide 21 mcg (0.03 2 spray intranasal DAILY Allergies 09/10/24
%) nasal spray
leuprolide 7.5 mg intramuscular 0 mg IM Q4W Hormonal Agent ##0 09/10/24
syringe kit (Lupron Depot)
levalbuterol tartrate 45 2 puff inhalation R BIDPRN PRN sob 09/10/24
mcg/actuation aerosol inhaler
midodrine 5 mg tablet 5 mg PO DAILY Blood Pressure 09/10/24
polyethylene glycol 3350 17 gram 17 g PO DAILYPRN PRN constipation 09/10/24
oral powder packet (Miralax)
solifenacin 5 mg tablet 5 mg PO HS Urinary Issue 09/10/24
vit C 250 mg-vit E 90 mg-zinc 40 1 cap PO BID Supplement 09/10/24
mg-copper 1 [id number]
capsule (PreserVision AREDS-2)
desvenlafaxine succinate 25 mg 25 mg PO DAILY Mental 12/30/24
tablet,extended release 24 hr Health/Anxiety
prednisone 10 mg tablet 10 mg PO DAILY Autoimmune Disorder 12/30/24
Vital Signs / Lab Results
Temp Pulse Resp BP Pulse Ox
97.9 F 62 15 130/68 96
12/31/24 07:15 12/31/24 07:15 12/31/24 07:15 12/31/24 07:15 12/31/24 07:15
12/31/24 05:37
12/30/24 16:02
Physical examination:
General: WD/WN male in NAD at rest. AAO x 4.
HEENT: AT/NC, neck supple.
Lungs: non labored breathing on room air.
Right hip: mild swelling, no obvious ecchymosis. ROM not tested due to know fracture. Superficial abrasions about anterior knee. Calf soft and non tender to palpation. N/v intact distally.
Radiographic studies:
X-rays of the right hip show evidence of a right femoral neck fracture with extension to the greater trochanter.
Assessment / Plan
Assessment: Right femoral neck fracture.
Plan: Mr. Crocker sustained a femoral neck fracture during his fall yesterday. This will require surgical intervention in the form of a right hip hemiarthroplasty. The surgery was explained in detail along with the associated risks, benefits,
and recovery process. Surgical and blood consents were signed and placed in patient's chart. Plan will be to proceed with surgery under the direction of Dr. Jose today pending cardiac clearance/medical stabilization.
-NPO and hold Eliquis.
-Bed rest until surgery.
-IV abx and irrigation oncology social worker to OR.
-Patient was in agreement with treatment recommendations and all questions were answered.
[2024-12-31 12:57] LABS: Glucose - Point of Care 179 mg/dl (70-99)
--- NOTE | 2024-12-31 12:57 | W.PN.HOSP.TC ---
Today's Communication/Plan
-
OR today
Will restart Lasix after surgery.
Continue with IV stress dose steroids.
Assessment / Plan
Assessment / Plan
Mechanical fall leading to right hip fracture-patient on Eliquis, last dose was this morning. Plan for surgery today. Ortho input noted.
Preop cardiac eval-patient with significant cardiopulmonary disease in the form of paroxysmal A-fib on Eliquis. Today's EKG shows sinus rhythm with no acute ST-T changes. He also has history of heart failure with preserved EF and today he seems
clinically compensated. History of TAVR with mild AR. No recent chest pains or angina. Denies any history of CAD. In view of complicated cardiac history we will obtain cardiology consult for preop cardiac eval.
Favor holding Lasix for preop and continue after surgery
Hold Farxiga presurgery.
Continue beta-willian.
Appt Cards input
Chronic interstitial lung disease-on low-dose maintenance steroids or prednisone at 10 mg. Uses inhalers and nebulizers. No home O2. Denies any recent changes with his respiratory function. chest x-ray shows chronic ILD but no CHF or
pneumonia.cw stress dose steroids.
GERD-continue with Pepcid
BPH-continue with home medication of solifenacin and tamsulosin
Orthostatic hypotension-continue with midodrine
Diabetes mellitus-hold metformin and follow on sliding scale insulin
Full code
Discussed with cardiology today.
Discussed with RN
Anticipated Discharge: > 48 hours
Subjective/Interval History
-
Date of Service: December 31, 2024
No overnight events.
Denies chest pain, palpitations, shortness of breath or lightheadedness. No cough.
No nausea vomiting.
Right hip fracture pain tolerable. Await OR.
Objective Data
-
Labs:
Laboratory Results
12/31/24
05:37
WBC 10.8
Hgb 13.2
Hct 40.9
Plt Count 157
Vital Signs:
Vital Signs
Temp Pulse Resp BP Pulse Ox
97.9 F 62 16 103/54 93
12/31/24 11:20 12/31/24 11:20 12/31/24 11:20 12/31/24 11:20 12/31/24 11:20
I&O
12/30/24 12/31/24 01/01/25
06:59 06:59 06:59
Output Total 1050 / 1050 650 / 650
Balance -1050 / -1050 -650 / -650
Physical Exam
-
General: Comfortable
Respiratory: Crackles (Few in right base) and Non Labored Respirations; Negative Wheezes or Accessory Resp Muscle Use
Cardiac: Regular Rhythm and S1/S2; Negative Tachycardic
GI: Soft and Nontender
Neuro: AO x 3
Data Reviewed
-
Labs: Labs Reviewed by me
[2024-12-31] MEDS: TYLENOL PO ×2 (13:09→16:45)
--- NOTE | 2024-12-31 14:31 | CM ---
S/P fall. Femoral neck fracture. Plan for right hip hemiarthroplasty. Spoke with concerning POC after surgery. Discharge POC: TBD. Therapy eval after surgery.
[2024-12-31 15:54] LABS: Glucose - Point of Care 155 mg/dl (70-99)
[2024-12-31 16:53] LABS: Glucose - Point of Care 133 mg/dl (70-99)
--- NOTE | 2024-12-31 19:49 | OR.RPT ---
Operative Report
Operative Report
Orthopaedic Surgery Operative Note
DATE OF OPERATION: 12/31/2024
PREOPERATIVE DIAGNOSES: Displaced femoral neck fracture, right
POSTOPERATIVE DIAGNOSES: Same
OPERATION PERFORMED: Right hip hemiarthroplasty; history of prostate cancer
SURGEON: Louis Jose MD
SPINNING FRAME CLEANER: Luis Obrien PA-C who helped with patient and limb positioning and retraction
ANESTHESIA: General
COMPLICATIONS: None.
ESTIMATED BLOOD LOSS: 50 mL.
DRAINS: None
SPECIMEN: Femoral head
FINDINGS: Displaced fracture of the femoral neck; no signs of pathologic bone
IMPLANTS: [employer] stem size 17 standard offset, Size 55 Endo unipolar head, DJO bone cement, medium cement restrictor, distal centralizer
INDICATIONS: The patient presented to the emergency department after a fall sustained one day ago with new onset hip pain. Xrays showed a displaced femoral neck fracture. I discussed treatment options with the patient and discussed that based on the
degree of displacement that fixation of the fracture may have a high risk of complication and failure. I discussed surgical treatment with arthroplasty. Based on the patient's age and activity level, shared decision was to proceed with
hemiarthroplasty. I reviewed the risks, benefits, and alternatives of various treatment options. The patient understood the risks which included, but were not limited to, bleeding, infection, failure to relieve pain, more pain than preop, damage to
blood vessels and nerves, need for reoperation, mechanical failure of the implants, wound healing problems, stiffness, instability, blood clot, pulmonary embolism, myocardial infarction, pneumonia, arrhythmia, CVA, and . The patient accepted
these risks and wished to proceed. All questions were answered, and informed consent was obtained.
PROCEDURE IN DETAIL:
The patient was identified in the preoperative holding area. The right hip was identified as the operative site. The patient was taken in the operating room and transferred to the operative table. General anesthesia was performed. IV antibiotics
and tranexamic acid were administered. The patient was placed in the lateral position with Stulberg hip positioners. Axillary roll was placed. The down leg was well padded. All bony prominences were well padded. The operative limb was prepped and
draped in the usual sterile fashion.
Time out was performed. A posterolateral approach to the hip was used. The skin incision was centered over the greater trochanter. This was taken down sharply through subcutaneous tissues. Meticulous hemostasis was achieved throughout the case with
electrocautery. We split the fascia grant in line with skin incision. I split the gluteus eric bluntly. We cauterized all crossing vessels as we split it. I palpated the sciatic nerve and made sure it was well posterior in the operative field. It
was protected throughout the case.
The posterior anatomy was distorted due to fracture hematoma and swelling. I performed a partial bursectomy to identify the short external rotators. The gluteus medius and minimus were identified and retracted anteriorly. I incised the piriformis
tendon and conjoint tendon at their insertions. These were tagged for later repair. I then performed a trapezoidal capsulotomy. The edges were tagged for later repair.
The femoral neck fracture was identified. The leg was flexed and internally rotated, and a fresh femoral neck cut was performed. The femur was translated anteriorly. Care was taken to preserve the labrum. The femoral head was carefully removed with
a avila and a tenaculum. The head measured to be mm. The acetabulum was inspected and noted not to have marked degenerative changes. A trial head was placed in the acetabulum and size 55 had appropriate fit and suction fit.
Attention was turned to the femur. Box osteotome and Charnley awe were used to open the canal. The femur was sequentially broached to size 17 which had appropriate fit and fill. A trial head was placed with standard offset neck and the hip was
reduced. Leg length and offset were checked and found to be appropriate. The hip was taken through complete range of motion and found to be stable in extension, the position of sleep, and at 90 degrees of flexion and internal rotation.
Trials were removed and the femoral canal was prepared with irrigation and ribbon gauze packing sequentially. A cement restrictor was placed into the femoral canal 1cm distal to the tip of the femoral stem. This was measured off the trial femoral
stem. Once the femoral canal was prepared, the cement was mixed. Once doughy in consistency, the cement was pressurized into the canal with a cement gun. The stem was then carefully inserted into the canal with care to minimize rotation or
micromotion. Excess cement was removed. Once the cement was polymerized, the joint was irrigated copiously. The acetabulum was inspected to be free of cement particles and other debris. The final head was impacted onto clean and dry trunion and the
hip was reduced. Leg length and stability were checked again and found to be acceptable. The sciatic nerve was inspected and noted to be free of tension and uninjured.
A dilute betadine soak was performed for approximately 3 minutes, and then the hip was copiously irrigated. I repaired the capsule, piriformis, and conjoint tendon with #2 Ethibond to drill holes in the greater trochanter. Local anesthetic was
injected. The fascia grant was closed with #1 PDS in running fashion. The subcutaneous tissues were closed with 2-0 PDS in running fashion. The skin was reapproximated with 3-0 Monocryl subcuticular suture. I placed a Prineo dressing followed by a
Mepilex Ag dressing. The patient awoke from anesthesia without difficulty. Sponge and instrument counts were correct x2 at the end of the case.
I was present and participated in the entire procedure. The patient was sent to the recovery room in stable condition.
Paul Jose MD
[2024-12-31 20:08] LABS: Glucose - Point of Care 178 mg/dl (70-99)
--- NOTE | 2024-12-31 20:50 | PTCARENOTE ---
pt arrived from [facility] @ 2049 s/p right hip hemiarthroplasty under general, EBL 50; VSS, NC @ 2L, pt not complaining of pain at this time; bed locked in lowest position; call mathews within reach; care ongoing;
[2024-12-31] MEDS: TOPROL XL 12.5 MG PO (21:49)
[2024-12-31] MEDS: ZYRTEC 10 MG PO (21:49)
[2024-12-31] MEDS: DETROL LA 2 MG PO (21:51)
[2024-12-31] MEDS: FLOMAX 0.4 MG PO (21:51)
[2024-12-31] MEDS: ASPIR LOW (ENTERIC COATED) 81 MG PO (21:51)
[2024-12-31] MEDS: LIPITOR 10 MG PO (21:52)
[2024-12-31] MEDS: ARICEPT 5 MG PO (21:52)
[2024-12-31 22:10] LABS: Glucose - Point of Care 196 mg/dl (70-99)
[2024-12-31] MEDS: NOVOLOG FLEXPEN-LOW RESISTANCE SC (22:51)
[2025-01-01] VITALS (9 sets, daily range): BP systolic 95–117; BP diastolic 55–63; PULSE 81–83; O2SAT 91; BMI 27.8
[2025-01-01] MEDS: SOLU-CORTEF 50 MG IV ×2 (00:05→09:50)
[2025-01-01] MEDS: TYLENOL 650 MG PO ×5 (00:09→20:52)
[2025-01-01] MEDS: ANCEF 5 IV ×2 (02:31→09:51)
[2025-01-01] MEDS: TYLENOL PO (05:45)
[2025-01-01 06:32] LABS: Hematocrit 38.5 % (39.0-52.0); Hemoglobin 11.7 g/dL (13.0-18.0)
[2025-01-01 06:59] LABS: Blood Urea Nitrogen 20 mg/dl (9-20); Calcium 8.5 mg/dl (8.4-10.2); Carbon Dioxide 30 mmol/L (22-30); Chloride 100 mmol/L (98-107); Estimated Creatinine Clearance 92 ml/min; Glucose 260 mg/dl (70-99); Potassium 3.9 mmol/L (3.5-5.1); Sodium 137 mmol/L (135-145); eGFR > 60.00
[2025-01-01 07:21] LABS: Glucose - Point of Care 317 mg/dl (70-99)
--- NOTE | 2025-01-01 09:07 | W.PN.ORTHO ---
Today's Communication / Plan
-
79 yo M POD1 right hip hemiarthroplasty under the direction of Dr. Jose
--Weight bearing as tolerated to right lower extremity. THPs x6-8 weeks. We appreciate the assistance of PT/OT.
--Eliquis as directed by primary.
--Pain control prn. Ice and elevation for pain and edema control.
--Maintain surgical dressing until 2 week post-op visit.
--Case management consult for dc planning.
--Orthopedics will continue to follow along.
Assessment
.
Distal Motor Intact: Yes
Dressing:
Clean, dry and intact.
Plan
.
Surgery / Date: R hip hemiarthroplasty, Rebeca, 12/31
DVT Prophylaxis: Other (Eliquis)
Activity:
Out of bed.
PT/OT
Subjective
.
.:
Mr. Crocker is POD1 following his right hip hemiarthroplasty performed by Dr. Jose yesterday. He is resting comfortably in bed this morning, and denies any pain in the hip at present. He has no questions or concerns at this time.
Vital Signs and Labs
.
Vital Signs and Labs:
Lab Results
01/01/25 05:53
01/01/25 05:53
Temp Pulse Resp BP Pulse Ox
98.7 F 57 16 117/56 93
01/01/25 07:05 01/01/25 07:05 01/01/25 07:05 01/01/25 07:05 01/01/25 07:05
Physical Exam
-
Directed exam of the right lower extremity reveals surgical dressing clean, dry and intact. No tenderness to palpation about the hip. Thigh soft and compressible. Calf soft and nontender. Neurovascularly intact distally.
[2025-01-01] MEDS: NOVOLOG FLEXPEN-LOW RESISTANCE 4 UNITS SC (09:34)
[2025-01-01] MEDS: VITAMIN D3 (cholecalciferol) 100 MCG PO (09:35)
[2025-01-01] MEDS: OCUVITE SOFTGEL 1 CAP PO ×2 (09:36→20:52)
[2025-01-01] MEDS: PEPCID 20 MG PO (09:36)
[2025-01-01] MEDS: ELIQUIS 5 MG PO ×2 (09:36→20:52)
--- NOTE | 2025-01-01 09:44 | W.PN.CARDCBS ---
Today's Communication / Plan
-
Resume home cardiac meds
Stable cardiac status, we will sign off, please recall as needed
Impression / Plan
-
PCP: Dr. Gómez
Cardiology: Dr. Lillie Henderson
Assessment:
Admitted with fall and right hip fracture 12/30/2024
Recent admission for ILD flare 09/11/2024
ILD
PHTN
Chronic HFpEF
Paroxysmal Afib
Chronic Eliquis OAC
h/o leukopenia, previously on Neupogen
h/o prostate cancer
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
h/o left lacunar infarct by MRI 12/2022
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
s/p Medtronic loop recorder for 'tachycardia'
at end of life
HTN
HLD
DM2
History of knee surgery
Lexiscan nuclear stress test 07/20/2023: Small area of mildly decreased perfusion predominantly reversible in the apical lateral segment and apical segment that improves with prone imaging EF 56%
Echo 03/30/2023: EF 55 to 60%. Mild MR. Status post TAVR [place] number 29 mm valve. Peak/mean gradient 16/10 mmHg. PAP 25 to 30 mmHg
Echo 07/22/2023: EF 50 to 55%, GLS -19.1%, mild MR, mild TR, well-seated TAVR peak/mean 14/8 mmHg
Echo 11/24/2023: EF 55 to 60%, GLS -17.1%, mild MR, #29 TAVR well-seated with mild perivalvular aortic regurgitation and mean gradient 7 mmHg, mild TR with PAP 60 to 65 mmHg
Echo 09/11/2024: EF 55%, normal diastolic function, mild MR, well-seated #29 TAVR with mild paravalvular aortic regurgitation, peak/mean 12/6 mmHg, thickened TV leaflets with moderate TR and PAP 46 mmHg
Patient came to the ER after a witnessed fall and was admitted with right hip fracture and cardiology is consulted for preoperative cardiovascular risk stratification. Patient says he was in his usual state of health yesterday and had driven to the
grocery store, then as he stood up from his car and was a few steps away he suddenly lost his balance and fell landing on his right hip. Nurses were in the parking lot and ran to his aid and he was unable to stand up despite their help and 911 was
called. Patient was brought to the ER where x-rays revealed a right hip fracture prompting admission and orthopedic evaluation. Patient is recommended right hip ORIF today and cardiology was requested for preoperative cardiovascular risk
stratification. Patient denies any resting chest pain or SOB. He is able to lift his 's wheelchair in and out of the trunk of the car several times a day without chest pain. He also pushes his in the wheelchair without chest pain or SOB.
Patient had an admission 09/11/2024 for possible acute HF, but ultimately was ruled in ILD flare that was treated with increased prednisone dosing. When patient was last seen in the cardiology office on 09/12/2024 he was thought to be euvolemic on
his usual dose of Lasix 80 mg daily. Patient has chronic hypotension and takes midodrine 5 mg daily even though it is ordered TID and it was recommended that he increase to at least BID dosing at his last office visit on 09/12/2024, but he never
followed through on this. Patient with history of paroxysmal A-fib, but is in SR on ECG reviewed by me. He is chronically on Eliquis 5 mg BID, last dose was 12/30/2024 AM.
Plan:
#HFpEF: Appears euvolemic on exam
Outpatient dose of Lasix 80 mg PO daily and Farxiga 10 held. Will resume starting tomorrow.
#Paroxysmal A-fib: Currently in NSR on my review of telemetry.
Outpatient dose of Toprol-XL 12.5 mg daily has been continued.
Eliquis 5 mg BID (age 79, wt 92.98 kg, Cre 0.7) was resumed
#Orthostasis- Cont home midodrine
Stable cardiac status, we will sign off, please recall as needed
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
Subjective
Date of Service: January 01, 2025
No acute overnight events. Underwent repair of his right femoral neck fracture yesterday. Patient resting comfortably in bed this morning. No cardiac complaints including no chest discomfort or dyspnea.
Objective
Labs:
01/01/25 05:53
01/01/25 05:53
Labs
Hgb 11.7 g/dL (13.0-18.0) L 01/01/25 05:53
Hct 38.5 % (39.0-52.0) L 01/01/25 05:53
Plt Count 157 10^3/uL (130-400) 12/31/24 05:37
Sodium 137 mmol/L (135-145) 01/01/25 05:53
Potassium 3.9 mmol/L (3.5-5.1) 01/01/25 05:53
BUN 20 mg/dl (9-20) 01/01/25 05:53
Creatinine 0.7 mg/dL (0.7-1.3) 01/01/25 05:53
Glucose 260 mg/dl (70-99) H 01/01/25 05:53
Vital Signs and I&O:
Vital Signs
Temp Pulse Resp BP Pulse Ox
98.7 F 57 16 117/56 93
01/01/25 07:05 01/01/25 07:05 01/01/25 07:05 01/01/25 07:05 01/01/25 07:05
Vital Signs
Temp Pulse Resp BP Pulse Ox
98.7 F 57 16 117/56 93
01/01/25 07:05 01/01/25 07:05 01/01/25 07:05 01/01/25 07:05 01/01/25 07:05
Intake & Output
12/30/24 12/31/24 01/01/25 01/02/25
06:59 06:59 06:59 06:59
Intake Total 480 / 480
Output Total 1050 / 1050 1300 / 1300
Balance -1050 / -1050 -820 / -820
Physical Exam
Physical Exam
Gen: NAD, AAOx3
HEENT: NC/AT, sclera anicteric
Neck: No JVD
CV: RRR, NL s1/s2
Lungs: CTAB on RA
Abd: S/ND
Ext: No LE edema
Skin: Warm, dry
Neuro: Non-focal
[2025-01-01] MEDS: COLACE 100 MG PO ×2 (09:50→20:52)
[2025-01-01] MEDS: SENOKOT 17.2 MG PO ×2 (09:50→20:52)
--- NOTE | 2025-01-01 10:24 | W.PN.HOSP.TC ---
Today's Communication/Plan
-
Resume oral prednisone and start stress dose steroids.
Lasix and Farxiga resumed.
Back on Eliquis.
Follow PT recommendations and start discharge plan.
Assessment / Plan
Assessment / Plan
Mechanical fall leading to right hip fracture-status post right hip hemiarthroplasty 12/31
Continue with pain regimen
Continue with PT OT
Ortho input regarding follow-up noted
Start discharge plan
Paroxysmal fibrillation-in sinus rhythm. Eliquis resumed. No beta-willian.
Chronic heart failure with preserved EF-clinically compensated. Resumed Lasix and Farxiga postop
Chronic interstitial lung disease-on low-dose maintenance steroids or prednisone at 10 mg. Uses inhalers and nebulizers. No home O2. Denies any recent changes with his respiratory function. chest x-ray shows chronic ILD but no CHF or
pneumonia.DC from the stress dose steroids and resume his maintenance prednisone of 10 mg daily. No evidence of flare.
GERD-continue with Pepcid
BPH-continue with home medication of solifenacin and tamsulosin
Orthostatic hypotension-continue with midodrine
Diabetes mellitus-hold metformin and follow on sliding scale insulin
Full code
Anticipated Discharge: Within 24 hours
Subjective/Interval History
-
Date of Service: January 01, 2025
Status post right hip hemiarthroplasty yesterday.
Postop pain much under control.
Denies any chest pain or shortness of breath. No lightheadedness.
No nausea vomiting. Voicing no specific complaints.
Objective Data
-
Labs:
Laboratory Results
01/01/25
05:53
Hgb 11.7 L
Hct 38.5 L
Sodium 137
Potassium 3.9
Chloride 100
Carbon Dioxide 30
BUN 20
Creatinine 0.7
Glucose 260 H
Calcium 8.5
Vital Signs:
Vital Signs
Temp Pulse Resp BP Pulse Ox
98.7 F 57 16 117/56 93
01/01/25 07:05 01/01/25 07:05 01/01/25 07:05 01/01/25 07:05 01/01/25 07:05
I&O
12/31/24 01/01/25 01/02/25
06:59 06:59 06:59
Intake Total 480 / 480 200 / 200
Output Total 1050 / 1050 1300 / 1300
Balance -1050 / -1050 -820 / -820 200 / 200
Physical Exam
-
General: Comfortable
Respiratory: Crackles (rt base) and Non Labored Respirations; Negative Wheezes, Rhonchi or Accessory Resp Muscle Use
Cardiac: Regular Rhythm and S1/S2; Negative Tachycardic
GI: Soft
Neuro: AO x 3
Psych: Calm
Data Reviewed
-
Labs: Labs Reviewed by me
[2025-01-01 12:23] LABS: Glucose - Point of Care 295 mg/dl (70-99)
[2025-01-01] MEDS: NOVOLOG FLEXPEN-LOW RESISTANCE 3 UNITS SC ×2 (13:09→16:47)
--- NOTE | 2025-01-01 13:33 | CM ---
Addendum entered by Rambo Underwood 01/01/25 16:30:
Met with patient requesting his SNF preferences. He has not chosen as yet. Reinforced to patient that CM needs referrals to place in tomorrow. Expressed understanding.
Original Note:
POD #1 Right hip hemiarthroplasty. Discharge POC: Therapy recommended SNF. [employer] list explained and provided to patient who will review with his and choose 4 preferences.
[2025-01-01 16:02] LABS: Glucose - Point of Care 398 mg/dl (70-99)
[2025-01-01] MEDS: GLUCOPHAGE 1000 MG PO (16:48)
[2025-01-01] MEDS: ZYRTEC 10 MG PO (20:53)
[2025-01-01] MEDS: ASPIR LOW (ENTERIC COATED) 81 MG PO (21:00)
[2025-01-01] MEDS: ARICEPT 5 MG PO (21:00)
[2025-01-01] MEDS: DETROL LA 2 MG PO (21:01)
[2025-01-01] MEDS: TOPROL XL 12.5 MG PO (21:01)
[2025-01-01] MEDS: FLOMAX 0.4 MG PO (21:01)
[2025-01-01] MEDS: LIPITOR 10 MG PO (21:01)
[2025-01-01 21:41] LABS: Glucose - Point of Care 332 mg/dl (70-99)
[2025-01-02] VITALS (9 sets, daily range): BP systolic 88–122; BP diastolic 50–64; PULSE 86–119; O2SAT 94–95; BMI 28.9
[2025-01-02] MEDS: TYLENOL PO ×2 (01:00→03:26)
[2025-01-02] MEDS: TYLENOL 650 MG PO ×6 (04:39→23:12)
--- NOTE | 2025-01-02 06:56 | W.PN.ORTHO ---
Today's Communication / Plan
-
POD2 right hip hemiarthroplasty under the direction of Dr. Jose
--Weight bearing as tolerated to right lower extremity. THPs x6-8 weeks. We appreciate the assistance of PT/OT.
--Eliquis as directed by primary.
--Pain control prn. Ice and elevation for pain and edema control.
--Maintain surgical dressing until 2 week post-op visit.
--Case management consult for dc planning.
--Orthopedics follow up 2 weeks post-op
--Orthopedics to sign off.
Assessment
.
Distal Motor Intact: Yes
Dressing:
Clean, dry and intact.
Plan
.
Surgery / Date: R hip hemiarthroplasty, Rebeca, 12/31
DVT Prophylaxis: Other (Eliquis)
Activity:
Out of bed.
PT/OT
Discharge Plan: SNF
Subjective
.
.:
Patient resting comfortably.
Vital Signs and Labs
.
Vital Signs and Labs:
Lab Results
01/01/25 05:53
01/01/25 05:53
Temp Pulse Resp BP Pulse Ox
98.0 F 59 18 121/52 97
01/02/25 04:19 01/02/25 04:19 01/02/25 04:19 01/02/25 04:19 01/02/25 04:19
[2025-01-02 07:30] LABS: Glucose - Point of Care 269 mg/dl (70-99)
[2025-01-02] MEDS: NOVOLOG FLEXPEN-LOW RESISTANCE 3 UNITS SC (08:48)
[2025-01-02] MEDS: FARXIGA 10 MG PO (08:52)
[2025-01-02] MEDS: DELTASONE 10 MG PO (08:52)
[2025-01-02] MEDS: ELIQUIS 5 MG PO ×2 (08:52→20:59)
[2025-01-02] MEDS: COLACE PO (08:52)
[2025-01-02] MEDS: LASIX 80 MG PO (08:53)
[2025-01-02] MEDS: SENOKOT PO (08:53)
[2025-01-02] MEDS: OCUVITE SOFTGEL 1 CAP PO ×2 (08:53→20:59)
[2025-01-02] MEDS: GLUCOPHAGE 1000 MG PO ×2 (08:53→18:05)
[2025-01-02] MEDS: PEPCID 20 MG PO (08:53)
[2025-01-02] MEDS: VITAMIN D3 (cholecalciferol) 100 MCG PO (08:54)
--- NOTE | 2025-01-02 09:28 | W.PN.HOSP.TC ---
Today's Communication/Plan
-
Add glipizide
DC planning
Assessment / Plan
Assessment / Plan
Mechanical fall leading to right hip fracture-status post right hip hemiarthroplasty 12/31
Continue with pain regimen
Continue with PT OT
Ortho input regarding follow-up noted
Paroxysmal fibrillation-in sinus rhythm. Eliquis resumed. Continue with beta-willian.
Chronic heart failure with preserved EF-clinically compensated. Resumed Lasix and Farxiga postop
Chronic interstitial lung disease-on low-dose maintenance steroids or prednisone at 10 mg. Uses inhalers and nebulizers. No home O2. Denies any recent changes with his respiratory function. chest x-ray shows chronic ILD but no CHF or
pneumonia.DC from the stress dose steroids and resume his maintenance prednisone of 10 mg daily. No evidence of flare.
GERD-continue with Pepcid
BPH-continue with home medication of solifenacin and tamsulosin
Orthostatic hypotension-continue with midodrine
Diabetes mellitus type II-poorly controlled. Hemoglobin A1c 8.9. Patient on chronic maintenance of steroids. Currently on metformin and Farxiga. Will add sulfonylurea and if not effective then switch it out to basal insulin.
Full code
Medically stable for DC to rehab
Anticipated Discharge: Today
Subjective/Interval History
-
Date of Service: January 02, 2025
Overnight event.
Slept better.
Surgical pain well-controlled.
Denies shortness of breath or chest pain.
No nausea vomiting. No dizziness.
Objective Data
-
Vital Signs:
Vital Signs
Temp Pulse Resp BP Pulse Ox
97.9 F 43 19 122/50 92
01/02/25 07:17 01/02/25 07:17 01/02/25 07:17 01/02/25 07:17 01/02/25 07:17
I&O
01/01/25 01/02/25 01/03/25
06:59 06:59 06:59
Intake Total 480 / 480 600 / 600
Output Total 1300 / 1300 600 / 600
Balance -820 / -820 0 / 0
Physical Exam
-
General: No Apparent Distress
HEENT: Moist Mucous Membranes
Respiratory: Crackles (Right and left base) and Non Labored Respirations; Negative Wheezes or Accessory Resp Muscle Use
Cardiac: S1/S2 and Irregular Rhythm; Negative Tachycardic
GI: Soft
Neuro: AO x 3
Psych: Calm; Negative Confused
--- NOTE | 2025-01-02 09:51 | CM ---
Addendum entered by Sydney Fraga 01/02/25 16:14:
Met with patient; he was aware that he would not be discharged to [facility] today
If stable, he will discharge tomorrow
Addendum entered by Sydney Fraga 01/02/25 15:14:
Ambulance grape picker scheduled for 5:30 PM; facility and notified
Addendum entered by Sydney Fraga 01/02/25 14:33:
Plan: Discharge to [facility] SNF today via ambulance
notified via phone and agreeable with DC plan
Report # [phone]

Original Note:
Spoke with via phone to discuss DC Plan; SNF site preferences identified: [facility], [facility], and [facility]. Referrals sent via [facility]
Plan: discharge to SNF pending bed available
[2025-01-02] MEDS: GLUCOTROL 2.5 MG PO ×2 (09:53→18:04)
[2025-01-02 12:39] LABS: Glucose - Point of Care 356 mg/dl (70-99)
[2025-01-02] MEDS: NOVOLOG FLEXPEN-LOW RESISTANCE 5 UNITS SC (13:09)
--- NOTE | 2025-01-02 15:17 | CM ---
Patient's discharge cancelled for today; [facility] notified
[2025-01-02 16:51] LABS: Glucose - Point of Care 307 mg/dl (70-99)
[2025-01-02] MEDS: NOVOLOG FLEXPEN-LOW RESISTANCE 4 UNITS SC (18:03)
--- NOTE | 2025-01-02 18:25 | PTCARENOTE ---
pt assisted out of bed to BSC -had a large loose brown BM - then assisted to Chair. offered no c/o but when PT/OT entered room for therapy session pt noted to be diaphoretic, BP in chair 86/53, HR 118. pt returned to bed with RW and assistance of
2, BP rechecked supine in bed-117/62. pt stated he was already feeling better in bed. Dr Fallon, case management made aware and discharge cancelled for today. pt also aware of plan.
care ongoing.
[2025-01-02] MEDS: SENOKOT 17.2 MG PO (20:58)
[2025-01-02] MEDS: COLACE 100 MG PO (20:58)
[2025-01-02] MEDS: FLOMAX 0.4 MG PO (21:04)
[2025-01-02] MEDS: DETROL LA 2 MG PO (21:04)
[2025-01-02] MEDS: LIPITOR 10 MG PO (21:04)
[2025-01-02] MEDS: ARICEPT 5 MG PO (21:04)
[2025-01-02] MEDS: ZYRTEC 10 MG PO (21:04)
[2025-01-02] MEDS: ASPIR LOW (ENTERIC COATED) 81 MG PO (21:04)
[2025-01-02 21:49] LABS: Glucose - Point of Care 141 mg/dl (70-99)
[2025-01-02] MEDS: TOPROL XL 12.5 MG PO (22:30)
[2025-01-03] MEDS: TYLENOL 650 MG PO ×4 (05:00→18:35)
[2025-01-03 05:23] VITALS: BMI 29.1
[2025-01-03 07:05] VITALS: BP 101/50
[2025-01-03 07:34] LABS: Glucose - Point of Care 122 mg/dl (70-99)
[2025-01-03] MEDS: NOVOLOG FLEXPEN-LOW RESISTANCE SC (08:55)
[2025-01-03] MEDS: PEPCID 20 MG PO (08:56)
[2025-01-03] MEDS: GLUCOPHAGE 1000 MG PO ×2 (08:56→18:34)
[2025-01-03] MEDS: OCUVITE SOFTGEL 1 CAP PO (08:57)
[2025-01-03] MEDS: GLUCOTROL 2.5 MG PO ×2 (08:57→18:35)
[2025-01-03] MEDS: FARXIGA 10 MG PO (08:57)
[2025-01-03] MEDS: LASIX 80 MG PO (08:58)
[2025-01-03] MEDS: SENOKOT 17.2 MG PO (08:59)
[2025-01-03] MEDS: VITAMIN D3 (cholecalciferol) 100 MCG PO (08:59)
[2025-01-03] MEDS: ELIQUIS 5 MG PO (09:00)
[2025-01-03] MEDS: COLACE 100 MG PO (09:00)
[2025-01-03] MEDS: DELTASONE 10 MG PO (09:01)
[2025-01-03] MEDS: ROXICODONE 5 MG PO ×2 (09:10→18:34)
--- NOTE | 2025-01-03 11:29 | W.PN.HOSP.TC ---
Today's Communication/Plan
-
Obtain right hip x-ray and if negative discharge to rehab today
Assessment / Plan
Assessment / Plan
Mechanical fall leading to right hip fracture-status post right hip hemiarthroplasty 12/31
Continue with pain regimen
Continue with PT OT
Ortho input regarding follow-up noted
Obtain right hip x-ray prior to discharge due to change in the nature of the pain.
Paroxysmal fibrillation-in sinus rhythm. Eliquis resumed. Continue with beta-willian.
Chronic heart failure with preserved EF-clinically compensated. Resumed Lasix and Farxiga postop
Chronic interstitial lung disease-on low-dose maintenance steroids or prednisone at 10 mg. Uses inhalers and nebulizers. No home O2. Denies any recent changes with his respiratory function. chest x-ray shows chronic ILD but no CHF or
pneumonia.DC from the stress dose steroids and resume his maintenance prednisone of 10 mg daily. No evidence of flare.
GERD-continue with Pepcid
BPH-continue with home medication of solifenacin and tamsulosin
Orthostatic hypotension-continue with midodrine -increased dose due to ongoing issues with orthostatic BP drop post op. No extrarenal losses.
Diabetes mellitus type II-poorly controlled. Hemoglobin A1c 8.9. Patient on chronic maintenance of steroids. Currently on metformin and Farxiga.added sulfonylurea and if not effective then switch it out to basal insulin.
Full code
Anticipated Discharge: Today
Subjective/Interval History
-
Date of Service: January 03, 2025
Feels that had different with the right hip. Monday. He noticed the change with the right hip with increased pain since yesterday when he got turned in the bed. He has not had need of pain medication postop but now is requesting pain medication.
Yesterday with PT he had orthostatic drop in blood pressure. Denies any dizziness now. Denies any chest pain or shortness of breath.
No cough.
Objective Data
-
Vital Signs:
Vital Signs
Temp Pulse Resp BP Pulse Ox
98.0 F 54 15 101/50 99
01/03/25 07:05 01/03/25 07:05 01/03/25 07:05 01/03/25 07:05 01/03/25 07:05
I&O
01/02/25 01/03/25 01/04/25
06:59 06:59 06:59
Intake Total 600 / 600 960 / 960 660 / 660
Output Total 600 / 600 450 / 450 1050 / 1050
Balance 0 / 0 510 / 510 -390 / -390
Physical Exam
-
General: Comfortable
Respiratory: Crackles (both bases) and Non Labored Respirations; Negative Wheezes or Accessory Resp Muscle Use
Cardiac: Regular Rhythm and S1/S2; Negative Tachycardic
GI: Soft and Nontender
Musculoskeletal: Other (PROM in right hip and tenderness in lateral aspect of the upper thigh)
Neuro: AO x 3
Psych: Calm
Data Reviewed
-
Labs: Labs Reviewed by me
[2025-01-03 12:11] LABS: Glucose - Point of Care 297 mg/dl (70-99)
[2025-01-03] MEDS: NOVOLOG FLEXPEN-LOW RESISTANCE 3 UNITS SC (13:04)
[2025-01-03 14:27] VITALS: BP 113/62; BP 115/51; BP 95/52; BP 97/55; PULSE 109; PULSE 47; PULSE 59; O2SAT 93
[2025-01-03 14:34] VITALS: BP 113/62; BP 115/51; BP 95/52; BP 97/55; PULSE 109; PULSE 47; PULSE 59; O2SAT 93
[2025-01-03 15:00] VITALS: BP 110/60
--- NOTE | 2025-01-03 15:04 | CM ---
Pt is cleared for discharge today to [facility]. Transport via ambulance arranged for 7:30pm today. Call placed to pt's to make her aware of transfer to [facility] via ambulance today at 7:30.
[facility] Report: [phone]
[facility]
--- NOTE | 2025-01-03 15:32 | W.DCSUMMARY ---
Discharge Summary
Discharge Data
Date of Admission: 12/30/24
Date of Discharge: 01/03/25
-
Pending Results: No
Hospital Course
Primary diagnosis:
Mechanical fall leading to right hip fracture-status post right hip hemiarthroplasty 12/31
Secondary diagnosis:
Paroxysmal fibrillation
Chronic interstitial lung disease
Chronic heart failure with preserved EF
Gastroesophageal reflux disease
Benign prostatic hypertension
Orthostatic hypotension
Diabetes mellitus type 2
Hospital course:
Patient presented with mechanical fall leading on right hip fracture and had right hip hemiarthroplasty without any immediate complication.
He was seen by cardiology for preop cardiac eval. He had no cardiac events with the procedures.
He was seen by PT and recommendation was for rehab. He had a place in rehab today and was discharged.
Mechanical fall leading to right hip fracture-status post right hip hemiarthroplasty 12/31
Follow-up with orthopedics in 2 weeks
Paroxysmal fibrillation-in sinus rhythm. Eliquis resumed. Continue with beta-willian.
Chronic heart failure with preserved EF-clinically compensated. Resumed Lasix and Farxiga postop
Chronic interstitial lung disease-on low-dose maintenance steroids or prednisone at 10 mg. Uses inhalers and nebulizers. No home O2. Denies any recent changes with his respiratory function. chest x-ray shows chronic ILD but no CHF or
pneumonia.DC from the stress dose steroids and resume his maintenance prednisone of 10 mg daily. No evidence of flare.
GERD-continue with Pepcid
BPH-continue with home medication of solifenacin and tamsulosin
Orthostatic hypotension-continue with midodrine -increased dose due to ongoing issues with orthostatic BP drop post op. No extrarenal losses.
Diabetes mellitus type II-poorly controlled. Hemoglobin A1c 8.9. Patient on chronic maintenance of steroids. Currently on metformin and Farxiga.added sulfonylurea and if not effective then switch it out to basal insulin
Consultants on board:
Orthopedics-Louis Cao
Cardiology-Christian Fernández
Discharge Plan
-
Patient Disposition: [facility]/SNF
Discharge Diagnosis/Procedures: Right hip fracture status post right hip hemiarthroplasty 12/31; paroxysmal atrial fibrillation, chronic heart failure with preserved EF, chronic interstitial lung disease, diabetes mellitus 2
Diet: Diabetic, Carb Controlled
Activity: As tolerated
Driving Restrictions: Not until seen by your Dr
Bathing Restrictions: None
Other Services: PT and OT
Activity Restrictions/Additional Instructions:
Maintain surgical dressing until 2 week post-op visit.
Referrals:
Neville Gómez MD [Family Provider, Internal Medicine]
Louis Jose MD [Active, Orthopedics] - in two weeks
Prescriptions:
New
acetaminophen 325 mg Tablet
650 mg PO Q4HWA Qty: 1 0RF
docusate sodium 100 mg Capsule
100 mg PO BID Qty: 1 0RF
glipizide 5 mg Tablet
2.5 mg PO BID@0800,1700 Qty: 1 0RF
oxycodone 5 mg Tablet
5 mg PO Q4HPRN PRN (Reason: mild pain) Qty: 12 0RF
Continued
coenzyme Q10 [Co Q-10] 100 MG capsule
100 mg PO DAILY
simvastatin 20 MG tablet
20 mg PO HS
metoprolol succinate 25 mg Tablet Extended Release 24 Hr
12.5 mg PO HS
tamsulosin 0.4 mg Capsule
0.4 mg PO HS
metformin 1,000 MG tablet
1,000 mg PO BID
cetirizine [Zyrtec] 10 mg Tablet
10 mg PO HS
fluticasone propionate 50 mcg/actuation [place],Suspension
2 spray INTRANASAL DAILY
Eliquis 5 mg Tablet
5 mg PO BID
donepezil 5 mg Tablet
5 mg PO HS
polyethylene glycol 3350 [Miralax] 17 gram Powder In Packet
17 g PO DAILYPRN PRN (Reason: constipation)
aspirin 81 mg Tablet,Delayed Release (Dr/Ec)
81 mg PO HS
famotidine 20 mg Tablet
20 mg PO DAILY
furosemide 80 mg Tablet
80 mg PO DAILY
ipratropium bromide 21 mcg (0.03 %) spray,non-aerosol
2 spray INTRANASAL DAILY
solifenacin 5 mg Tablet
5 mg PO HS
levalbuterol tartrate 45 mcg/actuation HFA aerosol inhaler
2 puff INHALATION R BIDPRN PRN (Reason: sob)
Lupron Depot 7.5 mg Syringe Kit
0 mg IM Q4W Qty: 0
cholecalciferol (vitamin D3) 100 mcg (4,000 unit) Tablet
100 mcg PO DAILY
PreserVision AREDS-2 250-90-40-1 mg Capsule
1 cap PO BID
dapagliflozin propanediol [Farxiga] 10 mg Tablet
10 mg PO DAILY
desvenlafaxine succinate 25 mg Tablet Extended Release 24 Hr
25 mg PO DAILY
prednisone 10 mg tablet
10 mg PO DAILY
Changed
midodrine 5 mg Tablet
5 mg PO TID Qty: 0 0RF
Discharge Orders:
Discharge Patient (As Directed); Ordered 01/03/25
Ordered By: Jeb Fallon
Discharge Date and Time
Print Language: [place]ESE
[2025-01-03 16:04] LABS: Glucose - Point of Care 227 mg/dl (70-99)
[2025-01-03] MEDS: NOVOLOG FLEXPEN-LOW RESISTANCE 2 UNITS SC (18:36)
[2025-01-03 19:25] VITALS: BP 107/66
--- NOTE | 2025-01-03 20:17 | PTCARENOTE ---
received pt @ change of shift, previous RN called report to [facility] and printed discharge documents. Pt assessed @ bedside, VSS taken and stable, denies pain or SOB. Hip dressing assessed. Pickup @ 1999, assisted pt OOB with RW and performed SPT to
stretcher. Pt's belongings reviewed with, checked room and 2 bags taken.
== END 2025-01-03 20:00 | DRG 522 ==
LOC: 2 SOUTH 18:05
PROVIDERS: Orthopaedic Surgery; Physician Assistant; Student in an Organized Health Care Education/Training Program; ADMITTING PHYSICIAN Internal Medicine; CONSULT PHYSICIAN Internal Medicine Cardiovascular Disease; EMERGENCY PHYSICIAN Emergency Medicine; FAMILY PHYSICIAN Internal Medicine Geriatric Medicine; OTHER PHYSICIAN Internal Medicine Cardiovascular Disease
PROC: 0SRR0J9 Replacement of Right Hip Joint, Femoral Surface with Synthetic Substitute, Cemented, Open Approach (ICD-10-PCS; 2024-12-31)
DX: S72.041A Displaced fracture of base of neck of right femur, initial encounter for closed fracture (principal); J84.9 Interstitial pulmonary disease, unspecified; I50.32 Chronic diastolic (congestive) heart failure; Z85.46 Personal history of malignant neoplasm of prostate; K21.9 Gastro-esophageal reflux disease without esophagitis; I95.1 Orthostatic hypotension; E11.40 Type 2 diabetes mellitus with diabetic neuropathy, unspecified; Z79.84 Long term (current) use of oral hypoglycemic drugs; Z79.01 Long term (current) use of anticoagulants; Z95.2 Presence of prosthetic heart valve; Z87.891 Personal history of nicotine dependence; Z88.0 Allergy status to penicillin; Z79.899 Other long term (current) drug therapy; Z79.82 Long term (current) use of aspirin; W19.XXXA Unspecified fall, initial encounter; N40.0 Benign prostatic hyperplasia without lower urinary tract symptoms; Z85.828 Personal history of other malignant neoplasm of skin; E78.00 Pure hypercholesterolemia, unspecified; G47.33 Obstructive sleep apnea (adult) (pediatric); H35.30 Unspecified macular degeneration; I11.0 Hypertensive heart disease with heart failure; I25.10 Atherosclerotic heart disease of native coronary artery without angina pectoris; I27.20 Pulmonary hypertension, unspecified; I48.0 Paroxysmal atrial fibrillation; M54.30 Sciatica, unspecified side; Z86.73 Personal history of transient ischemic attack (TIA), and cerebral infarction without residual deficits; Z96.652 Presence of left artificial knee joint
CPT/HCPCS: 71046; 73502; 80048; 80053; 82962; 85014; 85018; 85025; 85027; 86850; 86900; 86901; 88305; 88311; 93005; 97110; 97116; 97163; 97167; 97530; 97535; 99285; C1713; C1776; P9045

== ENCOUNTER → 2025-01-06 11:31 | Outpatient (REF) | payer OTHER, MEDICARE, SELFPAY ==
[2025-01-06 12:51] LABS: Hematocrit 31.6 % (39.0-52.0); Hemoglobin 10.0 g/dL (13.0-18.0); Mean Corp Hgb Conc. 31.6 g/dL (33.0-37.0); Mean Corpuscular Volume 89.0 fL (80.0-94.0); Nucleated Red Blood Cells % 0 % (-); Platelet Count 167 10^3/uL (130-400); Red Cell Dist. Width 15.1 % (11.5-14.5)
[2025-01-06 13:00] LABS: Blood Urea Nitrogen 21 mg/dl (9-20); Calcium 8.2 mg/dl (8.4-10.2); Carbon Dioxide 32 mmol/L (22-30); Chloride 98 mmol/L (98-107); Glucose 151 mg/dl (70-99); Potassium 3.7 mmol/L (3.5-5.1); Sodium 134 mmol/L (135-145); eGFR > 60.00
== END ==
LOC: OLABP 11:31
PROVIDERS: ATTENDING PHYSICIAN Internal Medicine
DX: I73.9 Peripheral vascular disease, unspecified (principal); I50.32 Chronic diastolic (congestive) heart failure; S72.001D Fracture of unspecified part of neck of right femur, subsequent encounter for closed fracture with routine healing; E03.8 Other specified hypothyroidism; E11.51 Type 2 diabetes mellitus with diabetic peripheral angiopathy without gangrene; E78.2 Mixed hyperlipidemia; F33.1 Major depressive disorder, recurrent, moderate; I11.0 Hypertensive heart disease with heart failure; I27.20 Pulmonary hypertension, unspecified
CPT/HCPCS: 36415; 80048; 85025

== ENCOUNTER → 2025-02-26 11:45 | Outpatient (REF) | payer MEDICARE, OTHER, SELFPAY ==
[2025-02-26 12:38] LABS: Hematocrit 42.9 % (39.0-52.0); Hemoglobin 13.5 g/dL (13.0-18.0); Mean Corp Hgb Conc. 31.5 g/dL (33.0-37.0); Mean Corpuscular Volume 87.7 fL (80.0-94.0); Nucleated Red Blood Cells % 0 % (-); Platelet Count 201 10^3/uL (130-400); Red Cell Dist. Width 15.0 % (11.5-14.5)
[2025-02-26 13:10] LABS: ALT (SGPT) 11 U/L (0-50); AST (SGOT) 16 U/L (17-59); Albumin 4.3 g/dl (3.5-5.0); Alkaline Phosphatase 81 U/L (38-126); Blood Urea Nitrogen 21 mg/dl (9-20); Calcium 9.4 mg/dl (8.4-10.2); Carbon Dioxide 32 mmol/L (22-30); Chloride 96 mmol/L (98-107); Glucose 269 mg/dl (70-99); Potassium 3.9 mmol/L (3.5-5.1); Sodium 137 mmol/L (135-145); Total Protein 7.2 g/dl (6.3-8.2); eGFR > 60.00
[2025-02-26 13:37] LABS: PSA, Total - Diagnostic 0.25 ng/ml (0.0-4.0)
== END ==
LOC: REG 11:45
PROVIDERS: ATTENDING PHYSICIAN Nurse Practitioner Primary Care; FAMILY PHYSICIAN Internal Medicine Geriatric Medicine
DX: C61 Malignant neoplasm of prostate (principal); R53.83 Other fatigue
CPT/HCPCS: 36415; 80053; 84153; 85025